=== PATIENT | male | born 1955 | race Caucasian/White ===

== ENCOUNTER 2021-12-19 09:26 | Outpatient (RCR) | payer MEDICARE, SELFPAY ==
--- NOTE | 2021-12-19 09:28 | PTOPEVAL ---
Thank you for referring Jasper Celaya to [facility].? The patient is scheduled to be seen for therapy? __2__x/week for 10 visits. Please review, sign, date and return this plan of care ILA. I agree with and certify that the following plan of care is medically necessary. Referring Physician Date Admitting Provider: Attending Provider: Liu Brewer, MD Referring Provider: *PT Outpatient Evaluation Start: 12/18/21 06:57 Freq: Status: Active Protocol: Document 12/18/21 07:02 [facility] (Rec: 12/18/21 08:03 [facility] [email or web address]) Therapy Assessment Status Assessment Status Assessment Status Evaluation Evaluation Information Problem Diagnosis Thoracic back pain Onset 11/21/21 Subjective Information Pt reports that on 11/21, he Query Text:As Reported By Patient/ was moving his fridge with a Family neighbor when it fell on top of him. The fridge was on top of him for a while before it was able to be removed. He reports that he received some injuries to his handsn but didn't notice immediate back pain. He noticed this back pain a few days later when mowing his yard and this back pain has been progressing. XRay denies fracture. Pain is described as grabbing and stabbing that starts in his lumbar region but elevates to his thoracic spine. He reports some leg weakness and paresthesia in the bottom of his bilateral feet. Deneis cramping of calves. Reports he is limited in most functional activities around the house due to pain when bending, twisting, lifting, and sitting for greater than 30 minutes. Sleep is affected currently as patient is unable to sleep greater than about 2 hours at a time. He has utilized pain meds with minimal help. Personal grooming unaffected. He would like to be able to return to all functional activities without pain.
== END 2022-01-16 15:07 | disposition home or self-care (01) ==
LOC: CHSPT 09:26
PROVIDERS: PCP Family Medicine; Visit Provider Family Medicine
DX: M54.6 Pain in thoracic spine (principal)
CPT/HCPCS: 97014; 97110; 97140; 97161; G0283

== ENCOUNTER 2024-07-25 14:21 | Outpatient (RCR) | payer MEDICARE, SELFPAY ==
--- NOTE | 2024-07-25 15:28 | PTOPEVAL1 ---
Assessment and note entered by [facility] Evaluation Information Assessment Status Evaluation ICD-10 Condition Codes (PT) Weakness R53.1 Onset 06/22/24 Subjective Information Pt. reports that he was diagnosed with cancer of the brain early June. He states that he has noticed weakness in the right u.e. and l.e. developing. He reports that he was sent up to [place] recently and received radiation which helped to shrink the tumor. He states that some strength has returned. He states that despite the progress he still has noticeable weakness of the right u.e. and l.e. He reports that he notices he walks with his right foot out. He states that he has trouble lifting the right arm overhead. He states that he has suffered 2 falls in the past year, most recent being 06/05/24. He states that his goal is to improve his leg strength, arm strength and balance. Reported Pain Level Pain Score 0: Self Report Assessment PT Clinical Summary Pt. is a 69 year old male who enters the clinic with developed right side weakness. He presents with u.e. and l.e. weakness, impaired gait and slight balance impairments on this date. Continued skilled PT is indicated in order to improve these areas to allow the pt. to be able to complete all IADL's with improved efficiency and safety. Plan of Care Interventions Gait Training,Manual Therapy,Neuro Re-education, Patient/Caregiver Education,Therapeutic Activities ,Therapeutic Exercise PT Services Indicated Yes Treatment Frequency and 2x/week x 12 visits Duration These treatments will address the objective and functional deficits as defined above. The patient will be advanced safely and appropriately in order for the patient to progress towards his/her prior level of function. Additional exercises will be introduced and as well as a comprehensive home exercise program upon discharge, if needed, ?to ensure carryover of functional gains achieved in the clinic. This treatment plan has been reviewed and agreement upon by the patient.
== END 2024-07-25 20:00 | disposition home or self-care (01) ==
LOC: CHSPT 14:21
PROVIDERS: PCP Physician Assistant; Visit Provider Physician Assistant
DX: R53.1 Weakness (principal)
CPT/HCPCS: 97110; 97161

== ENCOUNTER 2024-08-30 09:53 | Outpatient (CLI) | payer MEDICARE, SELFPAY ==
--- OUTSIDE RECORDS SUMMARY | 2024-08-30 10:08 | XMS_ITS | Data Portability ---
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 Role Phone GERDA GARVEY Primary Care Provider Assessment Encounter Date Assessment Date Assessment LastModified by Organization Details LastModified Time 07/01/2024 07/01/2024 Tolerating RT Completed SRS today Repeat brain MRI in 6-8 weeks Additional medical mgmt as per inpatient team Jessica Fitzgerald MD [email or web address] Not available 07/01/2024 18:40:33 Plan of Treatment Reminders Order Date Submit Date Provider Last Modified By Organization Details Last Modified Time Details Appointments Imaging 5.PRO 2024 10:15A M [facility] [place] Not available Not available Not available Establish ed Patient 30.EST 2024 01:00P M Yoli Casarez Not available Not available Not available Lab None recorded. Referral None recorded. Procedures None recorded. Surgeries None recorded. Imaging None recorded. Medication Orders None recorded. Patient TargetsNo targets recorded. Patient InstructionsNo instructions recorded. Reason for Referral None Reported. Problems Name Problem SNOMED Code Status Onset Date Resolution Date Notes Provider Name and Address Organization Details Recorded Time Metastatic malignant neoplasm to brain [id number] Active October [facility] 20:38:14 Problem Notes None recorded. Procedures Surgical History Date Name Laterality Status Provider Name and Address Organization Details Recorded Time Colonoscopy with biopsy completed Not Available Health Note 08/24/2024 15:13:21 Imaging Results None recorded. Procedure Notes None recorded. Medical Equipment None Reported. Medications Name Sig Start Date Stop Date Status Note LastModified by Organization Details LastModified Time pravastatin 40 mg tablet TAKE 1 TABLET BY MOUTH EVERY DAY active Not Available Not Available No t Available hydrocodone 5 mg-acetaminop hen 325 mg tablet TAKE 1 TABLET BY MOUTH THREE TIMES A DAY NEEDED active Not Available Not Available No t Available ondansetron HCl 8 mg tablet TAKE 1 TABLET BY MOUTH EVERY 8 HOURS NEEDED FOR NAUSEA AND VOMITING active Not Available Not Available No t Available prednisone 20 mg tablet TAKE 2 TABS BY MOUTH DAILY FOR 5 DAYS active Not Available Not Available No t Available prochlorperaz ine maleate 10 mg tablet TAKE 1 TABLET BY MOUTH EVERY 6 HOURS NEEDED FOR NAUSEA active Not Available Not Available No t Available lidocaine-gautam locaine 2.5 %-2.5 % topical cream APPLY TO TREATMENT AREA 1 HOUR PRIOR TO TREATMENT. active Not Available Not Available N ot Available nifedipine ER 60 mg tablet,extend ed release 24 hr TAKE 1 TABLET BY MOUTH EVERY DAY active Not Available Not Available No t Available cephalexin 500 mg capsule TAKE 1 CAPSULE BY MOUTH THREE TIMES A DAY active Not Available Not Available No t Available dexamethasone 4 mg tablet TAKE 5 TABLETS (20MG) AT BEDTIME THE NIGHT BEFORE CHEMO AND 5 TABLETS AT 6AM THE MORNING OF CHEMO. active Not Available Not Available No t Available metoprolol succinate ER 25 mg tablet,extend ed release 24 hr TAKE 1 TABLET (25 MG TOTAL) BY MOUTH DAILY. active Not Available Not Available No t Available lisinopril 40 mg tablet TAKE 1 TABLET BY MOUTH EVERY DAY active Not Available Not Available No t Available amoxicillin 875 mg-potassium clavulanate 125 mg tablet TAKE 1 TABLET BY MOUTH TWICE A DAY active Not Available Not Available No t Available Vitals None Recorded Social History Question Answer Notes LastModified by Organizat ion Details LastModified Time Tobacco Smoking Status Former Smoker Not Available Health Note 08/24/2024 15:13:22 Do You Have An Advance Directive? No [email or web address] Information not available 08/24/2024 What Is Your Level Of Alcohol Consumption? None [email or web address] Information not available 08/24/2024 What Is Your Level Of Caffeine Consumption? Occasional [email or web address] Information not available 08/24/2024 Are You Currently Employed? No [email or web address] Information not available 08/24/2024 What Is Your Occupation? Retired [email or web address] Information not available 08/24/2024 How Many Times Per Week Do You Exercise? 3-4 Times Per Week [email or web address] Information not available 08/24/2024 When Did You Quit Smoking? 06/2017 [email or web address] Information not available 08/24/2024 What Was The Date Of Your Most Recent Tobacco Screening? 08/31/2024 [email or web address] Information not available 08/24/2024 What Is Your Relationship Status? [email or web address] Information not available 08/24/2024 Do You Use Any Illicit Or Recreational Drugs? No [email or web address] Information not available 08/24/2024 Sex: Unknown Functional Status Question Answer Note LastModified by Organization D etails LastModified Time What is your exercise level? Moderate [email or web address] Information not available 08/24/2024 Mental Status None recorded. Family History Relationship Description Onset Age of this Age Resolved Age Notes LastModified by Organization Details LastModified Time Mother Arthritis [email or web address] Not available 08/24/2024 15:13:20 Mother Family history of malignant neoplasm [email or web address] Not available 2024 15:13:20 Father Arthritis [email or web address] Not available 08/24/2024 15:13:20 Father Heart disease [email or web address] Not available 2024 15:13:20 Father Hypertensive disorder [email or web address] Not available 2024 15:13:20 Father Hypercholest erolemia [email or web address] Not available 2024 15:13:20 Paternal Grandfather Arthritis [email or web address] Not available 08/13 15:13:20 Paternal Grandfather Heart disease [email or web address] Not available 2024 15:13:20 Paternal Grandfather Hypertensive disorder [email or web address] Not available 2024 15:13:20 Paternal Grandfather Hypercholest erolemia [email or web address] Not available 2024 15:13:20 Paternal Grandfather Cerebrovascu lar accident [email or web address] Not available 06/2025 15:13:20 Medical History Condition Response High Blood Pressure Y COPD N Depression N Anxiety Disorder N Arthritis Y Cancer Y Stroke N Fibromyalgia N Kidney Disease N Attention-deficit Hyperactivity Disorder N Thyroid Problems N Anemia N Diabetes N Bleeding Disorder N Hyperlipidemia N Asthma N Seizures N Heart Disease N Osteoporosis N Past Encounters Encounter ID Performer Location Encounter Start Date Encounter Closed Date Diagnosis/Indication Diagnosis SNOMED-CT Code Diagnosis ICD10 Code Diagnosis Note [id number] [facility] [address] [facility],[address] [place] [phone] 1 06/24/2024 16:39:50 06/24/2024 16:39:51 [id number] MD Manuela Mercer [facility] Rad Onc ([place]) [address] [place] [facility],[address] [place] [phone] 1 07/01/2024 17:24:43 07/01/2024 17:25:30 Metastatic malignant neoplasm to brain [id number] C79.31 [id number] MD Manuela Crook [facility] [place] [address] [place] [facility],[address] [place] [phone] 1 07/01/2024 13:48:01 07/01/2024 16:10:43 [id number] [facility] [address] [place] [facility],[address] [place] [phone] 1 07/01/2024 17:40:44 07/12/2024 17:10:44 Health Concerns Section Related Observation LastModified by Organization Detai ls LastModified Time None Recorded Concern Status LastModified by Organization Details LastModified Time None Recorded Advance Directives Directive N: Payers Encounter Date Sequence Insurance Name Policy Number Policy Conner Covered Member ID Conner Member ID Guarantor Name 06/24/2024 1 [employer] (MEDICARE REPLACEMENT PPO) [id number] Jasper Celaya [id number] Jasper Celaya 07/01/2024 1 [employer] (MEDICARE REPLACEMENT PPO) [id number] Jasper Celaya [id number] Jasper Celaya 07/01/2024 1 [employer] (MEDICARE REPLACEMENT PPO) [id number] Jasper Celaya [id number] Jasper Celaya 07/01/2024 1 [employer] (MEDICARE REPLACEMENT PPO) [id number] Jasper Celaya [id number] Jasper Celaya Notes Date Note Type Note Provider Name and Address Organization Details Recorded Time 07/01/2024 text/html 69 yo male with multiple brain metastases, likely lung primary based on imaging (pathologic confirmation pending) Fx: 1Dose: 2200/2200 cGy Pt tolerated his radiation treatment well today, although his arms and back were sore afterward due to lying still in the treatment position for the lengthy duration of the treatment. No new neuro symptoms. He remains inpatient, underwent chest tube placement for post-biopsy pneumothorax. Jessica Fitzgerald MD [address] [place] [address], [phone], [facility] 07/01/2024 18:45:39 07/01/2024 text/html Identifying Information Oncologic History Interval HistoryLeft Frontal, right frontal, right cerebral Fx: 07/13 Dose: 2200 Julio Cesar Dalton MD [address] [place] [address], [phone], [facility] 07/12/2024 17:10:41
[2024-08-30 10:10] VITALS: BP 146/69; PULSE 88; RESP 16; TEMP 36.6; O2SAT 96; BMI 29.2
[2024-08-30] MEDS: SODIUM CHLORIDE 0.9% IV 250 ML 10 ML IVPB (10:15)
[2024-08-30 10:21] LABS: Hematocrit 34.3 % (37.0-46.0); Mean Corpuscular HGB Conc 32.1 g/dL (32-36); Mean Corpuscular Hemoglobin 28.1 pg (27.0-31.0); Mean Corpuscular Volume 87.5 fL (78.0-102.0); Mean Platelet Volume 7.9 fl (8.7-11.0); Platelet Count Result 383 K/mm3 (150-420); Red Blood Count 3.92 M/mm3 (4.70-6.10); Red Cell Distribution Width 15.6 % (11.6-14.4); White Blood Count 6.2 K/mm3 (4.8-10.8)
[2024-08-30 10:38] LABS: Alanine Aminotransferase 34 U/L (16-63); Albumin Level 3.4 g/dL (3.4-5.0); Alkaline Phosphatase 134 U/L (46-116); Anion Gap 12 mmol/L (4-12); Aspartate Amino Transferase 16 U/L (15-37); Bilirubin,Total 0.2 mg/dL (0.00-1.00); Blood Urea Nitrogen 19 mg/dL (7-18); Carbon Dioxide 24 mmol/L (21-32); Chloride 101 mmol/L (98-108); Estimated CRCL calculation 79 ml/min; Estimated Glomerular Filt Rate > 60; Glucose 189 mg/dL (70-99); Osmolality Calculated 291 mOsm/kg (285-295); Potassium 4.2 mmol/L (3.5-5.1); Sodium 137 mmol/L (136-145); Total Protein 8.2 g/dL (6.4-8.2)
[2024-08-30] MEDS: FAMOTIDINE 20 MG/2 ML VIAL IV PUSH (10:55)
[2024-08-30] MEDS: diphenhydrAMINE HCl INJ 50 MG/ML VIAL 25 MG IV PUSH (10:59)
[2024-08-30] MEDS: dexAMETHasone SOD 4 MG/ML INJ 12 MG, ONDANSETRON INJ 16 MG in SODIUM CHLORIDE 0.9% IV 8... 300 MG IVPB (11:20)
[2024-08-30] MEDS: FOSAPREPITANT DIMEGLUMINE 150 MG in SODIUM CHLORIDE 0.9% IV 250 ML 750 MG IVPB (11:46)
[2024-08-30] MEDS: PEMBROLIZUMAB 200 MG in SODIUM CHLORIDE 0.9% IV 92 ML IVPB (12:10)
[2024-08-30] MEDS: SODIUM CHLORIDE 0.9% IVPB ×2 (12:40→15:40)
[2024-08-30] MEDS: PACLITAXEL IVPB (12:40)
[2024-08-30] MEDS: CARBOPLATIN IVPB (15:40)
[2024-08-30] MEDS: HEPARIN SODIUM LOCK FLUSH 500 UNITS/5 ML SYRINGE IV PUSH (16:11)
[2024-08-30 16:26] VITALS: BP 143/79; PULSE 80; RESP 16; TEMP 36.6; O2SAT 93
--- NOTE | 2024-08-30 16:28 | PC.NURSE ---
Patient tolerated chemo treatment well. SEE MAR/patient care notes.
== END 2024-08-30 09:54 | disposition home or self-care (01) ==
PROVIDERS: PCP Physician Assistant; Visit Provider Internal Medicine Hematology
DX: Z51.11 Encounter for antineoplastic chemotherapy (principal); C34.12 Malignant neoplasm of upper lobe, left bronchus or lung
CPT/HCPCS: 36415; 36591; 80053; 85027; 96367; 96375; 96413; 96417; J1100; J1200; J1453; J2405; J7040; J7050; J9045; J9267; J9271

== ENCOUNTER 2024-09-20 08:30 | Outpatient (CLI) | payer MEDICARE, SELFPAY ==
[2024-09-20 08:45] VITALS: BP 138/77; PULSE 78; RESP 16; TEMP 36.6; O2SAT 93; BMI 29.5
--- OUTSIDE RECORDS SUMMARY | 2024-09-20 08:53 | XMS_ITS | Encounter Summary ---
Author Organization [facility] Address [facility] [place] [address] Care Team Providers Care Top Polisher Name Role Phone Everton Flores MD Primary Care Provider [phone] Osmar Cabrales MD Unavailable Unavailable Mode Slaughter MD Unavailable Unavailable Nilay Enriquez MD Unavailable [phone] Martha Jordan MD Unavailable [phone] Liu Brewer MD Primary Care Provider Marcial Titus MD Unavailable [phone] Encounter Details Date Type Department Care Team (Late st Contact Info) Description 12/18/2018 Abstract [facility] CONVERSION [address] [place], [place] [id number] , Generic Conversion, Social History Tobacco Use Types Packs/Day Years Used Date Smoking Tobacco: Every Day Smokeless Tobacco: Never Sex and Gender Information Value Date Recorded Sex Assigned at Male 07/26/2024 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 Sex Male 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 Gender Identity Not on file Sexual Orientation Not on file documented as of this encounter Plan of Treatment Upcoming Encounters Date Type Department Care Team (Late st Contact Info) Description 10/25/2024 9:00 AM CDT Office Visit [facility] [address] [place] [phone] Marcial Titus MD [address] [facility] [address] [place] [address] documented as of this encounter Visit Diagnoses Not on filedocumented in this encounter Care Teams Top Polisher Relationship Specialty Start Date End Date Everton Flores MD [address] [place] [address] PCP - General FAMILY PRACTICE 07/07/17 07/24/20 Liu Brewer MD [address] [place] [address] PCP - General FAMILY PRACTICE 07/25/20 Osmar Cabrales MD [address] [place] [phone] CARDIOVASCULAR DISEASE 07/07/17 07/26/20 Mode Slaughter MD [address] [place] [address] CARDIOVASCULAR DISEASE 07/22/17 07/26/20 Nilay Enriquez MD [address] [place] [address] ORTHOPAEDICS 01/15/18 Martha Jordan MD [address] [place] [address] Consulting Physician INTERVENTIONAL CARDIOLOGY 07/27/20 09/16/24 Marcial Titus MD [address] [facility] [address] [address] Physician INTERVENTIONAL CARDIOLOGY 09/16/24 documented as of this encounter
--- OUTSIDE RECORDS SUMMARY | 2024-09-20 08:54 | XMS_ITS | Data Portability ---
Author Organization [facility], [address] [facility] ([place] Address [address] [place] [address] Care Team Providers Care Mixer Whipped Topping Name Role Phone GERDA AGRVEY Primary Care Provider [phone] Assessment Encounter Date Assessment Date Assessment LastModified by Organization Details LastModified Time 07/01/2024 07/01/2024 Tolerating RT Completed SRS today Repeat brain MRI in 6-8 weeks Additional medical mgmt as per inpatient team Jessica Fitzgerald MD [email or web address] Not available 07/01/2024 18:40:33 08/01/2024 08/01/2024 IMPRESSION: Multifocal brain metastases. PLAN: 1. Follow up with radiation oncology in 1 month for repeat MRI brain. 2. Continue follow-up with medical oncology as planned. 3. Call with any new or worsening symptoms. I personally spent a total of 5 minutes on the patient on this date of service including both fwzp-sy-awrh and bfn-zikl-po-fa ce time excluding any separately reportable services having direct medical discussion with the patient via telephone. [email or web address] Not available 08/25/2024 13:26:08 08/31/2024 08/31/2024 IMPRESSION: The patient is a 69-year-old male with a history of non-small cell lung cancer and brain metastasis for which he completed SRS on 07/01/2024. He presents today in the office without any new onset of neurological symptoms. His MRI brain was reviewed today. Results are stable. We will recommend continued serial imaging. PLAN: 1. Follow up in radiation oncology in 3 months for repeat MRI brain. 2. Continue follow up with his PCP, Dr. Garvey, regarding right lower extremity swelling. 3. Call with any new or worsening symptoms. The patient and family are in agreement. I personally spent a total of 30 minutes on the patient on this date of service including both trfg-nl-awhe and non hldw-mw-rpcr time excluding any separately reportable services. The patient does travel from [place]. He is agreeable to coming to [place]. [email or web address] Not available 08/31/2024 20:25:20 Plan of Treatment Reminders Order Date Submit Date Provider Last Modified By Organization Details Last Modified Time Details Appointments Imaging 5.PRO 2024 12:30P M MRI [facility] Not available Not available Not available Imaging 5.PRO 2024 01:15P M [facility] Not available Not available Not available Lab None recorded . Referral None recorded . Procedures None recorded . Surgeries None recorded . Imaging None recorded . Medication Orders None recorded . Patient TargetsNo targets recorded. Patient InstructionsNo instructions recorded. Reason for Referral None Reported. Results Created Date Observation Date Name Description Value Unit Range Abnormal Flag Note LastModifiedBy Organization Detail LastModifiedTime 08/31/1908/31/2024 MRI, brain , w/wo contr ast [place] [id number] [place] [id number] Teleph one Name: Dylon Celaya 1795 Exam Date: 2024 Age: 69 Physic kyung: Savi bajwa MD, Julio Cesar : 1954 Examin ation: MRI BRAIN W AND WO CONTRA ST EXAMIN ATION: MRI brain with and withou t contra st INDICA TION: Lung cancer with brain mets, Curren tly underg oing radiat ion, Rechec k COMPAR DARIO: MR brain 2023. TECHNI QUE: This examin ation includ es T1-rossy ghted images pre- and postco ntrast as well as T2-rossy ghted, FLAIR, gradie nt-ech o, and diffus ion weight ed images . 15 mL of Dotare m gadoli nium were inject ed at the right antecu bital fossa, withou t incide nt. FINDIN GS: Cerebr um: A left fronta l pariet al metast asis has decrea sed in size. This now measur es 11 x 11 mm in transv erse dimens ions compar ed to 15 mm on the previo us exam. There is decrea sed surrou nding vasoge daina edema compar ed to the previo us exam. Other small enhanc ing lesion s bilate rally in the cerebe llum in the anteri or right fronta l lobe are no longer identi fied. Howeve r the postco ntrast images have substa ntiall y more artifa ct on today' s study which could obscur e small lesion . White matter : Normal . Roll Or Tape Edge Machine Operator ior fossa: Unrema rkable cerebe llum and brains tem. Diffus ion-we ighted images : No eviden ce of recent or subacu te infarc t. Extra- axial spaces : Unrema rkable with no masses or collec tions. Brain parenc hymal volume : Within normal limits for age. Pituit carlos enrique:No rmal Vascul ature: Loss of normal flow signal in the right leadership program intern al caroti d artery at its upper cervic al portio n and its intrac ranial portio n. Recomm end CT or MR angiog ericka if this is not a known abnorm ality. Flow distur bance is also presen t on the previo us MRI. Parana beatriz sinuse s and mastoi ds:Mod erate to severe right maxill carlos enrique sinus polypo id mucosa l thicke arnold. Orbits : Normal orbita l conten ts. Other: No other signif icant abnorm ality. IMPRES BARRY: 1. A left fronta l pariet al metast asis measur es smalle r in today' s examin ation with decrea sed surrou nding edema. 2. Other small enhanc ing lesion s suspic ious for metast ases are not identi fied on today' s study. There is howeve r motion artifa ct on the postco ntrast images which may obscur e these lesion s. 3. Abnorm al flow in the right leadership program intern al caroti d artery , recomm end CT or MR angiog ericka if this is not a known abnorm ality. Electr onical ly signed in Panda cribe by: MJ JIMENEZ MD on:08/13 11:12 AM cc: Page PAGE 1 of NUMPAG ES 1 [email or web address] [facility] [address] [place] [address], [id number], 09/01/2024 14:28:58 Result Notes None recorded. Problems Name Problem SNOMED Code Status Onset Date Resolution Date Notes Provider Name and Address Organization Details Recorded Time Metastatic malignant neoplasm to brain 67423534 Active October [facility] 20:38:14 Problem Notes None recorded. Procedures Surgical History Date Name Laterality Status Provider Name and Address Organization Details Recorded Time Colonoscopy with biopsy completed Not Available Health Note 08/24/2024 15:13:21 Imaging Results Imaging Date Name Status LastModified by Organiz ation Details LastModified Time 08/31/2024 MRI, brain, w/wo contrast completed [facility] [address] [place] [address], [id number], 09/01/2024 14:28:58 Procedure Notes None recorded. Medical Equipment None Reported. Medications Name Sig Start Date Stop Date Status Note LastModified by Organization Details LastModified Time pravastatin 40 mg tablet TAKE 1 TABLET BY MOUTH EVERY DAY active Not Available Not Available No t Available hydrocodone 5 mg-acetamin ophen 325 mg tablet TAKE 1 TABLET BY MOUTH THREE TIMES A DAY NEEDED 08/31 completed Not Available Not Available Not Available ondansetron HCl 8 mg tablet TAKE 1 TABLET BY MOUTH EVERY 8 HOURS NEEDED FOR NAUSEA AND VOMITING active Not Available Not Available No t Available prednisone 20 mg tablet TAKE 2 TABS BY MOUTH DAILY FOR 5 DAYS active Not Available Not Available No t Available prochlorper azine maleate 10 mg tablet TAKE 1 TABLET BY MOUTH EVERY 6 HOURS NEEDED FOR NAUSEA active Not Available Not Available No t Available lidocaine-p rilocaine 2.5 %-2.5 % topical cream APPLY TO TREATMENT AREA 1 HOUR PRIOR TO TREATMENT . active Not Available Not Available No t Available nifedipine ER 60 mg tablet,exte nded release 24 hr TAKE 1 TABLET BY MOUTH EVERY DAY active Not Available Not Available No t Available cephalexin 500 mg capsule TAKE 1 CAPSULE BY MOUTH THREE TIMES A DAY 08/31 completed Not Available Not Available Not Available dexamethaso ne 4 mg tablet TAKE 5 TABLETS (20MG) AT BEDTIME THE NIGHT BEFORE CHEMO AND 5 TABLETS AT 6AM THE MORNING OF CHEMO. active Not Available Not Available No t Available metoprolol succinate ER 25 mg tablet,exte nded release 24 hr TAKE 1 TABLET (25 MG TOTAL) BY MOUTH DAILY. active Not Available Not Available No t Available lorazepam 1 mg tablet TAKE 1 TABLET BY MOUTH EVERY 12 HOURS NEEDED 08/31 completed Not Available Not Available Not Available lisinopril 40 mg tablet TAKE 1 TABLET BY MOUTH EVERY DAY 08/31 completed Not Available Not Available Not Available amoxicillin 875 mg-potassiu m clavulanate 125 mg tablet TAKE 1 TABLET BY MOUTH TWICE A DAY 08/31 completed Not Available Not Available Not Available Eliquis 5 mg tablet Take 1 tablet twice a day by oral route. active Not Available Not Available No t Available Vitals Date Recorded Body weight Body temperature Heart rate Oxygen saturation Oxygen saturation in Arterial blood by Pulse oximetry Systolic blood pressure Diastolic blood pressure Provider Name and Address Organization Details Last Updated DateTime 52261.2 g 97.4 [degF] 84 /min 96 % 96 % 134 mm[Hg] 70 mm[Hg] Meenakshi Ventura [facility] 13:50:08 Social History Question Answer Notes LastModified by [...] available 06/2025 15:13:20 Medical History Condition Response Diabetes N Anxiety Disorder N Bleeding Disorder N Attention-deficit Hyperactivity Disorder N High Blood Pressure Y Arthritis Y Hyperlipidemia N Cancer Y Thyroid Problems N Stroke N Asthma N COPD N Depression N Anemia N Seizures N Heart Disease N Fibromyalgia N Osteoporosis N Kidney Disease N Past Encounters Encounter ID Performer Location Encounter Start Date Encounter Closed Date Diagnosis/Indication Diagnosis SNOMED-CT Code Diagnosis ICD10 Code Diagnosis Note [id number] MD Manuela Crook [facility] [address] [place] [address] 06/24/2024 16:39:50 06/24/2024 16:39:51 [id number] MD Manuela Mercer [facility] [address] [place] [address] 07/01/2024 17:24:43 07/01/2024 17:25:30 Metastatic malignant neoplasm to brain 91733078 C79.31 [id number] Julio Cesar Dalton MD [facility] [address] [place] [address] 07/01/2024 13:48:01 07/01/2024 16:10:43 [id number] Julio Cesar Dalton MD [facility] [address] [place] [address] 07/01/2024 17:40:44 07/12/2024 17:10:44 [id number] Julio Cesar Dalton MD [facility] [address] [place] [address] 08/01/2024 16:33:12 08/01/2024 17:43:19 Metastatic malignant neoplasm to brain 31459868 C79.31 [id number] Julio Cesar Dalton MD [facility] [address] [place] [address] 08/31/2024 13:24:35 09/01/2024 16:30:07 Metastatic malignant neoplasm to brain 12406602 C79.31 Health Concerns Section Related Observation LastModified by Organization Detai ls LastModified Time None Recorded Concern Status LastModified by Organization Details LastModified Time None Recorded Advance Directives Directive N: Payers Encounter Date Sequence Insurance Name Policy Number Policy Conner Covered Member ID Conner Member ID Guarantor Name 07/01/2024 1 [employer] (MEDICARE REPLACEMENT PPO) [id number] Jasper Celaya [id number] Jasper Celaya 07/01/2024 1 [employer] (MEDICARE REPLACEMENT PPO) [id number] Jasper Celaya [id number] Jasper Celaya 07/01/2024 1 [employer] (MEDICARE REPLACEMENT PPO) [id number] Jasper Celaya [id number] Jasper Celaya 08/01/2024 1 [employer] (MEDICARE REPLACEMENT PPO) [id number] Jasper Celaya [id number] Jasper Celaya 08/31/2024 1 [employer] (MEDICARE REPLACEMENT PPO) [id number] Jasper Celaya [id number] Jasper Celaya Notes Date Note Type Note Provider Name and Address Organization Details Recorded Time 07/01/2024 text/html 69 yo male with multiple brain metastases, likely lung primary based on imaging (pathologic confirmation pending) Fx: ose: 2200/2200 cGy Pt tolerated his radiation treatment well today, although his arms and back were sore afterward due to lying still in the treatment position for the lengthy duration of the treatment. No new neuro symptoms. He remains inpatient, underwent chest tube placement for post-biopsy pneumothorax. Jessica Fitzgerald MD [address] [place] [address], [phone], [facility] 07/01/2024 18:45:39 07/01/2024 text/html Identifying Information Oncologic History Interval HistoryLeft Frontal, right frontal, right cerebral Fx: 07/13 Dose: 2200 Julio Cesar Dalton MD [address] [place] [address], [phone], [facility] 07/12/2024 17:10:41 08/01/2024 text/html The patient is s tatus post SRT to multiple brain metastases completed on 07/01/2024.He is doing very well with no new neurological symptoms. No headaches or fevers. No change in vision or hearing. No speech or thought process changes. No new weakness, numbness or tingling. No dizziness. No bowel or bladder habit changes. He does have a good appetite and no nausea or vomiting. He is off of the dexamethasone.He does not have any other questions today. Identifying Information: Oncologic History:07/01/2024: Completed SRS to multifocal brain metastases. Jasper Celaya is a 69-year-old male [facility] with complaints of progressive right sidedweakness. The patient reports he began to notice right leg numbness about aweek and a half prior to presentation for which his PCP ordered an MRI of hislumbar spine. This MRI was reportedly unremarkable but the patient continued tohave progressive right leg weakness. Within the last few days the patient hasnoticed right arm weakness and decreased coordination. Further evaluation ofthe [facility] with CT head demonstrated a probable left posteriorparietal hemorrhagic metastasis. Also obtained of the [facility] was aCT chest which demonstrated a new left upper lobe lung mass compatible withmalignancy. The patient was transferred further evaluation and management.Radiation Oncology has been consulted for management recommendations forradiation treatment of left frontoparietal lobe brain lesion. Interval History: Yoli Casarez PA-C [address] [place] [address], [phone], [facility] 08/30/2024 12:01:41 08/31/2024 text/html Jasper is a 69-year-old male who is here today in follow-up status post SRS single fraction on 07/01/2024 to the left frontal and right frontal metastases. He does not have any new neurological symptoms. He feels that he is doing fairly well. He has been trying to walk a mile and a half a day. He has been splitting firewood. He denies any headaches or fevers. He has had some blurry vision with reading, but does report seeing an eye doctor and he has new glasses ordered. No hearing changes. No facial drooping. No speech changes or change in thought process. No new numbness, tingling or weakness. He did have some swelling in his right lower extremity. He saw his PCP for this. They did rule out a blood clot. He was given Jobst stockings. He also has compression stockings and he will follow up with Dr. Garvey in the near future. He does feel that it is improving. He has not been putting his feet up when he is sitting down. He will make these changes. He denies any appetite difficulty. No nausea or vomiting. He is accompanied by his daughter and today, Rosa and Heather. He does have some mild neck pain but not too bad. He notices some dizziness when he gets up at night to go to the bathroom. He never notices this during the day. He has had some tinnitus at night sounding like chirping bugs. He did have a new MRI on 08/31/2024. Impression reads as follows:1. A left frontoparietal metastasis that measures smaller on today s examination with decreased surrounding edema.2. Other small enhancing lesions suspicious for metastases are not identified on today s study. There is however motion artifact on the postcontrast images which may obscure these lesions.3. Abnormal flow in the right internal carotid artery. Recommend CT or MRI angiography if this is not a known abnormality. The patient and I reviewed images together. The patient does not have any other questions or concerns today. Identifying Information: Name: Jasper CelayaAge: 69yo MDOB: 1955 Oncologic History:07/01/2024: Completed SRS to multifocal brain metastases. Jasper Celaya is a 69-year-old male who [facility] with complaints of progressive right sidedweakness. The patient reports he began to notice right leg numbness about aweek and a half prior to presentation for which his PCP ordered an MRI of hislumbar spine. This MRI was reportedly unremarkable but the patient continued tohave progressive right leg weakness. Within the last few days the patient hasnoticed right arm weakness and decreased coordination. Further evaluation ofthe [facility] with CT head demonstrated a probable left posteriorparietal hemorrhagic metastasis. Also obtained of the [facility] was aCT chest which demonstrated a new left upper lobe lung mass compatible withmalignancy. The patient was transferred further evaluation and management.Radiation Oncology has been consulted for management recommendations forradiation treatment of left frontoparietal lobe brain lesion. 08/31/2024: MRIHe did have a new MRI on 08/31/2024. Impression reads as follows:1. A left frontoparietal metastasis that measures smaller on today s examination with decreased surrounding edema.2. Other small enhancing lesions suspicious for metastases are not identified on today s study. There is however motion artifact on the postcontrast images which may obscure these lesions.3. Abnormal flow in the right internal carotid artery. Recommend CT or MRI angiography if this is not a known abnormality. Interval History: Yoli Casarez PA-C [address] [place] [address], [phone], [place] [facility] 09/06/2024 11:10:06
--- OUTSIDE RECORDS SUMMARY | 2024-09-20 08:54 | XMS_ITS | Clinical Summary ---
Author Organization [facility] Address [address] [place] [address] Care Team Providers Care Adobe Layer Name Role Phone Nilay Enriquez MD Unavailable [phone] Liu Brewer MD Primary Care Provider Marcial Titus MD Unavailable [phone] Allergies Active Allergy Reactions Criticality Noted Date Comments Atorvastatin Diarrhea 06/22/2024 Medications pravastatin (PRAVACHOL) 40 MG tablet Take 1 tablet (40 mg total) by mouth daily. 09/08/2022 Active apixaban (ELIQUIS) 5 MG tablet Take 1 tablet (5 mg total) by mouth 2 (two) times daily. 180 tablet 3 04/06/2023 Active HYDROcodone-acet aminophen (NORCO) 5-325 MG tablet Take 1 tablet by mouth 3 (three) times daily as needed. 06/13/2024 Active metoprolol succinate ER (TOPROL-XL) 25 MG 24 hr tablet TAKE 1 TABLET (25 MG TOTAL) BY MOUTH DAILY. 90 tablet 3 08/15/2024 Active NIFEdipine XL (PROCARDIA XL) 60 MG 24 hr tablet Take 1 tablet (60 mg total) by mouth daily. 90 tablet 3 08/17/2024 Active Active Problems Problem Noted Date Diagnosed Date Lung mass 06/22/2024 Chest pain of uncertain etiology 09/07/2017 Former smoker 09/07/2017 Atrial fibrillation ([facility]) 08/03/2017 LV dysfunction 08/03/2017 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[facility]) 08/03/2017 Essential hypertension 07/09/2017 Mixed hyperlipidemia 07/09/2017 Smoking 07/09/2017 COPD (chronic obstructive pu lmonary disease) ([facility]) Encounters Date Type Department Care Team Description 09/02/2024 Travel 08/17/2024 8:06 AM PULLEY MORTISER OPERATOR - 08/17/2024 11:59 PM PULLEY MORTISER OPERATOR Hospital Encounter [facility] [address] [place] [address] Malick Szymanski MD Discharge Disposition: Home or Self Care (Routine Discharge) 08/17/2024 Telephone [facility] [address] [place] [address] Martha Jordan MD Question 08/17/2024 Travel 08/12/2024 Telephone [facility] [address] [place] [address] Martha Jordan MD Reschedule 08/02/2024 9:27 AM PULLEY MORTISER OPERATOR - 08/02/2024 11:59 PM PULLEY MORTISER OPERATOR Hospital Encounter [facility] [address] [place] [address] Malick Szymanski MD Discharge Disposition: Home or Self Care (Routine Discharge) 08/02/2024 Travel 07/29/2024 Travel 07/26/2024 2:16 PM PULLEY MORTISER OPERATOR - 07/26/2024 11:59 PM PULLEY MORTISER OPERATOR Hospital Encounter [facility] [address] [place] [address] Malick Szymanski MD Discharge Disposition: Home or Self Care (Routine Discharge) 07/26/2024 Travel 07/25/2024 3:09 PM PULLEY MORTISER OPERATOR - 07/25/2024 11:59 PM PULLEY MORTISER OPERATOR Hospital Encounter [facility] [address] [place] [address] Malick Szymanski MD Discharge Disposition: Home or Self Care (Routine Discharge) 07/25/2024 7:40 AM PULLEY MORTISER OPERATOR - 07/25/2024 3:08 PM PULLEY MORTISER OPERATOR Hospital Encounter [facility] [address] [place] [address] Malick Szymanski MD Discharge Disposition: Home or Self Care (Routine Discharge) 07/25/2024 Travel 07/12/2024 12:30 PM PULLEY MORTISER OPERATOR Home Care Visit [facility] Home Care [facility] [address] [place] [address] Genet Pulido RN SN NON ADMIT SOC 07/08/2024 Telephone [facility] [address] [place] [address] Martha Jordan MD Appointment Request 06/22/2024 2:53 PM PULLEY MORTISER OPERATOR - 07/06/2024 2:19 PM PULLEY MORTISER OPERATOR Hospital Encounter [facility] [address] [place] [address] Rodrigo Delgadillo MD Yaseen, Maryam, MD Ahmad, Saad N, MD Markapuram, Srikanth, MD Mahmoud, Anas, MD Parikh, Ankit R, MD Discharge Disposition: Home with Home Health Care 06/22/2024 10:06 AM PULLEY MORTISER OPERATOR - 06/22/2024 1:55 PM PULLEY MORTISER OPERATOR Emergency [facility] [address] [facility] [place] [address] Samantha Bailey MD Numbness Discharge Disposition: Transfer to Acute Care Hospital 06/22/2024 Travel from Last 3 Months Family History Medical History Relation Comments Coronary artery disease Neg Hx Social History Tobacco Use Types Packs/Day Years Used Date Smoking Tobacco: Former Cigarettes Q uit: 2017 Smokeless Tobacco: Never Tobacco Cessation:Counseling Given: Not Answered Alcohol Use Standard Drinks/Week Comments Yes 0 (1 standard drink = 0.6 oz pur e alcohol) 2 to 4 drinks per week [facility] Utilities Answer Date Recorded In the past 12 months has e [employer], gas, oil, or water Aviary threatened to shut off services in your home? No 06/22/2024 Humiliation, Afraid, Rape, and Kick questionnair e Answer Date Recorded Within the last year, have y ou been afraid of your partner or ex-partner? No 06/22/2024 Within the last year, have y ou been humiliated or emotionally abused in other ways by your partner or ex-partner? No Within the last year, have y ou been kicked, hit, slapped, or otherwise physically hurt by your partner or ex-partner? No 06/22/2024 Within the last year, have y ou been raped or forced to have any kind of sexual activity by your partner or ex-partner? No 06/22/2024 Overall Financial Resource Strain (CARDIA) Answe r Date Recorded How hard is it for you to pa y for the very basics like food, housing, medical care, and heating? Not hard at all 06/22/2024 Hunger Vital Sign Answer Date Recorded Within the past 12 months, y ou worried that your food would run out before you got the money to buy more. Never true 06/22/20 24 Within the past 12 months, t he food you bought just didn't last and you didn't have money to get more. Never true 06/22/2024 PRAPARE - Transportation Answer Date Re corded In the past 12 months, has l ack of transportation kept you from medical appointments or from getting medications? No 06/12 In the past 12 months, has l ack of transportation kept you from meetings, work, or from getting things needed for daily living? No 06/22/2024 Housing Stability Vital Sign Answer Royer e Recorded In the last 12 months, was t here a time when you were not able to pay the mortgage or rent on time? No 06/22/2024 In the past 12 months, how m any times have you moved where you were living? 0 06/22/2024 At any time in the past 12 m [facility], were you homeless or living in a senior care (including now)? No 06/22/2024 Sex and Gender Information Value Date Recorded Sex Assigned at Male 07/26/2024 2:15 PM PULLEY MORTISER OPERATOR Legal Sex Male 2:41 PM PULLEY MORTISER OPERATOR Gender Identity Not on file Sexual Orientation Not on file Last Filed Vital Signs Vital Sign Reading Time Taken Comments Blood Pressure 128/78 07/06/2024 11:48 AM PULLEY MORTISER OPERATOR Pulse 70 07/06/2024 11:48 AM PULLEY MORTISER OPERATOR Temperature 36.3 C (97.3 F) 07/06/2024 8:31 AM PULLEY MORTISER OPERATOR Respiratory Rate 16 07/05/2024 7:27 PM PULLEY MORTISER OPERATOR Oxygen Saturation 97% 07/06/2024 11:48 AM PULLEY MORTISER OPERATOR Inhaled Oxygen Concentration - - Weight 95.3 kg (210 lb) 07/29/2024 10:33 AM PULLEY MORTISER OPERATOR Height 182.9 cm (6') 07/29/2024 10:33 AM PULLEY MORTISER OPERATOR Body Mass Index 28.48 07/29/2024 10:33 AM PULLEY MORTISER OPERATOR Plan of Treatment Upcoming Encounters Date Type Department Care Team (Late st Contact Info) Description 10/25/2024 9:00 AM CDT Office Visit [facility] [place] [address] Marcial Titus MD [address] [address] [place] [address] Health Maintenance Due Date Last Done Comments Pneumococcal Vaccine: 65+ Years (1 of 2 - PCV) 1963 Hepatitis C 1975 DTaP, Tdap and Td Vaccines (1 - Tdap) 1976 Zoster Vaccines (1 of 2) 2007 RSV Immunization or 60+ Years (1 - Risk 60-74 years 1-dose series) 2017 Annual Medicare Wellness Visit 2022 COVID-19 Vaccine ( - season) 2024 10/26/2020, 09/28/2020 Influenza Adult (#1) 2024 Colorectal Cancer Screening Colonoscopy (10 Years) 01/08/2031 01/08/2021, 01/08/2021 AAA SCREENING Completed 08/02/2024, 06/13, 06/22/2024, Additional history exists Meningococcal B Vaccine Aged Out No l onger eligible based on patient's age to complete this topic Meningococcal Vaccine Aged Out No leonard connie eligible based on patient's age to complete this topic RSV Immunizations Under 20 Months Aged Out No longer eligible based on patient's age to complete this topic Procedures Procedure Name Priority Date/Time Associated Diagnosis Comments US THYROID Routine 08/17/2024 9:22 AM PULLEY MORTISER OPERATOR Thyroid nodule PET EYE TO THIGH [id number] Routine 08/02/2024 11:39 AM PULLEY MORTISER OPERATOR Primary cancer of left upper lobe of lung (CMS/HCC HHS/HCC) POCT GLUCOSE - ORTIZ DOCKED DEVICE Routine 08/02/2024 10:09 AM PULLEY MORTISER OPERATOR USV DORITA DUPLEX LOW EXT ZAIRA Routine 07/26/2024 2:45 PM PULLEY MORTISER OPERATOR Leg swelling USE ECHOCARDIOGRAM Routine 07/25/2024 8: 21 AM PULLEY MORTISER OPERATOR Encounter for monitoring cardiotoxic drug therapy XR CHEST PORTABLE ILA 07/06/2024 9:3 6 AM PULLEY MORTISER OPERATOR BASIC METABOLIC PANEL Routine 07/06/2024 3:16 AM PULLEY MORTISER OPERATOR CBC, AUTO, NO DIFF Routine 07/06/2024 3: 16 AM PULLEY MORTISER OPERATOR PROTHROMBIN TIME, VENOUS Routine 07/06/2024 3:16 AM PULLEY MORTISER OPERATOR IR CONSULT Today 07/05/2024 3:51 PM PULLEY MORTISER OPERATOR XR CHEST PORTABLE STAT 07/05/2024 2:2 8 PM PULLEY MORTISER OPERATOR XR CHEST PA OR AP 1V STAT 07/05/2024 12:18 PM PULLEY MORTISER OPERATOR MRI ABD WWO CON Today 07/05/2024 10:34 AM PULLEY MORTISER OPERATOR XR CHEST PA OR AP 1V Today 07/05/2024 5:31 AM PULLEY MORTISER OPERATOR BASIC METABOLIC PANEL Routine 07/05/2024 2:34 AM PULLEY MORTISER OPERATOR CBC, AUTO, NO DIFF Routine 07/05/2024 2: 34 AM PULLEY MORTISER OPERATOR PROTHROMBIN TIME, VENOUS Routine 07/05/2024 2:34 AM PULLEY MORTISER OPERATOR XR CHEST PORTABLE Today 07/04/2024 5:3 3 PM PULLEY MORTISER OPERATOR PHOSPHORUS, INORGANIC PHOSPHATE Routine 07/04/2024 3:41 AM PULLEY MORTISER OPERATOR MAGNESIUM Routine 07/04/2024 3:41 AM PULLEY MORTISER OPERATOR COMPREHENSIVE METABOLIC PANEL Routine 07/04/2024 3:41 AM PULLEY MORTISER OPERATOR CBC W/DIFF AUTOMATED Routine 07/04/2024 3:41 AM PULLEY MORTISER OPERATOR PROTHROMBIN TIME, VENOUS Routine 07/04/2024 3:41 AM PULLEY MORTISER OPERATOR XR CHEST PORTABLE ILA 07/03/2024 10: 33 AM PULLEY MORTISER OPERATOR PHOSPHORUS, INORGANIC PHOSPHATE Routine 07/03/2024 2:53 AM PULLEY MORTISER OPERATOR MAGNESIUM Routine 07/03/2024 2:53 AM PULLEY MORTISER OPERATOR COMPREHENSIVE METABOLIC PANEL Routine 07/03/2024 2:53 AM PULLEY MORTISER OPERATOR CBC W/DIFF AUTOMATED Routine 07/03/2024 2:53 AM PULLEY MORTISER OPERATOR PROTHROMBIN TIME, VENOUS Routine 07/03/2024 2:53 AM PULLEY MORTISER OPERATOR PROTHROMBIN TIME, VENOUS Routine 07/02/2024 3:17 AM PULLEY MORTISER OPERATOR RAD ONC ARIA SESSION SUMMARY Routine 07/01/2024 3:10 PM PULLEY MORTISER OPERATOR CT CHEST WO CON ILA 07/01/2024 12:35 PM PULLEY MORTISER OPERATOR IR DRAINAGE CATH CHANGE Today 07/01/2024 12:28 PM PULLEY MORTISER OPERATOR XR CHEST PORTABLE STAT 07/01/2024 7:3 6 AM PULLEY MORTISER OPERATOR PROTHROMBIN TIME, VENOUS Routine 07/01/2024 6:39 AM PULLEY MORTISER OPERATOR PRO-BRAIN NATRIURETIC PEPTIDE STAT 06/30/2024 7:55 AM PULLEY MORTISER OPERATOR TROPONIN, QUANT STAT 06/30/2024 7:55 AM PULLEY MORTISER OPERATOR XR CHEST PORTABLE STAT 06/30/2024 7:5 3 AM PULLEY MORTISER OPERATOR ECG 12-LEAD STAT 06/30/2024 7:50 AM PULLEY MORTISER OPERATOR POCT GLUCOSE - ORTIZ DOCKED DEVICE Routine 06/30/2024 7:43 AM PULLEY MORTISER OPERATOR PHOSPHORUS, INORGANIC PHOSPHATE Routine 06/30/2024 2:58 AM PULLEY MORTISER OPERATOR MAGNESIUM Routine 06/30/2024 2:58 AM PULLEY MORTISER OPERATOR COMPREHENSIVE METABOLIC PANEL Routine 06/30/2024 2:58 AM PULLEY MORTISER OPERATOR CBC W/DIFF AUTOMATED Routine 06/30/2024 2:58 AM PULLEY MORTISER OPERATOR PROTHROMBIN TIME, VENOUS Routine 06/30/2024 2:58 AM PULLEY MORTISER OPERATOR XR CHEST PORTABLE Today 06/29/2024 10: 58 AM PULLEY MORTISER OPERATOR XR CHEST PORTABLE Routine 06/29/2024 5:1 4 AM PULLEY MORTISER OPERATOR PHOSPHORUS, INORGANIC PHOSPHATE Routine 06/29/2024 2:50 AM PULLEY MORTISER OPERATOR MAGNESIUM Routine 06/29/2024 2:50 AM PULLEY MORTISER OPERATOR COMPREHENSIVE METABOLIC PANEL Routine 06/29/2024 2:50 AM PULLEY MORTISER OPERATOR CBC W/DIFF AUTOMATED Routine 06/29/2024 2:50 AM PULLEY MORTISER OPERATOR PROTHROMBIN TIME, VENOUS Routine 06/29/2024 2:50 AM PULLEY MORTISER OPERATOR XR CHEST PORTABLE Today 06/28/2024 1:0 5 PM PULLEY MORTISER OPERATOR XR CHEST PORTABLE ILA 06/28/2024 8:2 7 AM PULLEY MORTISER OPERATOR XR CHEST PORTABLE Routine 06/28/2024 5:1 3 AM PULLEY MORTISER OPERATOR CBC W/DIFF AUTOMATED Routine 06/28/2024 3:04 AM PULLEY MORTISER OPERATOR BASIC METABOLIC PANEL Routine 06/28/2024 3:04 AM PULLEY MORTISER OPERATOR PROTHROMBIN TIME, VENOUS Routine 06/28/2024 3:04 AM PULLEY MORTISER OPERATOR POCT GLUCOSE - ORTIZ DOCKED DEVICE Routine 06/27/2024 5:57 PM PULLEY MORTISER OPERATOR XR CHEST PA OR AP 1V TIMED 06/27/2024 3:20 PM PULLEY MORTISER OPERATOR POCT GLUCOSE - ORTIZ DOCKED DEVICE Routine 06/27/2024 12:10 PM PULLEY MORTISER OPERATOR CT GD CHEST TUBE INSERT LT Today 06/27/2024 10:03 AM PULLEY MORTISER OPERATOR CT GD BX LUNG LT Today 06/27/2024 10:0 3 AM PULLEY MORTISER OPERATOR PROTHROMBIN TIME, VENOUS Routine 06/27/2024 2:57 AM PULLEY MORTISER OPERATOR PATHOLOGY Routine 06/27/2024 12:00 AM PULLEY MORTISER OPERATOR PROTHROMBIN TIME, VENOUS Routine 06/26/2024 3:19 AM PULLEY MORTISER OPERATOR CBC W/DIFF AUTOMATED Routine 06/25/2024 3:26 AM PULLEY MORTISER OPERATOR BASIC METABOLIC PANEL Routine 06/25/2024 3:26 AM PULLEY MORTISER OPERATOR PROTHROMBIN TIME, VENOUS Routine 06/25/2024 3:26 AM PULLEY MORTISER OPERATOR MRI BRAIN W CON Today 06/24/2024 9:59 AM PULLEY MORTISER OPERATOR CBC W/DIFF AUTOMATED Routine 06/24/2024 2:50 AM PULLEY MORTISER OPERATOR BASIC METABOLIC PANEL Routine 06/24/2024 2:50 AM PULLEY MORTISER OPERATOR PROTHROMBIN TIME, VENOUS Routine 06/24/2024 2:50 AM PULLEY MORTISER OPERATOR CT HEAD WO CON STAT 06/23/2024 1:55 PM PULLEY MORTISER OPERATOR MAGNESIUM Routine 06/23/2024 3:39 AM PULLEY MORTISER OPERATOR COMPREHENSIVE METABOLIC PANEL Routine 06/23/2024 3:39 AM PULLEY MORTISER OPERATOR CBC W/DIFF AUTOMATED Routine 06/23/2024 3:39 AM PULLEY MORTISER OPERATOR PROTHROMBIN TIME, VENOUS Routine 06/23/2024 3:39 AM PULLEY MORTISER OPERATOR MRI BRAIN WWO CON Today 06/23/2024 12: 56 AM PULLEY MORTISER OPERATOR CT CHEST+ABD W CON STAT 06/22/2024 5: 14 PM PULLEY MORTISER OPERATOR CRITICAL CARE Routine 06/22/2024 12:05 PM PULLEY MORTISER OPERATOR ECG 12-LEAD Routine 06/22/2024 11:59 AM PULLEY MORTISER OPERATOR CT THOR SPINE WO CON STAT 06/22/2024 10:48 AM PULLEY MORTISER OPERATOR CT CERV SPINE WO CON STAT 06/22/2024 10:48 AM PULLEY MORTISER OPERATOR CT HEAD WO CON STAT 06/22/2024 10:48 AM PULLEY MORTISER OPERATOR PROTHROMBIN TIME, VENOUS STAT 06/22/2024 10:35 AM PULLEY MORTISER OPERATOR MAGNESIUM STAT 06/22/2024 10:35 AM PULLEY MORTISER OPERATOR TROPONIN, QUANT STAT 06/22/2024 10:35 AM PULLEY MORTISER OPERATOR COMPREHENSIVE METABOLIC PANEL STAT 06/22/2024 10:35 AM PULLEY MORTISER OPERATOR CBC W/DIFF AUTOMATED STAT 06/22/2024 10:35 AM PULLEY MORTISER OPERATOR COLONOSCOPY 01/08/2021 12:18 PM CDT from Last 3 Months or Most Recently Relevant to Health Maintenance Results * US THYROID (08/17/2024 9:22 AM PULLEY MORTISER OPERATOR) Anatomical Region Laterality Modality Neck Ultrasound 08/19/2024 1:15 PM PULLEY MORTISER OPERATOR Impressions 08/19/2024 1:36 PM PULLEY MORTISER OPERATOR IMPRESSION: Multinodular goiter as described without suspicious features. Dominant nodule on the left is now biopsy-proven benign. The remaining nodules do not meet TI RADS criteria for surveillance. Ordered By: MALICK SZYMANSKI Interpreted By: Manuel Valdes MD, 08/19/2024 1:15 PM Narrative 08/19/2024 1:36 PM PULLEY MORTISER OPERATOR [address] [place] [address] Examination: Thyroid ultrasound. Exam time: 0826 hours. Clinical history: Follow-up of thyroid nodules. Status post benign FNAB on the left, 08/11/2023. Comparison: 08/11/2023, 06/15/2023, 2022. Technique: Grayscale and color Doppler images. Findings: Both lobes remain enlarged. The right lobe measures 6.7 x 2.3 x 2.2 cm. The left lobe measures 5.9 x 3.1 x 2.2 cm. The thickness of the isthmus is normal. Some heterogeneity in the glandular echotexture is again evident. Sharply circumscribed solid nodule on the right is redemonstrated measuring 1.1 x 0.8 x 1 cm, stable allowing for variations inherent in measurement. It is now isoechoic (TI RADS 3). 6-7 mm peripherally calcified nodule on the left is stable in size and once again cannot be further characterized (TI RADS 4). Isoechoic mixed solid and cystic nodule in the upper pole on the left measures 1.5 cm in greatest dimension, considered stable (TI RADS 2). Biopsy-proven benign isoechoic primarily solid nodule in the lower pole has slightly decreased in size currently measuring 2.3 x 1.8 x 1.8 cm further confirming benignity. No definite new nodules are identified. No suspicious features are seen. There is no hyperemia on color Doppler. Procedure Note Manuel Valdes MD - 08/19/2024 [facility] [address] [place] [address] Examination: Thyroid ultrasound. Exam time: 0826 hours. Clinical history: Follow-up of thyroid nodules. Status post benign FNAB onthe left, 08/11/2023. Comparison: 08/11/2023, 06/15/2023, 2022. Technique: Grayscale and color Doppler images. Findings: Both lobes remain enlarged. The right lobe measures 6.7 x 2.3 x2.2 cm. The left lobe measures 5.9 x 3.1 x 2.2 cm. The thickness of theisthmus is normal. Some heterogeneity in the glandular echotexture isagain evident. Sharply circumscribed solid nodule on the right isredemonstrated measuring 1.1 x 0.8 x 1 cm, stable allowing for variationsinherent in measurement. It is now isoechoic (TI RADS 3). 6-7 mmperipherally calcified nodule on the left is stable in size and once againcannot be further characterized (TI RADS 4). Isoechoic mixed solid andcystic nodule in the upper pole on the left measures 1.5 cm in greatestdimension, considered stable (TI RADS 2). Biopsy-proven benign isoechoicprimarily solid nodule in the lower pole has slightly decreased in sizecurrently measuring 2.3 x 1.8 x 1.8 cm further confirming benignity. Nodefinite new nodules are identified. No suspicious features are seen.There is no hyperemia on color Doppler. IMPRESSION: Multinodular goiter as described without suspicious features. Dominantnodule on the left is now biopsy-proven benign. The remaining nodules donot meet TI RADS criteria for surveillance. Ordered By: MALICK SZYMANSKI Interpreted By: Manuel Valdes MD, 08/19/2024 1:15 PM us Malick Szymanski MD ULTRASOUND Final Result * PET EYE TO THIGH [id number] (08/02/2024 11:39 AM PULLEY MORTISER OPERATOR) Anatomical Region Laterality Modality Body Positron Emissio n Tomography (PET), Positron Emission Tomography (PET) 08/02/2024 4:09 PM PULLEY MORTISER OPERATOR Impressions 08/02/2024 4:30 PM PULLEY MORTISER OPERATOR IMPRESSION: 1. Hypermetabolic left upper lobe mass consistent with the patient's known malignancy. 2. Hypermetabolic partially calcified mediastinal and left hilar lymph nodes most likely representing sites of laura metastatic disease. 3. Hypermetabolic mass posterior superior aspect of the spleen most consistent with malignancy (either metastatic or second primary). 4. Hypermetabolic 1.2 cm hyperdense partially calcified left thyroid nodule could represent an additional site of malignancy, versus uptake secondary to a site of inflammation/infection. Further evaluation with thyroid ultrasound may be helpful, and consider tissue sampling if clinically warranted. 5. See body of report for further details, and additional findings on the CT portion of the study. Referred By: MALICK SZYMANSKI Interpreted By: Randal Barnes MD, 08/02/2024 4:09 PM Narrative 08/02/2024 4:30 PM PULLEY MORTISER OPERATOR [address] [address] FDG-PET/CT Imaging Exam Date: 08/02/2024. Exam History: 69-year-old male with left upper lobe lung cancer. Initial study. Radiopharmaceutical: 10.0 mCi of F-18 fluorodeoxyglucose IV. Comparison: -CT chest without contrast dated 07/01/2024. -CT chest abdomen pelvis with contrast dated 06/22/2024. Technique: After intravenous administration of F-18 fluorodeoxyglucose (FDG), noncontrast CT images were obtained for attenuation correction and for fusion with emission PET images. A dose lowering technique was used for this procedure, which may include, but is not limited to, dose reduction technique, automated exposure control, the use of iterative reconstruction, and ALARA (As Low As Reasonably Achievable) / Image Gently techniques. The noncontrast CT images are not of diagnostic quality and are not used to diagnose disease independently of the PET images. A series of overlapping emission PET images was then obtained 64 minutes. after injection of the radiopharmaceutical. The patient's fasting blood glucose level, measured by glucometer before injection of FDG, was 180 mg/dl. The area imaged spanned the region from the skull base to the mid thighs. The mean hepatic SUV = 2.6 (recorded for inspector quality assurance purposes). FINDINGS: The previously identified spiculated left upper lobe mass measures 3.3 x 2.4 x 2.7 cm with Max SUV = 17.6. This is consistent with the patient's known malignancy. There are 2 partially calcified left-sided prevascular/AP window lymph 2 cm nodes demonstrating abnormally increased FDG accumulation: max SUVs = 13.3 and 15.5 for the more anterior, and posterior nodes, respectively. In addition, there is a partially calcified left hilar lymph node measuring 1.7 cm with Max SUV = 11.5. These are all highly suspicious for laura sites of malignancy. There is a hypermetabolic 2.5 x 2.0 cm mass in the posterior superior aspect of the spleen (max SUV = 15.8). This is consistent with malignancy and may represent a metastasis. There is a 1.2 cm partially calcified hypodense left thyroid nodule demonstrating abnormal FDG uptake (max SUV = 7.0). This could represent an additional site of malignancy (either metastatic or second primary), versus a site of uptake secondary to inflammation/infection. Further evaluation with thyroid ultrasound may be helpful, and consider tissue sampling if clinically warranted. There are sites of uptake in a pattern consistent with degenerative inflammation involving the shoulders, hips, and spine. Physiologically excreted FDG is visible within the kidneys, ureters, and bladder. Additional findings on the CT portion of the study include partial opacification of the right maxillary sinus without associated abnormal FDG accumulation consistent with inflammatory disease, a right-sided chest port with its tip at the level of the right atrial caval junction, the above-mentioned partially calcified left thyroid nodule, atherosclerotic calcification of the coronary arteries and aorta, scattered calcified mediastinal and hilar lymph nodes, calcified granulomata in the left lower lobe, calcified granuloma within the liver and spleen, stable left renal cysts without associated abnormal FDG accumulation, colonic diverticulosis without findings to suggest acute diverticulitis, and degenerative changes involving the shoulders, hips, and spine. Procedure Note Randal Barnes MD - 08/02/[address] [address] FDG-PET/CT Imaging Exam Date: 08/02/2024. Exam History: 69-year-old male with left upper lobe lung cancer. Initial study. Radiopharmaceutical: 10.0 mCi of F-18 fluorodeoxyglucose IV. Comparison: -CT chest without contrast dated 07/01/2024. -CT chest abdomen pelvis with contrast dated 06/22/2024. Technique: After intravenous administration of F-18 fluorodeoxyglucose (FDG),noncontrast CT images were obtained for attenuation correction and forfusion with emission PET images. A dose lowering technique was used forthis procedure, which may include, but is not limited to, dose reductiontechnique, automated exposure control, the use of iterativereconstruction, and ALARA (As Low As Reasonably Achievable) / Image Gentlytechniques. The noncontrast CT images are not of diagnostic quality andare not used to diagnose disease independently of the PET images. Aseries of overlapping emission PET images was then obtained 64 minutes.after injection of the radiopharmaceutical. The patient's fasting bloodglucose level, measured by glucometer before injection of FDG, was 180mg/dl. The area imaged spanned the region from the skull base to the midthighs. The mean hepatic SUV = 2.6 (recorded for quality controlpurposes). FINDINGS: The previously identified spiculated left upper lobe mass measures 3.3 x2.4 x 2.7 cm with Max SUV = 17.6. This is consistent with the patient'sknown malignancy. There are 2 partially calcified left-sidedprevascular/AP window lymph 2 cm nodes demonstrating abnormally increasedFDG accumulation: max SUVs = 13.3 and 15.5 for the more anterior, andposterior nodes, respectively. In addition, there is a partiallycalcified left hilar lymph node measuring 1.7 cm with Max SUV = 11.5.These are all highly suspicious for laura sites of malignancy. There is a hypermetabolic 2.5 x 2.0 cm mass in the posterior superioraspect of the spleen (max SUV = 15.8). This is consistent with malignancyand may represent a metastasis. There is a 1.2 cm partially calcified hypodense left thyroid noduledemonstrating abnormal FDG uptake (max SUV = 7.0). This could representan additional site of malignancy (either metastatic or second primary),versus a site of uptake secondary to inflammation/infection. Furtherevaluation with thyroid ultrasound may be helpful, and consider tissuesampling if clinically warranted. There are sites of uptake in a pattern consistent with degenerativeinflammation involving the shoulders, hips, and spine. Physiologically excreted FDG is visible within the kidneys, ureters, andbladder. Additional findings on the CT portion of the study include partialopacification of the right maxillary sinus without associated abnormal FDGaccumulation consistent with inflammatory disease, a right-sided chestport with its tip at the level of the right atrial caval junction, theabove-mentioned partially calcified left thyroid nodule, atheroscleroticcalcification of the coronary arteries and aorta, scattered calcifiedmediastinal and hilar lymph nodes, calcified granulomata in the left lowerlobe, calcified granuloma within the liver and spleen, stable left renalcysts without associated abnormal FDG accumulation, colonic diverticulosiswithout findings to suggest acute diverticulitis, and degenerative changesinvolving the shoulders, hips, and spine. IMPRESSION: 1. Hypermetabolic left upper lobe mass consistent with the patient'sknown malignancy. 2. Hypermetabolic partially calcified mediastinal and left hilar lymphnodes most likely representing sites of laura metastatic disease. 3. Hypermetabolic mass posterior superior aspect of the spleen mostconsistent with malignancy (either metastatic or second primary). 4. Hypermetabolic 1.2 cm hyperdense partially calcified left thyroidnodule could represent an additional site of malignancy, versus uptakesecondary to a site of inflammation/infection. Further evaluation withthyroid ultrasound may be helpful, and consider tissue sampling ifclinically warranted. 5. See body of report for further details, and additional findings on theCT portion of the study. Referred By: MALICK SZYMANSKI Interpreted By: Randal Barnes MD, 08/02/2024 4:09 PM us Malick Szymanski MD PET Final Result * POCT glucose (08/02/2024 10:09 AM PULLEY MORTISER OPERATOR) Only the most recent of4 resultswithin the time period is included. GLUCOSE POC 108 70 - 109 08/02/2024 10:12 AM PULLEY MORTISER OPERATOR [facility] 08/02/2024 10:0 9 AM PULLEY MORTISER OPERATOR Malick Szymanski MD POCT ORDERABLES - DEVICE Final R esult [facility] [address] [place] [address], [id number] * USV DORITA DUPLEX LOW EXT ZAIRA (07/26/2024 2:45 PM PULLEY MORTISER OPERATOR) Anatomical Region Laterality Modality Extremity Ultrasound 07/26/2024 3:02 PM PULLEY MORTISER OPERATOR Narrative 07/26/2024 3:02 PM PULLEY MORTISER OPERATOR [address] [place] [address] EXAMINATION: ULTRASOUND VENOUS DOPPLER LOWER EXTREMITY, BILATERAL. INDICATION(S): Leg swelling. COMPARISON(S): None. TECHNIQUE: An ultrasound examination of the BILATERAL lower extremity deep venous system was performed to assess grayscale appearance, color Doppler flow, and spectral waveform analysis FINDINGS: The visualized BILATERAL common femoral, superficial femoral, greater saphenous, popliteal and posterior tibial veins demonstrate normal color Doppler flow, normal compressibility on grayscale images, and normal augmentation on spectral waveform analysis. IMPRESSION(S): 1. No evidence of deep vein thrombosis within the BILATERAL lower extremity. Ordered By: MALICK SZYMANSKI Interpreted By: Alli Cleary MD, 07/26/2024 3:02 PM Procedure Note Alli Cleary MD - 07/26/[address] [place] [address] EXAMINATION: ULTRASOUND VENOUS DOPPLER LOWER EXTREMITY, BILATERAL. INDICATION(S): Leg swelling. COMPARISON(S): None. TECHNIQUE: An ultrasound examination of the BILATERAL lower extremity deep venoussystem was performed to assess grayscale appearance, color Doppler flow,and spectral waveform analysis FINDINGS: The visualized BILATERAL common femoral, superficial femoral, greatersaphenous, popliteal and posterior tibial veins demonstrate normal colorDoppler flow, normal compressibility on grayscale images, and normalaugmentation on spectral waveform analysis. IMPRESSION(S): 1. No evidence of deep vein thrombosis within the BILATERAL lowerextremity. Ordered By: MALICK SZYMANSKI Interpreted By: Alli Cleary MD, 07/26/2024 3:02 PM us Malick Szymanski MD [facility] Final Result * USE ECHOCARDIOGRAM (07/25/2024 8:21 AM PULLEY MORTISER OPERATOR) Anatomical Region Laterality Modality Cardiac Ultrasound 07/25/2024 7:48 AM PULLEY MORTISER OPERATOR Narrative 07/25/2024 2:30 PM PULLEY MORTISER OPERATOR Echocardiography Report Pat.Name: Jasper Celaya Pat.ID: [id number] .Date: 07/25/2024 Refer.MD: Walter, [facility] Exam Time: 7:48:00 AM Study Type:[facility] Height: 72 in Weight: 208 lb BSA: 2.17 m2 Age: 9 1955,69Y Sex: M Sonogrphr: Sf Pat. Stat.:Outpatient CPT - 4: 17713 Reason for Study:Encounter for monitoring cardiotoxic drug therapy Procedures: Study performed at [place], [place] and interpreted by [facility]. 2D, M-mode, Doppler, Color Flow ++++++++++++++++++++++++++++++++++++ SUMMARY: ++++++++++++++++++++++++++++++++++++ Estimated left ventricular ejection fraction is 50-55%. Left ventricular diastolic function is abnormal. Trace aortic regurgitation. There is trace mitral regurgitation. Trace pulmonic regurgitation. There is trace tricuspid regurgitation. ++++++++++++++++++++++++++++++++++++ FINDINGS: ++++++++++++++++++++++++++++++++++++ LV: The left ventricular size is mildly enlarged. Estimated left ventricular ejection fraction is 50-55%. There is no left ventricular hypertrophy. The average E/e' is >14. Left ventricular diastolic function is abnormal. The LV Strain is -16.7. RV: The right ventricle size is normal. The right ventricular function is normal. LA: Left atrial size is normal. RA: The right atrial size is normal. MELBA: No evidence of pericardial effusion. AO: The sinus of Valsalva measures 3.6cm. PA: Estimated right atrial pressure of 3 mmHg. SVn: Inferior vena cava is normal. Inferior vena cava shows >50% collapse with respiration consistent with normal right atrial pressure. AV: No evidence of aortic valve stenosis. Trace aortic regurgitation. The aortic valve not well visualized. MV: The mitral valve is structurally normal. There is trace mitral regurgitation. PV: Trace pulmonic regurgitation. Pulmonic valve not well visualized. TV: The tricuspid valve appears structurally normal. There is trace tricuspid regurgitation. <Electronic Signature> 07/25/2024 02:30 PM Martha Jordan M.D. Procedure Note Martha Jordan MD - 07/25/2024 Echocardiography Report Pat.Name: Jasper Celaya Pat.ID: [id number] .Date: 07/25/2024 Refer.MD: Walter, [facility] Exam Time: 7:48:00 AM Study Type:[facility] Height: 72 in Weight: 208 lb BSA: 2.17 m2 Age: 9 1955,69Y Sex: M Sonogrphr: Sf Pat. Stat.:Outpatient CPT - 4: 54788 Reason for Study:Encounter for monitoring cardiotoxic drug therapy Procedures: Study performed at [facility], [place], [place] and interpreted by [facility]. 2D, M-mode, Doppler, Color Flow ++++++++++++++++++++++++++++++++++++ SUMMARY: ++++++++++++++++++++++++++++++++++++ Estimated left ventricular ejection fraction is 50-55%. Left ventricular diastolic function is abnormal. Trace aortic regurgitation. There is trace mitral regurgitation. Trace pulmonic regurgitation. There is trace tricuspid regurgitation. ++++++++++++++++++++++++++++++++++++ FINDINGS: ++++++++++++++++++++++++++++++++++++ LV: The left ventricular size is mildly enlarged. Estimated left ventricular ejection fraction is 50-55%. There is no left ventricular hypertrophy. The average E/e' is >14. Left ventricular diastolic function is abnormal. The LV Strain is -16.7. RV: The right ventricle size is normal. The right ventricular function is normal. LA: Left atrial size is normal. RA: The right atrial size is normal. MELBA: No evidence of pericardial effusion. AO: The sinus of Valsalva measures 3.6cm. PA: Estimated right atrial pressure of 3 mmHg. SVn: Inferior vena cava is normal. Inferior vena cava shows >50% collapse with respiration consistent with normal right atrial pressure. AV: No evidence of aortic valve stenosis. Trace aortic regurgitation. The aortic valve not well visualized. MV: The mitral valve is structurally normal. There is trace mitral regurgitation. PV: Trace pulmonic regurgitation. Pulmonic valve not well visualized. TV: The tricuspid valve appears structurally normal. There is trace tricuspid regurgitation. <Electronic Signature> 07/25/2024 02:30 PM Martha Jordan M.D. us Malick Szymanski MD ECHO Final Result * XR CHEST PORTABLE (07/06/2024 9:36 AM PULLEY MORTISER OPERATOR) Only the most recent of11 resultswithin the time period is included. Anatomical Region Laterality Modality Chest Radiographic Marlen ging 07/06/2024 11:5 3 AM PULLEY MORTISER OPERATOR Impressions 07/06/2024 11:57 AM PULLEY MORTISER OPERATOR IMPRESSION: No evidence of pneumothorax, status post left pleural drain removal. Otherwise stable exam. Referred By: SAMANTHA BAILEY Interpreted By: Manuel Valdes MD, 07/06/2024 11:53 AM Narrative 07/06/2024 11:57 AM PULLEY MORTISER OPERATOR [address] [address] Examination: Portable chest. Exam time: 0934 hours. Clinical history: Follow-up of left pneumothorax. Known left upper lobe mass. Comparison: 07/05/2024 at 1426 hours. Technique: AP upright view. Findings: Allowing for differences in projection and rotation, the cardiomediastinal silhouette is stable. Allowing for projection, the heart size is normal. Pulmonary vascularity is within normal limits. The left pleural drain has been removed. There is no pneumothorax or pleural effusion. There is residual subcutaneous emphysema on the left. Granulomatous scarring is again evident. No acute infiltrates or effusions are identified. Known approximately 2 cm left upper lobe mass partially superimposes the sixth posterior rib. The visualized bony thorax is stable. Procedure Note Manuel Valdes MD - 07/06/2024 [facility] [address] [place], [place] [address] Examination: Portable chest. Exam time: 0934 hours. Clinical history: Follow-up of left pneumothorax. Known left upper lobemass. Comparison: 07/05/2024 at 1426 hours. Technique: AP upright view. Findings: Allowing for differences in projection and rotation, thecardiomediastinal silhouette is stable. Allowing for projection, theheart size is normal. Pulmonary vascularity is within normal limits. Theleft pleural drain has been removed. There is no pneumothorax or pleuraleffusion. There is residual subcutaneous emphysema on the left.Granulomatous scarring is again evident. No acute infiltrates oreffusions are identified. Known approximately 2 cm left upper lobe masspartially superimposes the sixth posterior rib. The visualized bonythorax is stable. IMPRESSION: No evidence of pneumothorax, status post left pleural drain removal.Otherwise stable exam. Referred By: SAMANTHA BAILEY Interpreted By: Manuel Valdes MD, 07/06/2024 11:53 AM us Chris Aguilera MD GENERAL IMAGING Final Result * PROTHROMBIN TIME, VENOUS (07/06/2024 3:16 AM PULLEY MORTISER OPERATOR) Only the most recent of15 resultswithin the time period is included. PROTIME 10.5 9.4 - 12.5 SEC 07/06/2024 3:44 AM PULLEY MORTISER OPERATOR [facility] INR 0.9 0.8 - 1.1 07/06/2024 3:44 AM PULLEY MORTISER OPERATOR [facility] 07/06/2024 3:16 AM PULLEY MORTISER OPERATOR us Rodrigo Delgadillo MD LABORATORY Final Result [facility] [address] [place] [address], [place] [phone] * (ABNORMAL) BASIC METABOLIC PANEL (07/06/2024 3:16 AM PULLEY MORTISER OPERATOR) Only the most recent of5 resultswithin the time period is included. Pathologist [facility] SODIUM S/P/B 138 136 - 145 MMOL/L 07/06/2024 3:53 AM PULLEY MORTISER OPERATOR [facility] POTASSIUM S/P/B 3.4(L) 3.5 - 5.1 MMOL/L 07/06/2024 3:53 AM PULLEY MORTISER OPERATOR [facility] CHLORIDE S/P/B 104 97 - 115 MMOL/L 07/06/2024 3:53 AM PULLEY MORTISER OPERATOR [facility] CO2 27.2 21.0 - 32.0 MMOL/L 07/06/2024 3:53 AM PULLEY MORTISER OPERATOR [facility] GLUCOSE 108(H) 74 - 106 MG/DL 07/06/2024 3:53 AM PULLEY MORTISER OPERATOR [facility] BUN 20(H) 7 - 18 MG/DL 07/06/2024 3:53 AM PULLEY MORTISER OPERATOR [facility] CREATININE S/P/B 0.75 0.70 - 1.30 MG/DL 07/06/2024 3:53 AM PULLEY MORTISER OPERATOR [facility] CALCIUM S/P/B 8.2(L) 8.5 - 10.1 MG/DL 07/06/2024 3:53 AM PULLEY MORTISER OPERATOR [facility] ANION GAP 6.8 2.0 - 10.0 MMOL/L 07/06/2024 3:53 AM PULLEY MORTISER OPERATOR [facility] OSMOLALITY (CALC) 289 MOSM/KG 024 3:53 AM PULLEY MORTISER OPERATOR [facility] Comment:REFERENCE RANGE NOT ESTABLISHED GFR ESTIMATE >90 >90 ML/MIN/1. 73 M2 07/06/2024 3:53 AM PULLEY MORTISER OPERATOR [facility] GFR NOTES GFR REFERENCE S: 07/06/2024 3:53 AM [facility] Comment: THE ESTIMATED GFR IS CALCULATED USING THE 2020 CKD-EPI EQUATION. THE FOLLOWING CATEGORIES FOR GRADING RENAL FUNCTION ARE RECOMMENDED BY THE INTERNATIONAL SOCIETY OF NEPHROLOGY (KDIGO 2012 CLINICAL PRACTICE GUIDELINE). G1,NORMAL OR HIGH: >89 ml/min/1.73 m2 G2,MILDLY DECREASED: 60-89 ml/min/1.73 m2 G3A,MILDLY TO MODERATELY DECREASED: 45-59 ml/min/1.73 m2 G3B,MODERATELY TO SEVERELY DECREASED: 30-44 ml/min/1.73 m2 G4,SEVERELY DECREASED: 15-29 ml/min/1.73 m2 G5,KIDNEY FAILURE: <15 ml/min/1.73 m2 07/06/2024 3:16 AM PULLEY MORTISER OPERATOR us Chris Aguilera MD LABORATORY Final Result [facility] [address] [place] [address], [phone] * (ABNORMAL) CBC, AUTO, NO DIFF (07/06/2024 3:16 AM PULLEY MORTISER OPERATOR) Only the most recent of2 resultswithin the time period is included. WBC 15.89(H) 4.00 - 10.80 x10'3/uL 07/06/2024 3:23 AM PULLEY MORTISER OPERATOR [facility] RBC 4.44(L) 4.50 - 6.10 x10'6/uL 07/06/2024 3:23 AM [facility] HGB 13.0 12.0 - 16.0 G/DL 07/06/2024 3:23 AM [facility] HCT 40.3 37.0 - 52.0 % 07/06/2024 3:23 AM [facility] MCV 90.8 78.0 - 100.0 FL 07/06/2024 3:23 AM [facility] MCH 29.3 27.0 - 31.0 PG 07/06/2024 3:23 AM [facility] MCHC 32.3(L) 33.0 - 36.0 G/DL 07/06/2024 3:23 AM [facility] RDW 14.0 11.5 - 14.5 % 07/06/2024 3:23 AM [facility] PLT 321 150 - 350 x10'3/uL 07/06/2024 3:23 AM [facility] MPV 8.3 7.4 - 10.4 FL 07/06/2024 3:23 AM [facility] 07/06/2024 3:16 AM PULLEY MORTISER OPERATOR us Chris Aguilera MD LABORATORY Final Result [facility] [address] [place] [address], [phone] * IR CONSULT (07/05/2024 3:51 PM PULLEY MORTISER OPERATOR) Anatomical Region Laterality Modality NA Interventional R adiology 07/05/2024 4:52 PM PULLEY MORTISER OPERATOR Narrative 07/05/2024 4:53 PM PULLEY MORTISER OPERATOR [address] [address] IR BEDSIDE LEFT CHEST TUBE REMOVAL Successful left chest tube removal in its entirety. See IR daily progress note for additional details. Ordered By: SUZETTE MARADIAGA V Interpreted By: Suzette Maradiaga MD, 07/05/2024 4:52 PM Procedure Note Suzette Maradiaga MD - 07/05/[address] [address] IR BEDSIDE LEFT CHEST TUBE REMOVAL Successful left chest tube removal in its entirety. See IR daily progressnote for additional details. Ordered By: SUZETTE MARADIAGA V Interpreted By: Suzette Maradiaga MD, 07/05/2024 4:52 PM us Suzette Vidal MD INTERVENTIONAL RADIOLOGY F inal Result * XR CHEST PA OR AP 1V (07/05/2024 12:18 PM PULLEY MORTISER OPERATOR) Only the most recent of3 resultswithin the time period is included. Anatomical Region Laterality Modality Chest Radiographic Marlen ging 07/05/2024 12:3 6 PM PULLEY MORTISER OPERATOR Impressions 07/05/2024 12:41 PM PULLEY MORTISER OPERATOR IMPRESSION: 1. No definite recurrent pneumothorax. 2. Stable position of the left apical chest tube. 3. Moderate upper lobe predominant emphysema. Ordered By: SUZETTE MARADIAGA V Interpreted By: Suzette Maradiaga MD, 07/05/2024 12:36 PM Narrative 07/05/2024 12:41 PM PULLEY MORTISER OPERATOR [address] [address] PROCEDURE: XR CHEST PA OR AP 1V. 07/05/2024 12:16 PM. TECHNIQUE: 2 views (PA and Lateral) of the chest were performed. HISTORY: Follow-up recurrent pneumothorax per COMPARISON: Chest radiograph, 07/05/2024. FINDINGS: Support Devices: None. Cardiac Silhouette/Mediastinum/Polo: The cardiac, mediastinal, and hilar contours are unchanged in appearance per Lungs/Pleural Spaces: No focal consolidation. There is redemonstration of a left upper lobe pulmonary nodule measuring up to 2.3 cm on this exam. The right pleural space is clear. Calcified pulmonary granulomas are present the left lung base. Chest Wall/Diaphragm/Upper Abdomen: The thoracic musculoskeletal structures and the upper abdomen are unchanged in appearance. Procedure Note Suzette Maradiaga MD - 07/05/[address] [address] PROCEDURE: XR CHEST PA OR AP 1V. 07/05/2024 12:16 PM. TECHNIQUE: 2 views (PA and Lateral) of the chest were performed. HISTORY: Follow-up recurrent pneumothorax per COMPARISON: Chest radiograph, 07/05/2024. FINDINGS: Support Devices: None. Cardiac Silhouette/Mediastinum/Polo: The cardiac, mediastinal, and hilarcontours are unchanged in appearance per Lungs/Pleural Spaces: No focal consolidation. There is redemonstration ofa left upper lobe pulmonary nodule measuring up to 2.3 cm on this exam.The right pleural space is clear. Calcified pulmonary granulomas arepresent the left lung base. Chest Wall/Diaphragm/Upper Abdomen: The thoracic musculoskeletalstructures and the upper abdomen are unchanged in appearance. IMPRESSION: 1. No definite recurrent pneumothorax. 2. Stable position of the left apical chest tube. 3. Moderate upper lobe predominant emphysema. Ordered By: SUZETTE MARADIAGA V Interpreted By: Suzette Maradiaga MD, 07/05/2024 12:36 PM us Suzette Vidal MD GENERAL IMAGING Final Resu lt * MRI ABD WWO CON (07/05/2024 10:34 AM PULLEY MORTISER OPERATOR) Anatomical Region Laterality Modality Abdomen Magnetic Resonan ce 07/05/2024 11:5 9 AM PULLEY MORTISER OPERATOR Impressions 07/05/2024 12:13 PM PULLEY MORTISER OPERATOR IMPRESSION: 1. An approximately 8 mm focus in the lower pole of the left kidney demonstrates signal and enhancement characteristics compatible with a hemorrhagic or proteinaceous renal cyst. There are also simple renal cysts in both kidneys that require no routine follow-up per consensus guidelines. 2. Ill-defined fluid collection in the subcutaneous fat lateral to the right upper pelvis measuring up to 5.8 cm that is suboptimally assessed on this examination. On recent CT, ill-defined stranding but no discrete fluid collection was appreciated at this site. This is nonspecific, however abscess cannot be excluded in the appropriate clinical context. This could be further evaluated with dedicated CT of the pelvis with intravenous contrast. 3. Mild diffuse hepatic steatosis. Referred By: SAMANTHA BAILEY Interpreted By: Raul Ely DO, 07/05/2024 11:59 AM Narrative 07/05/2024 12:13 PM PULLEY MORTISER OPERATOR [place] [id number] EXAMINATION: MRI ABD WWO CON EXAM DATE: 07/05/2024 9:48 AM CLINICAL HISTORY: Indeterminate left lower pole renal lesion seen on recent CT. Lung biopsy demonstrating undifferentiated carcinoma. COMPARISON: CT chest, abdomen, and pelvis 06/22/2024 and the abdomen and pelvis 01/09/2021. TECHNIQUE: Multiplanar multisequence MRI of the abdomen was performed before and after intravenous administration of 20 cc according to renal mass protocol. FINDINGS: LIVER: The liver is incompletely assessed on the axial sequences. The liver is normal in size without gross contour abnormality appreciated. There is mild decrease in hepatic signal intensity between in phase and out of phase sequences reflecting mild diffuse hepatic steatosis. No suspicious hepatic lesion is seen. GALLBLADDER: The gallbladder is unremarkable. BILIARY TREE: There is no biliary ductal dilatation. PANCREAS: There is no pancreatic ductal dilatation. Pancreatic parenchyma demonstrates homogeneous signal intensity on all pulse sequences with homogeneous enhancement following gadolinium administration. SPLEEN: The spleen is normal in size. ADRENAL GLANDS: There is no adrenal mass. KIDNEYS: There are foci of T2 hyperintense signal in both kidneys that demonstrate no enhancement following gadolinium administration, compatible with simple renal cysts. There is redemonstration of an approximately 8 mm focus in the lower pole of the left kidney that demonstrates intrinsic T1 hyperintense signal and low signal intensity on T2-weighted sequences that does not demonstrate enhancement following gadolinium administration, compatible with a hemorrhagic or proteinaceous renal cyst. No evidence is seen to suggest hydronephrosis or perinephric abnormality. AORTA: The abdominal aorta is normal in caliber. LYMPH NODES: No adenopathy is appreciated within the visualized abdomen. GASTROINTESTINAL: The visualized bowel is nondilated. There is colonic diverticulosis. ADDITIONAL FINDINGS: No free fluid or air is seen within the visualized abdomen. No discrete osseous lesion is seen. Visualized lower thorax demonstrates no gross signal abnormality. There is an ill-defined fluid collection in the subcutaneous fat lateral to the right upper pelvis measuring up to 5.8 cm that is suboptimally assessed on this examination. On recent CT there is ill-defined stranding but no discrete fluid collection appreciated in this region. Procedure Note Raul Ely, DO - 07/05/[address] [address] EXAMINATION: MRI ABD WWO CON EXAM DATE: 07/05/2024 9:48 AM CLINICAL HISTORY: Indeterminate left lower pole renal lesion seen onrecent CT. Lung biopsy demonstrating undifferentiated carcinoma. COMPARISON: CT chest, abdomen, and pelvis 06/22/2024 and the abdomen andpelvis 01/09/2021. TECHNIQUE: Multiplanar multisequence MRI of the abdomen was performed before andafter intravenous administration of 20 cc according to renal massprotocol. FINDINGS: LIVER: The liver is incompletely assessed on the axial sequences. The liver isnormal in size without gross contour abnormality appreciated. There ismild decrease in hepatic signal intensity between in phase and out ofphase sequences reflecting mild diffuse hepatic steatosis. No suspicioushepatic lesion is seen. GALLBLADDER: The gallbladder is unremarkable. BILIARY TREE: There is no biliary ductal dilatation. PANCREAS: There is no pancreatic ductal dilatation. Pancreatic parenchymademonstrates homogeneous signal intensity on all pulse sequences withhomogeneous enhancement following gadolinium administration. SPLEEN: The spleen is normal in size. ADRENAL GLANDS: There is no adrenal mass. KIDNEYS: There are foci of T2 hyperintense signal in both kidneys that demonstrateno enhancement following gadolinium administration, compatible with simplerenal cysts. There is redemonstration of an approximately 8 mm focus inthe lower pole of the left kidney that demonstrates intrinsic [id number] signal and low signal intensity on T2-weighted sequences thatdoes not demonstrate enhancement following gadolinium administration,compatible with a hemorrhagic or proteinaceous renal cyst. No evidence isseen to suggest hydronephrosis or perinephric abnormality. AORTA: The abdominal aorta is normal in caliber. LYMPH NODES: No adenopathy is appreciated within the visualized abdomen. GASTROINTESTINAL: The visualized bowel is nondilated. There is colonic diverticulosis. ADDITIONAL FINDINGS: No free fluid or air is seen within the visualized abdomen. No discreteosseous lesion is seen. Visualized lower thorax demonstrates no grosssignal abnormality. There is an ill-defined fluid collection in thesubcutaneous fat lateral to the right upper pelvis measuring up to 5.8 cmthat is suboptimally assessed on this examination. On recent CT there isill-defined stranding but no discrete fluid collection appreciated in thisregion. IMPRESSION: 1. An approximately 8 mm focus in the lower pole of the left kidneydemonstrates signal and enhancement characteristics compatible with ahemorrhagic or proteinaceous renal cyst. There are also simple renalcysts in both kidneys that require no routine follow-up per consensusguidelines. 2. Ill-defined fluid collection in the subcutaneous fat lateral to theright upper pelvis measuring up to 5.8 cm that is suboptimally assessed onthis examination. On recent CT, ill-defined stranding but no discretefluid collection was appreciated at this site. This is nonspecific,however abscess cannot be excluded in the appropriate clinical context.This could be further evaluated with dedicated CT of the pelvis withintravenous contrast. 3. Mild diffuse hepatic steatosis. Referred By: SAMANTHA BAILEY Interpreted By: Raul Ely DO, 07/05/2024 11:59 AM Chris Aguilera MD MRI Final Result * (ABNORMAL) COMPREHENSIVE METABOLIC PANEL (07/04/2024 3:41 AM PULLEY MORTISER OPERATOR) Only the most recent of6 resultswithin the time period is included. SODIUM S/P/B 135(L) 136 - 145 MMOL/L 07/04/2024 5:39 AM [facility] POTASSIUM S/P/B 4.2 3.5 - 5.1 MMOL/L 07/04/2024 5:39 AM [facility] CHLORIDE S/P/B 103 97 - 115 MMOL/L 07/04/2024 5:39 AM [facility] CO2 26.4 21.0 - 32.0 MMOL/L 07/04/2024 5:39 AM [facility] GLUCOSE 122(H) 74 - 106 MG/DL 07/04/2024 5:39 AM [facility] BUN 20(H) 7 - 18 MG/DL 07/04/2024 5:39 AM [facility] CREATININE S/P/B 0.61(L) 0.70 - 1.30 MG/DL 07/04/2024 5:39 AM [facility] CALCIUM S/P/B 8.9 8.5 - 10.1 MG/DL 07/04/2024 5:39 AM [facility] BILIRUBIN TOTAL S/P/B 0.3 0.2 - 1.0 MG/DL 07/04/2024 5:39 AM [facility] ALKALINE PHOSPHATASE S/P/B 93 45 - 115 U/L 07/04/2024 5:39 AM [facility] AST 11(L) 15 - 37 U/L 07/04/2024 5:39 AM [facility] ALT 38 16 - 61 U/L 07/04/2024 5:39 AM [facility] TOTAL PROTEIN S/P/B 6.2(L) 6.4 - 8.2 G/DL 07/04/2024 5:39 AM [facility] ALBUMIN S/P/B 2.8(L) 3.4 - 5.0 G/DL 07/04/2024 5:39 AM [facility] ANION GAP 5.6 2.0 - 10.0 MMOL/L 07/04/2024 5:39 AM PULLEY MORTISER OPERATOR [facility] OSMOLALITY (CALC) 284 MOSM/KG 024 5:39 AM [facility] Comment:REFERENCE RANGE NOT ESTABLISHED GFR ESTIMATE >90 >90 ML/MIN/1. 73 M2 07/04/2024 5:39 AM [facility] GFR NOTES GFR REFERENCE S: 07/04/2024 5:39 AM [facility] Comment: THE ESTIMATED GFR IS CALCULATED USING THE 2020 CKD-EPI EQUATION. THE FOLLOWING CATEGORIES FOR GRADING RENAL FUNCTION ARE RECOMMENDED BY THE INTERNATIONAL SOCIETY OF NEPHROLOGY (KDIGO 2012 CLINICAL PRACTICE GUIDELINE). G1,NORMAL OR HIGH: >89 ml/min/1.73 m2 G2,MILDLY DECREASED: 60-89 ml/min/1.73 m2 G3A,MILDLY TO MODERATELY DECREASED: 45-59 ml/min/1.73 m2 G3B,MODERATELY TO SEVERELY DECREASED: 30-44 ml/min/1.73 m2 G4,SEVERELY DECREASED: 15-29 ml/min/1.73 m2 G5,KIDNEY FAILURE: <15 ml/min/1.73 m2 07/04/2024 3:41 AM PULLEY MORTISER OPERATOR us Renetta Baldwin MD LABORATORY Final Result [facility] [address] [place] [address], [phone] * (ABNORMAL) CBC W/DIFF AUTOMATED (07/04/2024 3:41 AM PULLEY MORTISER OPERATOR) Only the most recent of9 resultswithin the time period is included. WBC 13.02(H) 4.00 - 10.80 x10'3/uL 07/04/2024 5:09 AM PULLEY MORTISER OPERATOR [facility] RBC 4.32(L) 4.50 - 6.10 x10'6/uL 07/04/2024 5:09 AM PULLEY MORTISER OPERATOR [facility] HGB 12.9 12.0 - 16.0 G/DL 07/04/2024 5:09 AM PULLEY MORTISER OPERATOR [facility] HCT 39.4 37.0 - 52.0 % 07/04/2024 5:09 AM [facility] MCV 91.2 78.0 - 100.0 FL 07/04/2024 5:09 AM [facility] MCH 29.9 27.0 - 31.0 PG 07/04/2024 5:09 AM [facility] MCHC 32.7(L) 33.0 - 36.0 G/DL 07/04/2024 5:09 AM [facility] RDW 13.8 11.5 - 14.5 % 07/04/2024 5:09 AM [facility] PLT 348 150 - 350 x10'3/uL 07/04/2024 5:09 AM [facility] MPV 8.8 7.4 - 10.4 FL 07/04/2024 5:09 AM [facility] DIFFERENTIAL TYPE AUTOMATED DIFFERENTIAL 07/04/2024 5:09 AM [facility] SEG NEUTROPHILS 80.5 % 5:09 AM [facility] LYMPHOCYTES 9.4 % 07/04/2024 5:09 AM [facility] MONOCYTES 7.2 % 07/04/2024 5:09 AM [facility] EOSINOPHILS 0.2 % 07/04/2024 5:09 AM [facility] BASOPHILS 0.2 % 07/04/2024 5:09 AM [facility] IMMATURE GRANS % 2.5 % 07/04/20 5:09 AM [facility] ABS. NEUTROPHILS 10.48(H) 1.60 - 8.30 x10'3/uL 07/04/2024 5:09 AM [facility] ABS. LYMPHOCYTES 1.22 0.80 - 4.70 x10'3/uL 07/04/2024 5:09 AM [facility] ABS. MONOCYTES 0.94 0.00 - 1.50 x10'3/uL 07/04/2024 5:09 AM PULLEY MORTISER OPERATOR [facility] ABS. EOSINOPHILS 0.02 0.00 - 0.40 x10'3/uL 07/04/2024 5:09 AM PULLEY MORTISER OPERATOR [facility] ABS. BASOPHILS 0.03 0.00 - 0.20 x10'3/uL 07/04/2024 5:09 AM PULLEY MORTISER OPERATOR [facility] ABS. IMMATURE GRANULOCYTES 0.33(H) 0.00 - 0.03 x10'3/uL 07/04/2024 5:09 AM PULLEY MORTISER OPERATOR [facility] ABS. NUCLEATED RBC'S 0.00 0.00 - 0.01 x10'3/uL 07/04/2024 5:09 AM PULLEY MORTISER OPERATOR [facility] NRBC % 0.0 % 07/04/2024 5:09 AM PULLEY MORTISER OPERATOR [facility] 07/04/2024 3:41 AM PULLEY MORTISER OPERATOR us Renetta Baldwin MD LABORATORY Final Result Performing Organization Address City/[facility]/ZIP Co de Phone Number [facility] [address] [place] [address], [phone] * PHOSPHORUS, INORGANIC PHOSPHATE (07/04/2024 3:41 AM PULLEY MORTISER OPERATOR) Only the most recent of4 resultswithin the time period is included. PHOSPHORUS 3.3 2.5 - 4.9 MG/DL 07/04/2024 5:39 AM PULLEY MORTISER OPERATOR [facility] 07/04/2024 3:41 AM PULLEY MORTISER OPERATOR us Renetta Baldwin MD LABORATORY Final Result Performing Organization Address City/[facility]/ZIP Co de Phone Number [facility] [address] [place] [address], [phone] * MAGNESIUM (07/04/2024 3:41 AM PULLEY MORTISER OPERATOR) Only the most recent of6 resultswithin the time period is included. MAGNESIUM 2.3 1.6 - 2.6 MG/DL 07/04/2024 5:39 AM PULLEY MORTISER OPERATOR [facility] 07/04/2024 3:41 AM PULLEY MORTISER OPERATOR us Renetta Baldwin MD LABORATORY Final Result [facility] [address] [place] [address], [phone] * Rad Onc Aria Session Summary (07/01/2024 3:10 PM PULLEY MORTISER OPERATOR) Course ID C1 ARIA VARIA N RAD ONCOLOGY Course Intent Palliative ARIA VARIAN RAD ONCOLOGY Treatment Elapsed Days 0 ARIA VARIAN RAD ONCOLOGY Treatment Dates First Treatment Date: 07/01/2024 Last Treatment Delivered: 07/01/2024 [facility] ONCOLOGY Reference Point ID [id number] [facility] VAR[facility] RAD ONCOLOGY Dosage Given To Date Gy [id number] [facility]A VARIAN RAD ONCOLOGY Session Dosage Given Gy [id number] [facility] RAD ONCOLOGY Reference Point ID [id number] [facility] RAD ONCOLOGY Dosage Given To Date Gy 22 [facility] VARIAN RAD ONCOLOGY Session Dosage Given Gy 22 [facility]A VARIAN RAD ONCOLOGY Reference Point ID [id number] ARIA VARIAN RAD ONCOLOGY Dosage Given To Date Gy 22 [facility]A VARIAN RAD ONCOLOGY Session Dosage Given Gy 22 [facility] VARIAN RAD ONCOLOGY Plan ID LtFrntPar_SRS ARIA V TYSHAWN RAD ONCOLOGY Treatment Modality Left Frontoparietal SRS - PTV1 [facility] RAD ONCOLOGY Fractions Treated and Prescribed 1 of 1 [facility] RAD ONCOLOGY Plan ID RtFront_SRS ARIA DELANEY KUNAL RAD ONCOLOGY Treatment Modality Right Frontal SRS Brain, 1 Fx - PTV2 [facility] RAD ONCOLOGY Fractions Treated and Prescribed 1 of 1 [facility] RAD ONCOLOGY Plan ID RtCereb_SRS ARIA DELANEY KUNAL RAD ONCOLOGY Treatment Modality Right Cerebellum SRS Brain, 1 Fx - PTV3 [facility] RAD ONCOLOGY Fractions Treated and Prescribed 1 of 1 [facility] VARIAN RAD ONCOLOGY 07/01/2024 3:10 PM PULLEY MORTISER OPERATOR us Ordering Provider External RADIATION ONCOLOGY OR DERABLES Final Result [facility] ONCOL[facility]Y * CT CHEST WO CON (07/01/2024 12:35 PM PULLEY MORTISER OPERATOR) Anatomical Region Laterality Modality Chest Computed Tomogra phy 07/01/2024 4:10 PM PULLEY MORTISER OPERATOR Impressions 07/01/2024 4:17 PM PULLEY MORTISER OPERATOR IMPRESSION: Left apical pigtail thoracostomy tube is well-positioned. However, there is a persistent small to moderate pneumothorax with left chest wall subcutaneous emphysema. Redemonstrated 2.5 cm spiculated nodule in the left upper lobe. Referred By: SAMANTHA BAILEY Interpreted By: Tee Mckeon MD, 07/01/2024 4:10 PM Narrative 07/01/2024 4:17 PM PULLEY MORTISER OPERATOR [facility] [address] [place] [address] EXAM: NONCONTRAST CT CHEST INDICATION: Replacement of chest tube. Pneumothorax after recent lung biopsy. COMPARISON: Radiograph earlier today, CT 06/27/2024 TECHNIQUE: Unenhanced multidetector CT is performed through the chest. Multiplanar images are created and reviewed. A dose lowering technique was used for this procedure, which may include, but is not limited to, dose reduction techniques, automated exposure control, the use of a iterative reconstruction, and ALARA (as low as reasonably achievable)/image gently techniques. FINDINGS: Heart: Heart size is normal. There is no pericardial effusion. Great vessels: Normal in caliber. Mediastinum and polo: There are densely calcified mediastinal and left hilar lymph nodes, compatible with prior granulomatous infection. No noncalcified adenopathy or mass is seen. Pleura: Anterior approach pigtail left thoracostomy tube is in place in the apical pleural space. There is a small to moderate residual pneumothorax as well as significant subcutaneous emphysema in the left chest wall. Lungs: There is moderate centrilobular emphysema. Spiculated 2.5 cm nodule in the left upper lobe remains present. There are additional scattered calcified granulomata. Mild diffuse airway thickening is noted. Upper abdomen: Limited evaluation of the upper abdominal organs shows no acute abnormality. Other: No destructive osseous lesion is identified. Procedure Note Tee Mckeon MD - 07/01/2024 [facility] [address] [place], [place] [address] EXAM: NONCONTRAST CT CHEST INDICATION: Replacement of chest tube. Pneumothorax after recent lungbiopsy. COMPARISON: Radiograph earlier today, CT 06/27/2024 TECHNIQUE: Unenhanced multidetector CT is performed through the chest.Multiplanar images are created and reviewed. A dose lowering technique wasused for this procedure, which may include, but is not limited to, dosereduction techniques, automated exposure control, the use of a iterativereconstruction, and ALARA (as low as reasonably achievable)/image gentlytechniques. FINDINGS: Heart: Heart size is normal. There is no pericardial effusion. Great vessels: Normal in caliber. Mediastinum and polo: There are densely calcified mediastinal and lefthilar lymph nodes, compatible with prior granulomatous infection. Nononcalcified adenopathy or mass is seen. Pleura: Anterior approach pigtail left thoracostomy tube is in place inthe apical pleural space. There is a small to moderate residualpneumothorax as well as significant subcutaneous emphysema in the leftchest wall. Lungs: There is moderate centrilobular emphysema. Spiculated 2.5 cmnodule in the left upper lobe remains present. There are additionalscattered calcified granulomata. Mild diffuse airway thickening isnoted. Upper abdomen: Limited evaluation of the upper abdominal organs shows noacute abnormality. Other: No destructive osseous lesion is identified. IMPRESSION: Left apical pigtail thoracostomy tube is well-positioned. However, thereis a persistent small to moderate pneumothorax with left chest wallsubcutaneous emphysema. Redemonstrated 2.5 cm spiculated nodule in the left upper lobe. Referred By: SAMANTHA BAILEY Interpreted By: Tee Mckeon MD, 07/01/2024 4:10 PM us Suzette Viadl MD CT Final Resu lt * IR DRAINAGE CATH CHANGE (07/01/2024 12:28 PM PULLEY MORTISER OPERATOR) Anatomical Region Laterality Modality Undefined Interventional R adiology 07/01/2024 4:40 PM PULLEY MORTISER OPERATOR Impressions 07/01/2024 7:59 PM PULLEY MORTISER OPERATOR IMPRESSION: Successful image guided left chest tube exchange/upsizing, as detailed above. PLAN: 1. A CT chest to be performed before patient goes for radiation treatment. 2. The left chest tube to low intermittent suction. Portable chest radiograph to follow up baseline position of chest tube. 3. IR will follow while inpatient. The attending radiologist, Dr. Maradiaga, was present for all critical portions of the procedure, has reviewed the images, and agrees with the content of this report. Dictated By: MITA Holcomb on 07/01/2024 4:40 PM Ordered By: WILBER IVORY Interpreted By: MITA Holcomb, 07/01/2024 4:40 PM Narrative 07/01/2024 7:59 PM PULLEY MORTISER OPERATOR [address] [address] IR LEFT CHEST TUBE UPSIZE HISTORY: 69-year-old male with left upper lobe mass, status post lung biopsy complicated by intraprocedural pneumothorax, now with refractory pneumothorax requiring chest tube upsizing. Interventional radiology placed original left chest tube due to intraprocedural left pneumothorax following a left lung biopsy. COMPARISON: 06/27/2024 CT-guided left lung biopsy, 06/27/2024 CT-guided left chest tube insertion, 07/01/2024 chest x-ray Primary provider: Suzette Maradiaga M.D. Assisting provider: Wilber Ivory PA-C ANESTHESIA: Local anesthesia. 1% lidocaine and IV fentanyl. TECHNIQUE: See below. FINDINGS: Fluoroscopy guidance was used, which demonstrated a moderate left pneumothorax. After infiltration of the skin and deep tissues with local anesthetic, the suture was removed from the indwelling left chest tube. Fluoroscopy guidance was used to place an Amplatz wire through the indwelling left chest tube and into the apex of the left lung. The indwelling left chest tube was then removed over the wire. The tract was dilated using 10 Mosotho dilator and 12 Mosotho dilator, and a 10 Fr x 25 cm multipurpose drainage catheter was advanced with its tip located in the left lung apex, confirmed with fluoroscopy. The external portion of the catheter was secured to the skin with nonabsorbable suture. The catheter was attached to the pleur evac. The pneumothorax was then hand evacuated with a 60 cc syringe. The patient tolerated the procedure with no immediate complications. All wires and catheters were removed. Hemostasis was obtained with manual pressure. The procedure was performed following all elements of maximal sterile barrier technique. The field was prepped in a sterile fashion and a sterile field was used to protect the area of interest. All operators hand scrub for cutaneous antisepsis. All operators used sterile gown and gloves and wore a hat and mask during the procedure. No procedural antibiotic was administered. The patient is on adequate antibiotic coverage. The procedure was performed using fluoroscopy guidance. Radiation: Patient's radiation exposure - Reference Air Kerma for (Ka,r) mGy for this procedure. The total fluoroscopy time : 0.7 minutes Multiple. Images were sent to PACS. Procedure Note Suzette Maradiaga MD - 07/01/[address]24 [place] [address] IR LEFT CHEST TUBE UPSIZE HISTORY: 69-year-old male with left upper lobe mass, status post lungbiopsy complicated by intraprocedural pneumothorax, now with refractorypneumothorax requiring chest tube upsizing. Interventional radiology placed original left chest tube due tointraprocedural left pneumothorax following a left lung biopsy. COMPARISON: 06/27/2024 CT-guided left lung biopsy, 06/27/2024 CT-guidedleft chest tube insertion, 07/01/2024 chest x-ray Primary provider: Suzette Maradiaga M.D. Assisting provider: Wilber Ivory PA-C ANESTHESIA: Local anesthesia. 1% lidocaine and IV fentanyl. TECHNIQUE: See below. FINDINGS: Fluoroscopy guidance was used, which demonstrated a moderate leftpneumothorax. After infiltration of the skin and deep tissues with localanesthetic, the suture was removed from the indwelling left chest tube.Fluoroscopy guidance was used to place an Amplatz wire through theindwelling left chest tube and into the apex of the left lung. Theindwelling left chest tube was then removed over the wire. The tract was dilated using 10 Mosotho dilator and 12 Mosotho dilator, and a10 Fr x 25 cm multipurpose drainage catheter was advanced with its tiplocated in the left lung apex, confirmed with fluoroscopy. The external portion of the catheter was secured to the skin withnonabsorbable suture. The catheter was attached to the pleur evac. Thepneumothorax was then hand evacuated with a 60 cc syringe. The patienttolerated the procedure with no immediate complications. All wires and catheters were removed. Hemostasis was obtained with manualpressure. The procedure was performed following all elements of maximal sterilebarrier technique. The field was prepped in a sterile fashion and asterile field was used to protect the area of interest. All operators hand scrubfor cutaneous antisepsis. All operators used sterile gown and gloves and wore a hat and mask during the procedure. No procedural antibiotic was administered. The patient is on adequateantibiotic coverage. The procedure was performed using fluoroscopy guidance. Radiation: Patient's radiation exposure - Reference Air Kerma for (Ka,r)mGy for this procedure. The total fluoroscopy time : 0.7 minutes Multiple. Images were sent to PACS. IMPRESSION: Successful image guided left chest tube exchange/upsizing, as detailedabove. PLAN: 1. A CT chest to be performed before patient goes for radiationtreatment. 2. The left chest tube to low intermittent suction. Portable chestradiograph to follow up baseline position of chest tube. 3. IR will follow while inpatient. The attending radiologist, Dr. Maradiaga, was present for all criticalportions of the procedure, has reviewed the images, and agrees with thecontent of this report. Dictated By: MITA Holcomb on 07/01/2024 4:40 PM Ordered By: WILBER IVORY Interpreted By: MITA Holcomb, 07/01/2024 4:40 PM us Wilber FAN-Briana INTERVENTIONAL RADIOLOGY F inal Result * PRO-BRAIN NATRIURETIC PEPTIDE (PRO BNP) (06/30/2024 7:55 AM PULLEY MORTISER OPERATOR) PRO-B TYPE NATRIURETIC PEPTIDE 124 <125 PG/ML 06/30/2024 8:26 AM PULLEY MORTISER OPERATOR [facility] Comment: AGE INDEPENDENT: <300 PG/ML HAS A 99% NEGATIVE PREDICTIVE VALUE FOR EXCLUDING ACUTE CHF <50 YEARS: >450 PG/ML IS CONSISTENT WITH ACUTE CHF 50-75 YEARS: >900 PG/ML IS CONSISTENT WITH ACUTE CHF >75 YEARS: >1800 PG/ML IS CONSISTENT WITH ACUTE CHF IN PATIENTS WITH RENAL INSUFFICIENCY (GFR <60), >1200 PG/ML YIELDS A DIAGNOSTIC SENSITIVITY AND SPECIFICITY OF 89% AND 72% FOR ACUTE CHF. 06/30/2024 7:55 AM PULLEY MORTISER OPERATOR us Renetta Baldwin MD LABORATORY Final Result Performing Organization Address City/[facility] Co de Phone Number [facility] [address] [place] [address], [phone] * TROPONIN, QUANT (06/30/2024 7:55 AM PULLEY MORTISER OPERATOR) Only the most recent of2 resultswithin the time period is included. TROPONIN I HIGH SENSITIVITY 5 0 - 78 ng/L 06/30/2024 8:26 AM PULLEY MORTISER OPERATOR [facility] 06/30/2024 7:55 AM PULLEY MORTISER OPERATOR us Renetta Baldwin MD LABORATORY Final Result Performing Organization Address City/[facility]/ZIP Co de Phone Number [facility] [address] [place] [address], [place] [phone] * ECG 12 lead (06/30/2024 7:50 AM PULLEY MORTISER OPERATOR) Only the most recent of2 resultswithin the time period is included. 06/30/2024 7:50 AM PULLEY MORTISER OPERATOR Narrative [facility] - 06/30/2024 8:35 AM PULLEY MORTISER OPERATOR [facility] [address] [place] [address] Test Date: 2024-06-30 Pat Name: JASPER CELAYA Department: 1 Room: 802AA Gender: Male [employer] Machine Operator: Rell : 1955 Requested By: RENETTA BALDWIN Order Number: [id number] Reading KASH Villanueva Measurements Intervals [place] Rate: 62 P: 64 [place]: 158 QRS: 46 QRSD: 92 T: 75 QT: 404 QTc: 413 Interpretive Statements SINUS RHYTHM NORMAL ECG EY MORTISER OPERATOR Procedure Note Jasper Villanueva MD - 06/30/2024 [place] [address] [place] [address] Test Date: 2024-06-30 Pat Name: JASPER CEALYA Department: 1 Room: 802AA Gender: Male [employer] Machine Operator: Rell : 1955 Requested By: RENETTA BALDWIN Order Number: [id number] Reading KASH Villanueva Measurements Intervals [place] Rate: 62 P: 64 [place]: 158 QRS: 46 QRSD: 92 T: 75 QT: 404 QTc: 413 Interpretive Statements SINUS RHYTHM NORMAL ECG EY MORTISER OPERATOR us Renetta Baldwin MD ECG ORDERABLES Final Result [facility] * CT GD BX LUNG LT (06/27/2024 10:03 AM PULLEY MORTISER OPERATOR) Anatomical Region Laterality Modality Chest Computed Tomogra phy 06/27/2024 10:4 3 AM PULLEY MORTISER OPERATOR Impressions 06/27/2024 4:14 PM PULLEY MORTISER OPERATOR IMPRESSION: Successful CT-guided left upper lobe mass biopsy. Three, 20- gauge core biopsies were obtained and sent for pathologic analysis. Core biopsy specimens were given directly to on-site loan review manager. Tissue specimens were confirmed to be adequate by the on-site [facility] loan review manager. Successful intraprocedural left chest tube placement for expanding intraprocedural left pneumothorax, as detailed above. PLAN: 1. Transfer to inpatient recovery room criteria is met. Bedrest 2.5 hours. 2. Keep chest tube to continuous suction for the next 12 hours. Okay to ambulate on waterseal. IR team will manage chest tube. 2. Follow-up pathology results. IR follow-up as needed. Ordered By: EULOGIO BRITTON Interpreted By: Suzette Maradiaga MD, 06/27/2024 10:43 AM Narrative 06/27/2024 4:14 PM PULLEY MORTISER OPERATOR [place] [address] [address]-GUIDED LEFT UPPER LOBE MASS BIOPSY HISTORY:69-year-old male with a left upper lobe mass presents for inpatient CT- guided lung biopsy. COMPARISON:CT chest, 06/22/2024. INTERVENTIONALISTS: STAFF: Suzette Maradiaga M.D TRAINEE(S) /SPACE SCHEDULER(S): None. CONSENT: The risks, benefits and alternatives to the procedure were explained and informed consent was obtained.] Just before beginning the procedure, Dr. Maradiaga conducted a *time out* to verify the patient identity and the site and nature of the procedure to be performed. ANESTHESIA: Local anesthesia. Under Suzette Maradiaga MD supervision, midazolam and fentanyl were administered intravenously for moderate sedation. Pulse oximetry, heart rate, and blood pressure were continuously monitored by an independent trained observer (interventional radiology nurse). The IR nurse only role during the procedure was to monitor vital signs and administer moderate sedation medications. Total tcze-ri-uofa sedation time was 42 minutes. The attending physician monitored the sedated patient face to face throughout the procedure. FINDINGS: After review of previously acquired imaging, the patient was placed on the table into the planned pre-procedure position. Localizing scans were obtained with computed tomography over the expected target site and the skin was marked appropriately. After infiltration of the skin and deep tissues with local anesthetic, a 19- gauge introducer needle was advanced into the left upper lobe mass from a posterior anterior, oblique approach utilizing concurrent real-time CT fluoroscopy visualization. Image documentation of access is maintained in the patient medical record. Once images showed satisfactory positioning in the peripheral aspect of the left upper lobe mass . Three, 20- gauge core biopsies were obtained and sent for analysis. There was intraprocedural pneumothorax despite active aspiration through the introducer needle. Small to moderate pneumothorax) chest tube placement. Through the 19-guage needle, a 0.035 was inserted into the left pleural space. Over the wire, the tract was serial dilated and a 8.5-Fr x 25 cm multipurpose drainage catheter was advanced until its distal loop and radiopaque marker was within the collection. The retention suture was locked and the external portion of the catheter was secured to the skin with non- absorbable suture. Sterile dressing was applied. Post biopsy scan demonstrated small residual left pneumothorax. Chest tube is place to water seal for transport. The patient tolerated the procedure well.No prophylactic procedural antibiotic was indicated for this procedure as there is no evidence supporting use for this procedure. The procedure was performed following all elements of maximal sterile barrier technique. The field was prepped in a sterile fashion and a large sterile field was used to protect the area of interest. All operators had a hand scrub for cutaneous antisepsis. All operators used sterile gown and gloves and wore a hat and a mask during the procedure. The procedure was performed using CT and CT fluoroscopic guidance. Multiple permanent CT and CT fluoroscopic images were sent to PACS. A dose lowering technique was used for this procedure, which may include, but is not limited to, dose reduction technique, automated exposure control, the use of iterative reconstruction, and ALARA (As Low As Reasonably Achievable) / Image Gently techniques. Procedure Note Suzette Maradiaga MD - 06/27/[address] [address] [address]-GUIDED LEFT UPPER LOBE MASS BIOPSY HISTORY:69-year-old male with a left upper lobe mass presents forinpatient CT- guided lung biopsy. COMPARISON:CT chest, 06/22/2024. INTERVENTIONALISTS: STAFF: Suzette Maradiaga M.D TRAINEE(S) /SPACE SCHEDULER(S): None. CONSENT: The risks, benefits and alternatives to the procedure were explained andinformed consent was obtained.] Just before beginning the procedure, conducted a *time out* to verify the patient identity and the siteand nature of the procedure to be performed. ANESTHESIA: Local anesthesia. Under Suzette Maradiaga MD supervision, midazolam and fentanyl wereadministered intravenously for moderate sedation. Pulse oximetry, heartrate, and blood pressure were continuously monitored by an independenttrained observer (interventional radiology nurse). The IR nurse only roleduring the procedure was to monitor vital signs and administer moderatesedation medications. Total qkoa-ee-eqof sedation time was 42 minutes.The attending physician monitored the sedated patient face to facethroughout the procedure. FINDINGS: After review of previously acquired imaging, the patient was placed on thetable into the planned pre-procedure position. Localizing scans wereobtained with computed tomography over the expected target site and theskin was marked appropriately. After infiltration of the skin and deep tissues with local anesthetic, a19- gauge introducer needle was advanced into the left upper lobe massfrom a posterior anterior, oblique approach utilizing concurrent real-timeCT fluoroscopy visualization. Image documentation of access is maintainedin the patient medical record. Once images showed satisfactory positioning in the peripheral aspect ofthe left upper lobe mass . Three, 20- gauge core biopsies were obtainedand sent for analysis. There was intraprocedural pneumothorax despiteactive aspiration through the introducer needle. Small to moderate pneumothorax) chest tube placement. Through the 19- guageneedle, a 0.035 was inserted into the left pleural space. Over the wire,the tract was serial dilated and a 8.5-Fr x 25 cm multipurpose drainagecatheter was advanced until its distal loop and radiopaque marker waswithin the collection. The retention suture was locked and the externalportion of the catheter was secured to the skin with non-absorbablesuture. Sterile dressing was applied. Post biopsy scan demonstrated small residual left pneumothorax. Chest tubeis place to water seal for transport. The patient tolerated the procedure well.No prophylactic proceduralantibiotic was indicated for this procedure as there is no evidencesupporting use for this procedure. The procedure was performed following all elements of maximal sterilebarrier technique. The field was prepped in a sterile fashion and a largesterile field was used to protect the area of interest. All operators hada hand scrub for cutaneous antisepsis. All operators used sterile gown andgloves and wore a hat and a mask during the procedure. The procedure was performed using CT and CT fluoroscopic guidance. Multiple permanent CT and CT fluoroscopic images were sent to PACS. A dose lowering technique was used for this procedure, which may include,but is not limited to, dose reduction technique, automated exposurecontrol, the use of iterative reconstruction, and ALARA (As Low AsReasonably Achievable) / Image Gently techniques. IMPRESSION: Successful CT-guided left upper lobe mass biopsy. Three, 20- gauge corebiopsies were obtained and sent for pathologic analysis. Core biopsyspecimens were given directly to on-site loan review manager. Tissuespecimens were confirmed to be adequate by [facility]. Successful intraprocedural left chest tube placement for expandingintraprocedural left pneumothorax, as detailed above. PLAN: 1. Transfer to inpatient recovery room criteria is met. Bedrest 2.5hours. 2. Keep chest tube to continuous suction for the next 12 hours. Okay toambulate on waterseal. IR team will manage chest tube. 2. Follow-up pathology results. IR follow-up as needed. Ordered By: EULOGIO BIRTTON Interpreted By: Suzette Maradiaga MD, 06/27/2024 10:43 AM Eulogio Britton MD CT Final Result * CT GD CHEST TUBE INSERT LT (06/27/2024 10:03 AM PULLEY MORTISER OPERATOR) Anatomical Region Laterality Modality Chest Computed Tomogra phy 06/27/2024 10:4 3 AM PULLEY MORTISER OPERATOR Impressions 06/27/2024 4:14 PM PULLEY MORTISER OPERATOR IMPRESSION: Successful CT-guided left upper lobe mass biopsy. Three, 20- gauge core biopsies were obtained and sent for pathologic analysis. Core biopsy specimens were given directly to on-site loan review manager. Tissue specimens were confirmed to be adequate by the on-site [facility] loan review manager. Successful intraprocedural left chest tube placement for expanding intraprocedural left pneumothorax, as detailed above. PLAN: 1. Transfer to inpatient recovery room criteria is met. Bedrest 2.5 hours. 2. Keep chest tube to continuous suction for the next 12 hours. Okay to ambulate on waterseal. IR team will manage chest tube. 2. Follow-up pathology results. IR follow-up as needed. Ordered By: EULOGIO BRITTON Interpreted By: Suzette Maradiaga MD, 06/27/2024 10:43 AM Narrative 06/27/2024 4:14 PM PULLEY MORTISER OPERATOR [facility] [address], [place] [address]-GUIDED LEFT UPPER LOBE MASS BIOPSY HISTORY:69-year-old male with a left upper lobe mass presents for inpatient CT- guided lung biopsy. COMPARISON:CT chest, 06/22/2024. INTERVENTIONALISTS: STAFF: Suzette Maradiaga M.D TRAINEE(S) /SPACE SCHEDULER(S): None. CONSENT: The risks, benefits and alternatives to the procedure were explained and informed consent was obtained.] Just before beginning the procedure, Dr. Maradiaga conducted a *time out* to verify the patient identity and the site and nature of the procedure to be performed. ANESTHESIA: Local anesthesia. Under Suzette Maradiaga MD supervision, midazolam and fentanyl were administered intravenously for moderate sedation. Pulse oximetry, heart rate, and blood pressure were continuously monitored by an independent trained observer (interventional radiology nurse). The IR nurse only role during the procedure was to monitor vital signs and administer moderate sedation medications. Total eued-di-rgqe sedation time was 42 minutes. The attending physician monitored the sedated patient face to face throughout the procedure. FINDINGS: After review of previously acquired imaging, the patient was placed on the table into the planned pre-procedure position. Localizing scans were obtained with computed tomography over the expected target site and the skin was marked appropriately. After infiltration of the skin and deep tissues with local anesthetic, a 19- gauge introducer needle was advanced into the left upper lobe mass from a posterior anterior, oblique approach utilizing concurrent real-time CT fluoroscopy visualization. Image documentation of access is maintained in the patient medical record. Once images showed satisfactory positioning in the peripheral aspect of the left upper lobe mass . Three, 20- gauge core biopsies were obtained and sent for analysis. There was intraprocedural pneumothorax despite active aspiration through the introducer needle. Small to moderate pneumothorax) chest tube placement. Through the 19-guage needle, a 0.035 was inserted into the left pleural space. Over the wire, the tract was serial dilated and a 8.5-Fr x 25 cm multipurpose drainage catheter was advanced until its distal loop and radiopaque marker was within the collection. The retention suture was locked and the external portion of the catheter was secured to the skin with non- absorbable suture. Sterile dressing was applied. Post biopsy scan demonstrated small residual left pneumothorax. Chest tube is place to water seal for transport. The patient tolerated the procedure well.No prophylactic procedural antibiotic was indicated for this procedure as there is no evidence supporting use for this procedure. The procedure was performed following all elements of maximal sterile barrier technique. The field was prepped in a sterile fashion and a large sterile field was used to protect the area of interest. All operators had a hand scrub for cutaneous antisepsis. All operators used sterile gown and gloves and wore a hat and a mask during the procedure. The procedure was performed using CT and CT fluoroscopic guidance. Multiple permanent CT and CT fluoroscopic images were sent to PACS. A dose lowering technique was used for this procedure, which may include, but is not limited to, dose reduction technique, automated exposure control, the use of iterative reconstruction, and ALARA (As Low As Reasonably Achievable) / Image Gently techniques. Procedure Note Suzette Maradiaga MD - 06/27/2024 [place] [address]-GUIDED LEFT UPPER LOBE MASS BIOPSY HISTORY:69-year-old male with a left upper lobe mass presents forinpatient CT- guided lung biopsy. COMPARISON:CT chest, 06/22/2024. INTERVENTIONALISTS: STAFF: Suzette Maradiaga M.D TRAINEE(S) /SPACE SCHEDULER(S): None. CONSENT: The risks, benefits and alternatives to the procedure were explained andinformed consent was obtained.] Just before beginning the procedure, conducted a *time out* to verify the patient identity and the siteand nature of the procedure to be performed. ANESTHESIA: Local anesthesia. Under Suzette Maradiaga MD supervision, midazolam and fentanyl wereadministered intravenously for moderate sedation. Pulse oximetry, heartrate, and blood pressure were continuously monitored by an independenttrained observer (interventional radiology nurse). The IR nurse only roleduring the procedure was to monitor vital signs and administer moderatesedation medications. Total ghyo-fh-ucqj sedation time was 42 minutes.The attending physician monitored the sedated patient face to facethroughout the procedure. FINDINGS: After review of previously acquired imaging, the patient was placed on thetable into the planned pre-procedure position. Localizing scans wereobtained with computed tomography over the expected target site and theskin was marked appropriately. After infiltration of the skin and deep tissues with local anesthetic, a19- gauge introducer needle was advanced into the left upper lobe massfrom a posterior anterior, oblique approach utilizing concurrent real-timeCT fluoroscopy visualization. Image documentation of access is maintainedin the patient medical record. Once images showed satisfactory positioning in the peripheral aspect ofthe left upper lobe mass . Three, 20- gauge core biopsies were obtainedand sent for analysis. There was intraprocedural pneumothorax despiteactive aspiration through the introducer needle. Small to moderate pneumothorax) chest tube placement. Through the 19- guageneedle, a 0.035 was inserted into the left pleural space. Over the wire,the tract was serial dilated and a 8.5-Fr x 25 cm multipurpose drainagecatheter was advanced until its distal loop and radiopaque marker waswithin the collection. The retention suture was locked and the externalportion of the catheter was secured to the skin with non-absorbablesuture. Sterile dressing was applied. Post biopsy scan demonstrated small residual left pneumothorax. Chest tubeis place to water seal for transport. The patient tolerated the procedure well.No prophylactic proceduralantibiotic was indicated for this procedure as there is no evidencesupporting use for this procedure. The procedure was performed following all elements of maximal sterilebarrier technique. The field was prepped in a sterile fashion and a largesterile field was used to protect the area of interest. All operators hada hand scrub for cutaneous antisepsis. All operators used sterile gown andgloves and wore a hat and a mask during the procedure. The procedure was performed using CT and CT fluoroscopic guidance. Multiple permanent CT and CT fluoroscopic images were sent to PACS. A dose lowering technique was used for this procedure, which may include,but is not limited to, dose reduction technique, automated exposurecontrol, the use of iterative reconstruction, and ALARA (As Low AsReasonably Achievable) / Image Gently techniques. IMPRESSION: Successful CT-guided left upper lobe mass biopsy. Three, 20- gauge corebiopsies were obtained and sent for pathologic analysis. Core biopsyspecimens were given directly to on-site loan review manager. Tissuespecimens were confirmed to be adequate by the [facility]. Successful intraprocedural left chest tube placement for expandingintraprocedural left pneumothorax, as detailed above. PLAN: 1. Transfer to inpatient recovery room criteria is met. Bedrest 2.5hours. 2. Keep chest tube to continuous suction for the next 12 hours. Okay toambulate on waterseal. IR team will manage chest tube. 2. Follow-up pathology results. IR follow-up as needed. Ordered By: EULOGIO BRITTON Interpreted By: Suzette Maradiaga MD, 06/27/2024 10:43 AM us Eulogio Britton MD CT Final Result * Pathology (06/27/2024 12:00 AM PULLEY MORTISER OPERATOR) PATHOLOGY [facility] Department of Laboratory Medicine [address] [place] [address] , extension [phone] Pathology Report Addendum Surgical Pathology Report Name: JASPER CELAYA Specimen #: [id number] Age: 9 1955 (Age: 69) Location: [facility] Sex: M Procedure Date: 06/27/2024 Hospital #: [id number] Date Received: 06/27/2024 Date Reported: / Provider: RODRIGO MARADIAGA MD Source: Lung, left upper lobe, biopsy Clinical History: Left upper lobe spiculated lung mass. FINAL DIAGNOSIS: Lung, left upper lobe mass, CT-guided needle biopsy: -Poorly differentiated carcinoma, see comments. Diagnosis Comment: Histologic sections show cores of partially necrotic tumor composed of pleomorphic epithelioid malignant cells with prominent macronucleoli and frequent mitotic figures. Immunohistochemical stains show the malignant cells are positive for AE1/AE3, CK5/6, CK7, GATA3, uroplakin II (patchy), and CDX2 (weak), and negative for p40, p63, TTF1, Napsin-A, calretinin, WT1, INSM1, CK20, CD117, mammaglobin, BRST-2, PAX8, NKX3.1, SOX10, and melan-A. The findings are consistent with poorly differentiated carcinoma. The immunophenotype is nonspecific with regard to primary site of tumor origin but suggests urothelial versus possible breast or salivary gland origin. Clinical and radiologic correlation is required. IC: BOSSMAN, PHILLIP Gross Description: Received in formalin, labeled with a patient labeled and not further designated, are multiple less than 0.1 cm in diameter delicate pink-white tissue cores that are 1 x 1 x 0.1 cm aggregate. 2 touch preparation slides are received. The specimen is entirely submitted in cassette 1. Gross examination (when applicable), interpretation, and sign out were performed at [facility], [address] [place] [address]. All immunohistochemical and histochemical tests were developed by and performed at [facility], [address] [place] [address]. All tests reported here have not been cleared or approved by the U.S. Food and Drug Administration (FDA). This laboratory is regulated under CLIA as qualified to perform high-complexity testing. These tests are used for clinical purposes. They should not be regarded as investigational or for research. Positive and negative controls show appropriate reactivity. Intraoperative Diagnosis: Rapid onsite evaluation. Lung, left upper lobe mass, CT-guided needle biopsy touch preparation: -Pass 1 adequate -Pass 2 adequate -1 core in formalin Rapid on-site evaluation performed by DANIELE Veliz ([facility]), [place], [place]. Electronically Signed Out MARCIA GLASGOW MD Addenda/Procedures Addendum Date Ordered: 07/25/2024 Status: Signed Out Date Complete: 07/25/2024 By: Jenny Stark Date Reported: 07/25/2024 Addendum Diagnosis Archival slides are reviewed on 07/25/2024 and an appropriate tissue block is selected for xT CDx & xR, PDL1, MMR, and Tumor Origin testing at [facility] as requested by Dr. Malick Szymanski. Addendum Comment {Not Entered} NICOLETTE NUNEZ MD [facility] 06/27/2024 06/27/2024 12: 27 PM PULLEY MORTISER OPERATOR Comment:Lung, left upper lob e, biopsy us Rodrigo Delgadillo MD PATHOLOGY/CYTOLOGY ORDERABLES Fi nal Result [facility] [address] [place] [address], [id number] * MRI BRAIN W CON (06/24/2024 9:59 AM PULLEY MORTISER OPERATOR) Anatomical Region Laterality Modality Head Magnetic Resonan ce 06/24/2024 11:5 2 AM PULLEY MORTISER OPERATOR Impressions 06/24/2024 12:01 PM PULLEY MORTISER OPERATOR IMPRESSION: 1. Several enhancing intracranial lesions in the high left frontoparietal, anterior right frontal, and right cerebellar parenchyma concerning for intracranial metastasis. Largest lesion is seen in the high left frontoparietal parenchyma with prominent surrounding edema. 2. Indeterminate punctate focus of enhancement in the left cerebellum, uncertain whether enhancing lesion or potentially vascular with suggestion of adjacent curvilinear enhancement. Attention to on short interval follow-up advised. Ordered By: EULOGIO BRITTON Interpreted By: Juan Francisco Whitehead MD, 06/24/2024 11:52 AM Narrative 06/24/2024 12:01 PM PULLEY MORTISER OPERATOR [address] [address] INDICATION: Suspected brain metastasis. Lung mass. EXAMINATION: MRI of the brain with contrast for stereotactic surgical navigation, Stealth protocol. TECHNIQUE: Axial post contrast 3-D T1 images were obtained after uneventful administration of 20 mL Dotarem intravenously without adverse event. Stealth protocol COMPARISON: Brain MRI 06/23/2024 FINDINGS: There is a 1.3 cm heterogeneously rim enhancing mass in the high left frontoparietal parenchyma, similar to recent MRI. Prominent surrounding vasogenic edema. Localized mass effect with effacement of the adjacent sulci, slight flattening of the left lateral ventricle, and minimal rightward midline shift. There is a 3 mm enhancing lesion in the anterior right frontal lobe (axial postcontrast T1 image 119 of 192). There is an additional tiny 2 mm enhancing lesion in the right cerebellar hemisphere (axial postcontrast T1 image 47 of 192). Punctate focus of enhancement in the left cerebellum (axial image 39 of 192), with suggestion of contiguous curvilinear enhancement. The remainder of the postcontrast images reveal no other definite foci of abnormal enhancement. Procedure Note Juan Francisco Whitehead MD - 06/24/2024 [facility] [address] [place] [address] INDICATION: Suspected brain metastasis. Lung mass. EXAMINATION: MRI of the brain with contrast for stereotactic surgicalnavigation, Stealth protocol. TECHNIQUE: Axial post contrast 3-D T1 images were obtained afteruneventful administration of 20 mL Dotarem intravenously without adverseevent. Stealth protocol COMPARISON: Brain MRI 06/23/2024 FINDINGS: There is a 1.3 cm heterogeneously rim enhancing mass in the high leftfrontoparietal parenchyma, similar to recent MRI. Prominent surroundingvasogenic edema. Localized mass effect with effacement of the adjacentsulci, slight flattening of the left lateral ventricle, and minimalrightward midline shift. There is a 3 mm enhancing lesion in the anteriorright frontal lobe (axial postcontrast T1 image 119 of 192). There is anadditional tiny 2 mm enhancing lesion in the right cerebellar hemisphere(axial postcontrast T1 image 47 of 192). Punctate focus of enhancement inthe left cerebellum (axial image 39 of 192), with suggestion of contiguouscurvilinear enhancement. The remainder of the postcontrast images revealno other definite foci of abnormal enhancement. IMPRESSION: 1. Several enhancing intracranial lesions in the high left frontoparietal,anterior right frontal, and right cerebellar parenchyma concerning forintracranial metastasis. Largest lesion is seen in the high leftfrontoparietal parenchyma with prominent surrounding edema. 2. Indeterminate punctate focus of enhancement in the left cerebellum,uncertain whether enhancing lesion or potentially vascular with suggestionof adjacent curvilinear enhancement. Attention to on short intervalfollow-up advised. Ordered By: EULOGIO BRITTON Interpreted By: Juan Francisco Whitehead MD, 06/24/2024 11:52 AM us Eulogio Britton MD MRI Final Result * CT HEAD WO CON (06/23/2024 1:55 PM PULLEY MORTISER OPERATOR) Only the most recent of2 resultswithin the time period is included. Anatomical Region Laterality Modality Head Computed Tomogra phy 06/23/2024 2:08 PM PULLEY MORTISER OPERATOR Impressions 06/23/2024 2:12 PM PULLEY MORTISER OPERATOR IMPRESSION: 1. Redemonstration of a 1.3 cm height left frontoparietal mass with prominent surrounding vasogenic edema, similar to prior. Similar associated mass effect with effacement of the adjacent sulci, slight compression of the left lateral ventricle, and minimal if any rightward midline shift. Ordered By: EULOGIO BRITTON Interpreted By: Juan Francisco Whitehead MD, 06/23/2024 2:08 PM Narrative 06/23/2024 2:12 PM PULLEY MORTISER OPERATOR [address] [address] DATE: 06/23/2024 1:51 PM EXAMINATION: CT of the head CLINICAL HISTORY: Worsening right leg weakness COMPARISON: 06/22/2024. Brain MRI 06/21/2024. TECHNIQUE: CT examination of the head without contrast was performed. Axial and multiplanar images obtained. A dose lowering technique was used for this procedure, which may include, but is not limited to, dose reduction technique, automated exposure control, the use of iterative reconstruction, and ALARA (As Low As Reasonably Achievable) / Image Gently techniques. FINDINGS: Redemonstration of a 1.3 cm ovoid mass in the high left frontoparietal parenchyma with prominent surrounding low attenuation edema, similar to prior. Associated mass effect with effacement of the adjacent sulci and slight compression of the left lateral ventricle. Minimal if any rightward midline shift. Basal cisterns patent. No acute hemorrhage or extra-axial collections. Blanco-white matter differentiation grossly preserved. Mild to moderate volume loss with enlargement of the ventricles and extra-axial/subarachnoid spaces. Calvarium unremarkable. Mastoid air cells clear. Right maxillary sinus mucosal thickening/retention cyst. Visualized orbits unremarkable. Procedure Note Juan Francisco Whitehead MD - 06/23/2024 [facility] [address], [place] [address] DATE: 06/23/2024 1:51 PM EXAMINATION: CT of the head CLINICAL HISTORY: Worsening right leg weakness COMPARISON: 06/22/2024. Brain MRI 06/21/2024. TECHNIQUE: CT examination of the head without contrast was performed.Axial and multiplanar images obtained. A dose lowering technique was used for this procedure, which may include,but is not limited to, dose reduction technique, automated exposurecontrol, the use of iterative reconstruction, and ALARA (As Low AsReasonably Achievable) / Image Gently techniques. FINDINGS: Redemonstration of a 1.3 cm ovoid mass in the high left frontoparietalparenchyma with prominent surrounding low attenuation edema, similar toprior. Associated mass effect with effacement of the adjacent sulci andslight compression of the left lateral ventricle. Minimal if any rightwardmidline shift. Basal cisterns patent. No acute hemorrhage or extra-axialcollections. Blanco-white matter differentiation grossly preserved. Mild tomoderate volume loss with enlargement of the ventricles andextra-axial/subarachnoid spaces. Calvarium unremarkable. Mastoid air cellsclear. Right maxillary sinus mucosal thickening/retention cyst. Visualizedorbits unremarkable. IMPRESSION: 1. Redemonstration of a 1.3 cm height left frontoparietal mass withprominent surrounding vasogenic edema, similar to prior. Similarassociated mass effect with effacement of the adjacent sulci, slightcompression of the left lateral ventricle, and minimal if any rightwardmidline shift. Ordered By: EULOGIO BRITTON Interpreted By: Juan Francisco Whitehead MD, 06/23/2024 2:08 PM us Eulogio Britton MD CT Final Result * MRI BRAIN WWO CON (06/23/2024 12:56 AM PULLEY MORTISER OPERATOR) Anatomical Region Laterality Modality Head Magnetic Resonan ce 06/23/2024 2:32 AM PULLEY MORTISER OPERATOR Impressions 06/23/2024 2:37 AM PULLEY MORTISER OPERATOR IMPRESSION: Peripherally enhancing mass within the left frontoparietal lobe region with moderate to large adjacent vasogenic edema. Findings are most compatible with a metastatic lesion, given the history of lung cancer. Referred By: SAMANTHA BAILEY Interpreted By: Julio Cesar Mann MD, 06/23/2024 2:32 AM Narrative 06/23/2024 2:37 AM PULLEY MORTISER OPERATOR [facility] [address], [place] [address] EXAMINATION: MRI BRAIN WWO CON, 06/23/2024 2:32 AM TECHNIQUE: Multiplanar multisequence magnetic resonance images of the brain were obtained before and after the administration of 20 mL of gadolinium injected through the IV, without evidence of adverse reaction. 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 There is restricted diffusion involving the margins of this lesion (best seen on series 2 image 22, series 3 image 23), compatible with hypercellularity. Minimal susceptibility seen within the inferior portion of the lesion (best seen on series 5 image 22). No restricted diffusion to suggest an acute infarction. Moderate to large adjacent conflicted T2 FLAIR hyperintense signal compatible with adjacent vasogenic edema. The sella, callosal, pineal, and craniovertebral junction regions appear within normal limits. No extra-axial fluid collection. The ventricles are normal in size. The basal cisterns appear normal. The proximal intracranial arterial flow voids have a normal appearance. Orbital contents appear normal. Mucous retention cyst within the right maxillary sinus. Mastoid air cells are well-aerated. Procedure Note Julio Cesar Mann MD - 06/23/2024 [facility] [address], [place] [address] EXAMINATION: MRI BRAIN WWO CON, 06/23/2024 2:32 AM TECHNIQUE: Multiplanar multisequence magnetic resonance images of thebrain were obtained before and after the administration of 20 mL ofgadolinium injected through the IV, without evidence of adversereaction. 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 There is restricted diffusion involving themargins of this lesion (best seen on series 2 image 22, series 3 image23), compatible with hypercellularity. Minimal susceptibility seen withinthe inferior portion of the lesion (best seen on series 5 image 22). Norestricted diffusion to suggest an acute infarction. Moderate to largeadjacent conflicted T2 FLAIR hyperintense signal compatible with adjacentvasogenic edema. The sella, callosal, pineal, and craniovertebraljunction regions appear within normal limits. No extra-axial fluid collection. The ventricles are normal in size. Thebasal cisterns appear normal. The proximal intracranial arterial flowvoids have a normal appearance. Orbital contents appear normal. Mucousretention cyst within the right maxillary sinus. Mastoid air cells arewell-aerated. IMPRESSION: Peripherally enhancing mass within the left frontoparietal lobe regionwith moderate to large adjacent vasogenic edema. Findings are mostcompatible with a metastatic lesion, given the history of lung cancer. Referred By: SAMANTHA BAILEY Interpreted By: Julio Cesar Mann MD, 06/23/2024 2:32 AM Rodrigo Delgadillo MD MRI Final Result * CT CHEST+ABD W CON (06/22/2024 5:14 PM PULLEY MORTISER OPERATOR) Anatomical Region Laterality Modality Chest, Abdomen Computed Tomogra phy 06/22/2024 6:10 PM PULLEY MORTISER OPERATOR Impressions 06/22/2024 6:45 PM PULLEY MORTISER OPERATOR IMPRESSION: 1. Spiculated left upper lung mass measuring up to 3.1 cm is concerning for primary bronchogenic malignancy. Recommend tissue sampling. 2. There are a few enlarged noncalcified mediastinal and hilar lymph nodes, most prominently a prevascular node as well as mildly enlarged left hilar node, suspicious for neoplastic disease. Majority of mediastinal and hilar adenopathy are calcified and likely sequela of prior granulomatous disease. 3. New indeterminate left lower pole renal lesion measuring 0.7 cm. Recommend nonemergent follow-up MRI abdomen with and without contrast. Dictated By: Bi Kimball MD on 06/22/2024 6:10 PM The attending radiologist has reviewed the image(s) and agrees with the content of this report. Ordered By: ELVIA LUX Interpreted By: Bi Kimball MD, 06/22/2024 6:10 PM Narrative 06/22/2024 6:45 PM PULLEY MORTISER OPERATOR [place] [address] EXAMINATION: CT CHEST AND ABDOMEN WITH CONTRAST INDICATION: Lung mass evaluation COMPARISON: Same day CT thoracic spine, chest radiograph 05/02/2024, CT abdomen pelvis 01/09/2021, CT lung cancer screening 12/26/2022 TECHNIQUE: Computed tomography of the chest and abdomen was performed with administration of intravenous contrast, 100mL of IOPAMIDOL 76 % IV SOLN was given according to routine protocol without complication. Sagittal and coronal reconstructions. Radiation dose reduction technique(s) were used. FINDINGS: CHEST: Airways are patent. No pneumothorax or pleural effusion. Redemonstration of spiculated left upper lobe mass, which measures approximately 3.1 x 2.4 x 2.3 cm. There is background moderate to advanced emphysema. There are some additional small calcified granulomas in the left lung. There is a punctate pulmonary nodule in the right upper lobe which is unchanged compared to December 2022 (series 3 image 30). No cardiomegaly or pericardial effusion. The aorta and pulmonary artery are normal in caliber. There are multiple calcified mediastinal and right hilar lymph nodes. There are some additional small noncalcified mediastinal lymph nodes, for instance a AP window node measuring 2 cm (series 2 image 45) there is a left hilar lymph node measuring 1 cm (series 2 image 52). Multiple small thyroid nodules measuring up to 1.2 cm, below size threshold for ultrasound follow-up recommendation. ABDOMEN: Tiny hepatic calcification near the gallbladder fossa, otherwise no hepatic lesions. Unremarkable gallbladder. No biliary ductal dilation. Splenic granulomas. Small (1.6 cm) hypoattenuating region in the spleen is nonspecific but most commonly benign. Unremarkable adrenals and pancreas. Left lower pole kidney hypodensity is technically intermediate density measures 1.5 cm, is unchanged since 2020 and likely benign. Ill-defined intermediate density hypodensity in the lower pole of the left kidney measuring 0.7 cm (series 2 image 141). Small right upper pole hypodensity too small to fully diagnosed by CT. Visualized portion of the bladder is unremarkable. Note that the prostate, rectum, and inferior portion of the urinary bladder are not included on this imaging. Tiny hiatal hernia. Diverticulosis without diverticulitis. Unremarkable appendix. No bowel wall thickening. Normal caliber abdominal aorta with mild atherosclerotic disease. No lymphadenopathy below the diaphragm. BONES AND SOFT TISSUES: Unchanged sclerotic lesion in the lateral left third and fifth ribs. Bilateral gynecomastia, right greater than left. Body wall otherwise unremarkable. Procedure Note Uriel Carrizales MD - 06/22/2024 [place] [address] EXAMINATION: CT CHEST AND ABDOMEN WITH CONTRAST INDICATION: Lung mass evaluation COMPARISON: Same day CT thoracic spine, chest radiograph 05/02/2024, CTabdomen pelvis 01/09/2021, CT lung cancer screening 12/26/2022 TECHNIQUE: Computed tomography of the chest and abdomen was performed withadministration of intravenous contrast, 100mL of IOPAMIDOL 76 % IV SOLNwas given according to routine protocol without complication. Sagittal andcoronal reconstructions. Radiation dose reduction technique(s) wereused. FINDINGS: CHEST: Airways are patent. No pneumothorax or pleural effusion. Redemonstrationof spiculated left upper lobe mass, which measures approximately 3.1 x 2.4x 2.3 cm. There is background moderate to advanced emphysema. There aresome additional small calcified granulomas in the left lung. There is apunctate pulmonary nodule in the right upper lobe which is unchangedcompared to December 2022 (series 3 image 30). No cardiomegaly or pericardial effusion. The aorta and pulmonary arteryare normal in caliber. There are multiple calcified mediastinal and righthilar lymph nodes. There are some additional small noncalcifiedmediastinal lymph nodes, for instance a AP window node measuring 2 cm(series 2 image 45) there is a left hilar lymph node measuring 1 cm(series 2 image 52). Multiple small thyroid nodules measuring up to 1.2 cm, below sizethreshold for ultrasound follow-up recommendation. ABDOMEN: Tiny hepatic calcification near the gallbladder fossa, otherwise nohepatic lesions. Unremarkable gallbladder. No biliary ductal dilation. Splenic granulomas. Small (1.6 cm) hypoattenuating region in the spleen isnonspecific but most commonly benign. Unremarkable adrenals andpancreas. Left lower pole kidney hypodensity is technically intermediate densitymeasures 1.5 cm, is unchanged since 2020 and likely benign. Ill-definedintermediate density hypodensity in the lower pole of the left kidneymeasuring 0.7 cm (series 2 image 141). Small right upper pole hypodensitytoo small to fully diagnosed by CT. Visualized portion of the bladder isunremarkable. Note that the prostate, rectum, and inferior portion of theurinary bladder are not included on this imaging. Tiny hiatal hernia. Diverticulosis without diverticulitis. Unremarkableappendix. No bowel wall thickening. Normal caliber abdominal aorta with mild atherosclerotic disease. Nolymphadenopathy below the diaphragm. BONES AND SOFT TISSUES: Unchanged sclerotic lesion in the lateral left third and fifth ribs.Bilateral gynecomastia, right greater than left. Body wall otherwiseunremarkable. IMPRESSION: 1. Spiculated left upper lung mass measuring up to 3.1 cm is concerningfor primary bronchogenic malignancy. Recommend tissue sampling. 2. There are a few enlarged noncalcified mediastinal and hilar lymphnodes, most prominently a prevascular node as well as mildly enlarged lefthilar node, suspicious for neoplastic disease. Majority of mediastinal andhilar adenopathy are calcified and likely sequela of prior granulomatousdisease. 3. New indeterminate left lower pole renal lesion measuring 0.7 cm.Recommend nonemergent follow-up MRI abdomen with and without contrast. Dictated By: Bi Kimball MD on 06/22/2024 6:10 PM The attending radiologist has reviewed the image(s) and agrees with thecontent of this report. Ordered By: ELVIA LUX Interpreted By: Bi Kimball MD, 06/22/2024 6:10 PM Elvia Lux MD CT Final Resul t * Critical Care (06/22/2024 12:05 PM PULLEY MORTISER OPERATOR) Narrative Samantha Bailey MD - 06/22/2024 12:05 PM PULLEY MORTISER OPERATOR Samantha Bailey MD 06/22/2024 1:39 PM Critical Care Performed by: Samantha Bailey MD Authorized by: Samantha Bailey MD Critical care provider statement: Critical care time (minutes): 30 Critical care was necessary to treat or prevent imminent or life-threatening deterioration of the following conditions: SERVICE MANAGER failure or compromise Critical care was time spent personally by me on the following activities: Blood draw for specimens, development of treatment plan with patient or surrogate, discussions with primary provider, evaluation of patient's response to treatment, examination of patient, obtaining history from patient or surrogate, ordering and performing treatments and interventions, ordering and review of laboratory studies, ordering and review of radiographic studies, pulse oximetry, re-evaluation of patient's condition and review of old charts Samantha Bailey MD PROCEDURE/MINOR SURGICAL OR DERABLES Final Result * CT THOR SPINE WO CON (06/22/2024 10:48 AM PULLEY MORTISER OPERATOR) Anatomical Region Laterality Modality Spine Computed Tomogra phy 06/22/2024 11:1 2 AM PULLEY MORTISER OPERATOR Impressions 06/22/2024 11:20 AM PULLEY MORTISER OPERATOR IMPRESSION: 1. Stable appearance of the thoracic spine since 10/26/2017. No acute findings. 2. New left upper lobe mass compatible with malignancy. Ordered By: SAMANTHA BAILEY Interpreted By: Manuel Valdse MD, 06/22/2024 11:12 AM Narrative 06/22/2024 11:20 AM PULLEY MORTISER OPERATOR [address] [place] [address] Examination: CT of the thoracic spine. Exam time: 1053 hours. Clinical history: Right-sided weakness and numbness. Former smoker. Comparison: 10/26/2017, lung screening chest CT, 12/26/2022. Technique: Thin section spiral axial scans were acquired through the thoracic spine without contrast. Sagittal and coronal reconstructions were performed from the data set. A dose lowering technique was used for this procedure, which may include, but is not limited to, dose reduction techniques, automated exposure control, the use of iterative reconstruction and ALARA/Image Gently techniques. Findings: There is no fracture or dislocation. The reconstructions confirm maintenance of vertebral body height and alignment. 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 Plate and screw fusion at C6-7 again evident. The neural foramina and central canal appear patent. The spinal canal contents, as visualized, appear unremarkable. The paraspinous soft tissues are unremarkable. Calcified granulomatous scarring in the thorax is again evident. There is an approximately 2.6 x 2.1 cm irregularly marginated mass in the left upper lobe, new since 12/26/2022, compatible with malignancy. Allowing for respiratory motion, the lungs are otherwise grossly clear. There is no pleural effusion. Partially imaged 3.7 cm left renal cyst requires no further workup or surveillance. Procedure Note Manuel Valdes MD - 06/22/[address] [place] [address] Examination: CT of the thoracic spine. Exam time: 1053 hours. Clinical history: Right-sided weakness and numbness. Former smoker. Comparison: 10/26/2017, lung screening chest CT, 12/26/2022. Technique: Thin section spiral axial scans were acquired through thethoracic spine without contrast. Sagittal and coronal reconstructions wereperformed from the data set. A dose lowering technique was used for thisprocedure, which may include, but is not limited to, dose reductiontechniques, automated exposure control, the use of iterativereconstruction and ALARA/Image Gently techniques. Findings: There is no fracture or dislocation. The reconstructions confirmmaintenance of vertebral body height and alignment. Previously describedcongenital clefting in the posterior aspect of T5 with minor associateddeformity is again noted and stable. Plate and screw fusion at C6-7 againevident. The neural foramina and central canal appear patent. The spinalcanal contents, as visualized, appear unremarkable. The paraspinous softtissues are unremarkable. Calcified granulomatous scarring in the thoraxis again evident. There is an approximately 2.6 x 2.1 cm irregularlymarginated mass in the left upper lobe, new since 12/26/2022, compatiblewith malignancy. Allowing for respiratory motion, the lungs are otherwisegrossly clear. There is no pleural effusion. Partially imaged 3.7 cm leftrenal cyst requires no further workup or surveillance. IMPRESSION: 1. Stable appearance of the thoracic spine since 10/26/2017. No acutefindings. 2. New left upper lobe mass compatible with malignancy. Ordered By: SAMANTHA BAILEY Interpreted By: Manuel Valdes MD, 06/22/2024 11:12 AM us Samantha Bailey MD CT Final Resul t * CT CERV SPINE WO CON (06/22/2024 10:48 AM PULLEY MORTISER OPERATOR) Anatomical Region Laterality Modality Spine Computed Tomogra phy 06/22/2024 11:0 8 AM PULLEY MORTISER OPERATOR Impressions 06/22/2024 11:13 AM PULLEY MORTISER OPERATOR IMPRESSION: 1. Postsurgical and multilevel degenerative changes in the cervical spine, as detailed. Ordered By: SAMANTHA BAILEY Interpreted By: Juan Francisco Whitehead MD, 06/22/2024 11:08 AM Narrative 06/22/2024 11:13 AM PULLEY MORTISER OPERATOR [address] [place] [address] DATE: 06/22/2024 10:44 AM EXAMINATION: CT Cervical Spine without contrast CLINICAL HISTORY: Right-sided weakness COMPARISON: None TECHNIQUE: CT examination of the cervical spine was performed without contrast. Axial and multiplanar reformatted images were obtained. A dose lowering technique was used for this procedure, which may include, but is not limited to, dose reduction technique, automated exposure control, the use of iterative reconstruction, and ALARA (As Low As Reasonably Achievable) / Image Gently techniques. FINDINGS: There are postsurgical changes of anterior cervical discectomy and fusion at C6- C7 with mature osseous fusion of the disc space. The anterior fixation hardware appears intact and without evidence of fracture or loosening. Image quality is somewhat degraded by motion. Straightening of the cervical lordosis. Multilevel degenerative changes are evident in the cervical spine with disc degeneration, endplate/uncovertebral osteophytes, and facet hypertrophy noted. No definite acute displaced cervical fractures identified, considering constraints of motion. Imaged portions of the soft tissues reveal atherosclerotic vascular calcifications. Streak artifact from dental amalgam partially obscures assessment. Partially imaged right maxillary retention cyst. Please refer to separately reported head CT for description of intracranial findings. Partially imaged emphysematous changes in the upper lungs. C2-C3: Small uncovertebral osteophytes. Facet hypertrophy. No osseous canal or foraminal narrowing. C3-C4: Small uncovertebral osteophytes. Facet hypertrophy. No osseous canal or foraminal narrowing. C4-C5: Disc bulge. Possible central protrusion. Uncovertebral osteophytes. Facet hypertrophy. Partial effacement of the ventral thecal sac and encroachment of the ventral cord. No significant osseous foraminal narrowing. C5-C6: Disc bulge suggested. Uncovertebral osteophytes. Facet hypertrophy. Flattening of the ventral thecal sac. No osseous foraminal narrowing. C6-C7: Post surgical changes. No osseous canal stenosis. Mild foraminal narrowing, worse on the left. C7-T1: Facet hypertrophy. No osseous canal stenosis. Mild left foraminal narrowing. Procedure Note Juan Francisco Whitehead MD - 06/22/2024 [facility] [address] [place] [address] DATE: 06/22/2024 10:44 AM EXAMINATION: CT Cervical Spine without contrast CLINICAL HISTORY: Right-sided weakness COMPARISON: None TECHNIQUE: CT examination of the cervical spine was performed withoutcontrast. Axial and multiplanar reformatted images were obtained. A dose lowering technique was used for this procedure, which may include,but is not limited to, dose reduction technique, automated exposurecontrol, the use of iterative reconstruction, and ALARA (As Low AsReasonably Achievable) / Image Gently techniques. FINDINGS: There are postsurgical changes of anterior cervical discectomy and fusionat C6- C7 with mature osseous fusion of the disc space. The anteriorfixation hardware appears intact and without evidence of fracture orloosening. Image quality is somewhat degraded by motion. Straightening ofthe cervical lordosis. Multilevel degenerative changes are evident in thecervical spine with disc degeneration, endplate/uncovertebral osteophytes,and facet hypertrophy noted. No definite acute displaced cervicalfractures identified, considering constraints of motion. Imaged portionsof the soft tissues reveal atherosclerotic vascular calcifications. Streakartifact from dental amalgam partially obscures assessment. Partiallyimaged right maxillary retention cyst. Please refer to separately reportedhead CT for description of intracranial findings. Partially imagedemphysematous changes in the upper lungs. C2-C3: Small uncovertebral osteophytes. Facet hypertrophy. No osseouscanal or foraminal narrowing. C3-C4: Small uncovertebral osteophytes. Facet hypertrophy. No osseouscanal or foraminal narrowing. C4-C5: Disc bulge. Possible central protrusion. Uncovertebral osteophytes.Facet hypertrophy. Partial effacement of the ventral thecal sac andencroachment of the ventral cord. No significant osseous foraminalnarrowing. C5-C6: Disc bulge suggested. Uncovertebral osteophytes. Facet hypertrophy.Flattening of the ventral thecal sac. No osseous foraminal narrowing. C6-C7: Post surgical changes. No osseous canal stenosis. Mild foraminalnarrowing, worse on the left. C7-T1: Facet hypertrophy. No osseous canal stenosis. Mild left foraminalnarrowing. IMPRESSION: 1. Postsurgical and multilevel degenerative changes in the cervical spine,as detailed. Ordered By: SAMANTHA BAILEY Interpreted By: Juan Francisco Whitehead MD, 06/22/2024 11:08 AM us Samantha Bailey MD CT Final Resul t * COLONOSCOPY (01/08/2021 12:18 PM CDT) us Niraj Guerra MD GI PROCEDURE ORDERABLES Final Result from Last 3 Months or Most Recently Relevant to Health Maintenance Insurance [employer] Advance Directives * Full Code (Latest Code Status on File) Date Activated Date Inactivated Comments 06/22/2024 4:48 PM 07/06/2024 4:24 PM Care Teams Adobe Layer Relationship Specialty Start Date End Date Liu Brewer MD [address] [place] [phone] PCP - General FAMILY PRACTICE 07/25/20 Nilay Enriquez MD [address] [place] [address] ORTHOPAEDICS 01/15/18 Marcial Titus MD [address] [place] [address] [address] [place] [address] Physician INTERVENTIONAL CARDIOLOGY 09/16/24
--- OUTSIDE RECORDS SUMMARY | 2024-09-20 08:54 | XMS_ITS | Encounter Summary ---
Author Organization [facility] Address [address] [place] [address] Care Team Providers Care Booking Prizer Name Role Phone Nilay Enriquez MD Unavailable [phone] Martha Jordan MD Unavailable [phone] Liu Brewer MD Primary Care Provider [phone] Marcial Titus MD Unavailable [phone] Reason for Visit * Reason Onset Date Comments Preprocedure Call 08/07/2023 Spoke to patie nt and scheduled thyroid biopsy for 08/11, check in at 1200. 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 He voiced understanding. Encounter Details Date Type Department Care Team (Late st Contact Info) Description 08/07/2023 Telephone [facility] Interventional Radiology [address] [place] [address] Deepika Urbina, RN Preprocedure Call (Spoke to patient and scheduled thyroid biopsy for 08/11, check in at 1200. 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 He voiced understanding. 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 Gender Identity Not on file Sexual Orientation Not on file documented as of this encounter Plan of Treatment Upcoming Encounters Date Type Department Care Team (Late st Contact Info) Description 10/25/2024 9:00 AM CDT Office Visit [facility] [place] [address] Marcial Titus MD [address], [facility] [address] [place] [address] documented as of this encounter Visit Diagnoses Not on filedocumented in this encounter Care Teams Booking Prizer Relationship Specialty Start Date End Date Liu Brewer MD [address] [place] [phone] PCP - General FAMILY PRACTICE 07/25/20 Nilay Enriquez MD [address] [place] [address] ORTHOPAEDICS 01/15/18 Martha Jordan MD [address] [place] [address] Consulting Physician INTERVENTIONAL CARDIOLOGY 07/27/20 09/16/24 Marcial Titus MD [address] , [facility] [address] [place] [address] Physician INTERVENTIONAL CARDIOLOGY 09/16/24 documented as of this encounter
[2024-09-20 08:56] LABS: Hematocrit 32.7 % (37.0-46.0); Hemoglobin 10.5 g/dL (12.4-15.3); Mean Corpuscular HGB Conc 32.1 g/dL (32-36); Mean Corpuscular Hemoglobin 28.8 pg (27.0-31.0); Mean Corpuscular Volume 89.8 fL (78.0-102.0); Platelet Count Result 285 K/mm3 (150-420); Red Blood Count 3.64 M/mm3 (4.70-6.10); Red Cell Distribution Width 17.2 % (11.6-14.4); White Blood Count 3.4 K/mm3 (4.8-10.8)
[2024-09-20 09:08] LABS: Alkaline Phosphatase 131 U/L (46-116); Blood Urea Nitrogen 0 mg/dL (7-18); Chloride 101 mmol/L (98-108); Estimated CRCL calculation 77 ml/min; Estimated Glomerular Filt Rate > 60; Potassium 4.2 mmol/L (3.5-5.1); Sodium 137 mmol/L (136-145)
[2024-09-20] MEDS: SODIUM CHLORIDE 0.9% IV 250 ML 10 ML IVPB (09:15)
[2024-09-20 09:19] LABS: Thyroid Stimulating Hormone 0.15 uIU/mL (0.36-3.74)
[2024-09-20 09:19] LABS: Alanine Aminotransferase 23 U/L (16-63); Albumin Level 3.6 g/dL (3.4-5.0); Anion Gap 11 mmol/L (4-12); Aspartate Amino Transferase 18 U/L (15-37); Bilirubin,Total 0.2 mg/dL (0.00-1.00); Carbon Dioxide 25 mmol/L (21-32); Glucose 137 mg/dL (70-99); Osmolality Calculated 281 mOsm/kg (285-295); Total Protein 8.1 g/dL (6.4-8.2)
[2024-09-20 09:25] LABS: Band Neutrophils Percent 0 % (0-6); Lymphocytes Absolute Manual 0.61 K/mm3 (1.1-4.5); Lymphocytes Percent Manual 18 % (18-44); Monocytes Absolute Manual 0.23 K/mm3 (0.1-0.90); Monocytes Percent Manual 7 % (3-9); Neutrophils Absolute Manual 2.55 K/mm3 (1.3-6.7); Neutrophils Percent Manual 75 % (46-73); Total Cells Counted 100
[2024-09-20 09:26] LABS: Platelet Estimate Adequate (Adequate)
[2024-09-20] MEDS: diphenhydrAMINE HCl INJ 50 MG/ML VIAL 25 MG IV PUSH (09:40)
[2024-09-20] MEDS: FAMOTIDINE 20 MG/2 ML VIAL IV PUSH (09:50)
[2024-09-20] MEDS: ONDANSETRON INJ 16 MG, dexAMETHasone SOD 4 MG/ML INJ 12 MG in SODIUM CHLORIDE 0.9% IV 8... 300 MG IVPB (09:54)
[2024-09-20] MEDS: FOSAPREPITANT DIMEGLUMINE 150 MG in SODIUM CHLORIDE 0.9% IV 250 ML 750 MG IVPB (10:16)
[2024-09-20] MEDS: PEMBROLIZUMAB 200 MG in SODIUM CHLORIDE 0.9% IV 92 ML IVPB (10:40)
[2024-09-20] MEDS: SODIUM CHLORIDE 0.9% IVPB ×2 (11:10→14:10)
[2024-09-20] MEDS: PACLITAXEL IVPB (11:10)
[2024-09-20] MEDS: CARBOPLATIN IVPB (14:10)
[2024-09-20] MEDS: HEPARIN SODIUM LOCK FLUSH 500 UNITS/5 ML SYRINGE IV PUSH (14:36)
--- NOTE | 2024-09-20 14:41 | PC.NURSE ---
Patient tolerated cycle 3 chemo treatment well today. SEE MAR/patient care notes.
[2024-09-20 14:51] VITALS: BP 122/76; PULSE 80; RESP 16; TEMP 36.6; O2SAT 92
[2024-09-22 02:58] LABS: Cortisol Random 3.9 mcg/dL
[2024-09-26 11:07] LABS: Free T4 Free Thyroxine 1.22 ng/dL (0.76-1.46)
== END 2024-09-20 08:31 | disposition home or self-care (01) ==
PROVIDERS: PCP Physician Assistant; Visit Provider Internal Medicine Hematology
DX: Z51.11 Encounter for antineoplastic chemotherapy (principal); C34.12 Malignant neoplasm of upper lobe, left bronchus or lung; E04.1 Nontoxic single thyroid nodule
CPT/HCPCS: 36415; 36591; 80053; 82533; 84439; 84443; 85025; 96367; 96375; 96413; 96415; 96417; J1100; J1200; J1453; J2405; J7040; J7050; J9267; J9271

== ENCOUNTER 2024-10-11 08:25 | Outpatient (CLI) | payer MEDICARE, SELFPAY ==
--- OUTSIDE RECORDS SUMMARY | 2024-10-11 08:35 | XMS_ITS | Data Portability ---
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 aar [email or web address] Not available 08/25/2024 13:26:08 08/31/2024 08/31/2024 IMPRESSION: [...] on this date of service including both gxph-gh-rayw and non hleh-qo-arzj time excluding any separately reportable services. The patient does travel from [place]. He is agreeable to coming to [place]. [email or web address] Not available 08/31/2024 20:25:20 Plan of Treatment Reminders Order Date Submit Date Provider Last Modified By Organization Details Last Modified Time Details Appointments None record ed. Lab None record ed. Referral None record ed. Procedures None record ed. Surgeries None record ed. Imaging None record ed. Medication Orders None record ed. Patient TargetsNo targets recorded. Patient InstructionsNo instructions recorded. Reason for Referral None Reported. Results Created Date Observation Date Name Description Value Unit Range Abnormal Flag Note LastModifiedBy Organization Detail LastModifiedTime 08/31/1908/31/2024 MRI, brain , w/[place] [address] Teleph one [phone] Name: Dylon Celaya [id number] Exam Date: 2024 Age: 69 Physic kyung: [...] lesion . White matter : Normal . Truer Pinion And Wheel ior fossa: Unrema rkable cerebe llum and brains tem. Diffus ion-we ighted images : No eviden ce of recent or subacu te infarc t. Extra- axial spaces : Unrema rkable with no masses or collec tions. Brain parenc hymal volume : Within normal limits for age. Pituit carlos enrique:No rmal Vascul ature: Loss of normal flow signal in the right event marketing intern al caroti d artery at its [...] 3. Abnorm al flow in the right event marketing intern al caroti d artery , recomm end CT or MR angiog ericka if this is not a known abnorm ality. Electr onical ly signed in Panda cribe by: MJ JIMENEZ MD on:08/13 11:12 AM cc: Page PAGE 1 of [facility] 1 [email or web address] [facility] [address], [place], [address], 09/01/2024 14:28:58 03/27/20 25 10/06/2024 MRI, lumba r spine , w/wo contr ast [facility] [address] [place] [address] Teleph one [phone] Name: Dylon Celaya [id number] Exam Date: 2024 Age: 69 Physic kyung: Sierra Szymanski : 1954 Examin ation: MRI LUMBAR W AND WO CONTRA ST Examin ation: Lumbar spine MR with and withou t contra st INDICA TION: non-sm all cell lung cancer and brain metast asis, comple festus SRS on 2023. Low back pain radiat ing to bilate ral lower extrem ity. Carlos rutledge TECHNI QUE: This examin ation includ es T1-rossy ghted images pre- and postco ntrast as well as T2-rossy ghted images . 15 mL of Dotare m gadoli nium were inject ed at the right chest Infuse -a-Por t, withou t incide nt. COMPAR DARIO: None availa ble FINDIN GS: Segmen tation : No transi tional anatom y. The lowest well-d evelop ed disc space is labele d L5-S1. Alignm ent: Normal . Verteb ra:Jany tebral body height s are well-m aintai nelson. Normal -appea ring marrow . Disc height :Mild narrow ing at L1-2, L2-3, L3-4, and L4-5 Hardwa re:Non e in the spine. Conus Medull mario:U nremar kable. Lower thorac ic: 4 to 5 mm enhanc ing nodule in the dorsal thecal sac at the T12-L1 level. Major differ ential consid eratio ns are incide ntal nerve sheath tumor versus a metast asis. Indivi dual disc levels : L1-2: No diffus e disc bulge or focal disc hernia tion. No signif icant spinal canal or neural forami nal stenos is. L2-3: Minima l diffus e disc bulge. L3-4: Minima l diffus e disc bulge. L4-5: Mild spinal canal stenos is from mild diffus e disc bulge with endpla te osteop hyte and mild facet joint arthro fawad. Mild right neurof oramin al narrow ing from the same factor s. L5-S1: Minima l diffus e disc bulge. Widely patent spinal canal. Mild right neurof oramin al narrow ing from mild facet arthro fawad with what probab ly repres ents a small disten ded joint recess or synovi al cyst protru ding into the dorsal forame n. Left neural forame n is widely patent . Sacrum : Visual ized upper sacrum is intact . Visual ized abdome n and pelvis : No signif icant abnorm ality Other: No other signif icant findin gs. IMPRES BARRY: 1. Very small enhanc ing nodule in the dorsal thecal sac at T12-L1 . Most common ly this repres ents an incide ntal nerve sheath tumor althou gh in this clinic al contex t this could be a metast asis. 2. No eviden ce of osseou s metast atic diseas e. 3. Modera te size right forami nal disc hernia tion at L5-S1 in close relati on to the exitin g right S1 nerve root. Electr onical ly signed in Panda cribe by: MJ JIMENEZ MD on:09/11 3:57 PM cc: Page PAGE 1 of [facility] 1 INTERFACE [facility] [address] [place], [address], 10/06/2024 17:00:54 10/08/19 25 10/06/2024 MRI, pelvi s, w/wo contr ast [facility] [address] [place] [address] Teleph one [phone] Name: Dylon Celaya [id number] Exam Date: 2024 Age: 69 Physic kyung: Sierra Szymanski : 1954 Examin ation: MRI PELVIS W AND WO CONTRA ST EXAM: MRI PELVIS W AND WO CONTRA ST HISTOR Y: non-sm all cell lung cancer and brain metast asis, comple festus SRS on 2023. Low back pain radiat ing to bilate ral lower extrem ity. Stagin g. An MRI examin ation of the pelvis was perfor med before and after uneven tful admini strati on of 15 mL Dotare m via the right Infuse -a-Por t cathet er. FINDIN GS: Bone marrow signal is withou t eviden ce of fractu re, stress fractu re, or avascu lar necros is. There is no worris ome marrow replac ing lesion seen. Within each aspect of the sacrum adjace nt to the sacroi liac joints . Of T1 hypoin tensit y and T2 hyperi ntensi ty is seen and likely relate d to the degene rative change s in the sacroi liac joint. Muscle bulk is normal . Sciati c nerves appear intact . Lumbar spine is better evalua festus on dedica festus imagdeshawn g from the same day. The sacral forami na are patent . Tearin g of each acetab ular labrum anteri or left greate r than right is seen. There is mild left hip joint chondr osis. There is coloni c divert iculos is. No worris ome lympha denopa thy is seen. The prosta te gland is enlarg ed. There is bilate ral hamstr ing origin tendin opathy . Liver cysts are partia lly visual ized. IMPRES BARRY: 1. No worris ome bone marrow replac ing lesion . 2. Chroni c findin gs as above Electr onical ly signed in Panda cribe by: GRIS Crump on:09/11 12:28 PM cc: Page PAGE 1 of [facility] 1 INTERFACE [facility] [address] [place] [address], [id number], 10/07/2024 13:31:56 Result Notes None recorded. Problems Name Problem SNOMED Code Status Onset Date Resolution Date Notes Provider Name and Address Organization Details Recorded Time Metastatic malignant neoplasm to brain 53881472 Active October [facility] 20:38:14 Problem Notes None recorded. Procedures Surgical History Date Name Laterality Status Provider Name and Address Organization Details Recorded Time Colonoscopy with biopsy completed Not Available Health Note 08/24/2024 15:13:21 Imaging Results Imaging Date Name Status LastModified by Organiz ation Details LastModified Time 08/31/2024 MRI, brain, w/wo contrast completed [id number] [facility] [address] [place] [address], [id number], 09/01/2024 14:28:58 10/06/2024 MRI, lumbar spine, w/wo contrast completed INTERFACE [facility] [address] [place] [address], [id number], 10/06/2024 17:00:54 10/06/2024 MRI, pelvis, w/wo contrast completed INTERFACE [facility] [address] [place] [address], [id number], 10/07/2024 13:31:56 Procedure Notes None recorded. Medical Equipment None Reported. Medications Name Sig Start Date Stop Date Status Note LastModified by Organization Details LastModified Time amoxicillin 500 mg capsule TAKE 1 CAPSULE BY MOUTH EVERY 12 HOURS FOR 14 DAYS active Not Available Not Available No t Available pravastatin 40 mg tablet TAKE 1 TABLET [...] completed Not Available Not Available Not Available levofloxaci n 750 mg tablet TAKE 1 TABLET DAILY active Not Available Not Available No t Available lisinopril 40 mg tablet TAKE 1 TABLET BY MOUTH EVERY DAY 08/31 completed Not Available Not Available Not Available amoxicillin 875 mg-potassiu m clavulanate 125 mg tablet TAKE 1 TABLET BY MOUTH TWICE A DAY 08/31 completed Not Available Not Available Not Available oxycodone 5 mg tablet TAKE 1 TABLET BY MOUTH EVERY 6 HOURS NEEDED active Not Available Not Available No t Available Eliquis 5 mg tablet Take 1 tablet twice a day by oral route. active Not Available Not Available No t Available Vitals Date Recorded Body weight Body temperature Heart rate Oxygen saturation Oxygen saturation in Arterial blood by Pulse oximetry Systolic blood pressure Diastolic blood pressure Provider Name and Address Organization Details Last Updated DateTime 5 24003.2 g 97.4 [degF] 84 /min 96 % 96 % 134 mm[Hg] 70 mm[Hg] Meenakshi Ventura [facility] 5 13:50:08 Social History Question Answer Notes LastModified [...] Y Arthritis Y Hyperlipidemia N Cancer Y Stroke N Thyroid Problems N Asthma N Depression N COPD N Anemia N Seizures N Heart Disease N Fibromyalgia N Osteoporosis N Kidney Disease N Past Encounters Encounter ID Performer Location Encounter Start Date Encounter Closed Date Diagnosis/Indication Diagnosis SNOMED-CT Code Diagnosis ICD10 Code Diagnosis Note [id number] Julio Cesar Dalton MD [facility] [address] [place] [address] 06/24/2024 16:39:50 06/24/2024 16:39:51 [id number] MD Manuela Mercer [facility] ([place]) [address] [facility],[address] [place] [address] 07/01/2024 17:24:43 07/01/2024 17:25:30 Metastatic malignant neoplasm to brain 51530025 C79.31 [id number] MD Manuela Crook [facility] ([place]) [address] [place] [address] 07/01/2024 13:48:01 07/01/2024 16:10:43 [id number] MD Manuela Crook [facility] ([place]) [address] [facility],[address] [place] [address] 07/01/2024 17:40:44 07/12/2024 17:10:44 [id number] MD Manuela Crook [facility] ([place]) [address] [facility],[address] [place] [address] 08/01/2024 16:33:12 08/01/2024 17:43:19 Metastatic malignant neoplasm to brain 56429521 C79.31 [id number] [facility] ([place] [address] [facility],[address] [place] [address] 08/31/2024 13:24:35 09/01/2024 16:30:07 Metastatic malignant neoplasm to brain 23881150 C79.31 Health Concerns Section Related Observation LastModified by Organization Detai ls LastModified Time None Recorded Concern Status LastModified by Organization Details LastModified Time None Recorded Advance Directives Directive N: Payers Encounter Date Sequence Insurance Name Policy Number Policy Conner Covered Member ID Conner Member ID Guarantor Name 07/01/2024 1 [employer] (MEDICARE REPLACEMENT PPO) [id number] Jasper Celaya [id number] Jasper Celaya 07/01/2024 1 [employer] (MEDICARE REPLACEMENT PPO) [id number] Jasper Celaya [id number] Jasper Celaya 07/01/2024 1 [employer] (MEDICARE REPLACEMENT PPO) [id number] Jasper Celaya [id number] Jasper Celaya 08/01/2024 1 [employer] (MEDICARE REPLACEMENT PPO) [id number] Jasper Celaya [id number] Jasper Celaya 08/31/2024 1 [employer] (MEDICARE REPLACEMENT PPO) [id number] Jasper Celaya [id number] Jasper Celaya Notes Date Note Type Note [...] placement for post-biopsy pneumothorax. Jessica Fitzgerald MD [facility] [place] [address], [phone], [facility] 07/01/2024 18:45:39 07/01/2024 text/html Identifying Information Oncologic History Interval HistoryLeft Frontal, right frontal, right cerebral Fx: 07/13 Dose: 2200 Julio Cesar Dalton MD [address] [place] [address], [phone], [facility] 07/12/2024 17:10:41 08/01/2024 text/html The patient is [...] is a 69-year-old male [facility] with complaints of progressive right sidedweakness. [...] weakness and decreased coordination. 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 Also obtained of the [facility] was aCT chest which demonstrated a new left upper lobe lung mass compatible withmalignancy. The patient was transferred further evaluation and management.Radiation Oncology has been consulted for management recommendations forradiation treatment of left frontoparietal lobe brain lesion. Interval History: Yoli Casarez PA-C [address] [place] [address], [phone], [facility] 08/30/2024 12:01:41 08/31/2024 text/html Jasper is a [...] is a 69-year-old male who [facility] with complaints of progressive right sidedweakness. [...] weakness and decreased coordination. 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 Also obtained of the [facility] was aCT chest which demonstrated a new [...] Interval History: Yoli Casarez PA-C [address] [place] [address], [phone], [facility] 09/06/2024 11:10:06
--- OUTSIDE RECORDS SUMMARY | 2024-10-11 08:35 | XMS_ITS | Encounter Summary ---
Author Organization [facility] Address [address] [place] [address] Care Team Providers Care Manager Switch Name Role Phone Nilay Enriquez MD Unavailable [phone] Martha Jordan MD Unavailable [phone] Liu Brewer MD Primary Care Provider Marcial Titus MD Unavailable [phone] Reason for Visit * Reason Onset Date Comments Preprocedure Call 08/07/2023 Spoke to patie nt and scheduled thyroid biopsy for 08/11, check in at 1200. 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 He voiced understanding. Encounter Details Date Type Department Care Team (Late st Contact Info) Description 08/07/2023 Telephone [facility] Interventional Radiology [address] [place] [address] Deepika Urbina, RN Preprocedure Call (Spoke to patient and scheduled thyroid biopsy for 08/11, check in at 1200. 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 Gender Identity Not on file Sexual Orientation Not on file documented as of this encounter Plan of Treatment Upcoming Encounters Date Type Department Care Team (Late st Contact Info) Description 10/25/2024 9:00 AM CDT Office Visit [facility] [place] [address] Marcial Titus MD [address], [facility] [address] [place] [address] documented as of this encounter Visit Diagnoses Not on filedocumented in this encounter Care Teams Manager Switch Relationship Specialty Start Date End Date Liu Brewer MD [address] [place] [phone] PCP - General FAMILY PRACTICE 07/25/20 Nilay Enriquez MD [address] [place] [address] ORTHOPAEDICS 01/15/18 Martha Jordan MD [address] [place] [address] Consulting Physician INTERVENTIONAL CARDIOLOGY 07/27/20 09/16/24 Marcial Titus MD [address] , [facility] [address] [place] [address] Physician INTERVENTIONAL CARDIOLOGY 09/16/24 documented as of this encounter
--- OUTSIDE RECORDS SUMMARY | 2024-10-11 08:35 | XMS_ITS | Clinical Summary ---
Author Organization [facility] Address [address] [place] [address] Care Team Providers Care Sports Information Director Name Role Phone Nilay Enriquez MD Unavailable [phone] Liu Brewer MD Primary Care Provider Marcial Titus MD Unavailable [phone] Allergies Active Allergy Reactions Criticality Noted Date [...] etiology 09/07/2017 Former smoker 09/07/2017 Atrial fibrillation ([facility]) 08/03/2017 LV dysfunction 08/03/2017 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[facility]) 08/03/2017 Essential hypertension 07/09/2017 Mixed hyperlipidemia 07/09/2017 Smoking 07/09/2017 COPD (chronic obstructive pu lmonary disease) ([facility]) Encounters Date Type Department Care Team Description 09/02/2024 Travel 08/17/2024 8:06 AM BUSINESS CONTINUITY PLANNING DIRECTOR - 08/17/2024 11:59 PM BUSINESS CONTINUITY PLANNING DIRECTOR Hospital Encounter [facility] [address] [place] [address] Malick Szymanski MD Discharge Disposition: Home or Self Care (Routine Discharge) 08/17/2024 Telephone [facility] [address] [place] [address] Martha Jordan MD Question 08/17/2024 Travel 08/12/2024 Telephone [facility] [address] [place] [address] Martha Jordan MD Reschedule 08/02/2024 9:27 AM BUSINESS CONTINUITY PLANNING DIRECTOR - 08/02/2024 11:59 PM BUSINESS CONTINUITY PLANNING DIRECTOR Hospital Encounter [facility] [address] [place] [address] Malick Szymanski MD Discharge Disposition: Home or Self Care (Routine Discharge) 08/02/2024 Travel 07/29/2024 Travel 07/26/2024 2:16 PM BUSINESS CONTINUITY PLANNING DIRECTOR - 07/26/2024 11:59 PM BUSINESS CONTINUITY PLANNING DIRECTOR Hospital Encounter [facility] [address] [place] [address] Malick Szymanski MD Discharge Disposition: Home or Self Care (Routine Discharge) 07/26/2024 Travel 07/25/2024 3:09 PM BUSINESS CONTINUITY PLANNING DIRECTOR - 07/25/2024 11:59 PM BUSINESS CONTINUITY PLANNING DIRECTOR Hospital Encounter [facility] [address] [place] [address] Malick Szymanski MD Discharge Disposition: Home or Self Care (Routine Discharge) 07/25/2024 7:40 AM BUSINESS CONTINUITY PLANNING DIRECTOR - 07/25/2024 3:08 PM BUSINESS CONTINUITY PLANNING DIRECTOR Hospital Encounter [facility] [address] [place] [address] Malick Szymanski MD Discharge Disposition: Home or Self Care (Routine Discharge) 07/25/2024 Travel from Last 3 Months Family History Medical History Relation Comments Coronary artery disease Neg Hx Social History Tobacco Use Types Packs/Day Years Used Date Smoking Tobacco: Former Cigarettes Q uit: 2017 Smokeless Tobacco: Never Tobacco Cessation:Counseling Given: Not Answered Alcohol Use Standard Drinks/Week Comments Yes 0 (1 standard drink = 0.6 oz pur e alcohol) 2 to 4 drinks per week [facility] Utilities Answer Date Recorded In the past 12 months has th e [employer] oil, or water [employer] threatened to shut off services in your [...] any time in the past 12 m [facility], were you homeless or living in a custodial (including now)? No 06/22/2024 Sex and Gender Information Value Date Recorded Sex Assigned at Male 07/26/2024 2:15 PM BUSINESS CONTINUITY PLANNING DIRECTOR Legal Sex Male 2:41 PM BUSINESS CONTINUITY PLANNING DIRECTOR Gender Identity Not on file Sexual Orientation Not on file Last Filed Vital Signs Vital Sign Reading Time Taken Comments Blood Pressure 128/78 07/06/2024 11:48 AM BUSINESS CONTINUITY PLANNING DIRECTOR Pulse 70 07/06/2024 11:48 AM BUSINESS CONTINUITY PLANNING DIRECTOR Temperature 36.3 C (97.3 F) 07/06/2024 8:31 AM BUSINESS CONTINUITY PLANNING DIRECTOR Respiratory Rate 16 07/05/2024 7:27 PM BUSINESS CONTINUITY PLANNING DIRECTOR Oxygen Saturation 97% 07/06/2024 11:48 AM BUSINESS CONTINUITY PLANNING DIRECTOR Inhaled Oxygen Concentration - - Weight 95.3 kg (210 lb) 07/29/2024 10:33 AM BUSINESS CONTINUITY PLANNING DIRECTOR Height 182.9 cm (6') 07/29/2024 10:33 AM BUSINESS CONTINUITY PLANNING DIRECTOR Body Mass Index 28.48 07/29/2024 10:33 AM BUSINESS CONTINUITY PLANNING DIRECTOR Plan of Treatment Upcoming Encounters Date Type Department Care Team ([facility] Contact Info) Description 10/25/2024 9:00 AM CDT Office Visit [facility] [place] [address] Marcial Titus MD [address] [facility] [address] [place] [address] Health Maintenance Due Date Last Done Comments Pneumococcal Vaccine: 65+ Years (1 of 2 - PCV) 1963 Hepatitis C 1975 DTaP, Tdap and Td Vaccines (1 - Tdap) 1976 Zoster Vaccines (1 of 2) 2007 RSV Immunization or 60+ Years (1 - Risk 60-74 years 1-dose series) 2017 Annual Medicare Wellness Visit 2022 COVID-19 Vaccine ( season) 2024 10/26/2020, 09/28/2020 Influenza Adult (#1) [...] Comments US THYROID Routine 08/17/2024 9:22 AM BUSINESS CONTINUITY PLANNING DIRECTOR Thyroid nodule PET EYE TO THIGH [id number] Routine 08/02/2024 11:39 AM BUSINESS CONTINUITY PLANNING DIRECTOR Primary cancer of left upper lobe of lung (CMS/HCC HHS/HCC) POCT GLUCOSE - ORTIZ DOCKED DEVICE Routine 08/02/2024 10:09 AM BUSINESS CONTINUITY PLANNING DIRECTOR USV DORITA DUPLEX LOW EXT ZAIRA Routine 07/26/2024 2:45 PM BUSINESS CONTINUITY PLANNING DIRECTOR Leg swelling USE ECHOCARDIOGRAM Routine 07/25/2024 8: 21 AM BUSINESS CONTINUITY PLANNING DIRECTOR Encounter for monitoring cardiotoxic drug therapy COLONOSCOPY 01/08/2021 12:18 PM CDT from Last 3 Months or Most Recently Relevant to Health Maintenance Results * US THYROID (08/17/2024 9:22 AM BUSINESS CONTINUITY PLANNING DIRECTOR) Anatomical Region Laterality Modality Neck Ultrasound 08/19/2024 1:15 PM BUSINESS CONTINUITY PLANNING DIRECTOR Impressions 08/19/2024 1:36 PM BUSINESS CONTINUITY PLANNING DIRECTOR IMPRESSION: Multinodular goiter as described without suspicious features. Dominant nodule on the left is now biopsy-proven benign. The remaining nodules do not meet TI RADS criteria for surveillance. Ordered By: MALICK SZYMANSKI Interpreted By: Manuel Valdes MD, 08/19/2024 1:15 PM Narrative 08/19/2024 1:36 PM BUSINESS CONTINUITY PLANNING DIRECTOR [address] [place] [address] Examination: Thyroid ultrasound. Exam time: 0826 hours. [...] Procedure Note Manuel Valdes MD - 08/19/[address] [place] [address] Examination: Thyroid ultrasound. Exam time: 0826 hours. [...] Final Result * PET EYE TO THIGH [id number] (08/02/2024 11:39 AM BUSINESS CONTINUITY PLANNING DIRECTOR) Anatomical Region Laterality Modality Body Positron Emissio n Tomography (PET), Positron Emission Tomography (PET) 08/02/2024 4:09 PM BUSINESS CONTINUITY PLANNING DIRECTOR Impressions 08/02/2024 4:30 PM BUSINESS CONTINUITY PLANNING DIRECTOR IMPRESSION: 1. Hypermetabolic left upper lobe mass [...] 08/02/2024 4:09 PM Narrative 08/02/2024 4:30 PM BUSINESS CONTINUITY PLANNING DIRECTOR [address] [address] FDG-PET/CT Imaging Exam Date: 08/02/2024. Exam History: [...] hepatic SUV = 2.6 (recorded for quality director purposes). FINDINGS: The previously identified spiculated left [...] Procedure Note Randal Barnes MD - 08/02/[address] [address] FDG-PET/CT Imaging Exam Date: 08/02/2024. Exam History: [...] By: Randal Barnes MD, 08/02/2024 4:09 PM Malick Szymanski MD PET Final Result * POCT glucose (08/02/2024 10:09 AM BUSINESS CONTINUITY PLANNING DIRECTOR) GLUCOSE POC 108 70 - 109 08/02/2024 10:12 AM BUSINESS CONTINUITY PLANNING DIRECTOR [facility] 08/02/2024 10:0 9 AM BUSINESS CONTINUITY PLANNING DIRECTOR Malick Szymanski MD POCT ORDERABLES - DEVICE Final R esult [facility] [address] [place] [address], [id number] * USV DORITA DUPLEX LOW EXT ZAIRA (07/26/2024 2:45 PM BUSINESS CONTINUITY PLANNING DIRECTOR) Anatomical Region Laterality Modality Extremity Ultrasound 07/26/2024 3:02 PM BUSINESS CONTINUITY PLANNING DIRECTOR Narrative 07/26/2024 3:02 PM BUSINESS CONTINUITY PLANNING DIRECTOR [address] [place] [address] EXAMINATION: ULTRASOUND VENOUS DOPPLER LOWER EXTREMITY, BILATERAL. [...] Procedure Note Alli Cleary MD - 07/26/[address] [place] [address] EXAMINATION: ULTRASOUND VENOUS DOPPLER LOWER EXTREMITY, BILATERAL. [...] 07/26/2024 3:02 PM us Malick Szymanski MD VASC Final Result * USE ECHOCARDIOGRAM (07/25/2024 8:21 AM BUSINESS CONTINUITY PLANNING DIRECTOR) Anatomical Region Laterality Modality Cardiac Ultrasound 07/25/2024 7:48 AM BUSINESS CONTINUITY PLANNING DIRECTOR Narrative 07/25/2024 2:30 PM BUSINESS CONTINUITY PLANNING DIRECTOR Echocardiography Report Pat.Name: Jasper Celaya Pat.ID: [id number] .Date: 07/25/2024 Refer.MD: [facility], [facility] Exam Time: 7:48:00 AM Study Type:OUTREACH Height: 72 in Weight: 208 lb BSA: 2.17 m2 Age: 9 1955,69Y Sex: M Sonogrphr: Sf Pat. Stat.:Outpatient CPT - 4: 71787 Reason for Study:Encounter for monitoring cardiotoxic drug therapy Procedures: Study performed at [place], [place] and interpreted by [facility]. 2D, M-mode, Doppler, Color Flow [...] 07/25/2024 Echocardiography Report Pat.Name: Jasper Celaya Pat.ID: [id number] .Date: 07/25/2024 Refer.MD: [facility], [facility] Exam Time: 7:48:00 AM Study Type:OUTREACH Height: 72 in Weight: 208 lb BSA: 2.17 m2 Age: 9 1955,69Y Sex: M Sonogrphr: Pat. Stat.:Outpatient CPT - 4: 27589 Reason for Study:Encounter for monitoring cardiotoxic drug therapy Procedures: Study performed at [facility], [place], [place] and interpreted by [facility]. 2D, M-mode, Doppler, Color Flow [...] Signature> 07/25/2024 02:30 PM Martha Jordan M.D. Malick Szymanski MD ECHO Final Result * COLONOSCOPY (01/08/2021 12:18 PM CDT) Niraj Guerra MD GI PROCEDURE ORDERABLES Final Result from Last 3 Months or Most Recently Relevant to Health Maintenance Insurance [facility] Advance Directives * Full Code (Latest Code Status on File) Date Activated Date Inactivated Comments 06/22/2024 4:48 PM 07/06/2024 4:24 PM Care Teams Sports Information Director Relationship Specialty Start Date End Date Liu Brewer MD [address] [place] [address] PCP - General FAMILY PRACTICE 07/25/20 Nilay Enriquez MD [address] [place] [address] ORTHOPAEDICS 01/15/18 Marcial Titus MD [address] [facility] [address] [address] Physician INTERVENTIONAL CARDIOLOGY 09/16/24
--- OUTSIDE RECORDS SUMMARY | 2024-10-11 08:35 | XMS_ITS | Encounter Summary ---
Author Organization [facility] Address [facility] [place] [address] Care Team Providers Care Precision Mechanical Instrument Maker Name Role Phone Everton Flores MD Primary Care Provider [phone] Osmar Cabrales MD Unavailable Unavailable Mode Slaughter MD Unavailable Unavailable Nilay Enriquez MD Unavailable [phone] Martha Jordan MD Unavailable [phone] Liu Brewer MD Primary Care Provider [phone] Marcial Titus MD Unavailable [phone] Encounter Details Date Type Department Care Team (Late st Contact Info) Description 12/18/2018 Abstract [facility] CONVERSION [address] [place], [place] [id number] , Generic Conversion, Social History Tobacco Use Types Packs/Day Years Used Date Smoking Tobacco: Every Day Smokeless Tobacco: Never Sex and Gender Information Value Date Recorded Sex Assigned at Male 07/26/2024 2:15 PM SOFT CRAB SHEDDER Legal Sex Male 2:41 PM SOFT CRAB SHEDDER Gender Identity Not on file Sexual Orientation Not on file documented as of this encounter Plan of Treatment Upcoming Encounters Date Type Department Care Team (Late st Contact Info) Description 10/25/2024 9:00 AM CDT Office Visit [facility] [address] [place] [phone] Marcial Titus MD [address] [facility] [address] [place] [address] documented as of this encounter Visit Diagnoses Not on filedocumented in this encounter Care Teams Precision Mechanical Instrument Maker Relationship Specialty Start Date End Date Everton Flores MD [address] [place] [address] PCP - General FAMILY PRACTICE 07/07/17 07/24/20 Liu Brewer MD [address] [place] [address] PCP - General FAMILY PRACTICE 07/25/20 Osmar Cabrales MD [address] [place] [address] CARDIOVASCULAR DISEASE 07/07/17 07/26/20 Mode Slaughter MD [address] [place] [address] CARDIOVASCULAR DISEASE 07/22/17 07/26/20 Nilay Enriquez MD [address] [place] [address] ORTHOPAEDICS 01/15/18 Martha Jordan MD [address] [place] [address] Consulting Physician INTERVENTIONAL CARDIOLOGY 07/27/20 09/16/24 Marcial Titus MD [address] [facility] [address] [address] Physician INTERVENTIONAL CARDIOLOGY 09/16/24 documented as of this encounter
[2024-10-11 08:49] VITALS: BMI 29.2
[2024-10-11 08:51] LABS: Basophils Absolute Auto 0.01 K/mm3 (0.00-0.10); Basophils Percent Auto 0.2 % (0.0-1.0); Hematocrit 29.9 % (37.0-46.0); Hemoglobin 9.7 g/dL (12.4-15.3); Immature Granulocyte Absolute 0.05 K/mm3 (0.00-0.00); Immature Granulocyte Percent A 0.9 % (0.0-0.0); Lymphocytes Absolute Auto 0.62 K/mm3 (1.10-4.50); Lymphocytes Percent Auto 11.5 % (18.0-42.0); Mean Corpuscular HGB Conc 32.4 g/dL (32-36); Mean Corpuscular Hemoglobin 29.8 pg (27.0-31.0); Mean Platelet Volume 8.4 fl (8.7-11.0); Monocytes Absolute Auto 0.24 K/mm3 (0.10-0.90); Monocytes Percent Auto 4.5 % (2.0-11.0); Neutrophils Absolute Auto 4.47 K/mm3 (1.70-7.20); Neutrophils Percent Auto 82.9 % (50.0-70.0); Platelet Count Result 248 K/mm3 (150-420); Red Blood Count 3.25 M/mm3 (4.70-6.10); Red Cell Distribution Width 18.1 % (11.6-14.4); White Blood Count 5.4 K/mm3 (4.8-10.8)
[2024-10-11 09:05] LABS: Alanine Aminotransferase 25 U/L (16-63); Albumin Level 3.1 g/dL (3.4-5.0); Alkaline Phosphatase 130 U/L (46-116); Anion Gap 9 mmol/L (4-12); Aspartate Amino Transferase 16 U/L (15-37); Bilirubin,Total 0.2 mg/dL (0.00-1.00); Blood Urea Nitrogen 23 mg/dL (7-18); Calcium 9.4 mg/dL (8.5-10.1); Carbon Dioxide 26 mmol/L (21-32); Chloride 101 mmol/L (98-108); Estimated CRCL calculation 80 ml/min; Estimated Glomerular Filt Rate > 60; Glucose 151 mg/dL (70-99); Osmolality Calculated 288 mOsm/kg (285-295); Potassium 4.3 mmol/L (3.5-5.1); Sodium 136 mmol/L (136-145); Total Protein 8.3 g/dL (6.4-8.2)
[2024-10-11] MEDS: SODIUM CHLORIDE 0.9% IV 250 ML 10 ML IVPB (09:05)
[2024-10-11] MEDS: FAMOTIDINE 20 MG/2 ML VIAL IV PUSH (09:05)
[2024-10-11] MEDS: diphenhydrAMINE HCl INJ 50 MG/ML VIAL 25 MG IV PUSH (09:15)
[2024-10-11] MEDS: ONDANSETRON INJ 16 MG, dexAMETHasone SOD 4 MG/ML INJ 12 MG in SODIUM CHLORIDE 0.9% IV 1... 300 MG IVPB (09:25)
[2024-10-11 09:35] VITALS: BP 140/80; PULSE 78; RESP 16; TEMP 36.6; O2SAT 97
[2024-10-11] MEDS: FOSAPREPITANT DIMEGLUMINE 150 MG in SODIUM CHLORIDE 0.9% IV 250 ML 750 MG IVPB (09:50)
[2024-10-11] MEDS: PEMBROLIZUMAB 200 MG in SODIUM CHLORIDE 0.9% IV 100 ML IVPB (10:20)
[2024-10-11] MEDS: PACLITAXEL IVPB (10:50)
[2024-10-11] MEDS: SODIUM CHLORIDE 0.9% IVPB ×2 (10:50→13:51)
[2024-10-11] MEDS: CARBOPLATIN IVPB (13:51)
[2024-10-11] MEDS: HEPARIN SODIUM LOCK FLUSH 500 UNITS/5 ML SYRINGE IV PUSH (14:28)
[2024-10-11 14:46] VITALS: BP 138/70; PULSE 78; RESP 16; TEMP 36.6; O2SAT 96
--- NOTE | 2024-10-11 14:48 | PC.NURSE ---
Tolerated chemo cycle 4 well. SEE MAR/patient care notes.
== END 2024-10-11 08:26 | disposition home or self-care (01) ==
PROVIDERS: PCP Physician Assistant; Visit Provider Internal Medicine Hematology
DX: Z51.11 Encounter for antineoplastic chemotherapy (principal); C34.12 Malignant neoplasm of upper lobe, left bronchus or lung
CPT/HCPCS: 36415; 36591; 80053; 85025; 96367; 96375; 96413; 96415; 96417; J1100; J1200; J1453; J2405; J7040; J7050; J9045; J9267; J9271

== ENCOUNTER 2024-10-19 09:49 | Outpatient (RCR) | payer MEDICARE, SELFPAY ==
--- NOTE | 2024-10-19 11:10 | OPREHPOC ---
Outpatient Therapy Plan of Care This is a Multidisciplinary Plan of Care that may contain components documented by all disciplines (PT, OT, and ST.) PT Problem 1 PT Problem #1 Knowledge Deficit PT Goal 1 Goal / Goal Update Independent and compliant with HEP. Target Visit 4 PT Problem 2 PT Problem #2 Pain PT Goal 1 Goal / Goal Update Pt to report less than 4/10 pain at rest. Pt to report no more than 7/10 pain with activity. Target Visit 12 PT Problem 3 PT Problem #3 Impaired Strength PT Goal 1 Goal / Goal Update Improve upper abdominal strength to 4/5. Improve lower abdominal strength to 4/5. Improve gross LE strength 5/5 bilaterally. Target Visit 12 PT Problem 4 PT Problem #4 Impaired Functional Mobility PT Goal 1 Goal / Goal Update Pt to report 20% improvement on back index. Pt to improve 5xSTS time to 12 seconds or less. Pt to improve 6MWT distance to 1400ft. Target Visit 12
--- NOTE | 2024-10-19 11:11 | PTOPEVAL1 ---
Assessment and note entered by Genet Yuen, PT Evaluation Information Assessment Status Evaluation ICD-10 Condition Codes (PT) Radiculopathy, lumbar region M54.16 Other ICD-10 Condition Codes ( D49.2 PT) Subjective Information Pt reports he started falling at the end of last year and was unable to get up, eventually went into the hospital and was diagnosed with cancer on 06/22/24. He reports his lung collapsing multiple times while in the hospital. States that no one has told him exactly what type of cancer he has but there is a spot on his lung as well as masses in his brain. He has underwent radiation to his brain and reports it's gone now and he just has the spot on his lung. He goes back to the doctor next month for more imaging. He states they also found a nodule on his low back near his spinal cord but they aren't sure if it's cancer, and he goes to the doctor next week to get it looked at. He reports despite his falls and weakness from the chemo and radiation he stays busy even when he hurts. He walks at least a mile every day and carries firewood to the house. He does note some low back pain and soreness from mowing the yard, walking the dog and picking up sticks. He does have some difficulty getting in/out of bed and his car and getting out of a chair. He tries not to sit too much because it hurts to sit back in a chair and he feels better when leaning forward when sitting. It also hurts when walking however he prefers this to sitting. Reported Pain Level Pain Score 7: Self Report Assessment PT Clinical Summary Mr. Celaya is a 69 yo male who enters the clinic with complaints of low back pain and generalized weakness after being diagnosed with cancer in June 2024. He demonstrates pain at rest and with active lumbar ROM as well as significant abdominal and lower extremity weakness (R>L). His low back pain is aggravated by prolonged sitting, standing, walking, and other functional activities such as picking up sticks and carrying firewood. He will benefit from skilled PT intervention to improve on these deficits to be able to perform functional tasks with less pain. Plan of Care Interventions Gait Training,Manual Therapy,Neuro Re-education, Patient/Caregiver Education,Therapeutic Activities ,Therapeutic Exercise,Self-Care/Home Management PT Services Indicated Yes Treatment Frequency and 2x/week for 12 visits Duration These treatments will address the objective and functional deficits as defined above. The patient will be advanced safely and appropriately in order for the patient to progress towards his/her prior level of function. Additional exercises will be introduced and as well as a comprehensive home exercise program upon discharge, if needed, ?to ensure carryover of functional gains achieved in the clinic. This treatment plan has been reviewed and agreement upon by the patient.
== END 2024-11-01 20:00 | disposition home or self-care (01) ==
LOC: CHSPT 09:49
DX: D49.2 Neoplasm of unspecified behavior of bone, soft tissue, and skin (principal)
CPT/HCPCS: 97110; 97112; 97140; 97161

== ENCOUNTER 2025-01-15 04:50 | Emergency (ER) | payer MEDICARE, SELFPAY ==
[2025-01-15] VITALS (12 sets, daily range): BP systolic 82–142; BP diastolic 70–101; PULSE 72–121; RESP 16–17; TEMP 36; O2SAT 96–98
--- NOTE | ~2025-01-15 | XR_ITS ---
Exam: Abdomen 1V HISTORY: OG TUBE PLACEMENT. COMPARISON: None. TECHNIQUE: Supine images of the lower chest and upper abdomen FINDINGS: Orogastric tube extends into the left upper quadrant, projecting over the air opacified dilated stoma ch. IMPRESSION: Orogastric tube in good position and ready for immediate use. Reviewed, dictated and finalized at location A.
--- NOTE | ~2025-01-15 | CT_ITS ---
History: Altered mental status with a history of intracranial hemorrhage (by report). Today's imaging will be treated as baseline as no prior images are available PROCEDURE: CT head without contrast. COMPARISON: None TECHNIQUE: Axial imaging of the head performed from the skull base to the vertex without IV contrast. Sagittal a nd coronal reformations obtained. DLP: 681 mGy-cm FINDINGS: Multiple hyperattenuating rounded foci within the bilateral richardson-white matter junction of the parench yma with surrounding vasogenic edema for which metastatic disease is suspected. No midline shift is appreciated. The largest lesion on the right is within the right posterior temporal lobe measuring 19 x 14 x 15 mm . The largest lesion on the left is within the left occipital lobe measuring 17 x 25 x 24 mm. The dilatation of the ventricles is proportional to the degree of sulcal prominence. Patchy decreased attenuation is identified within the periventricular white matter, likely secondary to microvascular ischemic disease. There is no abnormal extra-axial fluid collection. Air-fluid level within the right maxillary sinus. Remaining paranasal sinuses are otherwise clear. Th e mastoid air cells are well aerated. No acute displaced fractures within the overlying cranium. Impression: Bilateral intracranial hyper attenuating lesions with surrounding vasogenic edema and without midline shift or significant mass effect for which metastatic disease is suspected. Inflammatory sinus disease. These findings (which are known, by report) were discussed with Dr. Meyers at 7:20 AM on 01/15/2025 Reviewed, dictated and finalized at location A. Impression: Bilateral intracranial hyper attenuating lesions with surrounding vasogenic camron ma and without midline shift or significant mass effect for which metastatic di sease is suspected. Inflammatory sinus disease. These findings (which are known, by report) were discussed with Dr. Mira beard 7:20 AM on 01/15/2025
--- NOTE | ~2025-01-15 | XR_ITS ---
CHEST RADIOGRAPH CLINICAL HISTORY: ET TUBE PLACEMENT. shortness of breath . COMPARISON: None available TECHNIQUE: Single portable view of the chest. FINDINGS: RIGHT internal jugular tunneled power port identified with its tip projecting over the cavoatrial ction. Endotracheal tube is identified with its tip projecting approximately 5.2cm above the base of the car dylan. Orogastric tube identified with its tip extending below the left hemidiaphragm, presumably within the stomach. The remainder of the cardiomediastinal silhouette is otherwise unremarkable. Volume loss within the right hemithorax. Bilateral opacifications - the largest within the left upper lobe measuring 3 x 3 cm. Increased interstitial markings are identified bilaterally, findings suggesting moderate pulmonary va scular congestion. The remainder of the lungs are clear. IMPRESSION: Moderate pulmonary vascular congestion with bilateral pulmonary nodules for which metastatic disease versus multifocal pneumonia (less likely) is suspected. Supportive lines and tubes in good position. Reviewed, dictated and finalized at location A. IMPRESSION: Moderate pulmonary vascular congestion with bilateral pulmonary nodules for whi ch metastatic disease versus multifocal pneumonia (less likely) is suspected. Supportive lines and tubes in good position.
--- OUTSIDE RECORDS SUMMARY | 2025-01-15 04:52 | XMS_ITS | Encounter Summary ---
Author Organization [facility] Address [address] [place] [address] Care Team Providers Care Archivist Name Role Phone Nilay Enriquez MD Unavailable [phone] Liu Brewer MD Primary Care Provider Marcial Titus MD Unavailable [phone] Jeana Hodge RN Unavailable Unavailab Selvin Romo MD Unavailable [phone] Encounter Details Date Type Department Care Team (Late st Contact Info) Description 01/03/2025 Hospital Follow-up Call [facility] [address] [place] [address] Petra Barnes, RN Social History Tobacco Use Types Packs/Day Years Used Date Smoking Tobacco: Former Cigarettes Q uit: 2017 Smokeless Tobacco: Never Alcohol Use Standard Drinks/Week Comments Yes 0 (1 standard drink = 0.6 oz pur e alcohol) 2 to 4 drinks per week [facility] Utilities Answer Date Recorded In the past 12 months has e electric, gas, oil, or water company threatened to shut off services in your home? No 12/28/2024 Humiliation, Afraid, Rape, and Kick questionnair e Answer Date Recorded Within the last year, have y ou been afraid of your partner or ex-partner? No 12/28/2024 Within the last year, have y ou been humiliated or emotionally abused in other ways by your partner or ex-partner? No Within the last year, have y ou been kicked, hit, slapped, or otherwise physically hurt by your partner or ex-partner? No 12/28/2024 Within the last year, have y ou been raped or forced to have any kind of sexual activity by your partner or ex-partner? No 12/28/2024 Overall Financial Resource Strain (CARDIA) Answe r Date Recorded How hard is it for you to pa y for the very basics like food, housing, medical care, and heating? Not hard at all 12/28/2024 Hunger Vital Sign Answer Date Recorded Within the past 12 months, y ou worried that your food would run out before you got the money to buy more. Sometimes true Within the past 12 months, t he food you bought just didn't last and you didn't have money to get more. Sometimes true PRAPARE - Transportation Answer Date Re corded In the past 12 months, has l ack of transportation kept you from medical appointments or from getting medications? No 12/11 In the past 12 months, has l ack of transportation kept you from meetings, work, or from getting things needed for daily living? No 12/28/2024 Housing Stability Vital Sign Answer Royer e Recorded In the last 12 months, was t here a time when you were not able to pay the mortgage or rent on time? No 12/28/2024 In the past 12 months, how m any times have you moved where you were living? 0 12/28/2024 At any time in the past 12 m [facility], were you homeless or living in a long term (including now)? No 12/28/2024 Sex and Gender Information Value Date Recorded Sex Assigned at Male 07/26/2024 2:15 PM QUARTER BACKER Legal Sex Male 2:41 PM QUARTER BACKER Gender Identity Not on file Sexual Orientation Not on file documented as of this encounter Functional Status * Are you deaf or do you have serious difficulty hearing Answer Date of Assessment Author Status No 12/28/2024 1:09 AM Magnolia Gtz RN Active * Are you blind or do you have serious difficulty seeing, even when wearing glasses? Answer Date of Assessment Author Status No 12/28/2024 1:09 AM CDT Magnolia Cotter RN Active * Do you have serious difficulty walking or climbing stairs? Answer Date of Assessment Author Status No 12/28/2024 1:09 AM CDT Magnolia Cotter RN Active * Do you have difficulty dressing or bathing? Answer Date of Assessment Author Status No 12/28/2024 1:09 AM CDT Magnolia Cotter RN Active * Because of a physical, mental, or emotional condition, do you have difficulty doing errands alone such as visiting a doctor's office or shopping? Answer Date of Assessment Author Status No 12/28/2024 1:09 AM CDT Magnolia Cotter RN Active documented as of this encounter Mental Status * Because of a physical, mental, or emotional condition, do you have serious difficulty concentrating, remembering, or making decisions? Answer Entry Date Author Status No 12/28/2024 1:09 AM SOFIAT Magnolia Cotter RN Active documented in this encounter Plan of Treatment Upcoming Encounters Date Type Department Care Team (Late st Contact Info) Description 01/16/2025 10:00 AM CDT Appointment [facility] [address] [place] [address] Zachary Bailey MD [address] [place] [address] 02/03/2025 11:00 AM CDT [facility] [address] [place] [address] Selvin Taylor MD [address] [place] [address] 03/21/2025 10:45 AM CDT Office Visit [facility] [address] [place] [address] Marcial Titus MD [address] [facility] [address] [place] [address] 11/07/2025 8:30 AM CDT Office Visit [facility] [place] [address] Marcial Titus MD [address] [address] documented as of this encounter Goals Goal Patient Goal Type Associated Problems Recent Progress Patient-Stated? Author Safety - demonstrates understanding of home safety measures Lifestyle Donna Cabrera, RN Safety Patient/family will have appropriate support at home upon discharge Lifestyle Donna Cabrera, RN documented as of this encounter Visit Diagnoses Not on filedocumented in this encounter Care Teams Archivist Relationship Specialty Start Date End Date Liu Brewer MD [address] [place] [phone] PCP - General FAMILY PRACTICE 07/25/20 Nilay Enriquez MD [address] [place] [address] ORTHOPAEDICS 01/15/18 Marcial Titus MD [address] [address] Physician INTERVENTIONAL CARDIOLOGY 09/16/24 Jeana Hodge RN Care Manager (Ambulatory) REGISTERED NURSE 12/12/24 Selvin Taylor MD [address] [place] [address] EP Double End Trimmer CLINICAL CARDIAC ELECTROPHYSIOLOGY 01/03/25 documented as of this encounter
--- OUTSIDE RECORDS SUMMARY | 2025-01-15 04:52 | XMS_ITS | Clinical Summary ---
Author Organization [facility] Address [address] [place] [address] Care Team Providers Care Automatic Presser Name Role Phone Nilay Enriquez MD Unavailable [phone] Liu Brewer MD Primary Care Provider [phone] Marcial Titus MD Unavailable [phone] Jeana Hodge RN Unavailable Unavailab Selvin Romo MD Unavailable [phone] Allergies Active Allergy Reactions Criticality Noted Date Comments Atorvastatin Diarrhea 06/22/2024 Medications pravastatin (PRAVACHOL) 40 MG tablet Take 1 tablet (40 mg total) by mouth daily. 09/08/19 23 Active HYDROcodone-ac etaminophen (NORCO) 5-325 MG tablet Take 1 tablet by mouth 3 (three) times daily as needed. 06/13/20 24 Active gabapentin (NEURONTIN) 100 MG capsule Take 1 capsule (100 mg total) by mouth nightly as needed. Active pantoprazole EC (PROTONIX) 40 MG tablet Take 1 tablet (40 mg total) by mouth daily. 30 tablet 1 11/11/19 25 Active traZODone (DESYREL) 50 MG tablet Take 1 tablet (50 mg total) by mouth nightly at bedtime. Active ondansetron (ZOFRAN) 8 MG tablet Take by mouth every 8 (eight) hours as needed for Nausea. Active carvedilol (COREG) 12.5 MG tablet Take 1 tablet (12.5 mg total) by mouth 2 (two) times daily. 60 tablet 1 12/15/19 25 Active levETIRAcetam (KEPPRA) 1000 MG tablet Take 1 tablet (1,000 mg total) by mouth 2 (two) times daily. 60 tablet 1 12/15/19 25 Active acetaminophen CR (TYLENOL 8 HOUR ARTHRITIS PAIN) 650 MG Tab CR 8 hr tablet Take 1 tablet (650 mg total) by mouth every 8 (eight) hours as needed. Active zolpidem (AMBIEN) 5 MG tablet Take 1 tablet (5 mg total) by mouth nightly as needed for Sleep. Active oxyCODONE immediate release (ROXICODONE) 5 MG immediate release tablet TAKE 1 TABLET EVERY 6 HOURS NEEDED Active memantine (NAMENDA TITRATION PACK) tablet pack Pt currently in week 2. Starts week 3 on 12/30 Active amiodarone (PACERONE) 200 MG tablet Take 1 tablet (200 mg total) by mouth 2 (two) times daily for 60 days. 120 tablet 01/03/20 25 025 Active dilTIAZem (CARDIZEM) 60 MG tablet Take 1 tablet (60 mg total) by mouth 3 (three) times daily for 60 days. 180 tablet 01/03/20 25 025 Active dexamethasone (DECADRON) 2 MG tabletIndicati ons:Cerebral Edema Take 1 tablet (2 mg total) by mouth every 12 (twelve) hours for 14 days. Indications: Swelling of Brain Continue same dose unless seen by Dr Milan Baldwin /rad onc doctor 28 tablet 01/12/20 25 025 Active pentoxifylline CR (TRENTAL) 400 MG tabletIndicati ons:Cerebral Edema Take 1 tablet (400 mg total) by mouth 2 (two) times daily for 30 days. Indications: Swelling of Brain 60 tablet 01/12/20 25 025 Active vitamin E 400 UNIT capsuleIndicat ions:Cerebral Edema Take 2 capsules (800 Units total) by mouth daily for 30 days. Indications: Swelling of Brain 60 capsule 01/13/20 25 025 Active sulfamethoxazo le-trimethopri m (BACTRIM DS) 800-160 MG tablet Thursday and Thursday 13 tablet 11/10/19 25 025 Discontinued(Er ror) dexamethasone (DECADRON) 4 MG tablet Take 1 tablet every 6 hours for 5 days then take 1 tablet every 8 hour for 5 days then take 1 tablet every 12 hours 60 tablet 12/15/19 25 025 Discontinued(St op Taking at Discharge) losartan (COZAAR) 100 MG tablet Take 1 tablet (100 mg total) by mouth daily. 30 tablet 1 12/16/19 25 025 Discontinued(St op Taking at Discharge) amLODIPine (NORVASC) 10 MG tablet Take 1 tablet (10 mg total) by mouth daily. 30 tablet 1 12/16/19 25 025 Discontinued(St op Taking at Discharge) dexamethasone (DECADRON) 1 MG tablet Take 2 tablets (2 mg total) by mouth every 12 (twelve) hours for 5 days, THEN 1 tablet (1 mg total) every 12 (twelve) hours for 5 days, THEN 1 tablet (1 mg total) every other day for 5 days. 20 tablet 01/03/20 25 025 Discontinued(St op Taking at Discharge) amiodarone (PACERONE) 200 MG tablet PO Amio 400 mg BID for 2 weeks, then 200 mg daily 120 tablet 01/03/20 25 025 Discontinued dilTIAZem (CARDIZEM) 60 MG tablet Take 1 tablet (60 mg total) by mouth every 8 (eight) hours for 60 days. 180 tablet 01/03/20 25 025 Discontinued dilTIAZem (CARDIZEM) 60 MG tablet Take 1 tablet (60 mg total) by mouth 4 (four) times daily for 60 days. 240 tablet 01/03/20 25 025 Discontinued Active Problems Problem Noted Date Diagnosed Date Acute encephalopathy 01/09/2025 Atrial fibrillation with RVR ([facility]) 0 12/28/2024 Cerebral brain hemorrhage ([facility]) 11/12 Brain tumor ([facility]) 11/07/2024 Lung mass 06/22/2024 Chest pain of uncertain etiology 09/07/2017 Former smoker 09/07/2017 Atrial fibrillation ([facility]) 08/03/2017 LV dysfunction 08/03/2017 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[facility]) 08/03/2017 Essential hypertension 07/09/2017 Mixed hyperlipidemia 07/09/2017 Smoking 07/09/2017 COPD (chronic obstructive pu lmonary disease) ([facility]) Encounters Date Type Department Care Team Description 01/12/2025 Patient Outreach [place] [id number] [place] [address] Jeana Hodge RN TCM (TCM-Initial call LVM) 01/10/2025 Patient Outreach [place] [address] [place] [address] Jeana Hodge RN TCM (PCP New Admission Notification ) 01/09/2025 9:20 AM CDT - 01/11/2025 12:42 PM CDT Hospital Encounter [facility] [address] [place] [address] Shilpa Gonzales MD Jabeen, Sayeeda A, MD Parikh, Ankit R, MD Saleem, Saliha, MD Neurologic Problem Discharge Disposition: Home or Self Care (Routine Discharge) 01/09/2025 Telephone [facility] [address] [place] [address] Marcial Titus MD Reschedule 01/09/2025 Travel 01/03/2025 Telephone [facility] [address] [place] [address] Selvin Taylor MD Appointment Request 01/03/2025 Patient Outreach [place] [address] [place] [address] Jeana Hodge RN TCM (TCM-Initial call with p) 01/03/2025 Hospital Follow-up Call [facility] [address] [place] [address] Petra Barnes RN 12/28/2024 Patient Outreach [place] [address] [place] [address] Jeana Hodge RN Hospital Follow Up (PCP Admission Notification) 12/27/2024 8:31 PM CDT - 01/02/2025 12:34 PM CDT Hospital Encounter [facility] [address] [place] [address] Denice Branham MD Shackour, Salim, MD Minhas, Irfan Ul Haq, MD Mardani, Fareed, MD Yousuf, MD Reba Isabel, Eulogio Alberts MD Syncope; Weakness Discharge Disposition: Home or Self Care (Routine Discharge) 12/27/2024 Travel 12/22/2024 Patient Outreach [facility] [address] [place] [phone] Jeana Hodge RN TCM (TCM-One week f/u call with pt) 12/21/2024 9:30 AM CDT - 12/21/2024 11:59 PM CDT Hospital Encounter [address] [address] Milan Vazquez MD Discharge Disposition: Home or Self Care (Routine Discharge) 12/21/2024 Travel 12/20/2024 9:30 AM CDT - 12/20/2024 11:59 PM CDT Hospital Encounter [address] [address] Milan Vazquez MD Discharge Disposition: Home or Self Care (Routine Discharge) 12/20/2024 Travel 12/19/2024 9:30 AM CDT - 12/19/2024 11:59 PM CDT Hospital Encounter [address] [address] Milan Vazquez MD Discharge Disposition: Home or Self Care (Routine Discharge) 12/16/2024 9:00 AM CDT - 12/16/2024 11:59 PM CDT Hospital Encounter [address] [address] Milan Vazquez MD Discharge Disposition: Home or Self Care (Routine Discharge) 12/16/2024 Travel 12/15/2024 10:00 AM CDT - 12/15/2024 11:59 PM CDT Hospital Encounter [address] [address] Milan Vazquez MD Discharge Disposition: Home or Self Care (Routine Discharge) 12/15/2024 Patient Outreach [facility] [address] [place] [address] Jeana Hodge RN TCM (TCM -initial call with pt and spouse) 12/15/2024 Travel 12/14/2024 12:00 PM CDT - 12/14/2024 11:59 PM CDT Hospital Encounter [address] [address] Milan Vazquez MD Discharge Disposition: Home or Self Care (Routine Discharge) 12/12/2024 Patient Outreach [facility] [address] [place] [address] Jeana Hodge RN Hospital Follow Up (PCP Admission Notification. ) 12/10/2024 5:47 AM CDT - 12/14/2024 11:26 AM CDT Hospital Encounter [facility] Neurology [address] [place] [address] Parish Arroyo MD Subramaniyam, Rajamurugan R, MD Sohail, Atif, MD Discharge Disposition: Home or Self Care (Routine Discharge) 12/10/2024 1:28 AM CDT - 12/10/2024 5:04 AM CDT Emergency [facility] [address] [facility] [place] [address] Compa Banuelos MD Seizure- New Onset Discharge Disposition: Transfer to Acute Care Hospital 12/10/2024 Travel 12/09/2024 9:00 AM CDT - 12/09/2024 11:59 PM CDT Hospital Encounter [address] [address] Milan Vazquez MD Discharge Disposition: Home or Self Care (Routine Discharge) 12/08/2024 9:00 AM CDT - 12/08/2024 11:59 PM CDT Hospital Encounter [address] [address] Milan Vazquez MD Discharge Disposition: Home or Self Care (Routine Discharge) 12/08/2024 Travel 12/07/2024 9:00 AM CDT - 12/07/2024 11:59 PM CDT Hospital Encounter [address] [address] Milan Vazquez MD Discharge Disposition: Home or Self Care (Routine Discharge) 12/06/2024 1:45 PM CDT - 12/06/2024 11:59 PM CDT Hospital Encounter [address] [address] Milan Vazquez MD Discharge Disposition: Home or Self Care (Routine Discharge) 12/06/2024 Travel 11/30/2024 11:00 AM CDT - 11/30/2024 11:59 PM CDT Hospital Encounter [address] [address] Milan Vazquez MD Discharge Disposition: Home or Self Care (Routine Discharge) 11/30/2024 10:51 AM CDT - 11/30/2024 10:59 AM CDT Hospital Encounter [facility] [address] [place] [address] Milan Vazquez MD Discharge Disposition: Home or Self Care (Routine Discharge) 11/30/2024 Travel 11/21/2024 9:15 AM CDT - 11/21/2024 11:59 PM CDT Hospital Encounter [facility] [address] [place] [address] Tiny Pacheco MD Discharge Disposition: Home or Self Care (Routine Discharge) 11/21/2024 Travel 11/15/2024 1:30 PM CDT - 11/15/2024 11:59 PM CDT Hospital Encounter [facility] [place] [address] [place] [address] Milan Vazquez MD Discharge Disposition: Home or Self Care (Routine Discharge) 11/15/2024 Travel 11/11/2024 Telephone [facility] Radiation [facility] [address] [place] [address] Priti De Santiago RN Consult 11/07/2024 2:49 PM CDT - 11/09/2024 1:40 PM CDT Hospital Encounter [facility] [address] [place] [address] Priti Ogden MD Shackour, Salim, MD Bhandari, Amit, MD Medical Problem Discharge Disposition: Home or Self Care (Routine Discharge) 11/07/2024 Travel 10/25/2024 9:00 AM CDT [facility] [address] [address] Marcial Titus MD Arrhythmia 10/25/2024 8:45 AM CDT - 10/25/2024 11:59 PM CDT Hospital Encounter [facility] [address] [place] [address] Marcial Titus MD Discharge Disposition: Home or Self Care (Routine Discharge) 10/25/2024 Telephone [facility] [address] [place] [address] Marcial Titus MD Holter Monitor 10/25/2024 Telephone [facility] [address] [place] [address] Marcial Titus MD Appointment Request 10/25/2024 Travel 10/21/2024 9:31 AM CDT - 10/21/2024 11:59 PM CDT Hospital Encounter [facility] [address] [place] [address] Mayte Bailey MD Discharge Disposition: Home or Self Care (Routine Discharge) 10/21/2024 Travel from Last 3 Months Immunizations Immunization Administration Dates Next Due Flucelvax 6 Months+ (Prefilled Syringe) 05/01/20 20 Family History Medical History Relation Comments Coronary artery disease Neg Hx Social History Tobacco Use Types Packs/Day Years Used Date Smoking Tobacco: Former Cigarettes Q uit: 2017 Smokeless Tobacco: Never Tobacco Cessation:Counseling Given: Not Answered Alcohol Use Standard Drinks/Week Comments Yes 0 (1 standard drink = 0.6 oz pur e alcohol) 2 to [address] [facility] Utilities Answer Date Recorded In the past 12 months has e [employer], gas, oil, or water [employer] threatened to shut off services in your home? No 01/09/2025 Humiliation, Afraid, Rape, and Kick questionnair e Answer Date Recorded Within the last year, have y ou been afraid of your partner or ex-partner? No 01/09/2025 Within the last year, have y ou been humiliated or emotionally abused in other ways by your partner or ex-partner? No Within the last year, have y ou been kicked, hit, slapped, or otherwise physically hurt by your partner or ex-partner? No 01/09/2025 Within the last year, have y ou been raped or forced to have any kind of sexual activity by your partner or ex-partner? No 01/09/2025 Overall Financial Resource Strain (CARDIA) Answe r Date Recorded How hard is it for you to pa y for the very basics like food, housing, medical care, and heating? Not hard at all 01/09/2025 Hunger Vital Sign Answer Date Recorded Within the past 12 months, y ou worried that your food would run out before you got the money to buy more. Never true 01/10/20 25 Within the past 12 months, t he food you bought just didn't last and you didn't have money to get more. Never true 01/09/2025 PRAPARE - Transportation Answer Date Re corded In the past 12 months, has l ack of transportation kept you from medical appointments or from getting medications? No 12/13 In the past 12 months, has l ack of transportation kept you from meetings, work, or from getting things needed for daily living? No 01/09/2025 Housing Stability Vital Sign Answer Royer e Recorded In the last 12 months, was t here a time when you were not able to pay the mortgage or rent on time? No 01/09/2025 In the past 12 months, how m any times have you moved where you were living? 0 01/09/2025 At any time in the past 12 m [facility], were you homeless or living in a jail (including now)? 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 Gender Identity Not on file Sexual Orientation Not on file Last Filed Vital Signs Vital Sign Reading Time Taken Comments Blood Pressure 161/79 01/11/2025 8:45 AM CDT Pulse 57 01/11/2025 3:44 AM CDT Temperature 36.9 C (98.4 F) 01/11/2025 8:45 AM CDT Respiratory Rate 16 01/11/2025 8:45 AM CDT Oxygen Saturation 98% 01/11/2025 8:45 AM CDT Inhaled Oxygen Concentration - - Weight 93.2 kg (205 lb 7.5 oz) 01/09/2025 4:35 P M CDT Height 182.9 cm (6') 01/09/2025 4:35 PM CDT Body Mass Index 27.87 01/09/2025 4:35 PM CDT Plan of Treatment Upcoming Encounters Date Type Department Care Team (Late st Contact Info) Description 01/16/2025 10:00 AM CDT Appointment [facility] [address] [facility] [place] [address] Mayte Bailey MD [address] [place] [address] 02/03/2025 11:00 AM CDT Office Visit [facility] [address] [place] [address] Selvin Taylor MD [address] [place] [address] 03/21/2025 10:45 AM CDT [facility] [address] [place] [phone] Marcial Titus MD [address] [facility] [address] [phone] 11/07/2025 8:30 AM CDT [facility] Visit [facility] [place] [address] [place] [phone] Marcial Titus MD [address], [address] [phone] Health Maintenance Due Date Last Done Comments Hepatitis C 1975 DTaP, Tdap and Td Vaccines (1 - Tdap) 1976 Pneumococcal Vaccine: 50+ Years (1 of 2 - PCV) 1976 Zoster Vaccines (1 of 2) 1976 RSV Immunization or 60+ Years (1 - Risk 60-74 years 1-dose series) 2017 COVID-19 Vaccine (3 - Moderna risk series) 11/23/2020 10/26/2020, 09/28/2020 Annual Medicare Wellness Visit 2022 Colorectal Cancer Screening Colonoscopy (10 Years) 01/08/2031 01/08/2021, 01/08/2021 AAA SCREENING Completed 11/21/2024, 10/12, 10/21/2024, Additional history exists Meningococcal B Vaccine Aged Out No l onger eligible based on patient's age to complete this topic Meningococcal Vaccine Aged Out No leonard connie eligible based on patient's age to complete this topic RSV Immunizations Under 20 Months Aged Out No longer eligible based on patient's age to complete this topic Goals Goal Patient Goal Type Associated Problems Recent Progress Patient-Stated? Author Safety - demonstrates understanding of home safety measures Lifestyle Donna Cabrera, RN Safety Patient/family will have appropriate support at home upon discharge Lifestyle Donna Cabrera, RN Interventions Community Resource Recommendations Community Resource Services Recommended Domains Addressed Status Status Reason/Outcome Date/Time [facility] Food Insecurity Services Food Insecurity 12/13/2024 4:30 PM CDT [facility] Food Insecurity Services Food Insecurity 12/13/2024 4:30 PM CDT [facility] Food Insecurity Services Food Insecurity 12/13/2024 4:30 PM CDT from Last 12 Months Procedures Procedure Name Priority Date/Time Associated Diagnosis Comments BASIC METABOLIC PANEL Routine 01/11/2025 2:00 AM CDT CBC W/DIFF AUTOMATED Routine 01/11/2025 2:00 AM CDT CBC W/DIFF AUTOMATED Routine 01/10/2025 1:40 AM CDT BASIC METABOLIC PANEL Routine 01/10/2025 1:40 AM CDT MRI BRAIN WWO CON Today 01/09/2025 11: [address] HEAD WO CON STAT 01/09/2025 10:28 PM CDT LACTIC ACID W REFLEX (SEPSIS) TIMED 01/09/2025 4:41 PM CDT EEG SLEEP DEPRIVED STAT 01/09/2025 3: 31 PM CDT URINE BACTERIA CULTURE Nurse Collected Priority 01/09/2025 2:20 PM CDT HC URINALYSIS AUTO W/MICRO Nurse Collected Priority 01/09/2025 2:[address] HEAD WO CON STAT 01/09/2025 12:54 PM CDT CTA HEAD+NECK STAT 01/09/2025 12:54 PM CDT LACTIC ACID W REFLEX (SEPSIS) STAT 01/09/2025 11:44 AM CDT SALICYLATE STAT 01/09/2025 11:44 AM CDT ACETAMINOPHEN STAT 01/09/2025 11:44 AM CDT ETHANOL STAT 01/09/2025 11:44 AM CDT MAGNESIUM STAT 01/09/2025 11:44 AM CDT TROPONIN, QUANT STAT 01/09/2025 11:44 AM CDT PARTIAL THROMBOPLASTIN TIME,PTT STAT 01/09/2025 11:44 AM CDT PROTHROMBIN TIME, VENOUS STAT 01/09/2025 11:44 AM CDT BLOOD GAS, VENOUS STAT 01/09/2025 11: 44 AM CDT COMPREHENSIVE METABOLIC PANEL STAT 01/09/2025 11:44 AM CDT CBC W/DIFF AUTOMATED STAT 01/09/2025 11:44 AM CDT ECG 12-LEAD STAT 01/09/2025 9:44 AM CDT XR CHEST PORTABLE STAT 01/09/2025 9:3 1 AM CDT CBC, AUTO, NO DIFF Routine 01/02/2025 9: 19 AM CDT PHOSPHORUS, INORGANIC PHOSPHATE Routine 01/02/2025 9:19 AM CDT MAGNESIUM Routine 01/02/2025 9:19 AM CDT BASIC METABOLIC PANEL Routine 01/02/2025 9:19 AM CDT PHOSPHORUS, INORGANIC PHOSPHATE Routine 01/01/2025 12:23 PM CDT MAGNESIUM Routine 01/01/2025 12:23 PM CDT BASIC METABOLIC PANEL Routine 01/01/2025 12:23 PM CDT CBC W/DIFF AUTOMATED Routine 01/01/2025 12:23 PM CDT MAGNESIUM Routine 12/31/2024 5:48 AM CDT BASIC METABOLIC PANEL Routine 12/31/2024 5:48 AM CDT CBC W/DIFF AUTOMATED Routine 12/31/2024 5:48 AM CDT MAGNESIUM Routine 12/30/2024 9:43 AM CDT BASIC METABOLIC PANEL Routine 12/30/2024 9:43 AM CDT CBC W/DIFF AUTOMATED Routine 12/30/2024 9:43 AM CDT MAGNESIUM Routine 12/29/2024 7:04 AM CDT COMPREHENSIVE METABOLIC PANEL Routine 12/29/2024 7:04 AM CDT CBC W/DIFF AUTOMATED Routine 12/29/2024 7:04 AM CDT CTA CHEST PE PROTOCOL Today 12/28/2024 5:45 PM CDT TROPONIN, QUANT TIMED 12/28/2024 1:54 PM CDT TROPONIN, QUANT TIMED 12/28/2024 7:33 AM CDT POCT GLUCOSE - DOCKED DEVICE Routine 12/28/2024 6:13 AM CDT TROPONIN, QUANT TIMED 12/28/2024 1:58 AM CDT CBC W/DIFF AUTOMATED TIMED 12/28/2024 1:58 AM CDT MAGNESIUM TIMED 12/28/2024 1:58 AM CDT COMPREHENSIVE METABOLIC PANEL TIMED 12/28/2024 1:[address] HEAD WO CON STAT 12/27/2024 9:14 PM CDT XR CHEST PORTABLE STAT 12/27/2024 8:5 5 PM CDT TROPONIN, QUANT STAT 12/27/2024 8:48 PM CDT MAGNESIUM STAT 12/27/2024 8:48 PM CDT COMPREHENSIVE METABOLIC PANEL STAT 12/27/2024 8:48 PM CDT CBC W/DIFF AUTOMATED STAT 12/27/2024 8:48 PM CDT ECG 12-LEAD STAT 12/27/2024 8:34 PM CDT BASIC METABOLIC PANEL Routine 12/14/2024 4:35 AM CDT CBC W/DIFF AUTOMATED Routine 12/14/2024 4:35 AM CDT PHOSPHORUS, INORGANIC PHOSPHATE Routine 12/14/2024 4:35 AM CDT MAGNESIUM Routine 12/14/2024 4:35 AM CDT XR CHEST PORTABLE Today 12/13/2024 11: 52 AM CDT POCT GLUCOSE - DOCKED DEVICE Routine 12/13/2024 11:36 AM CDT POCT GLUCOSE - DOCKED DEVICE Routine 12/13/2024 5:34 AM CDT BASIC METABOLIC PANEL Routine 12/13/2024 2:53 AM CDT CBC W/DIFF AUTOMATED Routine 12/13/2024 2:53 AM CDT PHOSPHORUS, INORGANIC PHOSPHATE Routine 12/13/2024 2:53 AM CDT MAGNESIUM Routine 12/13/2024 2:53 AM CDT POCT GLUCOSE - DOCKED DEVICE Routine 12/12/2024 8:51 PM CDT POCT GLUCOSE - DOCKED DEVICE Routine 12/12/2024 3:43 PM CDT POCT GLUCOSE - DOCKED DEVICE Routine 12/12/2024 11:48 AM CDT POCT GLUCOSE - DOCKED DEVICE Routine 12/12/2024 6:32 AM CDT PHOSPHORUS, INORGANIC PHOSPHATE Routine 12/12/2024 3:27 AM CDT MAGNESIUM Routine 12/12/2024 3:27 AM CDT CBC W/DIFF AUTOMATED Routine 12/12/2024 3:27 AM CDT BASIC METABOLIC PANEL Routine 12/12/2024 3:27 AM CDT FIBRINOGEN Routine 12/12/2024 3:27 AM CDT PARTIAL THROMBOPLASTIN TIME,PTT Routine 12/12/2024 3:27 AM CDT PROTHROMBIN TIME, VENOUS Routine 12/12/2024 3:27 AM CDT POCT GLUCOSE - DOCKED DEVICE Routine 12/11/2024 5:30 PM CDT POCT GLUCOSE - DOCKED DEVICE Routine 12/11/2024 11:44 AM CDT POCT GLUCOSE - DOCKED DEVICE Routine 12/11/2024 6:22 AM CDT PHOSPHORUS, INORGANIC PHOSPHATE Routine 12/11/2024 3:15 AM CDT MAGNESIUM Routine 12/11/2024 3:15 AM CDT CBC W/DIFF AUTOMATED Routine 12/11/2024 3:15 AM CDT BASIC METABOLIC PANEL Routine 12/11/2024 3:15 AM CDT LIPID PANEL Routine 12/11/2024 3:15 AM CDT FIBRINOGEN Routine 12/11/2024 3:15 AM CDT PARTIAL THROMBOPLASTIN TIME,PTT Routine 12/11/2024 3:15 AM CDT PROTHROMBIN TIME, VENOUS Routine 12/11/2024 3:15 AM CDT POCT GLUCOSE - DOCKED DEVICE Routine 12/10/2024 11:57 PM CDT POCT GLUCOSE - DOCKED DEVICE Routine 12/10/2024 6:14 PM CDT MRI BRAIN WWO CON Today 12/10/2024 2:1 2 PM CDT EEG SLEEP DEPRIVED Routine 12/10/2024 12 :00 PM CDT POCT GLUCOSE - DOCKED DEVICE Routine 12/10/2024 11:43 AM CDT POCT ACUTE VENOUS PANEL Routine 12/10/2024 7:44 AM CDT CBC W/DIFF AUTOMATED Routine 12/10/2024 7:[address] HEAD WO CON STAT 12/10/2024 6:28 AM CDT HC BLOOD TYPING ABO Routine 12/10/2024 6 :20 AM CDT TYPE & SCREEN Routine 12/10/2024 6:05 AM CDT BASIC METABOLIC PANEL Routine 12/10/2024 6:05 AM CDT FIBRINOGEN Routine 12/10/2024 6:05 AM CDT PARTIAL THROMBOPLASTIN TIME,PTT Routine 12/10/2024 6:05 AM CDT PROTHROMBIN TIME, VENOUS Routine 12/10/2024 6:05 AM CDT POCT GLUCOSE - DOCKED DEVICE Routine 12/10/2024 5:59 AM CDT HC URINALYSIS AUTO W/MICRO STAT 12/10/2024 2:33 AM CDT XR CHEST PORTABLE STAT 12/10/2024 2:1 9 AM CDT CRITICAL CARE Routine 12/10/2024 2:15 AM CDT ECG 12-LEAD Routine 12/10/2024 2:07 AM CDT MAGNESIUM STAT 12/10/2024 1:59 AM CDT TROPONIN, QUANT STAT 12/10/2024 1:59 AM CDT COMPREHENSIVE METABOLIC PANEL STAT 12/10/2024 1:59 AM CDT CBC W/DIFF AUTOMATED STAT 12/10/2024 1:[address] HEAD WO CON STAT 12/10/2024 1:[address] RAD THRPY PLAN WO CON Routine 11/30/2024 11:07 AM CDT Secondary cancer of brain (CMS/HCC HHS/HCC) CT CHEST WO CON Routine 11/21/2024 9:30 AM CDT Lung cancer (CMS/HCC HHS/HCC) POCT GLUCOSE - DOCKED DEVICE Routine 11/09/2024 11:46 AM CDT PHOSPHORUS, INORGANIC PHOSPHATE Routine 11/09/2024 6:59 AM CDT MAGNESIUM Routine 11/09/2024 6:59 AM CDT CBC, AUTO, NO DIFF Routine 11/09/2024 6: 59 AM CDT BASIC METABOLIC PANEL Routine 11/09/2024 6:59 AM CDT POCT GLUCOSE - DOCKED DEVICE Routine 11/09/2024 6:[address] CHEST+ABD+PEL W CON Today 11/08/2024 11:39 PM CDT POCT GLUCOSE - DOCKED DEVICE Routine 11/08/2024 10:34 PM CDT POCT GLUCOSE - DOCKED DEVICE Routine 11/08/2024 4:29 PM CDT POCT GLUCOSE - DOCKED DEVICE Routine 11/08/2024 12:40 PM CDT POCT GLUCOSE - DOCKED DEVICE Routine 11/08/2024 6:22 AM CDT MAGNESIUM Routine 11/08/2024 2:48 AM CDT COMPREHENSIVE METABOLIC PANEL Routine 11/08/2024 2:48 AM CDT CBC W/DIFF AUTOMATED Routine 11/08/2024 2:48 AM CDT POCT GLUCOSE - DOCKED DEVICE Routine 11/08/2024 2:34 AM CDT MRI BRAIN WWO CON STAT 11/07/2024 8:1 2 PM CDT COMPREHENSIVE METABOLIC PANEL STAT 11/07/2024 3:42 PM CDT CBC W/DIFF AUTOMATED STAT 11/07/2024 3:42 PM CDT CBC W/DIFF AUTOMATED STAT 11/07/2024 2:57 PM CDT ECG 12-LEAD Routine 10/25/2024 9:00 AM CDT Essential hypertension Hypercholesterol emia MRI CERV SPINE WWO CON Routine 10/21/2024 11:33 AM CDT Lung cancer (CMS/HCC HHS/HCC) MRI THOR SPINE WWO CON Routine 10/21/2024 11:32 AM CDT Lung cancer (CMS/HCC HHS/HCC) COLONOSCOPY 01/08/2021 12:18 PM CDT from Last 3 Months or Most Recently Relevant to Health Maintenance Results * (ABNORMAL) BASIC METABOLIC PANEL (01/11/2025 2:00 AM CDT) Only the most recent of12 resultswithin the time period is included. SODIUM S/P/B 135(L) 136 - 145 MMOL/L 01/11/2025 3:02 AM CDT [facility] POTASSIUM S/P/B 3.4(L) 3.5 - 5.1 MMOL/L 01/11/2025 3:02 AM CDT [facility] CHLORIDE S/P/B 102 97 - 115 MMOL/L 01/11/2025 3:02 AM CDT [facility] CO2 25.2 21.0 - 32.0 MMOL/L 01/11/2025 3:02 AM CDT [facility] GLUCOSE 150(H) 74 - 106 MG/DL 01/11/2025 3:02 AM CDT [facility] BUN 21(H) 7 - 18 MG/DL 01/11/2025 3:02 AM CDT [facility] CREATININE S/P/B 0.72 0.70 - 1.30 MG/DL 01/11/2025 3:02 AM CDT [facility] CALCIUM S/P/B 8.8 8.5 - 10.1 MG/DL 01/11/2025 3:02 AM CDT [facility] ANION GAP 7.8 2.0 - 10.0 MMOL/L 01/11/2025 3:02 AM CDT [facility] OSMOLALITY (CALC) 286 MOSM/KG 025 3:02 AM CDT [facility] Comment:REFERENCE RANGE NOT ESTABLISHED GFR ESTIMATE >90 >90 ML/MIN/1. 73 M2 01/11/2025 3:02 AM CDT [facility] GFR NOTES GFR REFERENCE S: 01/11/2025 3:02 AM CDT [facility] Comment: THE ESTIMATED GFR IS [...] ml/min/1.73 m2 G5,KIDNEY FAILURE: <15 ml/min/1.73 m2 01/11/2025 2:00 AM CDT Chris Aguilera MD LABORATORY Final Result [facility] [address] [place] [address], [id number] * (ABNORMAL) CBC W/DIFF AUTOMATED (01/11/2025 2:00 AM CDT) Only the most recent of18 resultswithin the time period is included. WBC 5.70 4.00 - 10.80 x10'3/uL 01/11/2025 2:38 AM CDT [facility] RBC 3.46(L) 4.50 - 6.10 x10'6/uL 01/11/2025 2:38 AM CDT [facility] HGB 11.2(L) 13.0 - 18.0 G/DL 01/11/2025 2:38 AM CDT [facility] HCT 31.8(L) 37.0 - 52.0 % 01/11/2025 2:38 AM CDT [facility] MCV 91.9 78.0 - 100.0 FL 01/11/2025 2:38 AM CDT [facility] MCH 32.4(H) 27.0 - 31.0 PG 01/11/2025 2:38 AM CDT [facility] MCHC 35.2 33.0 - 36.0 G/DL 01/11/2025 2:38 AM CDT [facility] RDW 14.5 11.5 - 14.5 % 01/11/2025 2:38 AM CDT [facility] PLT 133(L) 150 - 350 x10'3/uL 01/11/2025 2:38 AM CDT [facility] MPV 8.0 7.4 - 10.4 FL 01/11/2025 2:38 AM CDT [facility] DIFFERENTIAL TYPE AUTOMATED DIFFERENTIAL 01/11/2025 2:38 AM CDT [facility] SEG NEUTROPHILS 83.5 % 2:38 AM CDT [facility] LYMPHOCYTES 8.1 % 01/11/2025 2:38 AM CDT [facility] MONOCYTES 6.1 % 01/11/2025 2:38 AM CDT [facility] EOSINOPHILS 0.0 % 01/11/2025 2:38 AM CDT [facility] BASOPHILS 0.2 % 01/11/2025 2:38 AM CDT [facility] IMMATURE GRANS % 2.1 % 01/12/20 2:38 AM CDT [facility] ABS. NEUTROPHILS 4.76 1.60 - 8.30 x10'3/uL 01/11/2025 2:38 AM CDT [facility] ABS. LYMPHOCYTES 0.46(L) 0.80 - 4.70 x10'3/uL 01/11/2025 2:38 AM CDT [facility] ABS. MONOCYTES 0.35 0.00 - 1.50 x10'3/uL 01/11/2025 2:38 AM CDT [facility] ABS. EOSINOPHILS 0.00 0.00 - 0.40 x10'3/uL 01/11/2025 2:38 AM CDT [facility] ABS. BASOPHILS 0.01 0.00 - 0.20 x10'3/uL 01/11/2025 2:38 AM CDT [facility] ABS. IMMATURE GRANULOCYTES 0.12(H) 0.00 - 0.03 x10'3/uL 01/11/2025 2:38 AM CDT [facility] ABS. NUCLEATED RBC'S 0.00 0.00 - 0.01 x10'3/uL 01/11/2025 2:38 AM CDT [facility] NRBC % 0.0 % 01/11/2025 2:38 AM CDT [facility] 01/11/2025 2:00 AM CDT us Chris Aguilera MD LABORATORY Final Result [facility] [address] [place] [address], [id number] * MRI BRAIN WWO CON (01/09/2025 11:17 PM CDT) Only the most recent of3 resultswithin the time period is included. Anatomical Region Laterality Modality Head Magnetic Resonan ce 01/10/2025 9:17 AM CDT Impressions 01/10/2025 9:41 AM CDT IMPRESSION: 1. Redemonstration of numerous intracranial metastases (some hemorrhagic) involving both cerebral hemispheres and left cerebellum, as described. Many of the previous lesions have slightly decreased in size. However there has been interval enlargement of at least one lesion in the inferolateral right temporal lobe, now measuring 2.1 x 1.5 cm, with increasing surrounding vasogenic edema. 2. Confluent T2/FLAIR hyperintense vasogenic edema seen surrounding many of the metastatic lesions. Associated parenchymal expansion and mass effect with effacement of the overlying sulci and partial compression of the left lateral ventricle. Minimal rightward midline shift, similar to prior. Ordered By: SURYA COUCH Interpreted By: Juan Francisco Whitehead MD, 01/10/2025 9:17 AM Narrative 01/10/2025 9:41 AM CDT [address] [address] DATE: 01/09/2025 10:55 PM INDICATION: Staging. Dizziness. Weakness. History of intracranial metastasis. EXAMINATION: MRI brain with and without contrast. TECHNIQUE: Multiplanar and multisequence MRI images of the brain were obtained before and after uneventful intravenous administration of 17mL GADOTERATE MEGLUMINE 5 MMOL/10ML IV SOSY COMPARISON: 12/14/2024 FINDINGS: Redemonstration of numerous heterogeneously enhancing mass lesions involving both cerebral hemispheres and in the left cerebellum, in keeping with intracranial metastases. Since the prior examination, many of the lesions have slightly decreased in size. However, there has been interval enlargement of at least one lesion involving the inferolateral right temporal lobe, currently measuring 2.1 x 1.5 cm (previously 1.4 x 1.2 cm). Many of the lesions demonstrate corresponding susceptibility consistent with intralesional hemorrhage. There is prominent confluent T2/FLAIR hyperintense edema surrounding the metastatic lesions, with similar or perhaps minimally decreased edema surrounding the lesions which have decreased in size, and with increasing edema surrounding the enlarging right temporal lobe lesion. No definite new metastatic lesions identified. Some of the lesions demonstrate heterogeneous diffusion signal which could be due to a combination of hypercellularity as well as intralesional blood products. Edema and associated parenchymal expansion leads to effacement of the overlying sulci and partial compression of the left lateral ventricular atrium/occipital horn. Minimal rightward midline shift, similar to prior. Otherwise there is no diffusion restriction to suggest acute infarct. No extra-axial collections. Proximal portions of the major intracranial arterial flow voids are patent. Stable volume loss with enlargement of the ventricles and extra-axial/subarachnoid spaces. Craniocervical junction, sellar content, and pineal region are unremarkable. Minimal fluid scattered mastoid air cells. Right maxillary sinus mucosal thickening. Visualized orbits unremarkable Procedure Note Juan Francisco Whitehead MD - 01/10/2025 [facility] [address] [place], [place] [address] DATE: 01/09/2025 10:55 PM INDICATION: Staging. Dizziness. Weakness. History of intracranialmetastasis. EXAMINATION: MRI brain with and without contrast. TECHNIQUE: Multiplanar and multisequence MRI images of the brain wereobtained before and after uneventful intravenous administration of 17mLGADOTERATE MEGLUMINE 5 MMOL/10ML IV SOSY COMPARISON: 12/14/2024 FINDINGS: Redemonstration of numerous heterogeneously enhancing mass lesionsinvolving both cerebral hemispheres and in the left cerebellum, in keepingwith intracranial metastases. Since the prior examination, many of thelesions have slightly decreased in size. However, there has been intervalenlargement of at least one lesion involving the inferolateral righttemporal lobe, currently measuring 2.1 x 1.5 cm (previously 1.4 x 1.2 cm).Many of the lesions demonstrate corresponding susceptibility consistentwith intralesional hemorrhage. There is prominent confluent T2/FLAIRhyperintense edema surrounding the metastatic lesions, with similar orperhaps minimally decreased edema surrounding the lesions which havedecreased in size, and with increasing edema surrounding the enlargingright temporal lobe lesion. No definite new metastatic lesions identified.Some of the lesions demonstrate heterogeneous diffusion signal which couldbe due to a combination of hypercellularity as well as intralesional bloodproducts. Edema and associated parenchymal expansion leads to effacementof the overlying sulci and partial compression of the left lateralventricular atrium/occipital horn. Minimal rightward midline shift,similar to prior. Otherwise there is no diffusion restriction to suggestacute infarct. No extra-axial collections. Proximal portions of the majorintracranial arterial flow voids are patent. Stable volume loss withenlargement of the ventricles and extra-axial/subarachnoid spaces.Craniocervical junction, sellar content, and pineal region areunremarkable. Minimal fluid scattered mastoid air cells. Right maxillarysinus mucosal thickening. Visualized orbits unremarkable IMPRESSION: 1. Redemonstration of numerous intracranial metastases (some hemorrhagic)involving both cerebral hemispheres and left cerebellum, as described.Many of the previous lesions have slightly decreased in size. Howeverthere has been interval enlargement of at least one lesion in theinferolateral right temporal lobe, now measuring 2.1 x 1.5 cm, withincreasing surrounding vasogenic edema. 2. Confluent T2/FLAIR hyperintense vasogenic edema seen surrounding manyof the metastatic lesions. Associated parenchymal expansion and masseffect with effacement of the overlying sulci and partial compression ofthe left lateral ventricle. Minimal rightward midline shift, similar toprior. Ordered By: SURYA COUCH Interpreted By: Juan Francisco Whitehead MD, 01/10/2025 9:17 AM Surya Couch MD MRI Final Result * CT HEAD WO CON (01/09/2025 10:28 PM CDT) Only the most recent of5 resultswithin the time period is included. Anatomical Region Laterality Modality Head Computed Tomogra phy 01/09/2025 10:3 9 PM CDT Impressions 01/09/2025 10:46 PM CDT IMPRESSION: Relatively unchanged appearance of the multiple intracranial lesions when compared with the prior CT head examination from earlier today. Multiple lesions demonstrate hyperdensity, suggestive of intralesional hemorrhage, relatively unchanged when compared with the prior exam from earlier today. No new loss of richardson-white matter differentiation. No significant midline shift. Referred By: Interpreted By: Julio Cesar Mann MD, 01/09/2025 10:39 PM Narrative 01/09/2025 10:[address] [address] EXAMINATION: CT HEAD WO CON, 01/09/2025 10:39 PM TECHNIQUE: Computed tomographic images of the head were obtained without intravenous contrast. Additional coronal and sagittal reformatted images were generated. A dose lowering technique was used for this procedure, which may include, but is not limited to, dose reduction technique, automated exposure control, the use of iterative reconstruction, and ALARA (As Low As Reasonably Achievable) / Image Gently techniques. HISTORY: Intracranial metastatic disease, hemorrhage, follow-up COMPARISON: CT head 01/09/2025 12:55 PM FINDINGS: When compared with the prior CT head examination from earlier today, there is relatively unchanged appearance of the peripheral rounded mildly hyperdense nodular foci involving the superior right frontal, lateral right frontal, bilateral parietal, left lateral frontal and right temporal regions. The most pronounced hyperdensity is seen within the inferior right temporal lobe region (best seen on series 5 image 20, series 7 image 43) which appears relatively similar in hyper attenuation to the prior exam, suggestive of intralesional hemorrhage. Multiple of these areas demonstrate moderate surrounding hypodensity compatible with vasogenic edema. Findings overall appear relatively unchanged when compared with the prior CT head examination from earlier today. No new loss of richardson-white matter differentiation. Mass effect contributes to effacement of the occipital horn left lateral ventricle. No significant midline shift. Basal cisterns appear normal. Orbital contents appear normal. Mucous retention cyst within the right maxillary sinus. Paranasal sinuses and mastoid air cells are well-aerated. Procedure Note Julio Cesar Mann MD - 01/09/2025 [facility] [address] [place], [place] [address] EXAMINATION: CT HEAD WO CON, 01/09/2025 10:39 PM TECHNIQUE: Computed tomographic images of the head were obtained withoutintravenous contrast. Additional coronal and sagittal reformatted imageswere generated. A dose lowering technique was used for this procedure,which may include, but is not limited to, dose reduction technique,automated exposure control, the use of iterative reconstruction, and ALARA(As Low As Reasonably Achievable) / Image Gently techniques. HISTORY: Intracranial metastatic disease, hemorrhage, follow-up COMPARISON: CT head 01/09/2025 12:55 PM FINDINGS: When compared with the prior CT head examination from earliertoday, there is relatively unchanged appearance of the peripheral roundedmildly hyperdense nodular foci involving the superior right frontal,lateral right frontal, bilateral parietal, left lateral frontal and righttemporal regions. The most pronounced hyperdensity is seen within theinferior right temporal lobe region (best seen on series 5 image 20,series 7 image 43) which appears relatively similar in hyper attenuationto the prior exam, suggestive of intralesional hemorrhage. Multiple ofthese areas demonstrate moderate surrounding hypodensity compatible withvasogenic edema. Findings overall appear relatively unchanged whencompared with the prior CT head examination from earlier today. No newloss of richardson-white matter differentiation. Mass effect contributes toeffacement of the occipital horn left lateral ventricle. No significantmidline shift. Basal cisterns appear normal. Orbital contents appearnormal. Mucous retention cyst within the right maxillary sinus.Paranasal sinuses and mastoid air cells are well-aerated. IMPRESSION: Relatively unchanged appearance of the multiple intracranial lesions whencompared with the prior CT head examination from earlier today. Multiplelesions demonstrate hyperdensity, suggestive of intralesional hemorrhage,relatively unchanged when compared with the prior exam from earlier today.No new loss of richardson-white matter differentiation. No significant midlineshift. Referred By: Interpreted By: Julio Cesar Mann MD, 01/09/2025 10:39 PM [address]a Couch MD CT Final Result * LACTIC ACID W REFLEX (SEPSIS) (01/09/2025 4:41 PM CDT) Only the most recent of2 resultswithin the time period is included. LACTIC ACID VENOUS 1.4 0.4 - 2.0 MMOL/L 01/09/2025 5:11 PM CDT [facility] 01/09/2025 4:41 PM CDT Shilpa Gonzales MD LABORATORY Final Result [facility] [address] [place] [address], [place] [phone] [id number] * EEG routine (01/09/2025 3:31 PM CDT) 01/09/2025 3:31 PM CDT Narrative ESCRIPTION - 01/11/2025 10:55 AM CDT Patient Name: JASPER ALAROCN Date of : 1955 Account: [id number] Facility: [facility] Location: [facility] Date of Service: 01/10/2025 EEG HISTORY: Mr. Alarcon is a 69-year-old male with a history of acute encephalopathy with confusion and a history of brain mets. Routine awake and asleep EEG was performed. SUMMARY: The patient develops near normal background with some slight disorganization of bilateral theta and delta slowing seen throughout. No paroxysmal or definite epileptiform activity is seen. No pathologic slowing is seen. No definite asymmetries are noted. There is quite a bit of movement and muscle artifact. SUMMARY: Abnormal EEG consistent with mild encephalopathy of any type. No epileptiform activity was seen. Clinical correlation is required. Signature/Date: CLARIBEL CHAMPION MD #[id number] /GABI/VINCE us Pat Cordero MD NEUROLOGY ORDERABLES Final R esult ESCRIPTION * CULTURE URINE (01/09/2025 2:20 PM CDT) SPEC DESCRIPTION URINE CLEAN CATCH 01/09/2025 2:20 PM CDT [facility] SPECIAL REQUESTS NO SPECIAL REQUEST 01/09/2025 2:20 PM CDT [facility] CULTURE RESULT FEW CONTAMINANTS 08/2024 7:49 AM CDT [facility] URINE SPECIMEN OBTAINED BY CLEAN CATCH PROCEDURE / Unknown 01/09/2025 2:20 PM CDT 01/09/2025 2:32 PM CDT us Shilpa Gonzales MD MICROBIOLOGY - GENERAL ORDERABL ES Final Result [facility] [address] [place] [address], [place] [phone] [id number] * URINALYSIS (01/09/2025 2:19 PM CDT) Only the most recent of2 resultswithin the time period is included. COLOR (U) COLORLESS 01/09/2025 2:31 PM CDT [facility] TRANSPARENCY CLEAR 01/09/2025 2:31 PM CDT [facility] SPECIFIC GRAVITY (U) 1.030 1.002 - 1.035 01/09/2025 2:31 PM CDT [facility] U PH 7.5 5 - 8 01/09/2025 2:31 PM CDT [facility] PROTEIN RANDOM (U) NEGATIVE NEGATIVE 01/09/2025 2:31 PM CDT [facility] GLUCOSE (U) NEGATIVE NEGATIVE MG/DL 01/09/2025 2:31 PM CDT [facility] KETONES MG/DL (U) NEGATIVE NEGATIVE 01/09/2025 2:31 PM CDT [facility] BILIRUBIN (U) NEGATIVE NEGATIVE 01/09/2025 2:31 PM CDT [facility] BLOOD (U) NEGATIVE NEGATIVE 01/09/2025 2:31 PM CDT [facility] NITRITES NEGATIVE NEGATIVE 01/09/2025 2:31 PM CDT [facility] UROBILINOGEN NORMAL 0 - 1 EU/DL 01/09/2025 2:31 PM CDT [facility] LEUKOCYTES (U) NEGATIVE NEGATIVE 01/09/2025 2:31 PM CDT [facility] RBC/HPF 1 0 - 3 /HPF 01/09/2025 2:31 PM CDT [facility] WBC/HPF <1 0 - 6 /HPF 01/09/2025 2:31 PM CDT [facility] BACTERIA (U) NONE /HPF 01/09/2025 2:31 PM CDT [facility] URINE SPECIMEN OBTAINED BY CLEAN CATCH PROCEDURE / Unknown 01/09/2025 2:19 PM CDT Shilpa Gonzales MD URINE ORDERABLES Final Result [facility] [address] [place] [address], [id number] * CTA HEAD+NECK (01/09/2025 12:54 PM CDT) Anatomical Region Laterality Modality Head, Neck Computed Tomogra phy 01/09/2025 1:44 PM CDT Impressions 01/09/2025 1:59 PM CDT IMPRESSION: 1. 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 Findings are age indeterminate but may be chronic with some corresponding signal abnormality suggested within the right intracranial ICA segment flow void on prior MRI exams. 2. Tiny patent channel of contrast within the right supraclinoid ICA, possibly via the [place] or collateral filling. Asymmetrically decreased caliber of and contrast density within the right MCA and its branches, but with no definite proximal MCA occlusion identified. 3. No hemodynamically significant stenosis in the neck. 4. Additional multifocal atherosclerotic disease elsewhere as detailed above. 5. Please refer to separately reported head CT for description of intracranial metastases, edema, and mass effect. 6. Irregular left upper lobe mass in keeping with patient's known neoplasm. Ordered By: SHILPA GONZALES Interpreted By: Juan Francisco Whitehead MD, 01/09/2025 1:44 PM Narrative 01/09/2025 1:59 PM CDT [facility] [address] [place], [place] [address] DATE: 01/09/2025 12:49 PM INDICATION: Dizziness and weakness. Intracranial metastasis. EXAMINATION: CT angiography of the head and neck with contrast. TECHNIQUE: CT angiography of the head and neck were performed after uneventful intravenous administration of 80mL IOPAMIDOL 76 % IV SOLN. CT dose reduction techniques were utilized. Internal carotid stenosis measured according to NASCET criteria. Axial and 3-D/MIP images were reconstructed and reviewed. [employer] was used in this interpretation. A dose lowering technique was used for this procedure, which may include, but is not limited to, dose reduction technique, automated exposure control, the use of iterative reconstruction, and ALARA (As Low As Reasonably Achievable) / Image Gently techniques. COMPARISON: Brain MRI 12/14/2024. FINDINGS: CTA NECK: Aorta and great vessel origins: Classic 3 vessel aortic arch origin anatomy. Atherosclerotic calcification noted along the aortic arch and mediastinal great vessels, without significant stenosis. Right carotid artery: There is occlusion of the right cervical ICA from its origin superiorly into the skull base. Right ECA and common carotid artery are patent and without significant stenosis. Left carotid artery: Atheromatous plaque and calcification noted at the bifurcation and proximal cervical ICA, without significant stenosis. Right vertebral artery: No significant stenosis. Left vertebral artery: No significant stenosis. CTA HEAD: The petrous and cavernous segments of the right ICA are also occluded. There is a small channel of patent contrast within the right supraclinoid ICA, possibly via the [place] or collateral filling. Slightly asymmetrically decreased caliber of and contrast density within the right MCA and its branches, but without definite proximal MCA occlusion. Scattered atherosclerotic calcifications along the intracranial ICA segments. Right JONATHAN A1 segment is developmentally small in caliber. Otherwise the proximal portions of the anterior and left middle cerebral artery are patent. Anterior communicating artery is patent. Posterior circulation is codominant. Basilar artery is patent to the terminus. Proximal portions of the posterior cerebral arteries, superior cerebellar arteries, and PICA branches are patent. Bilateral posterior communicating arteries are patent. SOFT TISSUES: Please refer to separately reported head CT for description of intracranial metastases, edema, and mass effect. Right maxillary sinus mucosal thickening/retention cyst. Streak artifact from dental amalgam partially obscures assessment. Bilateral thyroid nodules, largest measuring up to 1.5 cm on the left; could consider follow-up thyroid ultrasound.. Irregular left upper lobe mass. Emphysema. Right-sided tunneled thoracic [id number]. Postsurgical and degenerative changes in the spine. Procedure Note Juan Francisco Whitehead MD - 01/09/[address] [address] DATE: 01/09/2025 12:49 PM INDICATION: Dizziness and weakness. Intracranial metastasis. EXAMINATION: CT angiography of the head and neck with contrast. TECHNIQUE: CT angiography of the head and neck were performed afteruneventful intravenous administration of 80mL IOPAMIDOL 76 % IV SOLN. CTdose reduction techniques were utilized. Internal carotid stenosismeasured according to NASCET criteria. Axial and 3-D/MIP images werereconstructed and reviewed. [employer] was used in this interpretation. A dose lowering technique was used for this procedure, which may include,but is not limited to, dose reduction technique, automated exposurecontrol, the use of iterative reconstruction, and ALARA (As Low AsReasonably Achievable) / Image Gently techniques. COMPARISON: Brain MRI 12/14/2024. FINDINGS: CTA NECK: Aorta and great vessel origins: Classic 3 vessel aortic arch originanatomy. Atherosclerotic calcification noted along the aortic arch andmediastinal great vessels, without significant stenosis. Right carotid artery: There is occlusion of the right cervical ICA fromits origin superiorly into the skull base. Right ECA and common carotidartery are patent and without significant stenosis. Left carotid artery: Atheromatous plaque and calcification noted at thebifurcation and proximal cervical ICA, without significant stenosis. Right vertebral artery: No significant stenosis. Left vertebral artery: No significant stenosis. CTA HEAD: The petrous and cavernous segments of the right ICA are also occluded.There is a small channel of patent contrast within the right supraclinoidICA, possibly via the [place] or collateral filling. Slightlyasymmetrically decreased caliber of and contrast density within the rightMCA and its branches, but without definite proximal MCA occlusion.Scattered atherosclerotic calcifications along the intracranial ICAsegments. Right JONATHNA A1 segment is developmentally small in caliber.Otherwise the proximal portions of the anterior and left middle cerebralartery are patent. Anterior communicating artery is patent. Posterior circulation is codominant. Basilar artery is patent to theterminus. Proximal portions of the posterior cerebral arteries, superiorcerebellar arteries, and PICA branches are patent. Bilateral posteriorcommunicating arteries are patent. SOFT TISSUES: Please refer to separately reported head CT for description ofintracranial metastases, edema, and mass effect. Right maxillary sinusmucosal thickening/retention cyst. Streak artifact from dental amalgampartially obscures assessment. Bilateral thyroid nodules, largestmeasuring up to 1.5 cm on the left; could consider follow-up thyroidultrasound.. Irregular left upper lobe mass. Emphysema. Right- sidedtunneled thoracic Ojlvxk-m-Ygko. Postsurgical and degenerative changes inthe spine. IMPRESSION: 1. 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 Findings are age indeterminate but may be chronic withsome corresponding signal abnormality suggested within the rightintracranial ICA segment flow void on prior MRI exams. 2. Tiny patent channel of contrast within the right supraclinoid ICA,possibly via the [place] or collateral filling. Asymmetricallydecreased caliber of and contrast density within the right MCA and itsbranches, but with no definite proximal MCA occlusion identified. 3. No hemodynamically significant stenosis in the neck. 4. Additional multifocal atherosclerotic disease elsewhere as detailedabove. 5. Please refer to separately reported head CT for description ofintracranial metastases, edema, and mass effect. 6. Irregular left upper lobe mass in keeping with patient's knownneoplasm. Ordered By: SHILPA GONZALES Interpreted By: Juan Francisco Whitehead MD, 01/09/2025 1:44 PM Shilpa Gonzales MD CT Final Result * (ABNORMAL) Blood gas, venous (01/09/2025 11:44 AM CDT) PH VENOUS 7.33 7.32 - 7.42 01/09/2025 11:56 AM CDT [facility] PCO2 VENOUS 61.5(H) 41.0 - 51.0 MMHG 01/09/2025 11:56 AM CDT [facility] PO2 VENOUS 23.2(L) 25.0 - 40.0 MM HG 01/09/2025 11:56 AM CDT [facility] BICARB VENOUS 31.5(H) 24 - 28 MMOL/L 01/09/2025 11:56 AM CDT [facility] TOTAL CO2 VENOUS 33.4(H) 25.0 - 29.0 MMOL/L 01/09/2025 11:56 AM CDT [facility] BASE EXCESS VENOUS 4.5(H) 0 - 2 MMOL/L 01/09/2025 11:56 AM CDT [facility] O2 SAT VENOUS 28 <75 % 01/09/2025 11:56 AM CDT [facility] 01/09/2025 11:4 4 AM CDT us Shilpa Gonzales MD LABORATORY Final Result Performing Organization Address City/[facility] Co de Phone Number [facility] [address] [place] [address], [phone] * PARTIAL THROMBOPLASTIN TIME,PTT (01/09/2025 11:44 AM CDT) Only the most recent of4 resultswithin the time period is included. PTT 27.0 25.1 - 36.5 SEC 01/09/2025 12:26 PM CDT [facility] 01/09/2025 11:4 4 AM CDT us Shilpa Gonzales MD LABORATORY Final Result Performing Organization Address [facility] Co de Phone Number [facility] [address] [place] [address], [id number] * PROTIME/INR, VENOUS (01/09/2025 11:44 AM CDT) Only the most recent of4 resultswithin the time period is included. PROTIME 10.3 9.4 - 12.5 SEC 01/09/2025 12:23 PM CDT [facility] INR 0.9 0.8 - 1.1 01/09/2025 12:23 PM CDT [facility] 01/09/2025 11:4 4 AM CDT us Shilpa Gonzales MD LABORATORY Final Result [facility] [address] [place] [address], [phone] * (ABNORMAL) COMPREHENSIVE METABOLIC PANEL (01/09/2025 11:44 AM CDT) Only the most recent of7 resultswithin the time period is included. Pathologist [facility] [place] SODIUM S/P/B 139 136 - 145 MMOL/L 01/09/2025 12:31 PM CDT [facility] POTASSIUM S/P/B 4.4 3.5 - 5.1 MMOL/L 01/09/2025 12:31 PM CDT [facility] CHLORIDE S/P/B 105 97 - 115 MMOL/L 01/09/2025 12:31 PM CDT [facility] CO2 30.8 21.0 - 32.0 MMOL/L 01/09/2025 12:31 PM CDT [facility] GLUCOSE 99 74 - 106 MG/DL 01/09/2025 12:31 PM CDT [facility] BUN 16 7 - 18 MG/DL 01/09/2025 12:31 PM CDT [facility] CREATININE S/P/B 0.63(L) 0.70 - 1.30 MG/DL 01/09/2025 12:31 PM CDT [facility] CALCIUM S/P/B 8.8 8.5 - 10.1 MG/DL 01/09/2025 12:31 PM CDT [facility] BILIRUBIN TOTAL S/P/B 0.3 0.2 - 1.0 MG/DL 01/09/2025 12:31 PM CDT [facility] ALKALINE PHOSPHATASE S/P/B 73 45 - 115 U/L 01/09/2025 12:31 PM CDT [facility] AST 12(L) 15 - 37 U/L 01/09/2025 12:31 PM CDT [facility] ALT 28 16 - 61 U/L 01/09/2025 12:31 PM CDT [facility] TOTAL PROTEIN S/P/B 5.8(L) 6.4 - 8.2 G/DL 01/09/2025 12:31 PM CDT [facility] ALBUMIN S/P/B 3.0(L) 3.4 - 5.0 G/DL 01/09/2025 12:31 PM CDT [facility] ANION GAP 3.2 2.0 - 10.0 MMOL/L 01/09/2025 12:31 PM T [facility] OSMOLALITY (CALC) 289 MOSM/KG 025 12:31 PM T [facility] Comment:REFERENCE RANGE NOT ESTABLISHED GFR ESTIMATE >90 >90 ML/MIN/1. 73 M2 01/09/2025 12:31 PM T [facility] GFR NOTES GFR REFERENCE S: 01/09/2025 12:31 PM T [facility] Comment: THE ESTIMATED GFR IS [...] ml/min/1.73 m2 G5,KIDNEY FAILURE: <15 ml/min/1.73 m2 01/09/2025 11:4 4 AM CDT us Shilpa Gonzales MD LABORATORY Final Result [facility] [address] [place] [address], [id number] * TROPONIN, QUANT (01/09/2025 11:44 AM CDT) Only the most recent of6 resultswithin the time period is included. TROPONIN I HIGH SENSITIVITY 12 0 - 78 ng/L 01/09/2025 12:31 PM CDT [facility] 01/09/2025 11:4 4 AM CDT us Shilpa Gonzales MD LABORATORY Final Result Performing Organization Address City/[facility] Co de Phone Number [facility] [address] [place] [address], [phone] * MAGNESIUM (01/09/2025 11:44 AM CDT) Only the most recent of15 resultswithin the time period is included. MAGNESIUM 1.9 1.6 - 2.6 MG/DL 01/09/2025 12:31 PM CDT [facility] 01/09/2025 11:4 4 AM CDT us Shilpa Gonzales MD LABORATORY Final Result Performing Organization Address [facility] Co de Phone Number [facility] [address] [place] [address], [place] [phone] * (ABNORMAL) SALICYLATE (01/09/2025 11:44 AM CDT) SALICYLATES <1.7(L) 2.8 - 20.0 MG/DL 01/09/2025 12:36 PM CDT [facility] 01/09/2025 11:4 4 AM CDT us Shilpa Gonzales MD LABORATORY Final Result Performing Organization Address City/[facility] Co de Phone Number [facility] [address] [place] [id number], [place] [phone] * ETHANOL (01/09/2025 11:44 AM CDT) ALCOHOL S/P/B ZERO 0 G/DL 01/09/2025 12:16 PM CDT [facility] 01/09/2025 11:4 4 AM CDT Shilpa Gonzales MD LABORATORY Final Result Performing Organization Address [facility] de Phone Number [facility] [address] [place] [address], [phone] * (ABNORMAL) ACETAMINOPHEN (01/09/2025 11:44 AM CDT) ACETAMINOPHEN S/P/B 3.9(L) 10.0 - 30.0 MCG/ML 01/09/2025 12:31 PM CDT [facility] 01/09/2025 11:4 4 AM CDT Shilpa Gonzales MD LABORATORY Final Result Performing Organization Address [facility] de Phone Number [facility] [address] [place] [address], [id number] * ECG 12 lead (01/09/2025 9:44 AM CDT) Only the most recent of4 resultswithin the time period is included. 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1955 Requested By: SHILPA GONZALES Order Number: [id number] Vidhya MD: Marcial Titus Measurements Intervals [place] Rate: 55 P: 1 NV: 154 QRS: 47 QRSD: 86 T: 56 QT: 413 QTc: 396 Interpretive Statements SINUS BRADYCARDIA ST DEVIATION AND MODERATE T-WAVE ABNORMALITY, CONSIDER ANTERIOR ISCHEMIA Procedure Note Marcial Titus MD - 01/09/2025 [facility] Test Date: 2025-01-09 Pat Name: JASPER ALARCON Department: 70 Room: 718 Gender: Male 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 Anatomical Region Laterality Modality Chest Radiographic Marlen ging 01/09/2025 9:59 AM CDT Impressions 01/09/2025 4:50 PM CDT IMPRESSION: 1. No acute cardiopulmonary process is identified. 2. There is redemonstration of a 3.1 cm left upper lobe mass. Ordered By: SHILPA GONZALES Interpreted By: Keren Maradiaga MD, 01/09/2025 9:59 AM Narrative 01/09/2025 4:50 PM CDT [facility] [address] [place], [place] [address] PROCEDURE: XR CHEST PORTABLE. 01/09/2025 9:29 AM. TECHNIQUE: A single view of the chest (AP or PA) was performed. HISTORY: Altered mental status. Weakness. COMPARISON: AP chest radiograph, 12/27/2024 FINDINGS: Support Devices: There is a right IJ inserted chest port with catheter tip terminating within the mid right atrium. Cardiac Silhouette/Mediastinum/Suzy: The cardiac, mediastinal, and hilar contours are unchanged in appearance. Lungs/Pleural Spaces: There is redemonstration of a 3.1 cm left upper lobe mass. The right lung and pleural space are clear. There are calcified granulomas in the left lung base. Chest Wall/Diaphragm/Upper Abdomen: The thoracic musculoskeletal structures and the upper abdomen are unchanged in appearance. Procedure Note Keren Maradiaga MD - 01/09/[address] [address] PROCEDURE: XR CHEST PORTABLE. 01/09/2025 9:29 AM. TECHNIQUE: A single view of the chest (AP or PA) was performed. HISTORY: Altered mental status. Weakness. COMPARISON: AP chest radiograph, 12/27/2024 FINDINGS: Support Devices: There is a right IJ inserted chest port with cathetertip terminating within the mid right atrium. Cardiac Silhouette/Mediastinum/Suzy: The cardiac, mediastinal, and hilarcontours are unchanged in appearance. Lungs/Pleural Spaces: There is redemonstration of a 3.1 cm left upperlobe mass. The right lung and pleural space are clear. There are calcifiedgranulomas in the left lung base. Chest Wall/Diaphragm/Upper Abdomen: The thoracic musculoskeletalstructures and the upper abdomen are unchanged in appearance. IMPRESSION: 1. No acute cardiopulmonary process is identified. 2. There is redemonstration of a 3.1 cm left upper lobe mass. Ordered By: SHILPA GONZALES Interpreted By: Keren Maradiaga MD, 01/09/2025 9:59 AM Shilpa Gonzales MD GENERAL IMAGING Final Result * (ABNORMAL) CBC, AUTO, NO DIFF (01/02/2025 9:19 AM CDT) Only the most recent of2 resultswithin the time period is included. WBC 8.61 4.00 - 10.80 x10'3/uL 01/02/2025 9:59 AM CDT [facility] RBC 3.92(L) 4.50 - 6.10 x10'6/uL 01/02/2025 9:59 AM CDT [facility] HGB 12.6(L) 13.0 - 18.0 G/DL 01/02/2025 9:59 AM CDT [facility] HCT 37.4 37.0 - 52.0 % 01/02/2025 9:59 AM CDT [facility] MCV 95.4 78.0 - 100.0 FL 01/02/2025 9:59 AM CDT [facility] MCH 32.1(H) 27.0 - 31.0 PG 01/02/2025 9:59 AM CDT [facility] MCHC 33.7 33.0 - 36.0 G/DL 01/02/2025 9:59 AM CDT [facility] RDW 14.6(H) 11.5 - 14.5 % 01/02/2025 9:59 AM CDT [facility] PLT 136(L) 150 - 350 x10'3/uL 01/02/2025 9:59 AM CDT [facility] MPV 8.4 7.4 - 10.4 FL 01/02/2025 9:59 AM CDT [facility] 01/02/2025 9:19 AM CDT us Eulogio Britton MD LABORATORY Final Result [facility] [address] [place] [address], [id number] * PHOSPHORUS, INORGANIC PHOSPHATE (01/02/2025 9:19 AM CDT) Only the most recent of7 resultswithin the time period is included. PHOSPHORUS 3.6 2.5 - 4.9 MG/DL 01/02/2025 11:34 AM CDT [facility] 01/02/2025 9:19 AM CDT Eulogio Britton MD LABORATORY Final Result [facility] [address] [place] [address], [id number] * CTA CHEST PE PROTOCOL (12/28/2024 5:45 PM CDT) Anatomical Region Laterality Modality Chest Computed Tomogra phy 12/28/2024 8:49 PM CDT Impressions 12/28/2024 9:24 PM CDT IMPRESSION: 1. No acute pulmonary embolism. 2. Approximately 3.5 x 2.7 cm lobular spiculated mass, left lower lobe, INCREASED in size, previously 3 x 2.4 cm. 3. Coronary artery disease. Ordered By: LAUREN WINKLER Interpreted By: Alli Cleary MD, 12/28/2024 8:49 PM Narrative 12/28/2024 9:24 PM CDT [facility] [address] [place], [place] [address] EXAMINATION: CTA CHEST WITH CONTRAST, PULMONARY EMBOLISM CLINICAL HISTORY: SYNCOPE AND TACHYCARDIA. COMPARISON: 11/21/2024 TECHNIQUE: Computed tomography angiography was performed of the chest after administration of intravenous contrast, 80 mL Isovue-370, according to pulmonary embolism protocol. Maximum intensity projection images were obtained. A dose lowering technique was used for this procedure, which may include, but is not limited to, dose reduction technique, automated exposure control, the use of iterative reconstruction, and ALARA (As Low As Reasonably Achievable) / Image Gently techniques. FINDINGS: Approximately 3.5 x 2.7 cm lobular spiculated mass, left lower lobe, increased in size, previously 3 x 2.4 cm. Calcified granulomas. No pneumothorax. No effusion. Bibasilar linear atelectasis/scarring. Coronary artery disease. Atherosclerotic thoracic aorta. No pathologic filling defects in pulmonary artery. Subcentimeter calcified thyroid nodules. Calcified mediastinal and hilar lymph nodes. Implantable, tunneled right jugular central venous catheter ends in superior vena cava. Asymmetric right gynecomastia. Punctate splenic calcifications. Anterior cervical spinal fusion. Procedure Note Alli Cleary MD - 12/28/2024 [facility] [address] [place], [place] [address] EXAMINATION: CTA CHEST WITH CONTRAST, PULMONARY EMBOLISM CLINICAL HISTORY: SYNCOPE AND TACHYCARDIA. COMPARISON: 11/21/2024 TECHNIQUE: Computed tomography angiography was performed of the chestafter administration of intravenous contrast, 80 mL Isovue-370, accordingto pulmonary embolism protocol. Maximum intensity projection images wereobtained. A dose lowering technique was used for this procedure, which mayinclude, but is not limited to, dose reduction technique, automatedexposure control, the use of iterative reconstruction, and ALARA (As LowAs Reasonably Achievable) / Image Gently techniques. FINDINGS: Approximately 3.5 x 2.7 cm lobular spiculated mass, left lower lobe,increased in size, previously 3 x 2.4 cm. Calcified granulomas. Nopneumothorax. No effusion. Bibasilar linear atelectasis/scarring. Coronaryartery disease. Atherosclerotic thoracic aorta. No pathologic fillingdefects in pulmonary artery. Subcentimeter calcified thyroid nodules.Calcified mediastinal and hilar lymph nodes. Implantable, tunneled rightjugular central venous catheter ends in superior vena cava. Asymmetricright gynecomastia. Punctate splenic calcifications. Anterior cervicalspinal fusion. IMPRESSION: 1. No acute pulmonary embolism. 2. Approximately 3.5 x 2.7 cm lobular spiculated mass, left lower lobe,INCREASED in size, previously 3 x 2.4 cm. 3. Coronary artery disease. Ordered By: LAUREN WINKLER Interpreted By: Alli Cleary MD, 12/28/2024 8:49 PM us Lauren Winkler MD CT Final Res ult * (ABNORMAL) POCT glucose (12/28/2024 6:13 AM CDT) Only the most recent of21 resultswithin the time period is included. GLUCOSE POC 132(H) 70 - 109 12/28/2024 6:19 AM CDT [facility] 12/28/2024 6:13 AM CDT Charlene Prieto MD POCT ORDERABLES - DEVICE Final Result Performing Organization Address [facility] Co de Phone Number [facility] [address] [place] [address], [id number] * FIBRINOGEN (12/12/2024 3:27 AM CDT) Only the most recent of3 resultswithin the time period is included. FIBRINOGEN 320 200 - 393 MG/DL 12/12/2024 4:04 AM CDT [facility] 12/12/2024 3:27 AM CDT Parish Arroyo MD LABORATORY Final Result Performing Organization Address [facility] Co de Phone Number [facility] [address] [place] [address], [id number] * LIPID PANEL (12/11/2024 3:15 AM CDT) CHOLESTEROL 217 MG/DL 12/11/2024 4:02 AM CDT [facility] Comment:BORDERLINE HIGH: 200 -239 TRIGLYCERIDES 60 MG/DL 12/11/2024 4:02 AM CDT [facility] Comment:<150 NORMAL HDL 69 >39 MG/DL 12/11/2024 4:02 AM CDT [facility] LDL (CALCULATED) 136 MG/DL 12/12/19 4:02 AM CDT [facility] Comment:130-159 BORDERLINE H IGH VLDL CALCULATION 12 MG/DL 12/12/19 25 4:02 AM CDT [facility] Comment:REFERENCE RANGE NOT ESTABLISHED CHOL/HDL RATIO 3.1 12/11/2024 4:02 AM CDT [facility] Comment:REFERENCE RANGE NOT ESTABLISHED LDL/HDL 2.0 12/11/2024 4:02 AM CDT [facility] Comment:REFERENCE RANGE NOT ESTABLISHED NON HDL CHOLESTEROL 148 MG/DL 12/11/2024 4:02 AM CDT [facility] Comment:REFERENCE RANGE NOT ESTABLISHED 12/11/2024 3:15 AM CDT Parish Arroyo MD LABORATORY Final Result [facility] [address] [place] [address], [id number] * EEG routine (12/10/2024 12:00 PM CDT) 12/10/2024 12:0 0 PM CDT Narrative ESCRIPTION - 12/11/2024 12:09 PM CDT Patient Name: JASPER ALARCON Date of : 1955 Account: [id number] Facility: [facility] Location: [address] EEG HISTORY: Mr. Alarcon is a 69-year-old male with a history of seizures. Routine awake and asleep EEG was performed. The patient develops a near-normal background with some low amplitude, theta and delta slowing seen throughout. No paroxysmal or definite epileptiform activity is seen. No pathologic slowing is seen. No asymmetries are seen. During activation procedures, no abnormalities were elicited. The patient developed slight sleep in the course of EEG. SUMMARY: Mildly abnormal EEG consistent with mild encephalopathy or postictal state. No epileptiform activity was seen. Clinical correlation is required. Signature/Date: CLARIBEL CHAMPION MD #[id number] /HEAVENLY us Maria Dolores Mcrae MD NEUROLOGY ORDERABL ES Final Result ESCRIPTION * (ABNORMAL) POCT ACUTE VENOUS PANEL (12/10/2024 7:44 AM CDT) SODIUM WHOLE BLOOD 136(L) 138 - 146 mmol/L 12/10/2024 7:47 AM CDT [facility] POTASSIUM WHOLE BLOOD 3.6 3.5 - 4.9 mmol/L 12/10/2024 7:47 AM CDT [facility] CA IONIZED WH BLOOD 1.15 1.12 - 1.32 mmol/L 12/10/2024 7:47 AM CDT [facility] POC PH VENOUS 7.367 7.31 - 7.41 12/10/2024 7:47 AM CDT [facility] POC PCO2 VENOUS 40.2(L) 41.0 - 51.0 MMHG 12/10/2024 7:47 AM CDT [facility] POC PO2 VENOUS 43(H) 25 - 40 MMHG 12/10/2024 7:47 AM CDT [facility] POC HCO3 VENOUS 23.1 23 - 28 MMOL/L 12/10/2024 7:47 AM CDT [facility] POC TCO2 VENOUS 24 24 - 29 MMOL/L 12/10/2024 7:47 AM CDT [facility] POC BASE DEFICIT VENOUS 2 0 - 2 MMOL/L 12/10/2024 7:47 AM CDT [facility] POC HEMATOCRIT 34(L) 38 - 51 % 12/10/2024 7:47 AM CDT [facility] TIME TEST WAS PERFORMED: 744 12/10/2024 7:47 AM CDT [facility] 12/10/2024 7:44 AM CDT us Maria Dolores Mcrae MD POCT ORDERABLES - DEVICE Final Result Performing Organization Address [facility] de Phone Number [facility] [address] [place] [address], [phone] * BLOOD TYPING, ABO AND RH (12/10/2024 6:20 AM CDT) ABO/RH O POSITIVE 12/10/2024 7:17 AM CDT [facility] 12/10/2024 6:20 AM CDT Parish Arroyo MD BLOOD BANK TEST ORDERABLES Ifeoma l Result Performing Organization Address [facility] de Phone Number [facility] [address] [place] [address], [phone] * TYPE & SCREEN (12/10/2024 6:05 AM CDT) ABO/RH O POSITIVE 12/10/2024 7:16 AM CDT [facility] ANTIBODY SCREEN NEGATIVE 12/10/2024 7:16 AM CDT [facility] SAMPLE EXPIRATION 12/13/2024,2 359 12/10/2024 6:25 AM CDT [facility] 12/10/2024 6:05 AM CDT Parish Arroyo MD BLOOD BANK TEST ORDERABLES Ifeoma l Result Performing Organization Address [facility] de Phone Number [facility] [address] [place] [address], [id number] * Critical Care (12/10/2024 2:15 AM CDT) Narrative Compa Banuelos MD - 12/10/2024 2:15 AM CDT Compa Banuelos MD 12/10/2024 2:55 AM Critical Care Performed by: Compa Baneulos MD Authorized by: Cmopa Banuelos MD Critical care provider statement: Critical care time (minutes): 60 Critical care start time: 12/10/2024 1:17 AM Critical care end time: 12/10/2024 2:17 AM Critical care was necessary to treat or prevent imminent or life-threatening deterioration of the following conditions: Dehydration, metabolic crisis and [employer] failure or compromise Critical care was time spent personally by me on the following activities: Examination of patient, re-evaluation of patient's condition, review of old charts, pulse oximetry, ordering and review of radiographic studies, ordering and review of laboratory studies, discussions with consultants and ordering and performing treatments and interventions Care discussed with: admitting provider us Compa Vin LOPEZ PROCEDURE/MINOR SURGICAL ORDERAB LES Final Result * CT RAD THRPY PLAN WO CON (11/30/2024 11:07 AM CDT) Anatomical Region Laterality Modality Undefined Computed Tomogra phy 12/01/2024 2:13 PM CDT Impressions 12/01/2024 2:28 PM CDT IMPRESSION: Radiation therapy planning CT scan as described. Ordered By: MILAN VAZQUEZ Interpreted By: Manuel Valdes MD, 12/01/2024 2:13 PM Narrative 12/01/2024 2:[address] PM [address] [place] [address] Examination: Radiation therapy planning CT scan. Exam time: 1106 hours. Clinical history: Metastatic lung cancer. Comparison: MRI of the brain, 11/07/2024 ([facility]); noncontrast CT of the chest, 11/21/2024 (this institution). Technique: Axial scans from the upper chest through the vertex following the administration of intravenous contrast with fiducial markers in place. A dose lowering technique was used for this procedure, which may include, but is not limited to, dose reduction techniques, automated exposure control, the use of iterative reconstruction and ALARA/Image Gently techniques. Findings: There are three clustered enhancing masses in the left occipital lobe measuring up to 1.5 cm compatible with the metastasis documented on MRI. There is surrounding vasogenic edema. Additional smaller foci of enhancement in either hemisphere are identified correlating with some of the additional metastases present on MRI. These are annotated on the images. There is focal vasogenic edema in the paramedian left parietal region near the vertex (image 99 for example). The known underlying lesion is not clearly evident. No other areas of abnormal x-ray attenuation or contrast enhancement are identified. No extracerebral fluid collections. No suspicious bony lesion is identified. No lymphadenopathy is identified. Right jugular port catheter, changes of centrilobular emphysema and partially imaged left upper lobe mass noted. Procedure Note Manuel Valdes MD - 12/01/2024 [facility] [address] [place] [address] Examination: Radiation therapy planning CT scan. Exam time: 1106 hours. Clinical history: Metastatic lung cancer. Comparison: MRI of the brain, 11/07/2024 ([facility]); noncontrast CT of the chest, 11/21/2024 (this institution). Technique: Axial scans from the upper chest through the vertex followingthe administration of intravenous contrast with fiducial markers in place.A dose lowering technique was used for this procedure, which may include,but is not limited to, dose reduction techniques, automated exposurecontrol, the use of iterative reconstruction and ALARA/Image Gentlytechniques. Findings: There are three clustered enhancing masses in the left occipitallobe measuring up to 1.5 cm compatible with the metastasis documented onMRI. There is surrounding vasogenic edema. Additional smaller foci ofenhancement in either hemisphere are identified correlating with some ofthe additional metastases present on MRI. These are annotated on theimages. There is focal vasogenic edema in the paramedian left parietalregion near the vertex (image 99 for example). The known underlying lesionis not clearly evident. No other areas of abnormal x-ray attenuation orcontrast enhancement are identified. No extracerebral fluid collections.No suspicious bony lesion is identified. No lymphadenopathy is identified.Right jugular port catheter, changes of centrilobular emphysema andpartially imaged left upper lobe mass noted. IMPRESSION: Radiation therapy planning CT scan as described. Ordered By: MILAN VAZQUEZ Interpreted By: Manuel Valdes MD, 12/01/2024 2:13 PM Milan Vazquez MD CT Final Result * CT CHEST WO CON (11/21/2024 9:30 AM CDT) Anatomical Region Laterality Modality Chest Computed Tomogra phy 11/22/2024 9:58 AM CDT Impressions 11/22/2024 10:09 AM CDT IMPRESSION: 1. No acute intrathoracic process identified. 2. Stable left upper lobe mass compatible with malignancy. 3. Coronary artery disease. 4. Centrilobular emphysema. 5. Old granulomatous disease as described. Ordered By: TINY PACHECO Interpreted By: Manuel Valdes MD, 11/22/2024 9:58 AM Narrative 11/22/2024 10:09 AM CDT [address] [place] [address] Examination: CT of the chest without contrast. Exam time: 0928 hours. Clinical history: Follow-up of metastatic lung cancer. History of smoking. Comparison: Contrast-enhanced CT of the chest, abdomen and pelvis, 11/08/2024 ([facility]). Technique: Spiral scanning was performed through the chest without contrast. Sagittal and coronal reconstructions were performed from the data set. A dose lowering technique was used for this procedure, which may include, but is not limited to, dose reduction techniques, automated exposure control, the use of iterative reconstruction and ALARA/Image Gently techniques. Findings: Right jugular port catheter remains in place with the tip terminating in the SVC. Minimal calcific coronary artery disease and mild atherosclerotic calcification of the aorta and arch vessels noted. The heart and great vessels are otherwise unremarkable for the noncontrast technique. Calcified mediastinal and left hilar lymph nodes are again evident, compatible with old granulomatous disease. No mediastinal or hilar adenopathy is identified. No endobronchial abnormality is identified. Changes of centrilobular emphysema are again evident. Calcified pulmonary granulomas are again evident. Lobulated mass in the left upper lobe measures approximately 3 cm in greatest dimension in the axial plane, stable allowing for variations inherent in technique and measurement. Minor pleural/parenchymal scarring at the inferior margin of the right major fissure is again evident. Allowing for respiratory motion, the lungs are otherwise clear. No pleural abnormalities are seen. The chest wall structures are unchanged. Plate and screw fusion in the lower cervical spine again evident. No suspicious bony lesion is identified. The included sections through the upper abdomen show no acute process. Calcified splenic granulomas are noted. Procedure Note Manuel Valdes MD - 11/22/2024 [facility] [address] [place] [address] Examination: CT of the chest without contrast. Exam time: 0928 hours. Clinical history: Follow-up of metastatic lung cancer. History ofsmoking. Comparison: Contrast-enhanced CT of the chest, abdomen and pelvis,11/08/2024 ([facility]). Technique: Spiral scanning was performed through the chest withoutcontrast. Sagittal and coronal reconstructions were performed from thedata set. A dose lowering technique was used for this procedure, whichmay include, but is not limited to, dose reduction techniques, automatedexposure control, the use of iterative reconstruction and ALARA/ImageGently techniques. Findings: Right jugular port catheter remains in place with the tipterminating in the SVC. Minimal calcific coronary artery disease and mildatherosclerotic calcification of the aorta and arch vessels noted. Theheart and great vessels are otherwise unremarkable for the noncontrasttechnique. Calcified mediastinal and left hilar lymph nodes are againevident, compatible with old granulomatous disease. No mediastinal orhilar adenopathy is identified. No endobronchial abnormality isidentified. Changes of centrilobular emphysema are again evident.Calcified pulmonary granulomas are again evident. Lobulated mass in theleft upper lobe measures approximately 3 cm in greatest dimension in theaxial plane, stable allowing for variations inherent in technique andmeasurement. Minor pleural/parenchymal scarring at the inferior margin ofthe right major fissure is again evident. Allowing for respiratory motion,the lungs are otherwise clear. No pleural abnormalities are seen. Thechest wall structures are unchanged. Plate and screw fusion in the lowercervical spine again evident. No suspicious bony lesion is identified. Theincluded sections through the upper abdomen show no acute process.Calcified splenic granulomas are noted. IMPRESSION: 1. No acute intrathoracic process identified. 2. Stable left upper lobe mass compatible with malignancy. 3. Coronary artery disease. 4. Centrilobular emphysema. 5. Old granulomatous disease as described. Ordered By: TINY PACHECO Interpreted By: Manuel Valdes MD, 11/22/2024 9:58 AM us Tiny Pacheco MD CT Final Result * CT CHEST+ABD+PEL W CON (11/08/2024 11:39 PM CDT) Anatomical Region Laterality Modality Chest, Abdomen, Pelvis Computed Tomography 11/09/2024 5:39 AM CDT Impressions 11/09/2024 6:06 AM CDT IMPRESSION: 1. Enlargement of spiculated noncalcified nodule in the left upper lobe since 06/22/2024, highly concerning for malignancy. 2. Stable multiple hypodense lesions in the left lobe of thyroid and stable calcified nodule in the posterior inferior right lobe of thyroid, likely multinodular goiter. No follow-up recommended unless deemed clinically necessary. 3. Stable minimally calcified lymph node in the left aorticopulmonary window, likely benign and reactive. No definite pathologic adenopathy in the chest, abdomen or pelvis. 4. Stable calcified granulomas in the spleen with no suspicious splenic lesion identified. 5. Stable small bilateral renal cysts. 6. Colonic diverticulosis without diverticulitis. Moderate stool in the colon suggesting constipation. 2 tiny hyperdense nodular opacities in the cecum were not seen on the prior exam and are are likely stool. Attention to this area can be made on follow-up surveillance CT exam for metastatic workup of the known lung cancer. 7. Mild nonspecific fluid distention of a few small bowel loops in the lower abdomen and pelvis; please correlate clinically for mild nonspecific enteritis. This CT exam was performed using one or more of the following dose reduction techniques: automated exposure control, adjustment of the mA and/or kV according to patient size, the use of iterative reconstruction technique, use of ALARA (As Low As Reasonably Achievable) and/or use of Image Gently techniques. Referred By: Interpreted By: Sara Lugo MD, 11/09/2024 5:39 AM Narrative 11/09/2024 6:06 AM CDT [facility] [address] [place], [place] [address] EXAMINATION: CT Chest, Abdomen, and Pelvis with Intravenous Contrast, Axial Imaging with 2-D coronal and sagittal reconstructions. 100 mL Isovue 370 was administered intravenously. INDICATION: Metastatic disease workup. COMPARISON: Outside CT chest, abdomen, and pelvis with contrast exam from [facility] dated 11/03/2024, CT chest, abdomen and pelvis with contrast 06/22/2024, CT chest 12/26/2022.. CT CHEST FINDINGS: There has been interval enlargement of spiculated noncalcified nodule in the left upper lobe since 06/22/2024, currently measuring 3 x 3.2 x 2.5 cm and previously 2.3 x 2.7 x 2.2 cm on axial image 46, coronal image 46. Stable calcified granuloma identified anteriorly and inferiorly in the left upper lobe since 06/22/2024. Stable multiple calcified granulomas in the left lower lobe. No other suspicious pulmonary nodule. No acute infiltrate, consolidation, pleural effusion or pneumothorax. Minimal chronic thickening of the right fissure related to chronic scarring. Minimal atelectasis in the posterior medial superior segment right lower lobe and in the posterior right lung base. No other suspicious for a nodule. No consolidation, pleural effusion, or pneumothorax. Stable multiple hypodense lesions in the left lobe of thyroid since 06/22/2024 and 12/26/2022. Stable calcified nodule in the posterior inferior right lobe of thyroid, likely multinodular goiter; no routine follow-up imaging is recommended. Stable calcified granulomas in the mediastinum and left hilum. Stable minimally calcified lymph node in the left aorticopulmonary window measuring 1.6 x 0.9 without significant change since 12/26/2022, also likely benign and reactive. No definite pathologic adenopathy is seen in the chest. Stable mild asymmetric right gynecomastia since 12/26/2022. Heart size is normal with no pericardial effusion. Mild atherosclerotic calcifications in the aortic arch and descending aorta with age appropriate appearance of the aorta. 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 Stable chronic degenerative changes in the thoracic spine. Partially included anterior fusion changes of the lower cervical spine. No acute osseous abnormality. CT ABDOMEN AND PELVIS FINDINGS: Stable calcified granulomas in the spleen with no suspicious splenic lesion identified; the abnormality seen on the PET/CT exam of 1 1.5 cm advancement of the spleen may have been an artifact uterine enlargement with a calcified granuloma in the left lung base. No suspicious lytic lesion on today's exam. Liver, gallbladder, pancreas, and bilateral adrenal glands remain unremarkable. Small bilateral renal cysts, the largest in the lateral lower left kidney measuring 4 cm. Bladder is unremarkable. Prostate is enlarged measuring 5.8 cm. Mild nonspecific fluid distention of a few small bowel loops in the lower abdomen and pelvis; please correlate clinically for mild nonspecific enteritis. Moderate stool in the colon suggesting constipation. Colonic diverticulosis without diverticulitis. 2 subcentimeter adjacent lobulated hyperdense nodular densities in the cecum on coronal series 4 images 72-73, axial image 173 are new since 11/03/2024, likely hyperdense stool, which suggests surveillance. Appendix is normal. No bowel obstruction. Atherosclerotic calcifications in the abdominal aorta and its distal branches without aneurysm. No ascites or adenopathy. Stable chronic degenerative changes of the lumbar spine. Sclerotic foci in the lower left ilium are stable and are likely benign bone islands. No acute osseous abnormality. Procedure Note Sara Lugo MD - 11/09/[address] [address] EXAMINATION: CT Chest, Abdomen, and Pelvis with Intravenous Contrast,Axial Imaging with 2-D coronal and sagittal reconstructions. 100 mL [id number] was administered intravenously. INDICATION: Metastatic disease workup. COMPARISON: [facility] CT chest, abdomen and pelvis withcontrast 06/22/2024, CT chest 12/26/2022.. CT CHEST FINDINGS: There has been interval enlargement of spiculated noncalcified nodule inthe left upper lobe since 06/22/2024, currently measuring 3 x 3.2 x 2.5 cmand previously 2.3 x 2.7 x 2.2 cm on axial image 46, coronal image 46.Stable calcified granuloma identified anteriorly and inferiorly in theleft upper lobe since 06/22/2024. Stable multiple calcified granulomas inthe left lower lobe. No other suspicious pulmonary nodule. No acuteinfiltrate, consolidation, pleural effusion or pneumothorax. Minimalchronic thickening of the right fissure related to chronic scarring.Minimal atelectasis in the posterior medial superior segment right lowerlobe and in the posterior right lung base. No other suspicious for anodule. No consolidation, pleural effusion, or pneumothorax. Stable multiple hypodense lesions in the left lobe of thyroid since06/22/2024 and 12/26/2022. Stable calcified nodule in the posteriorinferior right lobe of thyroid, likely multinodular goiter; no routinefollow-up imaging is recommended. Stable calcified granulomas in themediastinum and left hilum. Stable minimally calcified lymph node in theleft aorticopulmonary window measuring 1.6 x 0.9 without significantchange since 12/26/2022, also likely benign and reactive. No definitepathologic adenopathy is seen in the chest. Stable mild asymmetric rightgynecomastia since 12/26/2022. Heart size is normal with no pericardialeffusion. Mild atherosclerotic calcifications in the aortic arch anddescending aorta with age appropriate appearance of the aorta. Stablesegmentation anomaly of T5 vertebral body. Stable chronic degenerativechanges in the thoracic spine. Partially included anterior fusion changesof the lower cervical spine. No acute osseous abnormality. CT ABDOMEN AND PELVIS FINDINGS: Stable calcified granulomas in the spleen with no suspicious spleniclesion identified; the abnormality seen on the PET/CT exam of 1 1.5 cmadvancement of the spleen may have been an artifact uterine enlargementwith a calcified granuloma in the left lung base. No suspicious lyticlesion on today's exam. Liver, gallbladder, pancreas, and bilateraladrenal glands remain unremarkable. Small bilateral renal cysts, thelargest in the lateral lower left kidney measuring 4 cm. Bladder isunremarkable. Prostate is enlarged measuring 5.8 cm. Mild nonspecific fluid distention of a few small bowel loops in the lowerabdomen and pelvis; please correlate clinically for mild nonspecificenteritis. Moderate stool in the colon suggesting constipation. Colonicdiverticulosis without diverticulitis. 2 subcentimeter adjacent lobulatedhyperdense nodular densities in the cecum on coronal series 4 [id number], axial image 173 are new since 11/03/2024, likely hyperdense stool,which suggests surveillance. Appendix is normal. No bowel obstruction.Atherosclerotic calcifications in the abdominal aorta and its distalbranches without aneurysm. No ascites or adenopathy. Stable chronicdegenerative changes of the lumbar spine. Sclerotic foci in the lowerleft ilium are stable and are likely benign bone islands. No acuteosseous abnormality. IMPRESSION: 1. Enlargement of spiculated noncalcified nodule in the left upper lobesince 06/22/2024, highly concerning for malignancy. 2. Stable multiple hypodense lesions in the left lobe of thyroid andstable calcified nodule in the posterior inferior right lobe of thyroid,likely multinodular goiter. No follow-up recommended unless deemedclinically necessary. 3. Stable minimally calcified lymph node in the left aorticopulmonarywindow, likely benign and reactive. No definite pathologic adenopathy inthe chest, abdomen or pelvis. 4. Stable calcified granulomas in the spleen with no suspicious spleniclesion identified. 5. Stable small bilateral renal cysts. 6. Colonic diverticulosis without diverticulitis. Moderate stool in thecolon suggesting constipation. 2 tiny hyperdense nodular opacities in thececum were not seen on the prior exam and are are likely stool. Attentionto this area can be made on follow-up surveillance CT exam for metastaticworkup of the known lung cancer. 7. Mild nonspecific fluid distention of a few small bowel loops in thelower abdomen and pelvis; please correlate clinically for mild nonspecificenteritis. This CT exam was performed using one or more of the following dosereduction techniques: automated exposure control, adjustment of the mAand/or kV according to patient size, the use of iterative reconstructiontechnique, use of ALARA (As Low As Reasonably Achievable) and/or use ofImage Gently techniques. Referred By: Interpreted By: Sara Lugo MD, 11/09/2024 5:39 AM us [place] MD CT Final Result * MRI CERV SPINE WWO CON (10/21/2024 11:33 AM CDT) Anatomical Region Laterality Modality Spine Magnetic Resonan ce 10/25/2024 4:53 PM CDT Impressions 10/25/2024 7:34 PM CDT IMPRESSION: 1. No abnormal marrow signal or enhancement to suggest metastatic disease. 2. Mild to moderate multilevel cervical spondylosis, as described above. 3. No significant spinal canal or neural foraminal stenosis at any level of the thoracic spine. 4. Masslike opacity within the left upper lobe, better characterized on the PET/CT from 08/02/2024. Referred By: MAYTE BAILEY Interpreted By: Julio Cesar Mann MD, 10/25/2024 4:53 PM Narrative 10/25/2024 7:[address] [place] [address] EXAMINATION: MRI THOR SPINE WWO CON, MRI CERV SPINE WWO CON, 10/25/2024 TECHNIQUE: Multiplanar multisequence magnetic resonance images of the cervical and thoracic spine were obtained before and after the administration of 18 mL of MultiHance injected through the right antecubital fossa IV, without evidence of adverse reaction. HISTORY:Dx Lung Cancer, Neck & Back Pain, Hx Neck Surgery 1999 COMPARISON: MRI thoracic spine 10/21/2017 FINDINGS: MRI CERVICAL SPINE: The cervical vertebral bodies and facets are well aligned. The cervical vertebral body heights are preserved. There is intervertebral disc height loss at C4-5 and C5-6 with endplate degenerative changes at these levels. Anterior cervical fusion of C6-7 with ankylosis at this level. No abnormal prevertebral or paraspinal soft tissue swelling. No abnormal hyperintensity within the cervical spinal cord. The cervical spinal cord is a normal signal throughout its course. C2-3: No significant spinal canal stenosis. Uncovertebral joint hypertrophy. Mild to moderate left neural foraminal stenosis. Mild right neural foraminal stenosis. C3-4: No significant spinal canal stenosis. Vertebral joint hypertrophy. Moderate left neural foraminal stenosis. [id number] right neural foraminal stenosis. C4-5: Disc bulge impressing the ventral thecal sac. Moderate spinal canal stenosis. Vertebral joint hypertrophy. Severe bilateral neural foraminal stenosis. C5-6: Disc bulge with superimposed central disc protrusion impressing the ventral thecal sac. Mild to moderate spinal canal stenosis. Uncovertebral joint hypertrophy. Severe right neural foraminal stenosis. Mild/moderate left neural foraminal stenosis. C6-7: No significant spinal canal stenosis. Uncovertebral joint hypertrophy. Mild to moderate bilateral neural foraminal stenosis. C7-T1: No significant spinal canal stenosis. Facet joint hypertrophy. Mild to moderate bilateral neural foraminal stenosis. MRI THORACIC SPINE: There are 12 rib-bearing thoracic-type vertebral bodies. The thoracic vertebral bodies and facets are well aligned. The thoracic vertebral body heights are otherwise preserved. 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 No abnormal marrow signal. No significant spinal canal or neural foraminal stenosis at any level. The thoracic spinal cord has normal signal throughout its course. The thoracic spinal cord is normal signal throughout its course. There is a 3.2 cm masslike opacity within the left upper lobe (best seen on series 7 image 12). Procedure Note Julio Cesar Mann MD - 10/25/2024 [place] [id number] [place] [address] EXAMINATION: MRI THOR SPINE WWO CON, MRI CERV SPINE WWO CON, 10/25/2024 TECHNIQUE: Multiplanar multisequence magnetic resonance images of thecervical and thoracic spine were obtained before and after theadministration of 18 mL of MultiHance injected through the rightantecubital fossa IV, without evidence of adverse reaction. HISTORY:Dx Lung Cancer, Neck & Back Pain, Hx Neck Surgery 1999 COMPARISON: MRI thoracic spine 10/21/2017 FINDINGS: MRI CERVICAL SPINE: The cervical vertebral bodies and facets are wellaligned. The cervical vertebral body heights are preserved. There isintervertebral disc height loss at C4-5 and C5-6 with endplatedegenerative changes at these levels. Anterior cervical fusion of C6-7with ankylosis at this level. No abnormal prevertebral or paraspinal softtissue swelling. No abnormal hyperintensity within the cervical spinalcord. The cervical spinal cord is a normal signal throughout itscourse. C2-3: No significant spinal canal stenosis. Uncovertebral jointhypertrophy. Mild to moderate left neural foraminal stenosis. Mild rightneural foraminal stenosis. C3-4: No significant spinal canal stenosis. Vertebral joint hypertrophy.Moderate left neural foraminal stenosis. [id number] right neuralforaminal stenosis. C4-5: Disc bulge impressing the ventral thecal sac. Moderate spinal canalstenosis. Vertebral joint hypertrophy. Severe bilateral neuralforaminal stenosis. C5-6: Disc bulge with superimposed central disc protrusion impressing theventral thecal sac. Mild to moderate spinal canal stenosis.Uncovertebral joint hypertrophy. Severe right neural foraminal stenosis.Mild/moderate left neural foraminal stenosis. C6-7: No significant spinal canal stenosis. Uncovertebral jointhypertrophy. Mild to moderate bilateral neural foraminal stenosis. C7-T1: No significant spinal canal stenosis. Facet joint hypertrophy.Mild to moderate bilateral neural foraminal stenosis. MRI THORACIC SPINE: There are 12 rib-bearing thoracic-type vertebralbodies. The thoracic vertebral bodies and facets are well aligned. Thethoracic vertebral body heights are otherwise preserved. 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 No abnormal marrow signal. No significant spinalcanal or neural foraminal stenosis at any level. The thoracic spinal cordhas normal signal throughout its course. The thoracic spinal cord isnormal signal throughout its course. There is a 3.2 cm masslike opacitywithin the left upper lobe (best seen on series 7 image 12). IMPRESSION: 1. No abnormal marrow signal or enhancement to suggest metastaticdisease. 2. Mild to moderate multilevel cervical spondylosis, as describedabove. 3. No significant spinal canal or neural foraminal stenosis at any levelof the thoracic spine. 4. Masslike opacity within the left upper lobe, better characterized onthe PET/CT from 08/02/2024. Referred By: MAYTE BAILEY Interpreted By: Julio Cesar Mann MD, 10/25/2024 4:53 PM us Mayte Bailey MD MRI Final Re sult * MRI THOR SPINE WWO CON (10/21/2024 11:32 AM CDT) Anatomical Region Laterality Modality Spine Magnetic Resonan ce 10/25/2024 4:53 PM CDT Impressions 10/25/2024 7:34 PM CDT IMPRESSION: 1. No abnormal marrow signal or enhancement to suggest metastatic disease. 2. Mild to moderate multilevel cervical spondylosis, as described above. 3. No significant spinal canal or neural foraminal stenosis at any level of the thoracic spine. 4. Masslike opacity within the left upper lobe, better characterized on the PET/CT from 08/02/2024. Referred By: MAYTE BAILEY Interpreted By: Julio Cesar Mann MD, 10/25/2024 4:53 PM Narrative 10/25/2024 7:34 PM CDT [place] [id number] [place] [address] EXAMINATION: MRI THOR SPINE WWO CON, MRI CERV SPINE WWO CON, 10/25/2024 TECHNIQUE: Multiplanar multisequence magnetic resonance images of the cervical and thoracic spine were obtained before and after the administration of 18 mL of MultiHance injected through the right antecubital fossa IV, without evidence of adverse reaction. HISTORY:Dx Lung Cancer, Neck & Back Pain, Hx Neck Surgery 1999 COMPARISON: MRI thoracic spine 10/21/2017 FINDINGS: MRI CERVICAL SPINE: The cervical vertebral bodies and facets are well aligned. The cervical vertebral body heights are preserved. There is intervertebral disc height loss at C4-5 and C5-6 with endplate degenerative changes at these levels. Anterior cervical fusion of C6-7 with ankylosis at this level. No abnormal prevertebral or paraspinal soft tissue swelling. No abnormal hyperintensity within the cervical spinal cord. The cervical spinal cord is a normal signal throughout its course. C2-3: No significant spinal canal stenosis. Uncovertebral joint hypertrophy. Mild to moderate left neural foraminal stenosis. Mild right neural foraminal stenosis. C3-4: No significant spinal canal stenosis. Vertebral joint hypertrophy. Moderate left neural foraminal stenosis. [id number] right neural foraminal stenosis. C4-5: Disc bulge impressing the ventral thecal sac. Moderate spinal canal stenosis. Vertebral joint hypertrophy. Severe bilateral neural foraminal stenosis. C5-6: Disc bulge with superimposed central disc protrusion impressing the ventral thecal sac. Mild to moderate spinal canal stenosis. Uncovertebral joint hypertrophy. Severe right neural foraminal stenosis. Mild/moderate left neural foraminal stenosis. C6-7: No significant spinal canal stenosis. Uncovertebral joint hypertrophy. Mild to moderate bilateral neural foraminal stenosis. C7-T1: No significant spinal canal stenosis. Facet joint hypertrophy. Mild to moderate bilateral neural foraminal stenosis. MRI THORACIC SPINE: There are 12 rib-bearing thoracic-type vertebral bodies. The thoracic vertebral bodies and facets are well aligned. The thoracic vertebral body heights are otherwise preserved. 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 No abnormal marrow signal. No significant spinal canal or neural foraminal stenosis at any level. The thoracic spinal cord has normal signal throughout its course. The thoracic spinal cord is normal signal throughout its course. There is a 3.2 cm masslike opacity within the left upper lobe (best seen on series 7 image 12). Procedure Note Julio Cesar Mann MD - 10/25/[address] [place] [address] EXAMINATION: MRI THOR SPINE WWO CON, MRI CERV SPINE WWO CON, 10/25/2024 TECHNIQUE: Multiplanar multisequence magnetic resonance images of thecervical and thoracic spine were obtained before and after theadministration of 18 mL of MultiHance injected through the rightantecubital fossa IV, without evidence of adverse reaction. HISTORY:Dx Lung Cancer, Neck & Back Pain, Hx Neck Surgery 1999 COMPARISON: MRI thoracic spine 10/21/2017 FINDINGS: MRI CERVICAL SPINE: The cervical vertebral bodies and facets are wellaligned. The cervical vertebral body heights are preserved. There isintervertebral disc height loss at C4-5 and C5-6 with endplatedegenerative changes at these levels. Anterior cervical fusion of C6-7with ankylosis at this level. No abnormal prevertebral or paraspinal softtissue swelling. No abnormal hyperintensity within the cervical spinalcord. The cervical spinal cord is a normal signal throughout itscourse. C2-3: No significant spinal canal stenosis. Uncovertebral jointhypertrophy. Mild to moderate left neural foraminal stenosis. Mild rightneural foraminal stenosis. C3-4: No significant spinal canal stenosis. Vertebral joint hypertrophy.Moderate left neural foraminal stenosis. Mjpz-[id number]-glvrgmvg right neuralforaminal stenosis. C4-5: Disc bulge impressing the ventral thecal sac. Moderate spinal canalstenosis. Vertebral joint hypertrophy. Severe bilateral neuralforaminal stenosis. C5-6: Disc bulge with superimposed central disc protrusion impressing theventral thecal sac. Mild to moderate spinal canal stenosis.Uncovertebral joint hypertrophy. Severe right neural foraminal stenosis.Mild/moderate left neural foraminal stenosis. C6-7: No significant spinal canal stenosis. Uncovertebral jointhypertrophy. Mild to moderate bilateral neural foraminal stenosis. C7-T1: No significant spinal canal stenosis. Facet joint hypertrophy.Mild to moderate bilateral neural foraminal stenosis. MRI THORACIC SPINE: There are 12 rib-bearing thoracic-type vertebralbodies. The thoracic vertebral bodies and facets are well aligned. Thethoracic vertebral body heights are otherwise preserved. 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 No abnormal marrow signal. No significant spinalcanal or neural foraminal stenosis at any level. The thoracic spinal cordhas normal signal throughout its course. The thoracic spinal cord isnormal signal throughout its course. There is a 3.2 cm masslike opacitywithin the left upper lobe (best seen on series 7 image 12). IMPRESSION: 1. No abnormal marrow signal or enhancement to suggest metastaticdisease. 2. Mild to moderate multilevel cervical spondylosis, as describedabove. 3. No significant spinal canal or neural foraminal stenosis at any levelof the thoracic spine. 4. Masslike opacity within the left upper lobe, better characterized onthe PET/CT from 08/02/2024. Referred By: MAYTE BAILEY Interpreted By: Julio Cesar Mann MD, 10/25/2024 4:53 PM us Mayte Bailey MD MRI Final Re sult * COLONOSCOPY (01/08/2021 12:18 PM CDT) us Niraj Guerra MD GI PROCEDURE ORDERABLES Final Result from Last 3 Months or Most Recently Relevant to Health Maintenance Insurance [employer] Advance Directives * Full Code (Latest Code Status on File) Date Activated Date Inactivated Comments 01/09/2025 4:43 PM 01/11/2025 2:47 PM * Full Code Date Activated Date Inactivated Comments 01/09/2025 4:34 PM 01/09/2025 4:43 PM * Full Code Date Activated Date Inactivated Comments 12/28/2024 1:31 AM 01/02/2025 2:35 PM * Full Code Date Activated Date Inactivated Comments 12/10/2024 5:52 AM 12/14/2024 1:31 PM * Full Code Date Activated Date Inactivated Comments 11/07/2024 10:32 PM 11/09/2024 3:42 PM Care Teams Automatic Presser Relationship Specialty Start Date End Date Liu Brewer MD [address] [place] [id number] PCP - General FAMILY PRACTICE 07/25/20 Nilay Enriquez MD [address] [place] [address] ORTHOPAEDICS 01/15/18 Marcial Titus MD [address] [facility] [address] [place] [address] Physician INTERVENTIONAL CARDIOLOGY 09/16/24 Jeana Hodge, drafter (cad) electrical (Ambulatory) REGISTERED NURSE 12/12/24 Selvin Taylor MD [address] [place] [address] [facility] [employer] CLINICAL CARDIAC ELECTROPHYSIOLOGY 01/03/25
--- OUTSIDE RECORDS SUMMARY | 2025-01-15 04:52 | XMS_ITS | Data Portability ---
Author Organization [facility], [address] [facility] Neurology ([place]) Address [address] [place] [address] Care Team Providers Care Manager Wound Care Name Role Phone GERDA GARVEY Primary Care [...] on this date of service including both tpaa-sb-oggg and taj-eunq-rc-fa ce time excluding any separately reportable services having direct medical discussion with the patient via telephone. [email or web address] [email or web address] Not available 08/25/2024 13:26:08 08/31/2024 08/31/2024 IMPRESSION: [...] on this date of service including both lrdz-wg-lyki and non yjyd-ou-pogu time excluding any separately reportable services. The patient does travel from [place]. He is agreeable to coming to [place]. tmv Not available 08/31/2024 20:25:20 Plan of [...] 08/31/1908/31/2024 MRI, brain , w/wo contr ast [place] [address] [address] Teleph one [phone] Name: Dylon Celaya [id number] Exam Date: 2024 Age: 69 Physic kyung: [...] lesion . White matter : Normal . Oil And Gas Superintendent ior fossa: Unrema rkable cerebe llum and brains tem. Diffus ion-we ighted images : No eviden ce of recent or subacu te infarc t. Extra- axial spaces : Unrema rkable with no masses or collec tions. Brain parenc hymal volume : Within normal limits for age. Pituit carlos enrique:No rmal Vascul ature: Loss of normal flow signal in the right internet marketing coordinator al caroti d artery at its upper [...] 3. Abnorm al flow in the right internet marketing coordinator al caroti d artery , recomm end CT or MR angiog ericka if this is not a known abnorm ality. Electr onical ly signed in Panda cribe by: MJ JIMENEZ MD on:08/13 11:12 AM cc: [facility] 1 [id number] Id Only - Id Radiology [address] [place], [address], 09/01/2024 14:28:58 10/07/19 25 10/06/2024 MRI, lumba r spine , w/wo contr ast [facility] [address] [place] [address] Teleph one Name: Dylon Celaya [id number] Exam Date: 2024 Age: 69 Physic kyung: [...] 3:57 PM cc: Page PAGE 1 of [facility] ES 1 INTERFACE Sc Only - Id Radiology [address] [place], [address], 10/06/2024 17:00:54 10/08/19 25 10/06/2024 MRI, pelvi s, w/wo contr ast [facility] [address] [place] [address] Teleph one [phone] Name: Dylon Celaya [id number] Exam Date: 2024 Age: 69 Physic kyung: Sierra Szymanski : 1954 Examin ation: MRI PELVIS W AND WO CONTRA ST EXAM: MRI PELVIS W AND WO CONTRA ST HISTOR Y: non-sm all cell lung cancer and brain metast asis, comple festus SRS on 12/20/ 2024. Low back pain radiat ing to bilate [...] is better evalua festus on dedica festus imagin g from the same day. The sacral [...] as above Electr onical ly signed in Farzad holt by: GRIS Crump on:09/11 12:28 PM cc: Page PAGE 1 of [facility] ES 1 INTERFACE Sc Only - Sc Radiology [address] [place] [address], [address], 10/07/2024 13:31:56 Result Notes Documentation Provider Name and Address Organization Details Recorded Time Mri, Brain, W/wo Contrast : [facility] [address] [place] [address] Name: Jasper Celaya Exam Date: 08/31/2024 Age: 69 Physician: MD Krystle, Julio Cesar : 1955 Examination: MRI BRAIN W AND WO CONTRAST EXAMINATION: MRI brain with and without contrast INDICATION: Lung cancer with brain mets, Currently undergoing radiation, Recheck COMPARISON: MR brain 06/23/2024. TECHNIQUE: This examination includes T1-weighted images pre- and postcontrast as well as T2-weighted, FLAIR, gradient-echo, and diffusion weighted images. 15 mL of Dotarem gadolinium were injected at the right antecubital fossa, without incident. FINDINGS: Cerebrum: A left frontal parietal metastasis has decreased in size. This now measures 11 x 11 mm in transverse dimensions compared to 15 mm on the previous exam. There is decreased surrounding vasogenic edema compared to the previous exam. Other small enhancing lesions bilaterally in the cerebellum in the anterior right frontal lobe are no longer identified. However the postcontrast images have substantially more artifact on today's study which could obscure small lesion. White matter: Normal. Posterior fossa: Unremarkable cerebellum and brainstem. Diffusion-weighted images: No evidence of recent or subacute infarct. Extra-axial spaces: Unremarkable with no masses or collections. Brain parenchymal volume: Within normal limits for age. Pituitary:Normal Vasculature:Loss of normal flow signal in the right internal carotid artery at its upper cervical portion and its intracranial portion. Recommend CT or MR angiography if this is not a known abnormality. Flow disturbance is also present on the previous MRI. Paranasal sinuses and mastoids:Moderate to severe right maxillary sinus polypoid mucosal thickening. Orbits: Normal orbital contents. Other: No other significant abnormality. IMPRESSION: 1. A left frontal parietal metastasis measures smaller in today's examination with decreased surrounding edema. 2. Other small enhancing lesions suspicious for metastases are not identified on today's study. There is however motion artifact on the postcontrast images which may obscure these lesions. 3. Abnormal flow in the right internal carotid artery, recommend CT or MR angiography if this is not a known abnormality. Electronically signed in PowerScribe by: MJ JIMENEZ MD on:08/31/2024 11:12 AM cc: Page PAGE 1 of NUMPAGES 1 Yoli Casarez PA-C [address] [place] [address], [phone], [facility] 09/01/2024 14:28:59 Mri, Lumbar Spine, W/wo Contrast : [facility] [address] [facility] [place] [address] Name: Jasper Celaya Exam Date: 10/06/2024 Age: 69 Physician: Sierra Szymanski : 1955 Examination: MRI LUMBAR W AND WO CONTRAST Examination: Lumbar spine MR with and without contrast INDICATION: non-small cell lung cancer and brain metastasis, completed SRS on 07/01/2024. Low back pain radiating to bilateral lower extremity. Staging. TECHNIQUE: This examination includes T1-weighted images pre- and postcontrast as well as T2-weighted images. 15 mL of Dotarem gadolinium were injected at the right chest Xvfgqg-h-Gqzi, without incident. COMPARISON: None available FINDINGS: Segmentation: No transitional anatomy. The lowest well-developed disc space is labeled L5-S1. Alignment: Normal. Vertebra:Vertebral body heights are well-maintained. Normal-appearing marrow. Disc height:Mild narrowing at L1-2, L2-3, L3-4, and L4-5 Hardware:None in the spine. Conus Medullaris:Unremarkable. Lower thoracic: 4 to 5 mm enhancing nodule in the dorsal thecal sac at the T12-L1 level. Major differential considerations are incidental nerve sheath tumor versus a metastasis. Individual disc levels: L1-2: No diffuse disc bulge or focal disc herniation. No significant spinal canal or neural foraminal stenosis. L2-3: Minimal diffuse disc bulge. L3-4: Minimal diffuse disc bulge. L4-5: Mild spinal canal stenosis from mild diffuse disc bulge with endplate osteophyte and mild facet joint arthropathy. Mild right neuroforaminal narrowing from the same factors. L5-S1: Minimal diffuse disc bulge. Widely patent spinal canal. Mild right neuroforaminal narrowing from mild facet arthropathy with what probably represents a small distended joint recess or synovial cyst protruding into the dorsal foramen. Left neural foramen is widely patent. Sacrum: Visualized upper sacrum is intact. Visualized abdomen and pelvis: No significant abnormality Other: No other significant findings. IMPRESSION: 1. Very small enhancing nodule in the dorsal thecal sac at T12-L1. Most commonly this represents an incidental nerve sheath tumor although in this clinical context this could be a metastasis. 2. No evidence of osseous metastatic disease. 3. Moderate size right foraminal disc herniation at L5-S1 in close relation to the exiting right S1 nerve root. Electronically signed in ideacts innovations by: MJ JIMENEZ MD on:10/06/2024 3:57 PM cc: Page PAGE 1 of NUMPAGES 1 Not Available [facility] 10/06/2024 17:00:54 Mri, Pelvis, W/wo Contrast : [facility] [address] [place], [place] [id number] Name: Jasper Celaya Exam Date: 10/06/2024 Age: 69 Physician: Sierra Szymanski : 1955 Examination: MRI PELVIS W AND WO CONTRAST EXAM: MRI PELVIS W AND WO CONTRAST HISTORY: non-small cell lung cancer and brain metastasis, completed SRS on 07/01/2024. Low back pain radiating to bilateral lower extremity. Staging. An MRI examination of the pelvis was performed before and after uneventful administration of 15 mL Dotarem via the right Echdbd-u-Tvxq catheter. FINDINGS: Bone marrow signal is without evidence of fracture, stress fracture, or avascular necrosis. There is no worrisome marrow replacing lesion seen. Within each aspect of the sacrum adjacent to the sacroiliac joints. Of T1 hypointensity and T2 hyperintensity is seen and likely related to the degenerative changes in the sacroiliac joint. Muscle bulk is normal. Sciatic nerves appear intact. Lumbar spine is better evaluated on dedicated imaging from the same day. The sacral foramina are patent. Tearing of each acetabular labrum anterior left greater than right is seen. There is mild left hip joint chondrosis. There is colonic diverticulosis. No worrisome lymphadenopathy is seen. The prostate gland is enlarged. There is bilateral hamstring origin tendinopathy. Liver cysts are partially visualized. IMPRESSION: 1. No worrisome bone marrow replacing lesion. 2. Chronic findings as above Electronically signed in ideacts innovations by: JUAN R ABREU on:10/07/2024 12:28 PM cc: Page PAGE 1 of NUMPAGES 1 Not Available [facility] 10/07/2024 13:31:56 Problems Name Problem SNOMED Code Status Onset Date Resolution Date Notes Provider Name and Address Organization Details Recorded Time Metastatic malignant neoplasm to brain 55577528 Active October [facility] 20:38:14 Problem Notes None recorded. Procedures Surgical [...] Not Available Not Available No t Available sulfamethox azole 800 mg-trimetho prim 160 mg tablet TAKE 1 TABLET BY MOUTH DAILY ON THURSDAY, THURSDAY , AND THURSDAY. active Not Available Not Available No t [...] completed Not Available Not Available Not Available pantoprazol e 40 mg tablet,husam yed release TAKE 1 TABLET BY MOUTH EVERY DAY active Not Available Not Available No t Available dexamethaso ne 4 mg tablet TAKE 1 TABLET BY MOUTH TWICE A DAY FOR 7 DAYS, 1 DAILY FOR 7 DAYS, 1 TAB EVERY OTHER DAY FOR 7 DAYS active Not Available Not Available No t Available zolpidem 5 mg tablet TAKE 1 TABLET BY MOUTH EVERY DAY AT BEDTIME NEEDED FOR SLEEP active Not Available Not Available No t Available gabapentin 100 mg capsule TAKE 1 CAPSULE BY MOUTH EVERYDAY AT BEDTIME active Not Available Not Available No t [...] clavulanate 125 mg tablet TAKE 1 TABLET (875 MG TOTAL) BY MOUTH EVERY 12 (TWELVE) HOURS FOR 9 DAYS. active Not Available Not Available No t Available oxycodone 5 mg tablet TAKE 1 TABLET EVERY 6 HOURS NEEDED FOR BREAKTHRO UGH PAIN. active Not Available Not Available No t Available Eliquis 5 mg tablet Take 1 tablet twice a day by oral route. active Not Available Not Available No t Available Vitals Date Recorded Body weight Body temperature Heart rate Oxygen saturation Oxygen saturation in Arterial blood by Pulse oximetry Systolic And Diastolic Provider Name and Address Organization Details Last Updated DateTime 5 75665.2 g 97.4 [degF] 84 /min 96 % 96 % 134/70 mm[Hg] Meenakshi Ventura [facility] 5 13:50:08 Social History Question Answer Notes LastModified by [email or web address] Details LastModified Time Tobacco Smoking Status Former Smoker Not Available Health Note 08/24/2024 15:13:22 Do You Have An Advance Directive? No [email or web address] Information not available 08/24/2024 What Is Your Level Of Caffeine Consumption? Occasional [email or web address] Information not available 08/24/2024 How Many Times Per Week Do You Exercise? 3-4 Times Per Week [email or web address] Information not available 08/24/2024 When Did You Quit Smoking? 06/2017 [email or web address] Information not available 08/24/2024 What Was The Date Of Your Most Recent Tobacco Screening? 08/31/2024 [email or web address] Information not available 08/24/2024 What Is Your Relationship Status? [email or web address] Information not available 08/24/2024 Sex: Unknown Functional Status Question Answer Note LastModified by Organizat ion Details LastModified Time Do you use any illicit or recreational drugs? No [email or web address] Information not available 08/24/2024 What is your level of alcohol consumption? None [email or web address] Information not available 08/24/2024 Are you currently employed? No [email or web address] Information not available 08/24/2024 What is your occupation? Retired [email or web address] Information not available 08/24/2024 What is your exercise level? Moderate [email or web address] [...] Stroke N Fibromyalgia N Kidney Disease N Bleeding Disorder N Asthma N Seizures N Attention-deficit Hyperactivity Disorder N Thyroid Problems N Anemia N Diabetes N Hyperlipidemia N Heart Disease N Osteoporosis N Past Encounters Encounter ID Performer Location Encounter Start Date Encounter Closed Date Diagnosis/Indication Diagnosis SNOMED-CT Code Diagnosis ICD10 Code Diagnosis Note [id number] MD Amy [facility] [address] [place] [address] 06/24/2024 16:39:50 06/24/2024 16:39:51 [id number] Jessica Fitzgerald MD [facility] [place] [address] [place] [address] 07/01/2024 17:24:43 07/01/2024 17:25:30 Metastatic malignant neoplasm to brain 78333800 C79.31 [id number] MD Amy CrookZOmega [facility] [place] [address] [place] [address] 07/01/2024 13:48:01 07/01/2024 16:10:43 [id number] MD Amy CrookZPakel [facility] [place] [address] [place] [address] 07/01/2024 17:40:44 07/12/2024 17:10:44 [id number] JEFFRY Plascencia n [facility] ([place] [address] [place] [address] 08/01/2024 16:33:12 08/01/2024 17:43:19 Metastatic malignant neoplasm to brain 38165971 C79.31 [id number] JEFFRY Plascencia n [facility] ([place] [address] [place] [address] 08/31/2024 13:24:35 09/01/2024 16:30:07 Metastatic malignant neoplasm to brain 27067131 C79.31 Health Concerns Section Related Observation LastModified by Organization Detai ls LastModified Time None Recorded Concern Status LastModified by Organization Details LastModified Time None Recorded Advance Directives Directive N: Payers Insurance Date Sequence Insurance Name Policy Number Policy Conner Covered Member ID Conner Member ID Guarantor Name 01/13/2025 1 [employer] (MEDICARE REPLACEMENT/ ADVANTAGE - PPO) [id number] Jasper Celaya [id number] Jasper Celaya Notes Date Note Type Note [...] post-biopsy pneumothorax. Jessica Fitzgerald MD [address] [place] [address], [phone], [facility] 07/01/2024 18:45:39 07/01/2024 text/html Identifying Information Oncologic History Interval HistoryLeft Frontal, right frontal, right cerebral Fx: 07/13 Dose: 2200 Julio Cesar Dalton MD [address] [place] [address], [phone], [facility] 07/12/2024 17:10:41 08/01/2024 text/html The patient is [...] is a 69-year-old male [facility] with complaints of progressive right [...] weakness and decreased coordination. Further evaluation ofthe [facility] with [facility] head demonstrated a probable left posteriorparietal hemorrhagic metastasis. Also obtained of the [facility] was aCT chest which demonstrated a new left upper lobe lung mass compatible withmalignancy. The patient was transferred further evaluation and management.Radiation Oncology has been consulted for management recommendations forradiation treatment of left frontoparietal lobe brain lesion. Interval History: Yoli Casarez PA-C [address] [place] [address], [phone], [facility] 08/30/2024 12:01:41 08/31/2024 text/html Jasper is a [...] is a 69-year-old male who wastransferred to [facility] 06/22/2024 with complaints of progressive right [...] weakness and decreased coordination. Further evaluation ofthe [facility] with CT head demonstrated a probable left posteriorparietal hemorrhagic metastasis. Also obtained of the [facility] was aCT chest which demonstrated a new [...] Interval History: Yoli Casarez PA-C [address] [place] [address], [phone], [facility] 09/06/2024 11:10:06
--- OUTSIDE RECORDS SUMMARY | 2025-01-15 04:52 | XMS_ITS | Encounter Summary ---
Author Organization [facility] Address [address] [place] [address] Care Team Providers Care Poultry Feed Supervisor Name Role Phone Everton Flores MD Primary Care Provider [phone] Osmar Cabrales MD Unavailable Unavailable Mode Slaughter MD Unavailable Unavailable Nilay Enriquez MD Unavailable [phone] Martha Jordan MD Unavailable [phone] Liu Brewer MD Primary Care Provider [phone] Marcial Titus MD Unavailable [phone] Jeana Hodge RN Unavailable Unavailab Selvin Romo MD Unavailable [phone] Encounter Details Date Type Department Care Team (Late st Contact Info) Description 12/18/2018 Abstract [facility] CONVERSION [address] [place] [address] , Generic Conversion, Social History Tobacco Use Types Packs/Day Years Used Date Smoking Tobacco: Every Day Smokeless Tobacco: Never Sex and Gender Information Value Date Recorded Sex Assigned at Male 07/26/2024 2:15 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 [address] [place] [address] Zachary Bailey MD [address] [place] [phone] 02/03/2025 11:00 AM CDT [facility] [address] [place] [phone] Selvin Taylor MD [address] [place] [phone] 03/21/2025 10:45 AM CDT Office Visit [facility] [address] [place] [address] Marcial Titus MD [address] [place] [address] 11/07/2025 8:30 AM CDT Office Visit [facility] [place] [address] [place] [phone] Marcial Titus MD [address] [place] [address] documented as of this encounter Visit Diagnoses Not on filedocumented in this encounter Care Teams Poultry Feed Supervisor Relationship Specialty Start Date End Date Everton Flores MD [address] [place] [phone] PCP - General FAMILY PRACTICE 07/07/17 07/24/20 Liu Brewer MD [address] [place] [phone] PCP - General FAMILY PRACTICE 07/25/20 Osmar Cabrales MD [address] [place] [phone] CARDIOVASCULAR DISEASE 07/07/17 07/26/20 Mode Slaughter MD [address] [place] [address] CARDIOVASCULAR DISEASE 07/22/17 07/26/20 Nilay Enriquez MD [address] [place] [address] ORTHOPAEDICS 01/15/18 Martha Jordan MD [address] [place] [address] Consulting Physician INTERVENTIONAL CARDIOLOGY 07/27/20 09/16/24 Marcial Titus MD [address] [facility] [address] [address] Physician INTERVENTIONAL CARDIOLOGY 09/16/24 Jeana Hodge, senior label specialist (Ambulatory) REGISTERED NURSE 12/12/24 Selvin Taylor MD [address] [place], [place] [id number] EP Manager Recruiting CLINICAL CARDIAC ELECTROPHYSIOLOGY 01/03/25 documented as of this encounter
--- OUTSIDE RECORDS SUMMARY | 2025-01-15 04:52 | XMS_ITS | Continuity of Care Document ---
Author Organization [facility] Address [address] [place] [address] [address] [place] [address] Phone Care Team Providers Care Deputy Sheriff/Investigator Name Role Phone Selvin Kumar Unavailable Unavail able Procedures Procedure Date FCE Each 15min Advance Directives Directive Yes / No Effective Date File Name No Information Encounters Encounter Description Practice Location Reason(s) For Visit Diagnoses Date Provider Providers Copied on Encounter [facility], [address] [place] [address] [address], [place], [place], [id number], [place] tel:[phone] [place] Pain in right wristPain in right elbowStiffnes s of right wrist, not elsewhere classifiedSti ffness of right elbow, not elsewhere classifiedOth er general symptoms and signs 0 9-201 [address] [address] [place], [address], [place]. tel:[phone] Referring Provider: Anuj Rayo, [address], [address]. tel:[phone] Family History Family Member Type Diagnosis Age At Onset No Information Payers Payer name Insurance type Covered alliance party ID Authoriza tion(s) [employer] [id number] Social History Type Description Quantity Date Captured Comments Sex Male Smoking Status No Information Chief Complaint And Reason For Visit No Information Reason For Referral Reason For Referral No Information History Of Present Illness Encounter Date Complaint History Of Prese nt Illness No Information Functional Status Date Functional Assessmen t No Information Instructions Date Instruction Additional Infor mation No Information Assessments Type Assessment Date No Information Patient Care Teams Name Effective Dates (start - stop) Status Members No Information
--- OUTSIDE RECORDS SUMMARY | 2025-01-15 04:53 | XMS_ITS | Clinical Summary ---
Author Organization [facility] Address [address] [place] [id number] Care Team Providers Care Power Checker Name Role Phone Sierra Szymanski MD Unavailable Liu Brewer MD Primary Care Provider [phone] Christopher Doll MD Unavailable [phone] Allergies No known active allergies Medications apixaban (Eliquis) 5 mg tablet Take 1 tablet twice a day by oral route. 3 Active gabapentin (NEURONTIN) 100 mg capsule TAKE 1 CAPSULE BY MOUTH EVERYDAY AT BEDTIME Active HYDROcodone-el taminophen (NORCO) 5-325 mg per tablet Take 1 tablet by mouth 3 (three) times a day as needed 4 Active NIFEdipine XL 60 mg 24 hr tablet Take 1 tablet (60 mg total) by mouth daily 5 Active pravastatin (PRAVACHOL) 40 mg tablet Take 1 tablet (40 mg total) by mouth daily 3 Active prochlorperazin e (COMPAZINE) 10 mg tablet Take 1 tablet (10 mg total) by mouth every 6 (six) hours as needed for nausea Active traZODone (DESYREL) 50 mg tablet TAKE 1 TO 2 TABLETS BY MOUTH AT BEDTIME NEEDED 5 Active ondansetron (ZOFRAN) 8 mg tablet Take 1 tablet (8 mg total) by mouth Active metoprolol XL (TOPROL-XL) 25 mg extended release tablet Take 1 tablet (25 mg total) by mouth daily Active sulfamethoxazol e-trimethoprim (BACTRIM DS) 800-160 mg per tablet Take 40 mg/kg of trimethoprim by mouth Active memantine (NAMENDA) 5 mg tabletIndicatio ns:Moderate to Severe Alzheimer's Type Dementia Take 1 tablet (5 mg total) by mouth 2 (two) times a day Week `:5 mg Week 2 ; 5 mg in am and 5 mg in evening Week 3 : 10 mg in am and 5mg in evening Week 4: 10 mg in am and 10 mg in evening Active oxyCODONE 5 mg tablet, oral only Take by mouth Active pantoprazole DR (PROTONIX) 40 mg EC tablet Take 1 tablet (40 mg total) by mouth daily Active amiodarone (PACERONE) 200 mg tablet Take 1 tablet (200 mg total) by mouth 2 (two) times a day 5 03/03/20 25 Active dilTIAZem (CARDIZEM) 60 mg tablet Take 1 tablet (60 mg total) by mouth 3 (three) times a day 5 03/03/20 25 Active Active Problems Problem Noted Date Diagnosed Date Chronic obstructive pulmonar y disease, unspecified COPD type 01/04/2025 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, pM1c2) - Signed by Christopher Doll MD on 12/07/2024 Encounters Date Type Department Care Team Description 01/06/2025 Telephone [facility] [address] [place] [address] [address] [place] [address] Fartun Witt RN 01/04/2025 11:15 AM CDT Office Visit [facility] [address] [place] [address] [address] [place] [address] Christopher Doll MD Malignant neoplasm of upper lobe of left lung (HCC) (Primary Dx); Metastasis to brain (HCC); Secondary malignant neoplasm of spleen (HCC); Chronic obstructive pulmonary disease, unspecified COPD type (HCC) 01/03/2025 Telephone [facility] [address] [place] [address] [address] [place] [address] Fartun Witt RN 12/14/2024 Orders [place] [address] Christopher Doll MD Adenocarcinoma of lung, unspecified laterality (HCC) 12/13/2024 Orders Only [facility] [address] [place] [address] Christopher Doll MD Adenocarcinoma of lung, unspecified laterality (HCC) (Primary Dx) 12/07/2024 2:45 PM CDT Clinical Support [facility] [address] [place] [address] Malignant neoplasm of upper lobe of left lung (HCC) 12/07/2024 1:30 PM CDT Office Visit [facility] [address] [place] [phone] Christopher Doll MD Malignant neoplasm of upper lobe of left lung (HCC) (Primary Dx); Metastasis to brain (HCC); Secondary malignant neoplasm of spleen (HCC) 12/06/2024 8:11 PM CDT - 12/06/2024 11:59 PM CDT Hospital Encounter [facility] [address] [place] [address] Discharge Disposition: Discharge to home or self care 12/06/2024 8:11 PM CDT - 12/06/2024 11:59 PM CDT Hospital Encounter [facility] [address] [place] [address] Discharge Disposition: Discharge to home or self care 12/06/2024 8:10 PM CDT - 12/06/2024 11:59 PM CDT Hospital Encounter [facility] [address] [place] [address] Discharge Disposition: Discharge to home or self care 12/05/2024 2:12 PM CDT - 12/05/2024 11:59 PM CDT Hospital Encounter [facility] [address] [place] [address] [place] [address] Diagnosis unknown Discharge Disposition: Discharge to home or self care from Last 3 Months Surgical History Surgery Date Site/Laterality Comments KNEE SURGERY Bilateral 1999 and right knee 2018 WRIST SURGERY 07/13/2017 - 07/12/2018 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 NECK SURGERY 07/13/1999 - 07/12/2000 fratures two vertebrae BIOPSY thyroid BIOPSY 06/12/2024 - 07/12/2024 Left lung biopsy BIOPSY 11/10/2024 - 12/10/2024 Left lung biopsy Medical History Medical History Date Comments Hypercholesteremia Hypertension Atrial fib/flutter, transient (HCC) 2017 Family History Medical History Relation Name Comments Cancer Mother Relation Name Status Comments Mother Social History Tobacco Use Types Packs/Day Years Used Date Smoking Tobacco: Former Cigarettes Tobacco Cessation:Counseling Given: Not Answered AUDIT-C Answer Date Recorded Frequency of Alcohol Consumption Not on file 01/04/2025 Q2: How many drinks containi ng alcohol do you have on a typical day when you are drinking? Patient does not drink Frequency of Binge Drinking Not on file 12/12 Sex and Gender Information Value Date Recorded Sex Assigned at Not on file Legal Sex Male 10:00 AM [employer]ARK [employer]EE[employer] Gender Identity Not on file Sexual Orientation Not on file Obstetrics History Last Filed Vital Signs Vital Sign Reading Time Taken Comments Blood Pressure 127/77 01/04/2025 11:25 AM CDT Pulse 61 01/04/2025 11:25 AM CDT Temperature 36.7 C (98.1 F) 01/04/2025 11:25 AM CDT Respiratory Rate 18 01/04/2025 11:2 5 AM CDT Oxygen Saturation 98% 01/04/2025 11: 25 AM CDT Inhaled Oxygen Concentration - - Weight 92.4 kg (203 lb 11.3 oz) 025 11:25 AM CDT Height 177 cm (5' 9.69) 12/07/2024 1:43 PM CDT Body Mass Index 29.49 12/07/2024 1:43 PM CDT Plan of Treatment Upcoming Encounters Date Type Department Care Team (Late st Contact Info) Description 01/26/2025 8:45 AM CDT Hospital Encounter [address] [address] Health Maintenance Due Date Last Done Comments Colon Cancer Screening-Colonoscopy 1955 Depression Screening 1955 Fall Risk Assessment 1955 Hepatitis C Screening 1955 Prostate Cancer Screening-PSA 1955 DTaP/Tdap/Td Vaccine (1 - Tdap) 1968 Hepatitis B Screening 1975 Zoster Vaccine (1 of 2) 1976 Well Visit 65+ 2022 Covid-19 Vaccine (4 - 2023-2 5 season) 2024 07/19/2021, 10/26/2020, 09/28/2020 Influenza Vaccine (#1) 2025 04/28/2022 Pneumococcal vaccine 65+ Completed 12/17/2022 Abdominal Aortic Aneurysm (A AA) Screen Completed 11/08/2024, 06/22/2024, 12/26/2022, Additional history exists Procedures Procedure Name Priority Date/Time Associated Diagnosis Comments SURGICAL PATHOLOGY Routine 12/14/2024 9: 09 AM CDT Adenocarcinoma of lung, unspecified laterality (HCC) DIFFERENTIAL AUTO Routine 12/07/2024 2:4 9 PM CDT Malignant neoplasm of upper lobe of left lung (HCC) CBC WITH AUTO DIFFERENTIAL Routine 12/07/2024 2:49 PM CDT Malignant neoplasm of upper lobe of left lung (HCC) TEMPUS XF Routine 12/07/2024 2:42 PM CDT Malignant neoplasm of upper lobe of left lung (HCC) CT BODY OUTSIDE REFERENCE Routine 12/06/2024 8:11 PM CDT XR TRANSFER OF OUTSIDE FILMS Routine 12/06/2024 8:11 PM CDT XR TRANSFER OF OUTSIDE FILMS Routine 12/06/2024 8:10 PM CDT PET OUTSIDE CONSULT Routine 12/05/2024 2 :12 PM CDT Diagnosis unknown from Last 3 Months Results * Surgical pathology (12/14/2024 9:09 AM CDT) Tissue (Consult Material) 12/14/2024 9:09 AM CDT 12/14/2024 9:09 AM CDT Narrative [facility] - 12/19/2024 4:11 PM CDT EPIC results best viewed via link to PDF [facility] [address], [place] [address] Note to Patients: This report may contain a detailed description of human tissue sent by a health care provider to the laboratory for pathologic evaluation. The content of this report is essential for diagnosis and may provide important critical findings. This information may be unfamiliar to patients to review without a medical professional present. It is advised that the patient review this report in the presence of a health care provider who can answer questions and explain the details. SURGICAL PATHOLOGY REPORT * Consult Report * [facility] is providing an additional review of previously collected tissue. FINAL Patient Name: JASPER CELAYA Address: [address] [place] [phone] Gender: M : 1955 (Age: 69) [facility] #: [id number] Patient Type: ITALO Location: UNKNOWN Taken: 12/14/2024 Received: 12/14/2024 Accessioned: 12/14/2024 Reported: 12/19/2024 Physician(s): Christopher Doll M.D. [facility] Department of Pathology [facility] Department of Pathology [address] [place] [address] P: [phone] F: [phone] Diagnosis: Consult material received from [place], [place] (OSC: [id number]; 11/23/2024). A. Lung, left upper lobe, biopsy - Poor-differentiated carcinoma albe/12/16/2024 09:44 By this signature, I attest that the above diagnosis is based upon my personal examination of the slides(and/or other material indicated in the diagnosis). Larry Ortega MD PhD Report Electronically Reviewed and Signed Out By Larry Ortega MD PhD 12/19/2024 16:11:27 Microscopic Description and Comment: Slides for this consult case were digitally scanned and reviewed with a validated viewing process. Microscopic examination shows focal sheets of neoplastic cells with pleomorphic nuclei, some of which had intranuclear inclusions, and abundant eosinophilic cytoplasm. There is significant necrosis present as well. The provided immunohistochemical stains are reviewed and show the neoplastic cells are positive for CK5/6, AE1/AE3, CK8/18, CK7, uroplakin (scattered), while negative for p40, CK20, S100, TTF1, Napsin, calretinin, synaptophysin, chromogranin, ER, p63, meoshtelia, and GATA3. CD34 highlights vessels. The findings are most compatible with a diagnosis of poorly differentiated carcinoma. With the morphology and positive CK5/6, this may be a poorly differentiated squamous cell carcinoma. Ed Sutton M.D. History: The patient is a 69-year-old man with history of adenocarcinoma of lung, unspecified laterality. Materials Received: Received for review are twenty-two slides labeled [id number], accompanied by a corresponding pathology report. The material originates from [facility], [place], [place]. Selected slide(s) may be digitally scanned for our files, and all materials are returned to the referring institution, along with a copy of our final report. Any testing required for diagnostic purposes was performed in the Department of Pathology and Immunology at [facility], [address] [place] [address] CLIA # [id number] The performance characteristics of the testing cited in this report (if any) were determined by the [facility] Department of Pathology and Immunology [facility], as part of an ongoing senior data quality analyst program and in compliance with federally mandated regulations drawn from the Clinical Laboratory Improvement Act of 1988 (CLIA '88). Some of these tests rely on the use of analyte specific reagents (ASR) and are subject to specific labeling requirements by the US Food and Drug Administration. Such diagnostic tests may only be performed in a facility that is certified by the Department of Health and Human Services as a high complexity laboratory under CLIA '88. The FDA has determined that such clearance or approval is not necessary. ASRs should not be regarded as investigational or for research. ASRs were developed and the performance characteristics determined by the [facility], [facility] Department of Pathology and Immunology. It has not been cleared or approved by the U.S. Food and Drug Administration. Any test designated as LDT was developed and its performance characteristics determined by [facility]. It has not been cleared or approved by the FDA. This test is used for clinical purposes and should not be regarded as investigational or for research. Report images and/or scanned reports, if included, only viewable in PDF version of report. us Christopher Doll MD LAB PATHOLOGY ORDERABLES Final Result [facility] [address] [facility] [address] [place] [address] * (ABNORMAL) Differential, auto (12/07/2024 2:49 PM CDT) Neutrophil abs 6.06 1.50 - 6.50 K/cumm Comment:Testing performed by : [address] [address] Imm gran abs 0.13(H) 0.00 - 0.10 K/cumm SARAH Comment:Testing performed by : [address] [address] Lymphocyte abs 0.79(L) 0.80 - 3.30 K/cumm SARAH Comment:Testing performed by : [address] [address] Monocyte abs 0.37 0.20 - 0.80 K/cumm SARAH Comment:Testing performed by : [address] [address] Eosinophil abs 0.01 0.00 - 0.50 K/cumm SARAH Comment:Testing performed by : [address] [address] Basophil abs 0.02 0.00 - 0.10 K/cumm SARAH Comment:Testing performed by : [address] [address] Neutrophil pct 82.1 % SARAH Comment: Interpretive Data Percent cell count reference ranges are not reported, since discordance with absolute values may lead to misinterpretation of CBC data. Current Interpretive Data was last revised on 2017. Testing performed by: [address] [address] Imm gran pct 1.8 % [facility] Comment: Interpretive Data Percent cell count reference ranges are not reported, since discordance with absolute values may lead to misinterpretation of CBC data. Current Interpretive Data was last revised on 2017. Testing performed by: [address] [address] Lymphocyte pct 10.7 % [facility] Comment: Interpretive Data Percent cell count reference ranges are not reported, since discordance with absolute values may lead to misinterpretation of CBC data. Current Interpretive Data was last revised on 2017. Testing performed by: [address] [address] Monocyte pct 5.0 % [facility] Comment: Interpretive Data Percent cell count reference ranges are not reported, since discordance with absolute values may lead to misinterpretation of CBC data. Current Interpretive Data was last revised on 2017. Testing performed by: [address] [address] Eosinophil pct 0.1 % [facility] Comment: Interpretive Data Percent cell count reference ranges are not reported, since discordance with absolute values may lead to misinterpretation of CBC data. Current Interpretive Data was last revised on 2017. Testing performed by: [address] [address] Basophil pct 0.3 % [facility] Comment: Interpretive Data Percent cell count reference ranges are not reported, since discordance with absolute values may lead to misinterpretation of CBC data. Current Interpretive Data was last revised on 2017. Testing performed by: [address] [address] Blood 12/07/2024 2:49 PM CDT 12/07/2024 2:50 PM CDT us Christopher Jose Carlos Doll MD LAB BLOOD ORDERABLES Fin al Result SARAH [address] Department of [place] [address] * (ABNORMAL) CBC with auto differential (12/07/2024 2:49 PM CDT) [facility] WBC 7.38 3.80 - 9.90 K/cumm Comment:Testing performed by : [address] [address] Hgb 11.8(L) 13.0 - 17.5 g/dL SARAH Comment:Testing performed by : [address] [address] Hct 34.7(L) 38.9 - 50.3 % SARAH Comment:Testing performed by : [address] [address] Plt 182 150 - 400 K/cumm SARAH Comment:Testing performed by : [address] [address] MPV 8.0(L) 9.1 - 12.3 fL SARAH Comment:Testing performed by : [address] [address] RBC 3.70(L) 4.30 - 5.80 M/cumm SARAH Comment:Testing performed by : [address] [address] MCV 93.8 81.3 - 96.4 fL SAARH Comment:Testing performed by : [address] [address] MCH 31.9 27.1 - 33.3 pg SARAH Comment:Testing performed by : [address] [address] MCHC 34.0 32.3 - 35.7 g/dL SARAH Comment:Testing performed by : [address] [address] RDW CV 16.4(H) 11.1 - 14.9 % SARAH Comment:Testing performed by : [address] [address] RDW SD 56.2(H) 35.7 - 48.1 fL CERMORTEZA GRANDA Comment:Testing performed by : [address] [address] NRBC abs 0.00 0.00 - 0.01 K/cumm SARAH GRANDA Comment:Testing performed by : [address] [address] ANC Prelim 6.06 1.50 - 6.50 K/cumm SARAH GRANDA Comment: Interpretive Data The rapid ANC is a preliminary automated count and may vary from the final ANC (Neut Abs) reported in the WBC differential that follows. Current interpretive data was last revised 2024. Testing performed by: [address] [address] Blood 12/07/2024 2:49 PM CDT 12/07/2024 2:50 PM CDT us Christopher Doll MD LAB BLOOD ORDERABLES Fin al Result SARAH [facility] Department [place] [address] * [facility] - Lab Collect (12/07/2024 2:42 PM CDT) Reason for Study To identify mutations relevant to patient's cancer. 01/10/2025 10:15 AM CDT [facility] Genetic Diseases Assessed Cancer 01/10/2025 10:15 AM CDT [facility] Description of Ranges of DNA Sequences Examined 523 gene liquid biopsy 01/10/2025 10:15 AM CDT [facility] Overall Interpretation positive 01/10/2025 10:15 AM CDT [facility] Portal [email or web address] 01/10/2025 10:15 AM CDT [facility] Comment:[facility] link Low Coverage Regions ABL2, AXIN2, BCR, JCW08H2, KAT6A, NOTCH2, NTRK2, PRKN, RHOA, RXRA, SDHAF2, TGFBR1, TP63 01/10/2025 10:15 AM CDT [facility] Trial Count 3 01/10/2025 10:15 AM CDT [facility]us: Clinical Trial Match 1 Clinical Trial NCT ID: [id number] Clinical Trial Title: A Phase 1/2 Study of Inlexisertib (DCC-3116) in Patients With MARCELINO/MAPK Pathway Mutant Solid Tumors Clinical Trial URL: https://clinica [place]iqueo.gov/ct2 /show/KYG020309 17 Clinical Phase: Phase 1/Phase 2 Clinical Trial Matches: NF1 p.A399fs mutation Clinical Trial Distance and Location: [address] [place], [place] 01/10/2025 10:15 AM CDT [facility] Tempus: Clinical Trial Match 2 Clinical Trial NCT ID: [id number] Clinical Trial Title: Study of DCC-3084 in Participants With Advanced Malignancies Driven by the Mitogen-Activat ed Protein Kinase (MAPK) Pathway Clinical Trial URL: https://clinica [place]ique[place].gov/ct2 /show/[email or web address] 63 Clinical Phase: Phase 1/Phase 2 Clinical Trial Matches: NF1 p.A399fs mutation Clinical Trial Distance and Location: [address] [place], [place] 01/10/2025 10:15 AM CDT [facility] Tempus: Clinical Trial Match 3 Clinical Trial NCT ID: [id number] Clinical Trial Title: A Study to Investigate the Safety and Efficacy of MQN729 as Monotherapy and in Combination in Participants With Advanced Solid Malignancies Clinical Trial URL: https://clinica [place]ique[place].gov/ct2 /show/KTP209491 06 Clinical Phase: Phase 1 Clinical Trial Matches: NF1 p.A399fs mutation Clinical Trial Distance and Location: [address] [place], [place] 01/10/2025 10:15 AM CDT [facility] Tumor Mutational [place] 3.3 m/MB 01/10/2025 10:15 AM CDT [facility] Microsatellite Instability Note MSI-High not detected 01/10/2025 10:15 AM CDT [facility] Treatment Implications Note No reportable treatment options found. 01/10/2025 10:15 AM CDT [facility] Blood specimen (specimen) 12/07/2024 2:42 PM CDT 01/02/2025 4:32 PM CDT Narrative This result has genomic variants that were not included in this document. Christopher Doll MD LAB GENETIC TESTING Ifeoma l Result Performing Organization Address [facility] de Phone Number [facility] [address], [address] [place], [place] [id number] [place] [address] [facility] [address], [address] [place] [address] * CT Body Outside Reference (12/06/2024 8:11 PM CDT) Impressions [facility] - 12/06/2024 8:11 PM CDT These images are for Reference purposes only and have not been reviewed by [facility]. There will be no report generated by a [facility]iologist. Narrative [facility] - 12/06/2024 8:11 PM CDT EXAMINATION: Images For Reference Purposes Only Christopher Doll MD IMG CT PROCEDURES Final Result Performing Organization Address [facility] de Phone Number [facility] * XR Outside Reference (12/06/2024 8:11 PM CDT) Impressions [facility] - 12/06/2024 8:11 PM CDT These images are for Reference purposes only and have not been reviewed by [facility]. There will be no report generated by a [facility] Radiologist. Narrative [facility] - 12/06/2024 8:11 PM CDT EXAMINATION: Images For Reference Purposes Only Christopher Doll MD IMG XR PROCEDURES Final Result Performing Organization Address [facility] de Phone Number [facility] * XR Outside Reference (12/06/2024 8:10 PM CDT) Impressions [facility] - 12/06/2024 8:10 PM CDT These images are for Reference purposes only and have not been reviewed by [facility]. There will be no report generated by a [facility]iologist. Narrative [facility] - 12/06/2024 8:10 PM CDT EXAMINATION: Images For Reference Purposes Only us Christopher Doll MD IMG XR PROCEDURES Final Result [facility] * PET Outside Consult (12/05/2024 2:12 PM CDT) Anatomical Region Laterality Modality N/A Nuclear Medicine 12/06/2024 10:0 3 AM CDT Impressions 12/06/2024 12:43 PM CDT 1. Markedly hypermetabolic left upper lobe mass, in keeping with known biopsy-proven lung malignancy. 2. Two moderate foci of uptake in the left lower neck which are slightly misregistered but likely correspond to the left thyroid with likely CT correlate of two left thyroid nodules. Recommend follow up of the Incidental thyroid nodule Additional Imaging in 3 Months with with thyroid ultrasound if not already performed. 3. Otherwise, no FDG PET/CT evidence of metastatic disease. Of note, the patient's known intracranial metastatic disease described in the electronic medical record would be better evaluated with brain MRI. The findings, conclusions and recommendations within this report do not replace the initial findings, conclusions and recommendations made at the facility where the study was performed based upon the imaging and clinical condition at that time. Comparison with the prior report and clinical history is necessary. The provided images may or may not represent the [place] source data set and thus may contain changes that may lower the accuracy of this second-opinion interpretation. Dictated by: Darin Solis MD The radiology attending physician has personally reviewed this study, and had reviewed and/or edited this written report and agrees with it. Electronically signed by: Qiana Robles M.D. Narrative 12/06/2024 12:43 PM CDT EXAMINATION: RADIOLOGY CONSULTATION ON OUTSIDE IMAGING STUDY . STUDY INITIALLY PERFORMED: 11/18/2024, images acquired at [facility]. TYPE OF STUDY: FDG-PET/CT. The images available for review consisted of axial attenuation-corrected and uncorrected PET images and axial CT images. The total scanned area was skull base to the proximal thighs. The mean liver SUV (reported for quality management coordinator purposes) is 2.7. The study was interpreted on the [employer] workstation. The protocol was adequate to address the clinical question. The outside final report was not available at the time of this second opinion.. DATE OF CONSULTATION: 12/06/2024 HISTORY: 69-year-old with left upper lobe lung cancer (pathology with poorly differentiated carcinoma). Has been treated with chemotherapy therapy and stereotactic brain radiation with most recent treatment history not documented. No prior exams available at the time of interpretation although prior exam reports are present under care everywhere. Subsequent treatment strategy. All reported SUVs are maximum SUVs, unless otherwise specified. COMPARISON: None time of interpretation DESCRIPTORS OF LESION FDG AVIDITY: Minimal: <= blood pool Mild: > blood pool and <= liver Moderate: > liver and <= 2x SUVmax liver Moderate to marked: >2x SUVmax liver and <= 3x SUVmax liver Marked: > 3x SUVmax liver FINDINGS: There is a markedly hypermetabolic 3.2 x 2.9 cm left upper lobe mass with lobulated/spiculated margins with a maximum SUV of 14.0. There are two foci of moderate uptake in the left lower neck which are slightly misregistered but likely correspond to the left thyroid. There is a CT correlate of a partially calcified 9 mm left upper thyroid nodule and a more inferiorly located hypoattenuating 1.4 cm left lower thyroid nodule. Otherwise, there are no suspicious hypermetabolic mediastinal or hilar lymph nodes. Calcified mediastinal lymph nodes with uptake similar to that of blood pool, compatible with old granulomatous disease. There is asymmetric linear uptake in the left proximal femoral shaft without CT correlate, favored to represent asymmetric red marrow. There is no suspicious FDG uptake seen elsewhere. Additional CT findings: Mucus retention cyst of the right maxillary sinus. Right internal jugular approach chest port catheter tip terminating at the superior cavoatrial junction. Lipoma in the left pectoralis musculature. Mild asymmetric right-sided gynecomastia. Coronary artery calcifications. Multiple calcified granulomas in the left lung. Upper lobe predominant emphysema. Mild linear atelectasis or scarring in the right lower lobe. Multiple calcified granulomas of the spleen. Multiple left renal cysts including a hyperdense left renal cyst compatible with a hemorrhagic or proteinaceous cyst. Prostatomegaly. Small hiatal hernia. Colonic diverticulosis. Aortic calcifications. Cervical spine instrumentation. Procedure Note Qiana Robles MD - 12/06/2024 EXAMINATION: RADIOLOGY CONSULTATION ON OUTSIDE IMAGING STUDY . STUDY INITIALLY PERFORMED: 11/18/2024, images acquired at [facility]. TYPE OF STUDY: FDG-PET/CT. The images available for review consisted of axial attenuation-corrected and uncorrected PET images and axial CT images. The total scanned area was skull base to the proximal thighs. The mean liver SUV (reported for quality management coordinator purposes) is 2.7. The study was interpreted on the [employer] workstation. The protocol was adequate to address the clinical question. The outside final report was not available at the time of this second opinion.. DATE OF CONSULTATION: 12/06/2024 HISTORY: 69-year-old with left upper lobe lung cancer (pathology with poorly differentiated carcinoma). Has been treated with chemotherapy therapy and stereotactic brain radiation with most recent treatment history not documented. No prior exams available at the time of interpretation although prior exam reports are present under care everywhere. Subsequent treatment strategy. All reported SUVs are maximum SUVs, unless otherwise specified. COMPARISON: None time of interpretation DESCRIPTORS OF LESION FDG AVIDITY: Minimal: <= blood pool Mild: > blood pool and <= liver Moderate: > liver and <= 2x SUVmax liver Moderate to marked: >2x SUVmax liver and <= 3x SUVmax liver Marked: > 3x SUVmax liver FINDINGS: There is a markedly hypermetabolic 3.2 x 2.9 cm left upper lobe mass with lobulated/spiculated margins with a maximum SUV of 14.0. There are two foci of moderate uptake in the left lower neck which are slightly misregistered but likely correspond to the left thyroid. There is a CT correlate of a partially calcified 9 mm left upper thyroid nodule and a more inferiorly located hypoattenuating 1.4 cm left lower thyroid nodule. Otherwise, there are no suspicious hypermetabolic mediastinal or hilar lymph nodes. Calcified mediastinal lymph nodes with uptake similar to that of blood pool, compatible with old granulomatous disease. There is asymmetric linear uptake in the left proximal femoral shaft without CT correlate, favored to represent asymmetric red marrow. There is no suspicious FDG uptake seen elsewhere. Additional CT findings: Mucus retention cyst of the right maxillary sinus. Right internal jugular approach chest port catheter tip terminating at the superior cavoatrial junction. Lipoma in the left pectoralis musculature. Mild asymmetric right-sided gynecomastia. Coronary artery calcifications. Multiple calcified granulomas in the left lung. Upper lobe predominant emphysema. Mild linear atelectasis or scarring in the right lower lobe. Multiple calcified granulomas of the spleen. Multiple left renal cysts including a hyperdense left renal cyst compatible with a hemorrhagic or proteinaceous cyst. Prostatomegaly. Small hiatal hernia. Colonic diverticulosis. Aortic calcifications. Cervical spine instrumentation. IMPRESSION: 1. Markedly hypermetabolic left upper lobe mass, in keeping with known biopsy-proven lung malignancy. 2. Two moderate foci of uptake in the left lower neck which are slightly misregistered but likely correspond to the left thyroid with likely CT correlate of two left thyroid nodules. Recommend follow up of the Incidental thyroid nodule Additional Imaging in 3 Months with with thyroid ultrasound if not already performed. 3. Otherwise, no FDG PET/CT evidence of metastatic disease. Of note, the patient's known intracranial metastatic disease described in the electronic medical record would be better evaluated with brain MRI. The findings, conclusions and recommendations within this report do not replace the initial findings, conclusions and recommendations made at the facility where the study was performed based upon the imaging and clinical condition at that time. Comparison with the prior report and clinical history is necessary. The provided images may or may not represent the [place] source data set and thus may contain changes that may lower the accuracy of this second-opinion interpretation. Dictated by: Darin Solis MD The radiology attending physician has personally reviewed this study, and had reviewed and/or edited this written report and agrees with it. Electronically signed by: Qiana Robles M.D. Christophermoncho Doll MD IMG PET PROCEDURES Final Result from Last 3 Months [facility] Care Teams Power Checker Relationship Specialty Start Date End Date Liu Brewer MD [address] [place] [id number] PCP - General Family Medicine 12/02/24 Sierra Szymanski MD [address] [place] [address] Referring Physician Hematology and Oncology 12/01/24 Christopher Doll MD [address] [place] [address] MEDICAL ONCOLOGY, [address] [address] Medical Oncologist/Manager Of Distribution Medical Oncology 12/06/24
--- OUTSIDE RECORDS SUMMARY | 2025-01-15 04:53 | XMS_ITS | Encounter Summary ---
Author Organization [facility] Address [address] [place] [address] Care Team Providers Care Career Guidance Technician Name Role Phone Nilay Enriquez MD Unavailable [phone] Martha Jordan MD Unavailable [phone] Liu Brewer MD Primary Care Provider Marcial Titus MD Unavailable [phone] Jeana Hodge RN Unavailable Unavailab Selvin Romo MD Unavailable [phone] Reason for Visit * Reason Onset Date Comments Preprocedure Call 08/07/2023 Spoke to suyapa sanchez and scheduled thyroid biopsy for 08/11, check in at 1200. 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 He voiced understanding. Encounter Details Date Type Department Care Team (Late st Contact Info) Description 08/07/2023 Telephone [facility] Interventional Radiology [address] [place] [address] Deepika Urbina, RN Preprocedure Call (Spoke to patient and scheduled thyroid biopsy for 08/11, check in at 1200. 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 Gender Identity Not on file Sexual Orientation Not on file documented as of this encounter Plan of Treatment Upcoming Encounters Date Type Department Care Team (Late st Contact Info) Description 01/16/2025 10:00 AM CDT Appointment [facility] [address] [place] [address] [place] [address] Zachary Bailey MD [address] [place] [address] 02/03/2025 11:00 AM CDT Office Visit [facility] [address] [place] [phone] Selvin Taylor MD [address] [place] [phone] 03/21/2025 10:45 AM CDT Office Visit [facility] [address] [place] [address] Marcial Titus MD [address] [place] [address] 11/07/2025 8:30 AM CDT Office Visit [facility] [address] [place] [phone] Marcial Titus MD [address] [place] [id number] documented as of this encounter Visit Diagnoses Not on filedocumented in this encounter Care Teams Career Guidance Technician Relationship Specialty Start Date End Date Liu Brewer MD [address] [place] [address] PCP - General FAMILY PRACTICE 07/25/20 Nilay Enriquez MD [address] [place] [address] ORTHOPAEDICS 01/15/18 Martha Jordan MD [address] [place], [place] [id number] Consulting Physician INTERVENTIONAL CARDIOLOGY 07/27/20 09/16/24 Marcial Titus MD [address] [place] [address] Physician INTERVENTIONAL CARDIOLOGY 09/16/24 Jeana Hodge, clinical mental health counselor (Ambulatory) REGISTERED NURSE 12/12/24 Selvin Taylor MD [address] [place], [place] [address] EP Plaster Pattern Caster CLINICAL CARDIAC ELECTROPHYSIOLOGY 01/03/25 documented as of this encounter
--- OUTSIDE RECORDS SUMMARY | 2025-01-15 04:53 | XMS_ITS | Referral Summary ---
Author Organization [facility] Address [address] [place] [id number] Care Team Providers Care Sustainable Design Coordinator Name Role Phone Sierra Szymanski MD Unavailable Liu Brewer MD Primary Care Provider [phone] Christopher Doll MD Unavailable [phone] Encounters Date Type Department Care Team Description 01/06/2025 Telephone [facility] [address] [place] [phone] Fartun Witt RN 01/04/2025 11:15 AM CDT Office Visit [facility] [address] [place] [address] [address] [place] [phone] Christopher Doll MD Malignant neoplasm of upper lobe of left lung (HCC) (Primary Dx); Metastasis to brain (HCC); Secondary malignant neoplasm of spleen (HCC); Chronic obstructive pulmonary disease, unspecified COPD type (HCC) 01/03/2025 Telephone [facility] [address] [place] [phone] Fartun Witt, RN 12/14/2024 Orders Only [facility] [address] [place] [address] Christopher Doll MD Adenocarcinoma of lung, unspecified laterality (HCC) 12/13/2024 Orders Only [facility] [address] [place] [address] [address] [place] [phone] Christopher Doll MD Adenocarcinoma of lung, unspecified laterality (HCC) (Primary Dx) 12/07/2024 2:45 PM CDT Clinical Support [facility] [address] [place] [address] Malignant neoplasm of upper lobe of left lung (HCC) 12/07/2024 1:30 PM CDT Office Visit [facility] [address] [place] [phone] Christopher Doll MD Malignant neoplasm of upper lobe of left lung (HCC) (Primary Dx); Metastasis to brain (HCC); Secondary malignant neoplasm of spleen (HCC) 12/06/2024 8:11 PM CDT - 12/06/2024 11:59 PM CDT Hospital Encounter [facility] [address] [place] [address] Discharge Disposition: Discharge to home or self care 12/06/2024 8:11 PM CDT - 12/06/2024 11:59 PM CDT Hospital Encounter [facility] [address] [place] [address] Discharge Disposition: Discharge to home or self care 12/06/2024 8:10 PM CDT - 12/06/2024 11:59 PM CDT Hospital Encounter [facility] [address] [place] [address] Discharge Disposition: Discharge to home or self care 12/05/2024 2:12 PM CDT - 12/05/2024 11:59 PM CDT Hospital Encounter [facility] [address] [place] [address] Diagnosis unknown Discharge Disposition: Discharge to home or self care from Last 3 Months Allergies No known active allergies Medications apixaban (Eliquis) 5 mg tablet Take 1 tablet twice a day by oral route. 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 Pathology Consult Service [address], [place] [address] Note to Patients: This report [...] SURGICAL PATHOLOGY REPORT * Consult Report * [facility] is providing an additional review of previously collected tissue. FINAL Patient Name: JASPER CELAYA Address: [address] [place] [phone] Gender: M : 1955 (Age: 69) Hospital #: [id number] Patient Type: [facility] Location: UNKNOWN Taken: 12/14/2024 Received: 12/14/2024 Accessioned: 12/14/2024 Reported: 12/19/2024 Physician(s): Christopher Doll M.D. [facility] Department of Pathology [facility] Department of Pathology [address] [place] [address] P: [phone] F: [phone] Diagnosis: Consult material received from [place], [place] (OSC: [id number]; 11/23/2024). A. Lung, left upper lobe, biopsy [...] Received for review are twenty-two slides labeled [id number], accompanied by a corresponding pathology report. The material originates from [place], [place]. Selected slide(s) may be digitally scanned for our files, and all materials are returned to the referring institution, along with a copy of our final report. Any testing required for diagnostic purposes was performed in the Department of Pathology and Immunology at [employer] [facility] [facility] [employer], [address] [place], [place] [id number] CLIA # [id number] The performance characteristics of the testing cited in this report (if any) were determined by the [facility] Department of Pathology and Immunology [facility], as part of an ongoing quality assurance auditor program and in compliance with federally mandated [...] and the performance characteristics determined by the [facility], [facility] Department of Pathology and Immunology. It has not been cleared or approved by the U.S. Food and Drug Administration. Any test designated as LDT was developed and its performance characteristics determined by [facility]. It has not been cleared or approved by the FDA. This test is used for clinical purposes and should not be regarded as investigational or for research. Report images and/or scanned reports, if included, only viewable in PDF version of report. us Christopher Doll MD LAB PATHOLOGY ORDERABLES Final Result [facility] [address] [address] * (ABNORMAL) Differential, auto (12/07/2024 2:49 PM CDT) Neutrophil abs 6.06 1.50 - 6.50 K/cumm Comment:Testing performed by : [address] [address] Imm gran abs 0.13(H) 0.00 - 0.10 K/cumm SARAH GRANDA Comment:Testing performed by : [address] [address] Lymphocyte abs 0.79(L) 0.80 - 3.30 K/cumm SARAH Comment:Testing performed by : [address] [address] Monocyte abs 0.37 0.20 - 0.80 K/cumm [facility] Comment:Testing performed by : [address] [address] Eosinophil abs 0.01 0.00 - 0.50 K/cumm [facility] Comment:Testing performed by : [address] [address] Basophil abs 0.02 0.00 - 0.10 K/cumm [facility] Comment:Testing performed by : [address] [address] Neutrophil pct 82.1 % [facility] Comment: Interpretive Data Percent cell count reference ranges are not reported, since discordance with absolute values may lead to misinterpretation of CBC data. Current Interpretive Data was last revised on 2017. Testing performed by: [address] [address] Imm gran pct 1.8 % [facility] Comment: Interpretive Data Percent cell count reference ranges are not reported, since discordance with absolute values may lead to misinterpretation of CBC data. Current Interpretive Data was last revised on 2017. Testing performed by: [address] [address] Lymphocyte pct 10.7 % [facility] Comment: Interpretive Data Percent cell count reference ranges are not reported, since discordance with absolute values may lead to misinterpretation of CBC data. Current Interpretive Data was last revised on 2017. Testing performed by: [address] [address] Monocyte pct 5.0 % [facility] Comment: Interpretive Data Percent cell count reference ranges are not reported, since discordance with absolute values may lead to misinterpretation of CBC data. Current Interpretive Data was last revised on 2017. Testing performed by: [address] [address] Eosinophil pct 0.1 % [facility] Comment: Interpretive Data Percent cell count reference ranges are not reported, since discordance with absolute values may lead to misinterpretation of CBC data. Current Interpretive Data was last revised on 2017. Testing performed by: [address] [address] Basophil pct 0.3 % SARAH Comment: Interpretive Data Percent cell count reference ranges are not reported, since discordance with absolute values may lead to misinterpretation of CBC data. Current Interpretive Data was last revised on 2017. Testing performed by: [address] [address] Blood 12/07/2024 2:49 PM CDT 12/07/2024 2:50 PM CDT us Christopher Doll MD LAB BLOOD ORDERABLES Fin al Result SARAH [address] [facility] Department [place] [address] * (ABNORMAL) CBC with auto differential (12/07/2024 2:49 PM CDT) WBC 7.38 3.80 - 9.90 K/cumm Comment:Testing performed by : [address] [address] Hgb 11.8(L) 13.0 - 17.5 g/dL SARAH Comment:Testing performed by : [address] [address] Hct 34.7(L) 38.9 - 50.3 % SARAH Comment:Testing performed by : [address] [address] Plt 182 150 - 400 K/cumm SARAH Comment:Testing performed by : [address] [address] MPV 8.0(L) 9.1 - 12.3 fL SARAH Comment:Testing performed by : [address] [address] RBC 3.70(L) 4.30 - 5.80 M/cumm SARAH Comment:Testing performed by : [address] [address] MCV 93.8 81.3 - 96.4 fL SARAH Comment:Testing performed by : [address] [address] MCH 31.9 27.1 - 33.3 pg SARAH Comment:Testing performed by : [address] [address] MCHC 34.0 32.3 - 35.7 g/dL SARAH GRANDA Comment:Testing performed by : [address] [address] RDW CV 16.4(H) 11.1 - 14.9 % SARAH Comment:Testing performed by : [address] [address] RDW SD 56.2(H) 35.7 - 48.1 fL SARAH Comment:Testing performed by : [address] [address] NRBC abs 0.00 0.00 - 0.01 K/cumm SARAH Comment:Testing performed by : [address] [address] ANC Prelim 6.06 1.50 - 6.50 K/cumm SARAH Comment: Interpretive Data The rapid ANC is a preliminary automated count and may vary from the final ANC (Neut Abs) reported in the WBC differential that follows. Current interpretive data was last revised 2024. Testing performed by: [address] [address] Blood 12/07/2024 2:49 PM CDT 12/07/2024 2:50 PM CDT us Christopher Doll MD LAB BLOOD ORDERABLES Fin al Result [facility] [address] [facility] Department [place] [address] * [facility] xF - Lab Collect (12/07/2024 [...] AM CDT [facility] Portal https://clinica l-portal.[employer]/aileen [email or web address] 01/10/2025 10:15 AM CDT [facility] Comment:[facility] link Low Coverage Regions ABL2, AXIN2, BCR, YCM03U6, KAT6A, NOTCH2, NTRK2, PRKN, RHOA, RXRA, SDHAF2, TGFBR1, TP63 01/10/2025 10:15 AM CDT [facility] Trial Count 3 01/10/2025 10:15 AM CDT [facility]us: Clinical Trial Match 1 Clinical Trial NCT ID: [id number] Clinical Trial Title: A Phase 1/2 Study of Inlexisertib (DCC-3116) in Patients With MARCELINO/MAPK Pathway Mutant Solid Tumors Clinical Trial URL: https://clinica ltrials.gov/ct2 /show/VOK877121 17 Clinical Phase: Phase 1/Phase 2 Clinical Trial Matches: NF1 p.A399fs mutation Clinical Trial Distance and Location: [address] [place], [place] 01/10/2025 10:15 AM CDT [facility]: Clinical Trial Match 2 Clinical Trial NCT ID: [id number] Clinical Trial Title: Study of DCC-3084 in Participants With Advanced Malignancies Driven by the Mitogen-Activat ed Protein Kinase (MAPK) Pathway Clinical Trial URL: https://clinica ltrials.gov/ct2 /show/WZU276257 63 Clinical Phase: Phase 1/Phase 2 Clinical Trial Matches: NF1 p.A399fs mutation Clinical Trial Distance and Location: [address] [place], [place] 01/10/2025 10:15 AM CDT [facility]: Clinical Trial Match 3 Clinical Trial NCT ID: [id number] Clinical Trial Title: A Study to Investigate the Safety and Efficacy of RYG568 as Monotherapy and in Combination in Participants With Advanced Solid Malignancies Clinical Trial URL: https://clinica [facility].gov/ct2 /show/EAJ599284 06 Clinical Phase: Phase 1 Clinical Trial Matches: NF1 p.A399fs mutation Clinical Trial Distance and Location: [address], [place], [place] 01/10/2025 10:15 AM CDT [facility] Tumor Mutational Lapaz 3.3 m/MB 01/10/2025 10:15 AM CDT [facility] Microsatellite Instability Note MSI-High not detected 01/10/2025 10:15 AM CDT [facility] Treatment Implications Note No reportable treatment options found. 01/10/2025 10:15 AM CDT [facility] Blood specimen (specimen) 12/07/2024 2:42 PM CDT 01/02/2025 4:32 PM CDT Narrative This result has genomic variants that were not included in this document. us Christopher Doll MD LAB GENETIC TESTING Ifeoma l Result Performing Organization Address [facility] Co de Phone Number [facility] [address] [facility], [address] [phone] [facility] [address] [facility], [place] [address] * CT Body Outside Reference (12/06/2024 8:11 PM CDT) Impressions [facility] - 12/06/2024 8:11 PM CDT These images are for Reference purposes only and have not been reviewed by [facility] Radiology. There will be no report generated by a [facility] Radiologist. Narrative [facility] - 12/06/2024 8:11 PM CDT EXAMINATION: Images For Reference Purposes Only us Christopher Doll MD IMG CT PROCEDURES Final Result Performing Organization Address [facility]/ZIP Co de Phone Number [facility] * XR Outside Reference (12/06/2024 8:11 PM CDT) Impressions [facility] - 12/06/2024 8:11 PM CDT These images are for Reference purposes only and have not been reviewed by [facility] Radiology. There will be no report generated by a [facility] Radiologist. Narrative [facility] - 12/06/2024 8:11 PM CDT EXAMINATION: Images For Reference Purposes Only us Christopher Doll MD IMG XR PROCEDURES Final Result Performing Organization Address [facility] de Phone Number [facility] * XR Outside Reference (12/06/2024 8:10 PM CDT) Impressions [facility] - 12/06/2024 8:10 PM CDT These images are for Reference purposes only and have not been reviewed by [facility] Radiology. There will be no report generated by a [facility] Radiologist. Narrative [facility] - 12/06/2024 8:10 PM CDT EXAMINATION: Images For Reference Purposes Only us Christopher Doll MD IMG XR PROCEDURES Final Result Performing Organization Address [facility] de Phone Number [facility] * PET Outside Consult (12/05/2024 2:12 [...] images may or may not represent the nome source data set and thus may contain [...] STUDY INITIALLY PERFORMED: 11/18/2024, images acquired at [facility]. TYPE OF STUDY: FDG-PET/CT. The images available for review consisted of axial attenuation-corrected and uncorrected PET images and axial CT images. The total scanned area was skull base to the proximal thighs. The mean liver SUV (reported for software quality tester purposes) is 2.7. The study was interpreted on the [employer] workstation. The protocol was adequate to address [...] STUDY INITIALLY PERFORMED: 11/18/2024, images acquired at [facility]. TYPE OF STUDY: FDG-PET/CT. The images available for review consisted of axial attenuation-corrected and uncorrected PET images and axial CT images. The total scanned area was skull base to the proximal thighs. The mean liver SUV (reported for software quality tester purposes) is 2.7. The study was interpreted on the [employer] workstation. The protocol was adequate to address [...] images may or may not represent the nome source data set and thus may contain changes that may lower the accuracy of this second-opinion interpretation. Dictated by: Darin Solis MD The radiology attending physician has personally reviewed this study, and had reviewed and/or edited this written report and agrees with it. Electronically signed by: Qiana Robles M.D. us Christopher Doll MD IMG PET PROCEDURES Final Result from Last 3 Months Insurance [facility] Care Teams Sustainable Design Coordinator Relationship Specialty Start Date End Date Liu Brewer MD [address] [place] [id number] PCP - General Family Medicine 12/02/24 Sierra Szymanski MD [address] [place] [address] Referring Physician Hematology and Oncology 12/01/24 Christopher oDll MD [address] [place] [address] MEDICAL ONCOLOGY, [address] [address] Medical Oncologist/[facility] 12/06/24
[2025-01-15] MEDS: SODIUM CHLORIDE 0.9% IV 500 ML 999 ML IV CONT (04:55)
--- NOTE | 2025-01-15 04:58 | ECG_ITS ---
Test Date: 2025-01-15 05:34:02 Measurements Intervals [place] Rate: 128 P: 0 ID: 0 QRS: 49 QRSD: 95 T: 64 QT: 393 QTc: 575 Interpretive Statements ATRIAL FLUTTER/TACHYCARDIA WITH RAPID VENTRICULAR RESPONSE LOW QRS VOLTAGE IN PRECORDIAL LEADS [QRS DEFLECTION < 1.0 mV IN CHEST LEADS] SEPTAL MYOCARDIAL INFARCTION , OF INDETERMINATE AGE [40+ ms Q WAVE IN V1/V2] INTERPRETATION BASED ON A DEFAULT AGE OF 40 YEARS No previous ECG available for comparison Electronically Signed On 01-16-2025 22:39:34 CDT by Estela Maynard M.D.
--- NOTE | 2025-01-15 05:01 | ED_ITS ---
HPI - SOB/Dyspnea General Chief Complaint: Shortness of Breath/Dyspnea Stated Complaint: difficulty breathing Time Seen by Provider: 01/15/25 04:57 Source: patient Mode of arrival: ambulatory Limitations: no limitations History of Present Illness HPI Narrative: 69-year-old male, ex-smoker with a history of hypertension, COPD, atrial fibrillation, cardiomyopathy, left upper lobe poorly differentiated carcinoma diagnosed in June of 2024 on immunotherapy/chemotherapy with hilar and mediastinal lymph node enlargement and Mets to brain and spleen, Recent intracranial hemorrhage for which she was released from [facility] last week presents to the ED with -- shortness of breath/ respiratory distress. the patient was on 100% of FiO2. ABG on 100% was noted to be 715/77/53/70 7%. -- Profuse sweating patient is alert and oriented. Blood pressure is stable. Tachycardia with a heart rate of 130 blood sugar is noted to be250 patient was in his usual health till yesterday. He suddenly developed shortness of breath this morning. no recent fever or chills. No chest pain . No nausea vomiting. MD elicited complaint: shortness of breath Pertinent past history: COPD, congestive heart failure and other ( lung cancer) Onset (ago): hour(s) ( 1 hour) Treatment prior to arrival: oxygen Related Data Home Medications ?Medication ?Instructions ?Recorded ?Confirmed ?Last Taken ?Type apixaban 5 mg tablet (Eliquis) 5 mg PO BID 08/30/24 10/11/24 Unknown History metoprolol succinate 25 mg 25 mg PO DAILY 08/30/24 10/11/24 Unknown History tablet,extended release 24 hr nifedipine 60 mg tablet,extended 60 mg PO DAILY 08/30/24 10/11/24 Unknown History release pravastatin 40 mg tablet 40 mg PO HS 08/30/24 10/11/24 Unknown History Allergies Allergy/AdvReac Type Severity Reaction Status Date / Time atorvastatin (From Lipitor) Allergy Intermediate Diarrhea Verified 01/15/25 06:00 Review of Systems 2 Review of Systems: ROS unobtainable: Yes unobtainable due to medical condition and unobtainable due to mental status [facility] Past Medical History Medical History (Updated 01/15/25 @ 06:53 by Shelton Morton MD) Hypertension Atrial fibrillation Cardiomyopathy COPD (chronic obstructive pulmonary disease) Lung cancer metastatic to brain Social History Social History (Updated 01/15/25 @ 06:04 by Shelton Morton MD) Social History: ex-smoker Exam 2 Narrative: Vitals are stable. Oxygen saturation of 98% on 100% of O2. Pulse rate of 121. Const: General: ill appearing Orientation/consciousness: patient oriented x3 HENMT: Head: normal to inspection Ears: external ears normal F el/Nose/Sinus: Normal external nose present Face and sinus: normal facial exam Mouth: Yes Normal oral and palatal mucosa present Throat: posterior oropharynx normal Eyes: Conjunctivae: conjunctivae normal Pupils: Equal, round and reactive pupils present EOM: EOMs intact bilaterally Direct Ophthalmoscopy: no photophobia Neck: Neck: normal visual inspection, no lymphadenopathy and no meningeal signs Chest: Chest palpation & inspection: normal inspection of the chest Resp: Effort & Inspection: normal respiratory effort Auscultation: rales, rhonchi and diminished lung sounds Cardio: Rate: tachycardic Rhythm: regular rhythm Other: No gallop murmur appreciated GI: GI Palp: Yes Soft to palpation Auscultation: normal bowel sounds O ther: no tenderness/ rigidity /rebound. : General: Yes no CVA tenderness Back/Spine/Pelvis: Back: no CVA tenderness Skin: General skin exam: normal color Rashes: no rashes Wounds: no wounds Neuro: General: patient oriented x3, moves all extremities and no meningeal signs Speech: normal speech Extrem: General: normal to inspection and no clubbing, cyanosis or edema Psych: Mental Status: mental status grossly normal Affect: normal affect Attitude: cooperative Course Course Emergency Course: Metastatic lung cancer presents with severe shortness of breath with an ABG of 715/77/53/70 7% on 100% FiO2. Chest x-ray revealed bilateral lung infiltrates and pink frothy sputum suggestive of pulmonary edema. Respiratory secretions are noted to be thick but clear. Patient was initially placed on 100% non-rebreather mask and subsequently was emergently intubated and placed on mechanical ventilation. The patient is on AC 16/5 100/100% with a PEEP of +5. the patient received DuoNeb treatment and Solu- Medrol 125 IV push x1. The patient is sedated with propofol. She received a dose of fentanyl 50 mcg IV push x1. The patient was noted to be hypotensive following which she was started on IV Levophed. His blood pressure has remained stable all along. He had atrial flutter with a rapid ventricular rate of 128. The patient received IV amiodarone 150 mg with decrease of heart rate to around 100. The patient has right chest port which was accessed. Blood work revealed a normal white cell count of 5.4, H&H of 9.7 and 30. Chemistries revealed marginally elevated AST and ALT. Troponin was noted to be 0.081( normal range 0.02 to 0.034) in view of his 3 intracranial Mets and recent intracranial bleeding around the metastatic lesion the patient had a CT of the head. No worsening bleeding noted as per my read. patient received 500 mg of Keppra. In view of the bilateral lung infiltrates Will culture and start the patient on vancomycin and cefepime. Vital Signs Vital signs: Vital Signs Temperature 36.0 C L 01/15/25 04:51 Pulse Rate 121 H 01/15/25 04:51 Respiratory Rate 17 01/15/25 04:51 Blood Pressure 142/91 H 01/15/25 04:51 Pulse Oximetry 98 01/15/25 04:51 Oxygen Delivery Non-Rebreather Mask 01/15/25 04:51 Oxygen Flow Rate 15 01/15/25 04:51 Temperature 36.0 C L 01/15/25 04:51 Pulse Rate 96 01/15/25 05:57 Respiratory Rate 17 01/15/25 04:51 Blood Pressure 128/101 H 01/15/25 05:47 Pulse Oximetry 98 01/15/25 04:51 Oxygen Delivery Mechanical Ventilation 01/15/25 06:35 Oxygen Flow Rate 15 01/15/25 04:51 Procedures Intubation Intubation #1: Intubation Date: 01/15/25 Intubation Time: 05:15 sedative: Etomidate Mg Given: 20 paralytic: Rocuronium Mg Given: 50 Laryngoscope: fiber optic video scope Tube Size (cm): 7.5 Method of Intubation: orotracheal Number of Attempts: 1 Tube Secured Depth (cm): 24 Tube Secured Location: teeth Tube Placement Confirmation: visualized tube passing through cords, equal breath sounds bilaterally, no breath sounds over epigastrium and confirmation by capnometry Intubation Complications: none MDM - SOB/Dyspnea MDM Narrative Medical decision making narrative: Metastatic lung cancer hypoxic hypercarbic respiratory failure secondary to COPD, CHF exacerbation, lung cancer bilateral lung infiltrates-- cultured and given vancomycin and cefepime. Anemia with an H&H of 9.7/30. A flutter with a rapid ventricular rate for which the patient received IV amiodarone Differential Diagnosis Differential diagnosis: Likely acute exacerbation of chronic obstructive airways disease and congestive heart failure Medical Records Attestation: I reviewed the patient's medical records. Lab Data Attestation: I reviewed the patient's lab results. 01/15/25 05:14 Labs: Lab Results 01/15/25 01/15/25 01/15/25 Range/Units 04:58 05:11 05:14 Sodium 136 L (137-145) mmol/L Potassium 5.0 (3.4-5.0) mmol/L Chloride 103 (98-107) mmol/L Carbon Dioxide 26 (22-30) mmol/L Anion Gap 7 (4-12) mmol/L BUN 24 H (9-20) mg/dL Creatinine 0.65 L (0.7-1.3) mg/dL Estim Creat Clear Calc 104 ml/min Estimated GFR > 60 (59 - ) Glucose 293 H (65-110) mg/dL Calculated Osmolality 297 H (285-295) mOsm/kg Calcium 8.5 (8.4-10.2) mg/dL Magnesium 2.0 (1.6-2.3) mg/dL Total Bilirubin 0.7 (0.2-1.3) mg/dL AST 74 H (17-59) U/L ALT 65 H (6-50) U/L Alkaline Phosphatase 100 (38-126) U/L Troponin I 0.081 H* (0.000-0.034) ng/mL NT-Pro-B Natriuret Pep 728 H (19.9-100) pg/mL Total Protein 6.7 (6.3-8.2) g/dL Albumin 3.9 (3.5-5.1) g/dL Triglycerides 178 H (<150) mg/dL Lipase 175 (23-300) U/L Urine Color Pending Urine Appearance Pending Urine pH Pending Ur Specific [place] Pending Urine Protein Pending Urine Glucose (UA) Pending Urine Ketones Pending Ur Blood (Man) Pending Urine Nitrate Pending Urine Bilirubin Pending Urine Urobilinogen Pending Leukocyte Esterase Rfl Pending ABG Data ABG results: 01/15/25 05:14 Puncture Site Left radial ABG pH 7.15 L ABG pCO2 77.4 H* ABG pO2 53.1 L ABG HCO3 26.1 ABG O2 Saturation 77.5 L ABG Base Excess -4.7 L Oxyhemoglobin 76.6 L O2 Delivery Device Non-rebreather mask O2 Liters/Min 15.0 ECG Data EKG #1: ECG completion date: 01/15/25 ECG completion time: 05:34 Interpretation: sinus tachycardia / atrial flutter with a ventricular rate of 128. Normal axis. No ST elevation. Critical Care Time Critical Care Time Critical Care Time: Yes Total Critical Care Time: 70 Discharge Plan Discharge Clinical Impression: Acute hypoxemic respiratory failure, Bilateral pulmonary infiltrates, CHF exacerbation, Anemia, Transaminitis Patient Disposition: Still a Patient Condition: Unstable Additional Instructions: transfer patient to [facility]. Patient has been accepted by Patient Language: Syriac Prescriptions: No Action metoprolol succinate 25 mg tablet extended release 24 hr 25 mg PO DAILY Eliquis 5 mg tablet 5 mg PO BID nifedipine 60 mg tablet extended release 60 mg PO DAILY pravastatin 40 mg tablet 40 mg PO HS Follow-up/Referrals: Osman,MD Liu [Primary Care Provider] - Time of Disposition: 06:53
[2025-01-15] MEDS: IPRATROPIUM 0.5 MG/ALBUTEROL SULFATE 2.5 MG AMPUL.NEB 3 ML INHALATION (05:03)
[2025-01-15] MEDS: ROCURONIUM BROMIDE 50 MG/5 ML VIAL IV PUSH (05:14)
[2025-01-15] MEDS: ETOMIDATE 20 MG/10 ML AMPUL IV PUSH (05:14)
[2025-01-15 05:18] LABS: HCO3 ABG 26.1 mmol/L (23-29); Oxygen Saturation ABG 77.5 % (95-97); PO2 ABG 53.1 mmHg (75-85)
[2025-01-15 05:19] LABS: Modified Allen's Test Unable to perform; Site Drawn LEFT RADIAL
[2025-01-15] MEDS: PROPOFOL IV EMULSION 200 MG/20 ML VIAL IV PUSH (05:21)
[2025-01-15 05:25] LABS: Liters per Minute 15.0 LPM; PCO2 ABG 77.4 mmHg (35-45)
[2025-01-15] MEDS: PROPOFOL IV EMULSION 100 ML 5.79 MG IV CONT (05:30)
[2025-01-15 05:35] LABS: Alanine Aminotransferase 65 U/L (6-50); Albumin Level 3.9 g/dL (3.5-5.1); Alkaline Phosphatase 100 U/L (38-126); Anion Gap 7 mmol/L (4-12); Aspartate Amino Transferase 74 U/L (17-59); Bilirubin,Total 0.7 mg/dL (0.2-1.3); Blood Urea Nitrogen 24 mg/dL (9-20); Calcium 8.5 mg/dL (8.4-10.2); Carbon Dioxide 26 mmol/L (22-30); Chloride 103 mmol/L (98-107); Estimated CRCL calculation 104 ml/min; Estimated Glomerular Filt Rate > 60; Glucose 293 mg/dL (65-110); Lipase 175 U/L (23-300); Magnesium 2.0 mg/dL (1.6-2.3); Osmolality Calculated 297 mOsm/kg (285-295); Potassium 5.0 mmol/L (3.4-5.0); Sodium 136 mmol/L (137-145); Total Protein 6.7 g/dL (6.3-8.2)
[2025-01-15] MEDS: FUROSEMIDE INJ 40 MG/4 ML VIAL IV PUSH (05:46)
[2025-01-15 05:47] LABS: NT Pro B Type Natriuretic Pept 728 pg/mL (19.9-100)
--- OUTSIDE RECORDS SUMMARY | 2025-01-15 05:53 | XMS_ITS | Clinical Summary ---
Author Organization [facility] Address [address] [place] [address] Care Team Providers Care Vp Revenue Cycle Name Role Phone Nilay Enriquez MD Unavailable [phone] Liu Brewer MD Primary Care Provider Marcial Titus MD Unavailable [phone] Jeana Hodge RN Unavailable Unavailab Selvin Romo MD Unavailable [phone] Allergies Active Allergy Reactions Criticality Noted [...] Acute encephalopathy 01/09/2025 Atrial fibrillation with RVR ([facility]) 0 12/28/2024 Cerebral brain hemorrhage ([facility]) 11/12 Brain tumor ([facility]) 11/07/2024 Lung mass 06/22/2024 Chest pain of uncertain etiology 09/07/2017 Former smoker 09/07/2017 Atrial fibrillation ([facility]) 08/03/2017 LV dysfunction 08/03/2017 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[facility]) 08/03/2017 Essential hypertension 07/09/2017 Mixed hyperlipidemia 07/09/2017 Smoking 07/09/2017 COPD (chronic obstructive pu lmonary disease) ([facility]) Encounters Date Type Department Care Team Description 01/12/2025 Patient Outreach [place] [id number] [place] [address] Jeana Hodge RN TCM (TCM-Initial call LVM) 01/10/2025 Patient Outreach [place] [address] [place] [address] Jeana Hodge RN TCM (PCP New Admission Notification ) 01/09/2025 9:20 AM CDT - 01/11/2025 12:42 PM CDT Hospital Encounter [facility] Care Unit [address] [place] [address] Shilpa Gonzales MD Jabeen, Sayeeda A, MD Parikh, Ankit R, MD Saleem, Saliha, MD Neurologic Problem Discharge Disposition: Home or Self Care (Routine Discharge) 01/09/2025 Telephone [facility] [address] [place] [address] Marcial Titus MD Reschedule 01/09/2025 Travel 01/03/2025 Telephone [facility] [address] [place] [address] Selvin Taylor MD Appointment Request 01/03/2025 Patient Outreach [place] [address] [place] [address] Jeana Hodge RN TCM (TCM-Initial call with p) 01/03/2025 Hospital Follow-up Call [facility] [address] [place] [address] Petra Barnes RN 12/28/2024 Patient Outreach [place] [address] [place] [address] Jeana Hodge RN Hospital Follow Up (PCP Admission Notification) 12/27/2024 8:31 PM CDT - 01/02/2025 12:34 PM CDT Hospital Encounter [facility] [address] [place] [address] Denice Branham MD Shackour, Salim, MD Minhas, Irfan Ul Haq, MD Mardani, Fareed, MD Yousuf, MD Reba Isabel, Eulogio Alberts MD Syncope; Weakness Discharge Disposition: Home or Self Care (Routine Discharge) 12/27/2024 Travel 12/22/2024 Patient Outreach [facility] [address] [place] [phone] Jeana Hodge RN TCM (TCM-One week f/u call with pt) 12/21/2024 9:30 AM CDT - 12/21/2024 11:59 PM CDT Hospital Encounter [address] [address] Milan Vazquez MD Discharge Disposition: Home or Self Care (Routine Discharge) 12/21/2024 Travel 12/20/2024 9:30 AM CDT - 12/20/2024 11:59 PM CDT Hospital Encounter [address] [address] Milan Vazquez MD Discharge Disposition: Home or Self Care (Routine Discharge) 12/20/2024 Travel 12/19/2024 9:30 AM CDT - 12/19/2024 11:59 PM CDT Hospital Encounter [address] [address] Milan Vazquez MD Discharge Disposition: Home or Self Care (Routine Discharge) 12/16/2024 9:00 AM CDT - 12/16/2024 11:59 PM CDT Hospital Encounter [address] [address] Milan Vazquez MD Discharge Disposition: Home or Self Care (Routine Discharge) 12/16/2024 Travel 12/15/2024 10:00 AM CDT - 12/15/2024 11:59 PM CDT Hospital Encounter [address] [address] Milan Vazquez MD Discharge Disposition: Home or Self Care (Routine Discharge) 12/15/2024 Patient Outreach [facility] [address] [place] [address] Jeana Hodge RN TCM (TCM -initial call with pt and spouse) 12/15/2024 Travel 12/14/2024 12:00 PM CDT - 12/14/2024 11:59 PM CDT Hospital Encounter [address] [address] Milan Vazquez MD Discharge Disposition: Home or Self Care (Routine Discharge) 12/12/2024 Patient Outreach [facility] [address] [place] [address] Jeana Hodge RN Hospital Follow Up (PCP Admission Notification. ) 12/10/2024 5:47 AM CDT - 12/14/2024 11:26 AM CDT Hospital Encounter [facility] [address] [place] [address] Parish Arroyo MD Subramaniyam, Rajamurugan R, MD Sohail, Atif, MD Discharge Disposition: Home or Self Care (Routine Discharge) 12/10/2024 1:28 AM CDT - 12/10/2024 5:04 AM CDT [facility] [address] [place] [address] Compa Banuelos MD Seizure- New Onset Discharge Disposition: Transfer to Acute Care Hospital 12/10/2024 Travel 12/09/2024 9:00 AM CDT - 12/09/2024 11:59 PM CDT Hospital Encounter [address] [address] Milan Vazquez MD Discharge Disposition: Home or Self Care (Routine Discharge) 12/08/2024 9:00 AM CDT - 12/08/2024 11:59 PM CDT Hospital Encounter [address] [address] Milan Vazquez MD Discharge Disposition: Home or Self Care (Routine Discharge) 12/08/2024 Travel 12/07/2024 9:00 AM CDT - 12/07/2024 11:59 PM CDT Hospital Encounter [address] [address] Milan Vazquez MD Discharge Disposition: Home or Self Care (Routine Discharge) 12/06/2024 1:45 PM CDT - 12/06/2024 11:59 PM CDT Hospital Encounter [address] [address] Milan Vazquez MD Discharge Disposition: Home or Self Care (Routine Discharge) 12/06/2024 Travel 11/30/2024 11:00 AM CDT - 11/30/2024 11:59 PM CDT Hospital Encounter [address] [address] Milan Vazquez MD Discharge Disposition: Home or Self Care (Routine Discharge) 11/30/2024 10:51 AM CDT - 11/30/2024 10:59 AM CDT [facility] En[facility] [address] [place] [address] Milan Vazquez MD Discharge Disposition: Home or Self Care (Routine Discharge) 11/30/2024 Travel 11/21/2024 9:15 AM CDT - 11/21/2024 11:59 PM CDT [facility] En[facility] [address] [place] [address] Tiny Pacheco MD Discharge Disposition: Home or Self Care (Routine Discharge) 11/21/2024 Travel 11/15/2024 1:30 PM CDT - 11/15/2024 11:59 PM CDT Hospital Encounter [facility] [place] [address] [place] [address] Milan Vazquez MD Discharge Disposition: Home or Self Care (Routine Discharge) 11/15/2024 Travel 11/11/2024 Telephone [facility] [address] [place] [address] Priti De Santiago RN Consult 11/07/2024 2:49 PM CDT - 11/09/2024 1:40 PM CDT Hospital Encounter [facility] [address] [place] [address] Priti Ogden MD Shackour, Salim, MD Bhandari, Amit, MD Medical Problem Discharge Disposition: Home or Self Care (Routine Discharge) 11/07/2024 Travel 10/25/2024 9:00 AM CDT [facility] [address] [place] [address] Marcial Titus MD Arrhythmia 10/25/2024 8:45 AM CDT - 10/25/2024 11:59 PM CDT Hospital Encounter [facility] [address] [place] [address] Marcial Titus MD Discharge Disposition: Home or Self Care (Routine Discharge) 10/25/2024 Telephone [facility] [address] [place] [address] Marcial Titus MD Holter Monitor 10/25/2024 Telephone [facility] [address] [place] [address] Marcial Titus MD Appointment Request 10/25/2024 Travel 10/21/2024 9:31 AM CDT - 10/21/2024 11:59 PM CDT Hospital Encounter [facility] [address] [place] [address] Mayte Bailey MD Discharge Disposition: Home or [...] alcohol) 2 to 4 drinks per week [facility] Utilities Answer Date Recorded In the past 12 months has e [employer], gas, oil, or water [employer] threatened to shut off services in your [...] any time in the past 12 [facility], were you homeless or living in a snf (including now)? 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 Legal Sex Male 2:41 PM VALVE INSERTER Gender Identity Not on file Sexual Orientation [...] Info) Description 01/16/2025 10:00 AM CDT Appointment [facility] [address] [address] Mayte Bailey MD [address] [place] [address] 02/03/2025 11:00 AM CDT Office Visit [facility] [address] [place] [address] Selvin Taylor MD [address] [place] [address] 03/21/2025 10:45 AM CDT Office Visit [facility] [address] [place] [phone] Marcial Titus MD [address] [facility] [address] [phone] 11/07/2025 8:30 AM CDT Office Visit [facility] [place] [address] [place] [phone] Marcial Titus MD [address], [address] [phone] Health Maintenance Due Date Last Done Comments [...] Recommended Domains Addressed Status Status Reason/Outcome Date/Time [facility] Food Insecurity Services Food Insecurity 12/13/2024 4:30 PM CDT [facility] Food In[facility] Food Insecurity 12/13/2024 4:30 PM CDT [facility] Food Insecurity Services Food Insecurity 12/13/2024 4:30 [...] - 145 MMOL/L 01/11/2025 3:[address] [facility] POTASSIUM S/P/B 3.4(L) 3.5 - 5.1 MMOL/L 01/11/2025 3:[address] [facility] CHLORIDE S/P/B 102 97 - 115 MMOL/L 01/11/2025 3:[address] [facility] CO2 25.2 21.0 - 32.0 MMOL/L 01/11/2025 3:[address] [facility] GLUCOSE 150(H) 74 - 106 MG/DL 01/11/2025 3:[address] [facility] BUN 21(H) 7 - 18 MG/DL 01/11/2025 3:[address] [facility] CREATININE S/P/B 0.72 0.70 - 1.30 MG/DL 01/11/2025 3:[address] [facility] CALCIUM S/P/B 8.8 8.5 - 10.1 MG/DL 01/11/2025 3:[address] [facility] ANION GAP 7.8 2.0 - 10.0 MMOL/L 01/11/2025 3:[address] [facility] OSMOLALITY (CALC) 286 MOSM/KG 025 3:[address] [facility] Comment:REFERENCE RANGE NOT ESTABLISHED GFR ESTIMATE >90 >90 ML/MIN/1. 73 M2 01/11/2025 3:[address] [facility] GFR NOTES GFR REFERENCE S: 01/11/2025 3:[address] [facility] Comment: THE ESTIMATED GFR IS [...] CDT Chris Aguilera MD LABORATORY Final Result [facility] [address] [place] [address], [id number] * (ABNORMAL) CBC W/DIFF AUTOMATED (01/11/2025 2:00 AM CDT) Only the most recent of18 resultswithin the time period is included. WBC 5.70 4.00 - 10.80 x10'3/uL 01/11/2025 2:[address] [facility] RBC 3.46(L) 4.50 - 6.10 x10'6/uL 01/11/2025 2:[address] [facility] HGB 11.2(L) 13.0 - 18.0 G/DL 01/11/2025 2:[address] [facility] HCT 31.8(L) 37.0 - 52.0 % 01/11/2025 2:[address] [facility] MCV 91.9 78.0 - 100.0 FL 01/11/2025 2:[address] [facility] MCH 32.4(H) 27.0 - 31.0 PG 01/11/2025 2:[address] [facility] MCHC 35.2 33.0 - 36.0 G/DL 01/11/2025 2:[address] [facility] RDW 14.5 11.5 - 14.5 % 01/11/2025 2:[address] [facility] PLT 133(L) 150 - 350 x10'3/uL 01/11/2025 2:[address] [facility] MPV 8.0 7.4 - 10.4 FL 01/11/2025 2:[address] [facility] DIFFERENTIAL TYPE AUTOMATED DIFFERENTIAL 01/11/2025 2:[address] [facility] SEG NEUTROPHILS 83.5 % 2:[address] [facility] LYMPHOCYTES 8.1 % 01/11/2025 2:[address] [facility] MONOCYTES 6.1 % 01/11/2025 2:[address] [facility] EOSINOPHILS 0.0 % 01/11/2025 2:[address] [facility] BASOPHILS 0.2 % 01/11/2025 2:[address] [facility] IMMATURE GRANS % 2.1 % 01/12/20 2:[address] [facility] ABS. NEUTROPHILS 4.76 1.60 - 8.30 x10'3/uL 01/11/2025 2:[address] [facility] ABS. LYMPHOCYTES 0.46(L) 0.80 - 4.70 x10'3/uL 01/11/2025 2:[address] [facility] ABS. MONOCYTES 0.35 0.00 - 1.50 x10'3/uL 01/11/2025 2:[address] [facility] ABS. EOSINOPHILS 0.00 0.00 - 0.40 x10'3/uL 01/11/2025 2:[address] [facility] ABS. BASOPHILS 0.01 0.00 - 0.20 x10'3/uL 01/11/2025 2:[address] [facility] ABS. IMMATURE GRANULOCYTES 0.12(H) 0.00 - 0.03 x10'3/uL 01/11/2025 2:[address] [facility] ABS. NUCLEATED RBC'S 0.00 0.00 - 0.01 x10'3/uL 01/11/2025 2:[address] [facility] NRBC % 0.0 % 01/11/2025 2:[address] [facility] 01/11/2025 2:00 AM CDT us Chris Aguilera MD LABORATORY Final Result [facility] [address] [place] [address], [id number] * MRI BRAIN WWO CON (01/09/2025 11:17 [...] 9:17 AM Narrative 01/10/2025 9:41 AM CDT [address] [address] DATE: 01/09/2025 10:55 PM INDICATION: Staging. Dizziness. [...] Note Juan Francisco Whitehead MD - 01/10/2025 [facility] [address] [place], [place] [address] DATE: 01/09/2025 10:55 PM INDICATION: Staging. Dizziness. [...] 10:39 PM Narrative 01/09/2025 10:46 PM CDT [address] [address] EXAMINATION: CT HEAD WO CON, 01/09/2025 10:39 [...] Note Julio Cesar Mann MD - 01/09/2025 [facility] [address] [place], [place] [address] EXAMINATION: CT HEAD WO CON, 01/09/2025 10:39 [...] - 2.0 MMOL/L 01/09/2025 5:[address] [facility] 01/09/2025 4:41 PM CDT Shilpa Gonzales MD LABORATORY Final Result [facility] [address] [place] [address], [place] [phone] [id number] * EEG routine (01/09/2025 3:31 PM CDT) 01/09/2025 3:31 PM CDT Narrative ESCRIPTION - 01/11/2025 10:55 AM CDT Patient Name: JASPER ALARCON Date of : 1955 Account: [id number] Facility: [facility] Location: [facility] Date of Service: 01/10/2025 EEG HISTORY: [...] correlation is required. Signature/Date: CLARIBEL CHAMPION MD #[id number] /GABI/VINCE us Pat Cordero MD NEUROLOGY ORDERABLES Final R esult ESCRIPTION * CULTURE URINE (01/09/2025 2:20 PM CDT) SPEC DESCRIPTION URINE CLEAN CATCH 01/09/2025 2:[address] [facility] SPECIAL REQUESTS NO SPECIAL REQUEST 01/09/2025 2:[address] [facility] CULTURE RESULT FEW CONTAMINANTS 08/2024 7:[address] [facility] URINE SPECIMEN OBTAINED BY CLEAN CATCH PROCEDURE / Unknown 01/09/2025 2:20 PM CDT 01/09/2025 2:32 PM CDT us Shilpa Gonzales MD MICROBIOLOGY - GENERAL ORDERABL ES Final Result [facility] [address] [place] [address], [place] [phone] [id number] * URINALYSIS (01/09/2025 2:19 PM CDT) Only the most recent of2 resultswithin the time period is included. COLOR (U) COLORLESS 01/09/2025 2:[address] [facility] TRANSPARENCY CLEAR 01/09/2025 2:[address] [facility] SPECIFIC GRAVITY (U) 1.030 1.002 - 1.035 01/09/2025 2:[address] [facility] U PH 7.5 5 - 8 01/09/2025 2:[address] [facility] PROTEIN RANDOM (U) NEGATIVE NEGATIVE 01/09/2025 2:[address] [facility] GLUCOSE (U) NEGATIVE NEGATIVE MG/DL 01/09/2025 2:[address] [facility] KETONES MG/DL (U) NEGATIVE NEGATIVE 01/09/2025 2:[address] [facility] BILIRUBIN (U) NEGATIVE NEGATIVE 01/09/2025 2:[address] [facility] BLOOD (U) NEGATIVE NEGATIVE 01/09/2025 2:[address] [facility] NITRITES NEGATIVE NEGATIVE 01/09/2025 2:[address] [facility] UROBILINOGEN NORMAL 0 - 1 EU/DL 01/09/2025 2:[address] [facility] LEUKOCYTES (U) NEGATIVE NEGATIVE 01/09/2025 2:[address] [facility] RBC/HPF 1 0 - 3 /HPF 01/09/2025 2:[address] [facility] WBC/HPF <1 0 - 6 /HPF 01/09/2025 2:[address] [facility] BACTERIA (U) NONE /HPF 01/09/2025 2:[address] [facility] URINE SPECIMEN OBTAINED BY CLEAN CATCH PROCEDURE / Unknown 01/09/2025 2:19 PM CDT Shilpa Gonzales MD URINE ORDERABLES Final Result [facility] [address] [place] [address], [id number] * CTA HEAD+NECK (01/09/2025 12:54 PM CDT) [...] the right supraclinoid ICA, possibly via the gambell of Littlejohn or collateral filling. Asymmetrically decreased [...] 1:44 PM Narrative 01/09/2025 1:59 PM CDT [facility] [address] [place], [place] [address] DATE: 01/09/2025 12:49 PM INDICATION: Dizziness and [...] the right supraclinoid ICA, possibly via the gambell of [place]john or collateral filling. Slightly asymmetrically [...] upper lobe mass. Emphysema. Right-sided tunneled thoracic Cenzji-m-Iriw. Postsurgical and degenerative changes in the spine. Procedure Note Juan Francisco Whitehead MD - 01/09/[address] [address] DATE: 01/09/2025 12:49 PM INDICATION: Dizziness and [...] within the right supraclinoidICA, possibly via the gambell of [place]john or collateral filling. Slightlyasymmetrically decreased caliber of and contrast density within the rightMCA and its branches, but without definite proximal MCA occlusion.Scattered atherosclerotic calcifications along the intracranial ICAsegments. Right JONATHAN A1 segment is developmentally small in caliber.Otherwise [...] upper lobe mass. Emphysema. Right- sidedtunneled thoracic Neovjk-o-Tpmh. Postsurgical and degenerative changes inthe spine. IMPRESSION: 1. 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 Findings are age indeterminate but may be chronic withsome corresponding signal abnormality suggested within the rightintracranial ICA segment flow void on prior MRI exams. 2. Tiny patent channel of contrast within the right supraclinoid ICA,possibly via the gambell of [place]john or collateral filling. Asymmetricallydecreased caliber [...] 7.32 - 7.42 01/09/2025 11:[address] [facility] PCO2 VENOUS 61.5(H) 41.0 - 51.0 MMHG 01/09/2025 11:[address] [facility] PO2 VENOUS 23.2(L) 25.0 - 40.0 MM HG 01/09/2025 11:[address] [facility] BICARB VENOUS 31.5(H) 24 - 28 MMOL/L 01/09/2025 11:[address] [facility] TOTAL CO2 VENOUS 33.4(H) 25.0 - 29.0 MMOL/L 01/09/2025 11:[address] [facility] BASE EXCESS VENOUS 4.5(H) 0 - 2 MMOL/L 01/09/2025 11:[address] [facility] O2 SAT VENOUS 28 <75 % 01/09/2025 11:[address] [facility] 01/09/2025 11:4 4 AM CDT us Shilpa Gonzales MD LABORATORY Final Result Performing Organization Address City/[facility] Co de Phone Number [facility] [address] [place] [address], [id number] * PARTIAL THROMBOPLASTIN TIME,PTT (01/09/2025 11:44 AM CDT) Only the most recent of4 resultswithin the time period is included. PTT 27.0 25.1 - 36.5 SEC 01/09/2025 12:[address] [facility] 01/09/2025 11:4 4 AM CDT us Shilpa Gonzales MD LABORATORY Final Result Performing Organization Address [facility] Co de Phone Number [facility] [address] [place] [address], [id number] * PROTIME/INR, VENOUS (01/09/2025 11:44 AM CDT) Only the most recent of4 resultswithin the time period is included. PROTIME 10.3 9.4 - 12.5 SEC 01/09/2025 12:[address] [facility] INR 0.9 0.8 - 1.1 01/09/2025 12:[address] [facility] 01/09/2025 11:4 4 AM CDT us Shilpa Gonzales MD LABORATORY Final Result [facility] [address] [place] [address], [id number] * (ABNORMAL) COMPREHENSIVE METABOLIC PANEL (01/09/2025 11:44 AM CDT) Only the most recent of7 resultswithin the time period is included. Pathologist [facility] SODIUM S/P/B 139 136 - 145 MMOL/L 01/09/2025 12:[address] [facility] POTASSIUM S/P/B 4.4 3.5 - 5.1 MMOL/L 01/09/2025 12:[address] [facility] CHLORIDE S/P/B 105 97 - 115 MMOL/L 01/09/2025 12:[address] [facility] CO2 30.8 21.0 - 32.0 MMOL/L 01/09/2025 12:[address] [facility] GLUCOSE 99 74 - 106 MG/DL 01/09/2025 12:[address] [facility] BUN 16 7 - 18 MG/DL 01/09/2025 12:[address] [facility] CREATININE S/P/B 0.63(L) 0.70 - 1.30 MG/DL 01/09/2025 12:[address] [facility] CALCIUM S/P/B 8.8 8.5 - 10.1 MG/DL 01/09/2025 12:[address] [facility] BILIRUBIN TOTAL S/P/B 0.3 0.2 - 1.0 MG/DL 01/09/2025 12:[address] [facility] ALKALINE PHOSPHATASE S/P/B 73 45 - 115 U/L 01/09/2025 12:[address] [facility] AST 12(L) 15 - 37 U/L 01/09/2025 12:[address] [facility] ALT 28 16 - 61 U/L 01/09/2025 12:[address] [facility] TOTAL PROTEIN S/P/B 5.8(L) 6.4 - 8.2 G/DL 01/09/2025 12:[address] [facility] ALBUMIN S/P/B 3.0(L) 3.4 - 5.0 G/DL 01/09/2025 12:[address] [facility] ANION GAP 3.2 2.0 - 10.0 MMOL/L 01/09/2025 12:[address] [facility] OSMOLALITY (CALC) 289 MOSM/KG 025 12:[address] [facility] Comment:REFERENCE RANGE NOT ESTABLISHED GFR ESTIMATE >90 >90 ML/MIN/1. 73 M2 01/09/2025 12:[address] [facility] GFR NOTES GFR REFERENCE S: 01/09/2025 12:[address] [facility] Comment: THE ESTIMATED GFR IS [...] us Shilpa Gonzales MD LABORATORY Final Result [facility] [address] [place] [address], [phone] * TROPONIN, QUANT (01/09/2025 11:44 AM CDT) Only the most recent of6 resultswithin the time period is included. TROPONIN I HIGH SENSITIVITY 12 0 - 78 ng/L 01/09/2025 12:[address] [facility] 01/09/2025 11:4 4 AM CDT us Shilpa Gonzales MD LABORATORY Final Result Performing Organization Address City/[facility] Co de Phone Number [facility] [address] [place] [address], [id number] * MAGNESIUM (01/09/2025 11:44 AM CDT) Only the most recent of15 resultswithin the time period is included. MAGNESIUM 1.9 1.6 - 2.6 MG/DL 01/09/2025 12:[address] [facility] 01/09/2025 11:4 4 AM CDT us Shilpa Gonzales MD LABORATORY Final Result Performing Organization Address [facility] Co de Phone Number [facility] [address] [place] [address], [place] [phone] * (ABNORMAL) SALICYLATE (01/09/2025 11:44 AM CDT) SALICYLATES <1.7(L) 2.8 - 20.0 MG/DL 01/09/2025 12:[address] [facility] 01/09/2025 11:4 4 AM CDT us Shilpa Gonzales MD LABORATORY Final Result Performing Organization Address City/[facility] Co de Phone Number [facility] [address] [place] [id number], [place] [phone] * ETHANOL (01/09/2025 11:44 AM CDT) ALCOHOL S/P/B ZERO 0 G/DL 01/09/2025 12:[address] [facility] 01/09/2025 11:4 4 AM CDT Shilpa Gonzales MD LABORATORY Final Result Performing Organization Address [facility] de Phone Number [facility] [address] [place] [address], [id number] * (ABNORMAL) ACETAMINOPHEN (01/09/2025 11:44 AM CDT) ACETAMINOPHEN S/P/B 3.9(L) 10.0 - 30.0 MCG/ML 01/09/2025 12:[address] [facility] 01/09/2025 11:4 4 AM CDT Shilpa Gonzales MD LABORATORY Final Result Performing Organization Address [facility] de Phone Number [facility] [address] [place] [address], [phone] * ECG 12 lead (01/09/2025 9:44 AM CDT) Only the most recent of4 resultswithin the time period is included. 01/09/2025 9:44 AM CDT Narrative [facility] - 01/09/2025 9:36 PM CDT [facility]-ED Test Date: 2025-01-09 Pat Name: JASPER ALARCON Department: 70 Room: 718 Gender: Male [employer]: : 1955 Requested By: SHILPA GONZALES Order Number: [id number] Vidhya MD: Marcial Titus Measurements Intervals [place] Rate: 55 P: 1 NV: 154 QRS: 47 QRSD: 86 T: 56 QT: 413 QTc: 396 Interpretive Statements SINUS BRADYCARDIA ST DEVIATION AND MODERATE T-WAVE ABNORMALITY, CONSIDER ANTERIOR ISCHEMIA Procedure Note Marcial Titus MD - 01/09/2025 SJS-ED Test Date: 2025-01-09 Pat Name: JASPER ALARCON Department: 70 Room: 718 Gender: Male 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 01/09/2025 9:29 AM. [...] Procedure Note Keren Maradiaga MD - 01/09/[address] [address] PROCEDURE: XR CHEST PORTABLE. 01/09/2025 9:29 AM. [...] - 10.80 x10'3/uL 01/02/2025 9:[address] [facility] RBC 3.92(L) 4.50 - 6.10 x10'6/uL 01/02/2025 9:[address] [facility] HGB 12.6(L) 13.0 - 18.0 G/DL 01/02/2025 9:[address] [facility] HCT 37.4 37.0 - 52.0 % 01/02/2025 9:[address] [facility] MCV 95.4 78.0 - 100.0 FL 01/02/2025 9:[address] [facility] MCH 32.1(H) 27.0 - 31.0 PG 01/02/2025 9:[address] [facility] MCHC 33.7 33.0 - 36.0 G/DL 01/02/2025 9:[address] [facility] RDW 14.6(H) 11.5 - 14.5 % 01/02/2025 9:[address] [facility] PLT 136(L) 150 - 350 x10'3/uL 01/02/2025 9:[address] [facility] MPV 8.4 7.4 - 10.4 FL 01/02/2025 9:[address] [facility] 01/02/2025 9:19 AM CDT us Eulogio Britton MD LABORATORY Final Result [facility] [address] [place] [address], [id number] * PHOSPHORUS, INORGANIC PHOSPHATE (01/02/2025 9:19 AM CDT) Only the most recent of7 resultswithin the time period is included. PHOSPHORUS 3.6 2.5 - 4.9 MG/DL 01/02/2025 11:[address] [facility] 01/02/2025 9:19 AM CDT Eulogio Britton MD LABORATORY Final Result [facility] [address] [place] [address], [id number] * CTA CHEST PE PROTOCOL (12/28/2024 5:45 [...] 8:49 PM Narrative 12/28/2024 9:24 PM CDT [facility] [address] [place], [place] [address] EXAMINATION: CTA CHEST WITH CONTRAST, PULMONARY EMBOLISM [...] Procedure Note Alli Cleary MD - 12/28/2024 [facility] [address] [place], [place] [address] EXAMINATION: CTA CHEST WITH CONTRAST, PULMONARY EMBOLISM [...] 70 - 109 12/28/2024 6:[address] [facility] 12/28/2024 6:13 AM CDT Chalrene Prieto MD POCT ORDERABLES - DEVICE Final Result Performing Organization Address [facility] Co de Phone Number [facility] [address] [place] [address], [phone] * FIBRINOGEN (12/12/2024 3:27 AM CDT) Only the most recent of3 resultswithin the time period is included. FIBRINOGEN 320 200 - 393 MG/DL 12/12/2024 4:[address] [facility] 12/12/2024 3:27 AM CDT Parish Arroyo MD LABORATORY Final Result Performing Organization Address [facility] Co de Phone Number [facility] [address] [place] [address], [phone] * LIPID PANEL (12/11/2024 3:15 AM CDT) CHOLESTEROL 217 MG/DL 12/11/2024 4:[address] [facility] Comment:BORDERLINE HIGH: 200 -239 TRIGLYCERIDES 60 MG/DL 12/11/2024 4:[address] [facility] Comment:<150 NORMAL HDL 69 >39 MG/DL 12/11/2024 4:[address] [facility] LDL (CALCULATED) 136 MG/DL 12/12/19 4:[address] [facility] Comment:130-159 BORDERLINE H IGH VLDL CALCULATION 12 MG/DL 12/12/19 25 4:[address] [facility] Comment:REFERENCE RANGE NOT ESTABLISHED CHOL/HDL RATIO 3.1 12/11/2024 4:[address] [facility] Comment:REFERENCE RANGE NOT ESTABLISHED LDL/HDL 2.0 12/11/2024 4:[address] [facility] Comment:REFERENCE RANGE NOT ESTABLISHED NON HDL CHOLESTEROL 148 MG/DL 12/11/2024 4:[address] [facility] Comment:REFERENCE RANGE NOT ESTABLISHED 12/11/2024 3:15 AM CDT Parish Arroyo MD LABORATORY Final Result [facility] [address] [place] [address], [id number] * EEG routine (12/10/2024 12:00 PM CDT) 12/10/2024 12:0 0 PM CDT Narrative ESCRIPTION - 12/11/2024 12:09 PM CDT Patient Name: JASPER ALARCON Date of : 1955 Account: [id number] Facility: [facility] Location: [address] EEG HISTORY: Mr. Alarcon is a [...] correlation is required. Signature/Date: CLARIBEL CHAMPION MD #[id number] /HEAVENLY us Maria Dolores Mcrae MD NEUROLOGY ORDERABL ES Final Result ESCRIPTION * (ABNORMAL) POCT ACUTE VENOUS PANEL (12/10/2024 7:44 AM CDT) SODIUM WHOLE BLOOD 136(L) 138 - 146 mmol/L 12/10/2024 7:[address] [facility] POTASSIUM WHOLE BLOOD 3.6 3.5 - 4.9 mmol/L 12/10/2024 7:[address] [facility] CA IONIZED WH BLOOD 1.15 1.12 - 1.32 mmol/L 12/10/2024 7:[address] [facility] POC PH VENOUS 7.367 7.31 - 7.41 12/10/2024 7:[address] [facility] POC PCO2 VENOUS 40.2(L) 41.0 - 51.0 MMHG 12/10/2024 7:[address] [facility] POC PO2 VENOUS 43(H) 25 - 40 MMHG 12/10/2024 7:[address] [facility] POC HCO3 VENOUS 23.1 23 - 28 MMOL/L 12/10/2024 7:[address] [facility] POC TCO2 VENOUS 24 24 - 29 MMOL/L 12/10/2024 7:[address] [facility] POC BASE DEFICIT VENOUS 2 0 - 2 MMOL/L 12/10/2024 7:[address] [facility] POC HEMATOCRIT 34(L) 38 - 51 % 12/10/2024 7:[address] [facility] TIME TEST WAS PERFORMED: 744 12/10/2024 7:[address] [facility] 12/10/2024 7:44 AM CDT us Maria Dolores Mcrae MD POCT ORDERABLES - DEVICE Final Result Performing Organization Address [facility] de Phone Number [facility] [address] [place] [address], [phone] * BLOOD TYPING, ABO AND RH (12/10/2024 6:20 AM CDT) ABO/RH O POSITIVE 12/10/2024 7:[address] [facility] 12/10/2024 6:20 AM CDT Pairsh Arroyo MD BLOOD BANK TEST ORDERABLES Ifeoma l Result Performing Organization Address [facility] de Phone Number [facility] [address] [place] [address], [phone] * TYPE & SCREEN (12/10/2024 6:05 AM CDT) ABO/RH O POSITIVE 12/10/2024 7:[address] [facility] ANTIBODY SCREEN NEGATIVE 12/10/2024 7:[address] [facility] SAMPLE EXPIRATION 12/13/2024,2 359 12/10/2024 6:[address] [facility] 12/10/2024 6:05 AM CDT Parish Arroyo MD BLOOD BANK TEST ORDERABLES Ifeoma l Result Performing Organization Address [facility] de Phone Number [facility] [address] [place] [address], [phone] * Critical Care (12/10/2024 2:15 AM CDT) Narrative Compa Banuelos MD - 12/10/2024 2:15 AM CDT Compa Banuelos MD 12/10/2024 2:55 AM Critical Care Performed by: Compa Banuelos MD Authorized by: Compa Banuelos MD Critical care provider statement: Critical care time (minutes): 60 Critical care start time: 12/10/2024 1:17 AM Critical care end time: 12/10/2024 2:17 AM Critical care was necessary to treat or prevent imminent or life-threatening deterioration of the following conditions: Dehydration, metabolic crisis and VICE PRESIDENT SAFETY failure or compromise Critical care was time [...] 2:13 PM Narrative 12/01/2024 2:[address] [place] [address] Examination: Radiation therapy planning CT scan. Exam time: 1106 hours. Clinical history: Metastatic lung cancer. Comparison: MRI of the brain, 11/07/2024 ([facility]); noncontrast CT of the chest, 11/21/2024 [...] Procedure Note Manuel Valdes MD - 12/01/2024 [facility] [address] [place] [address] Examination: Radiation therapy planning CT scan. Exam time: 1106 hours. Clinical history: Metastatic lung cancer. Comparison: MRI of the brain, 11/07/2024 ([facility]); noncontrast CT of the chest, 11/21/2024 (this [...] 9:58 AM Narrative 11/22/2024 10:09 AM CDT [address] [place] [address] Examination: CT of the chest without contrast. Exam time: 0928 hours. Clinical history: Follow-up of metastatic lung cancer. History of smoking. Comparison: Contrast-enhanced CT of the chest, abdomen and pelvis, 11/08/2024 ([facility]). Technique: Spiral scanning was performed through the [...] Procedure Note Manuel Valdes MD - 11/22/2024 [facility] [address] [place] [address] Examination: CT of the chest without contrast. Exam time: 0928 hours. Clinical history: Follow-up of metastatic lung cancer. History ofsmoking. Comparison: Contrast-enhanced CT of the chest, abdomen and pelvis,11/08/2024 ([facility]). Technique: Spiral scanning was performed through the [...] 5:39 AM Narrative 11/09/2024 6:06 AM CDT [facility] [address] [place], [place] [address] EXAMINATION: CT Chest, Abdomen, and Pelvis with Intravenous Contrast, Axial Imaging with 2-D coronal and sagittal reconstructions. 100 mL Isovue 370 was administered intravenously. INDICATION: Metastatic disease workup. COMPARISON: Outside CT chest, abdomen, and pelvis with contrast exam from [facility] dated 11/03/2024, CT chest, abdomen and [...] Procedure Note Sara Lugo MD - 11/09/[address] [address] EXAMINATION: CT Chest, Abdomen, and Pelvis with Intravenous Contrast,Axial Imaging with 2-D coronal and sagittal reconstructions. 100 mL [id number] was administered intravenously. INDICATION: Metastatic disease workup. COMPARISON: Outside [facility] chest, abdomen, [facility] CT chest, abdomen and [...] in the cecum on coronal series 4 [id number], axial image 173 are new since 11/03/2024, [...] 4:53 PM Narrative 10/25/2024 7:[address] PM [address] [place] [address] EXAMINATION: MRI THOR SPINE WWO CON, MRI [...] joint hypertrophy. Moderate left neural foraminal stenosis. Cpho-bu-wzvzlpdy right neural foraminal stenosis. C4-5: Disc bulge [...] Note Julio Cesar Mann MD - 10/25/2024 [place] [address] [place] [address] EXAMINATION: MRI THOR SPINE WWO CON, MRI [...] Vertebral joint hypertrophy.Moderate left neural foraminal stenosis. Kfwa-sl-hxecdxhs right neuralforaminal stenosis. C4-5: Disc bulge impressing [...] 4:53 PM Narrative 10/25/2024 7:34 PM CDT [place] [id number] [facility] [place] [address] EXAMINATION: MRI THOR SPINE WWO CON, MRI [...] joint hypertrophy. Moderate left neural foraminal stenosis. Zycc-um-ccnpflry right neural foraminal stenosis. C4-5: Disc bulge [...] Note Julio Cesar Mann MD - 10/25/[address] [place] [address] EXAMINATION: MRI THOR SPINE WWO CON, MRI [...] Vertebral joint hypertrophy.Moderate left neural foraminal stenosis. Ncxx-ac-mpummafp right neuralforaminal stenosis. C4-5: Disc bulge impressing [...] 10:32 PM 11/09/2024 3:42 PM Care Teams Vp Revenue Cycle Relationship Specialty Start Date End Date Liu Brewer MD [address] [place] [address] PCP - General FAMILY PRACTICE 07/25/20 Nilya Enriquez MD [address] [place] [address] ORTHOPAEDICS 01/15/18 Marcial Titus MD [address] [facility] [address] [place] [address] Physician INTERVENTIONAL CARDIOLOGY 09/16/24 Jeana Hodge, life insurance sales (Ambulatory) REGISTERED NURSE 12/12/24 Selvin Taylor MD [address] [place] [address] EP Robot Programmer CLINICAL CARDIAC ELECTROPHYSIOLOGY 01/03/25
--- OUTSIDE RECORDS SUMMARY | 2025-01-15 05:53 | XMS_ITS | Continuity of Care Document ---
Author Organization [facility] Address [address] [place] [address] [address] [place] [address] Phone Care Team Providers Care Interior Assemblies Installer Name Role Phone Selvin Kumar Unavailable Unavail able Procedures Procedure Date FCE Each 15min Advance Directives Directive Yes / No Effective Date File Name No Information Encounters Encounter Description Practice Location Reason(s) For Visit Diagnoses Date Provider Providers Copied on Encounter [facility], [address] [place] [address] [address], [place], [place], [id number], [place] tel:[phone] Mousie Pain in right wristPain in right elbowStiffnes s of right wrist, not elsewhere classifiedSti ffness of right elbow, not elsewhere classifiedOth er general symptoms and signs 0 9-201 [address]. [address] [place], [address], [place]. tel:[phone] Referring Provider: Anuj Rayo, [address], [address]. tel:[phone] Family History Family Member Type Diagnosis Age At Onset No Information Payers Payer name Insurance type Covered green party ID Authoriza tion(s) [employer] [id number] Social History Type Description Quantity Date Captured [...]
--- OUTSIDE RECORDS SUMMARY | 2025-01-15 05:53 | XMS_ITS | Encounter Summary ---
Author Organization [facility] Address [address] [place] [address] Care Team Providers Care Java Jsf Developer Name Role Phone Nilay Enriquez MD Unavailable [phone] Martha Jordan MD Unavailable [phone] Liu Brewer MD Primary Care Provider Marcial Titus MD Unavailable [phone] Jeana Hodge RN Unavailable Unavailab Selvin Romo MD Unavailable [phone] Reason for Visit * Reason Onset Date Comments Preprocedure Call 08/07/2023 Spoke to suyapa sanchez and scheduled thyroid biopsy for 08/11, check in at 1200. 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 He voiced understanding. Encounter Details Date Type Department Care Team (Late st Contact Info) Description 08/07/2023 Telephone [facility] Interventional Radiology [address] [place] [address] Deepika Urbina, RN Preprocedure Call (Spoke to patient and scheduled thyroid biopsy for 08/11, check in at 1200. 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 He does need to hold [...] Sex Assigned at Male 07/26/2024 2:15 PM COIL MAKER Legal Sex Male 2:41 PM COIL MAKER Gender Identity Not on file Sexual Orientation Not on file documented as of this encounter Plan of Treatment Upcoming Encounters Date Type Department Care Team (Late st Contact Info) Description 01/16/2025 10:00 AM CDT Appointment [facility] [address] [place] [address] [place] [address] Zachary Bailey MD [address] [place] [address] 02/03/2025 11:00 AM CDT Office Visit [facility] [address] [place] [phone] Selvin Taylor MD [address] [place] [phone] 03/21/2025 10:45 AM CDT Office Visit [facility] [place] [address] [place] [address] Marcial Titus MD [address] [place] [address] 11/07/2025 8:30 AM CDT Office Visit [facility] [place] [address] [place] [address] Marcial Titus MD [address] [place] [address] documented as of this encounter Visit Diagnoses Not on filedocumented in this encounter Care Teams Java Jsf Developer Relationship Specialty Start Date End Date Liu Brewer MD [address] [place] [address] PCP - General FAMILY PRACTICE 07/25/20 Nilay Enriquez MD [address] [place] [address] ORTHOPAEDICS 01/15/18 Martha Jordan MD [address] [place], [place] [phone] Consulting Physician INTERVENTIONAL CARDIOLOGY 07/27/20 09/16/24 Marcial Titus MD [address] [place] [address] Physician INTERVENTIONAL CARDIOLOGY 09/16/24 Jeana Hodge, lay brother (Ambulatory) REGISTERED NURSE 12/12/24 Selvin Taylor MD [address] [place], [place] [address] EP Practice Performance Manager CLINICAL CARDIAC ELECTROPHYSIOLOGY 01/03/25 documented as of this encounter
--- OUTSIDE RECORDS SUMMARY | 2025-01-15 05:53 | XMS_ITS | Encounter Summary ---
Author Organization [facility] Address [address] [place] [address] Care Team Providers Care Pecan Gatherer Name Role Phone Everton Flores MD Primary Care Provider [phone] Osmar Cabrales MD Unavailable Unavailable Mode Slaughter MD Unavailable Unavailable Nilay Enriquez MD Unavailable [phone] Martha Jordan MD Unavailable [phone] Liu Brewer MD Primary Care Provider Marcial Titus MD Unavailable [phone] Jeana Hodge RN Unavailable Unavailab Selvin Romo MD Unavailable [phone] Encounter Details Date Type Department Care Team (Late st Contact Info) Description 12/18/2018 Abstract [facility] [address] [place] [address] , Generic Conversion, Social History Tobacco Use Types Packs/Day Years Used Date Smoking Tobacco: Every Day Smokeless Tobacco: Never Sex and Gender Information Value Date Recorded Sex Assigned at Male 07/26/2024 2:15 PM SPECIAL SKILLS OFFICER Legal Sex Male 2:41 PM SPECIAL SKILLS OFFICER Gender Identity Not on file Sexual Orientation Not on file documented as of this encounter Plan of Treatment Upcoming Encounters Date Type Department Care Team (Late st Contact Info) Description 01/16/2025 10:[address] [facility] [address] [place] [address] Zachary Bailey MD [address] [place] [phone] 02/03/2025 11:00 AM CDT [facility] [address] [place] [address] Selvin Taylor MD [address] [place] [phone] 03/21/2025 10:45 AM CDT Office Visit [facility] [address] [place] [address] Marcial Titus MD [address] [place] [address] 11/07/2025 8:30 AM CDT Office Visit [facility] [place] [address] [facility] [place] [phone] Marcial Titus MD [address] [place] [address] documented as of this encounter Visit Diagnoses Not on filedocumented in this encounter Care Teams Pecan Gatherer Relationship Specialty Start Date End Date Everton Flores MD [address] [place] [phone] PCP - General FAMILY PRACTICE 07/07/17 07/24/20 Liu Brewer MD [address] [place] [phone] PCP - General FAMILY PRACTICE 07/25/20 Osmar Cabrales MD [address] [place] [phone] CARDIOVASCULAR DISEASE 07/07/17 07/26/20 Mode Slaughter MD [address] [place] [address] CARDIOVASCULAR DISEASE 07/22/17 07/26/20 Nilay Enriquez MD [address] [place] [address] ORTHOPAEDICS 01/15/18 Martha Jordan MD [address] [place] [address] Consulting Physician INTERVENTIONAL CARDIOLOGY 07/27/20 09/16/24 Marcial Titus MD [address] [facility] [address] [address] Physician INTERVENTIONAL CARDIOLOGY 09/16/24 Jeana Hodge, senior operations analyst (Ambulatory) REGISTERED NURSE 12/12/24 Selvin Taylor MD [address] [place], [place] [phone] EP Combination Machine Tender CLINICAL CARDIAC ELECTROPHYSIOLOGY 01/03/25 documented as of this encounter
--- OUTSIDE RECORDS SUMMARY | 2025-01-15 05:53 | XMS_ITS | Encounter Summary ---
Author Organization [facility] Address [address] [place] [address] Care Team Providers Care Textile Scrap Salvager Name Role Phone Nilay Enriquez MD Unavailable [phone] Liu Brewer MD Primary Care Provider Marcial Titus MD Unavailable [phone] Jeana Hodge RN Unavailable Unavailab Selvin Romo MD Unavailable [phone] Encounter Details Date Type Department Care Team (Late st Contact Info) Description 01/03/2025 Hospital Follow-up Call [facility] [address] [place] [address] Petra Barnes, RN Social History Tobacco Use Types Packs/Day Years Used Date Smoking Tobacco: Former Cigarettes Q uit: 2017 Smokeless Tobacco: Never Alcohol Use Standard Drinks/Week Comments Yes 0 (1 standard drink = 0.6 oz pur e alcohol) 2 to 4 drinks per week [facility] Utilities Answer Date Recorded In the [...] any time in the past 12 m [facility], were you homeless or living in a care home (including now)? No 12/28/2024 Sex and Gender Information Value Date Recorded Sex Assigned at Male 07/26/2024 2:15 PM WOOD CHOPPER Legal Sex Male 2:41 PM WOOD CHOPPER Gender Identity Not on file Sexual Orientation [...] Info) Description 01/16/2025 10:00 AM CDT Appointment [facility] [address] [place] [address] Zachary Bailey MD [address] [place] [address] 02/03/2025 11:00 AM CDT [facility] [address] [place] [address] Selvin Taylor MD [address] [place] [address] 03/21/2025 10:45 AM CDT Office Visit [facility] [address] [place] [address] Marcial Titus MD [address] [facility] [address] [place] [address] 11/07/2025 8:30 AM CDT Office Visit [facility] [place] [address] Marcial Titus MD [address] [address] documented as of this encounter Goals Goal Patient Goal Type Associated Problems Recent Progress Patient-Stated? Author Safety - demonstrates understanding of home safety measures Lifestyle Donna Cabrera, RN Safety Patient/family will have appropriate support at home upon discharge Lifestyle Donna Cabrera, RN documented as of this encounter Visit Diagnoses Not on filedocumented in this encounter Care Teams Textile Scrap Salvager Relationship Specialty Start Date End Date Liu Brewer MD [address] [place] [phone] PCP - General FAMILY PRACTICE 07/25/20 Nilay Enriquez MD [address] [place] [address] ORTHOPAEDICS 01/15/18 Marcial Titus MD [address] [address] Physician INTERVENTIONAL CARDIOLOGY 09/16/24 Jeana Hodge RN Care Manager (Ambulatory) REGISTERED NURSE 12/12/24 Selvin Taylor MD [address] [place] [address] EP Ssis Architect CLINICAL CARDIAC ELECTROPHYSIOLOGY 01/03/25 documented as of this encounter
[2025-01-15 06:01] LABS: Troponin I 0.081 ng/mL (0.000-0.034)
[2025-01-15 06:19] LABS: Triglycerides 178 mg/dL (<150)
[2025-01-15 06:53] LABS: Add Urine Microscopic? YES; Appearance Urine Clear (Clear); Glucose Urine UA Negative (Negative); Leukocyte Esterase Ur Negative LEU/UL (Negative); Nitrate Urine Negative (Negative); Specific Grav Ur 1.010 (1.010-1.020)
[2025-01-15] MEDS: fentaNYL CITRATE INJ (*CRX) 100 MCG/2 ML VIAL 50 MCG IV PUSH (07:18)
[2025-01-15] MEDS: levETIRAcetam 500MG/NACL 100ML 500 MG/100 ML BAG 400 MG IVPB (07:32)
[2025-01-15] MEDS: NOREPINEPHRINE 8 MG/D5W 250 ML 8 MG/250 ML BAG 9.38 MG IV CONT (07:33)
== END 2025-01-15 08:07 | disposition short-term general hospital (02) ==
PROVIDERS: Emergency Provider Internal Medicine Critical Care Medicine; PCP Family Medicine
DX: J96.91 Respiratory failure, unspecified with hypoxia (principal); R91.8 Other nonspecific abnormal finding of lung field; D64.9 Anemia, unspecified; R74.01 Elevation of levels of liver transaminase levels; I48.91 Unspecified atrial fibrillation; J44.9 Chronic obstructive pulmonary disease, unspecified; I11.0 Hypertensive heart disease with heart failure; I50.9 Heart failure, unspecified; Z85.118 Personal history of other malignant neoplasm of bronchus and lung
CPT/HCPCS: 31500; 36415; 36600; 70450; 80053; 81001; 82805; 82948; 83690; 83735; 83880; 84478; 84484; 93005; 96365; 96366; 96367; 96368; 96375; 96376; 99291; J0282; J1938; J1953; J2704; J2919; J3010; J7040